=== PATIENT | female | born 1935 | race Caucasian/White ===

== ENCOUNTER 2016-06-08 12:32 | Emergency (ER) | payer MEDICARE, OTHER ==
[~2016-06-08 12:32] MED LIST: ACET65TA OR; ASPI81TA85 PO; ATIV0.5T OR; AVAP300T OR; BISO10TA2 OR; CALC0.5C OR; CALC1CAP31 PO; CALCTAB22 OR; CALCTAB93 PO; CETI1SYP16 PO; COLA100C2 OR; DRIS50002 PO; EFFE150C OR; FERR324T5 OR; FERR325T3 PO; FLON1SPR; GABA-279 PO; HYDR200T3 PO; IRBE150T12 PO; LASI20TA OR; NYSTATIN TOP; OMEP40CA2 PO; PERC5TAB8 OR; PRO; ULOR80TA PO; VICO5TAB OR; VITA100T OR; ZANT150T OR; fish oil OR; plaquenil OR; proair; uloric OR; vitaminD OR
[2016-06-08] MEDS ORDERED: NITROGLYCERIN 0.4 MG SUBL TABLET As Ordered ONE (13:00)
[2016-06-08] MEDS ORDERED: ASPIRIN 81 MG CHEW TABLET As Ordered ONE (13:00)
[2016-06-08 13:16] LABS: BASO % 0.3 % (0.0-1.0); EOS % 0.6 % (0.0-3.0); LARGE UNSTAINED CELL # 0.1 K/mm3 (0.0-0.4); LARGE UNSTAINED CELL % 1.4 % (0.0-4.0); LYMPH # 1.2 K/mm3 (1.5-4.5); LYMPH % 14.1 % (24.0-44.0); MEAN CORPUSCULAR HEMOGLOBIN 30.3 pg (27.0-33.0); MEAN CORPUSCULAR HGB CONC 32.8 g/dl (32.0-36.5); MEAN CORPUSCULAR VOLUME 92.3 fl (80.0-96.0); MONO # 0.4 K/mm3 (0.0-0.8); MONO % 4.9 % (0.0-5.0); NEUTROPHILS # 6.7 K/mm3 (1.8-7.7); NEUTROPHILS % 78.8 % (36.0-66.0); PLATELET COUNT, AUTOMATED 200 k/mm3 (150-450); RED CELL DISTRIBUTION WIDTH 12.2 % (11.5-14.5); WHITE BLOOD COUNT 8.5 K/mm3 (4.0-10.0)
[2016-06-08 13:35] LABS: ANION GAP 11 MEQ/L (8-16); BLOOD UREA NITROGEN 35 MG/DL (7-18); CALCIUM LEVEL 9.5 MG/DL (8.8-10.2); CARBON DIOXIDE LEVEL 26 MEQ/L (21-32); CHLORIDE LEVEL 101 MEQ/L (98-107); CREATININE FOR GFR 1.46 MG/DL (0.55-1.02); GLOMERULAR FILTRATION RATE 36.9 (>39); GLUCOSE, FASTING 224 MG/DL (83-110); POTASSIUM SERUM 3.8 MEQ/L (3.5-5.1); SODIUM LEVEL 138 MEQ/L (136-145)
--- NOTE | 2016-06-08 14:16 | REP ---
Clinical: Chest pain. Technique: PA and lateral. Comparison: 11/01/2015. Findings: Mediastinum and cardiac silhouette are stable. Moderate hiatal hernia is again identified. Lung cole demonstrate left basilar atelectasis. No effusion or pneumothorax. Skeletal structures stable. Impression: Left lower lobe atelectasis. Moderate hiatal hernia. Signed by Chintan Washburn MD 06/08/2016 02:08 P
[2016-06-08] MEDS ORDERED: FUROSEMIDE 40 MG/4 ML VIAL (J1940) As Ordered ONE (14:28)
[2016-06-08 14:39] LABS: INR 1.05
[2016-06-08] MEDS ORDERED: MOXIFLOXACIN 400 MG TAB As Ordered ONE (14:44)
[2016-06-08] MEDS ORDERED: ISOVUE-370 76% 100ML VIAL (Q9967) As Ordered ONE (14:55)
--- NOTE | 2016-06-08 15:24 | ECGEPIP ---
Stationary ECG Study [facility] - ED Test Date: 2016-06-08 Pat Name: QUINCY BARBOSA Department: Room: - Gender: F Private Chef: eris : 1935 Requested By: Luis E Antunez Order Number: [id number] Reading MD: Mary Murrell Measurements Intervals [place] Rate: 80 P: 264 OK: 110 QRS: -1 QRSD: 150 T: 10 QT: 401 QTc: 463 Interpretive Statements JUNCTIONAL RHYTHM RIGHT BUNDLE BRANCH BLOCK INCREASED RATE 11/01/15 Electronically Signed On 06-08-2016 15:23:32 EST by Mary Murrell
--- NOTE | 2016-06-08 15:33 | REP ---
Clinical: Acute chest pain. Technique: Axial contrast enhanced images from the thoracic inlet to the upper abdomen using 100 ml Isovue 370 intravenous contrast material with coronal and sagittal re-formations. Findings: Satisfactory enhancement of the pulmonary vasculature is achieved and no filling defects are identified to suggest pulmonary embolus. Mild basilar atelectasis noted (left greater than right). No pleural effusion/reaction or pneumothorax. Mediastinum demonstrates moderate hiatal hernia. Thoracic aorta demonstrates minimal atherosclerotic changes without aneurysm or dissection. Heart and pericardium are normal. Impression: No evidence for pulmonary embolus. Mild basilar atelectasis (left greater than right). Signed by Chintan Washburn MD 06/08/2016 03:24 P
--- NOTE | 2016-06-08 16:03 | EDDOCDS ---
Nurse's Notes [facility] Name: Yesenia Cheema Age: 80 yrs Sex: Female : 1935 Arrival Date: 06/08/2016 Time: 12:32 Bed TR7 Private MD: Issa Low M.D. Diagnosis: Pneumonia, unspecified organism Presentation: 06/08 12:42 Presenting complaint: Patient states: Chest pain ''on and off'' since last evening. dwg Pain radiates to left shoulder. Takes baby ASA daily. Adult Sepsis Screening: The patient does not have new or worsening altered mentation. Patient's respiratory rate is less than 22. Systolic blood pressure is greater than 100. Patient has a qSOFA score of 0- Negative Sepsis Screen. Suicide/Homicide risk assessment- the patient denies having any suicidal and/or homicidal ideations and does not present with any other emotional, behavioral or mental health complaints. 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 Transition of care: patient was not received from another setting of care. Red Flag criteria, patient assessed and taken directly to a bed. 12:42 Acuity: MARII Level 2 dwg 12:42 Method Of Arrival: Wheelchair dwg Triage Assessment: 12:47 General: Appears in no apparent distress, Behavior is cooperative. Pain: Pain currently dwg is 6 out of 10 on a pain scale. Historical: - Allergies: Allopurinol; Bactrim; PENICILLINS; - Home Meds: 1. aspirin 81 mg Oral chew 1 tab once daily 2. Ativan 0.5 mg Oral tab 1 tab 2 times per day as needed 3. calcitriol 0.25 mcg oral cap 1 cap Saturday thru Saturday 4. Drisdol 50,000 unit Oral cap 1 cap once wkly 5. Effexor XR 150 mg Oral cp24 1 cap once daily 6. ferrous sulfate 325 mg (65 mg iron) Oral TbEC 7. Fish Oil 1,000 mg Oral cap daily 8. gabapentin 100 mg oral cap 3 times per day 9. irbesartan 150 mg oral tab 1 tab once daily 10. Vitamin B-12 1,000 mcg Oral tab daily 11. Uloric 80 mg oral tab 1 tab once daily 12. Lasix 20 mg Oral tab 1 tab once daily 13. ProAir HFA 90 mcg/actuation inhalation HFAA 2 puffs every 4-6 hours as needed 14. hydroxychloroquine 200 mg oral tab 2 times per day - PMHx: Anxiety; CAD; COPD; Gout; Hypertension; PE; Chronic kidney disease; - PSHx: Hysterectomy; Bilateral rotator cuff repair; - Social history: Smoking status: Patient states was never smoker of tobacco. No barriers to communication noted, The patient speaks fluent Burmese. - Family history: Not pertinent. - : The pt / caregiver states he / she is not on anticoagulants. Home medication list is obtained from family members. - Exposure Risk Screening:: None identified. Screenin:16 Screening information is obtained from the patient. Fall risk: At risk due to prior ja5 history of falls. Assistance ADL's: Requires assistance with meal preparation, this assistance is provided by family members, housework, assistance is provided by family members, medication administration, assistance is provided by family members. Abuse/DV Screen: The patient / caregiver reports he/she is: not in a situation that causes fear, pain or injury. Nutritional screening: On no prescribed diet. Advance Directives: Currently, there is no health care proxy. There is no active DNR order. There is no living will. There is no Power of Scarf Gluer. home support is adequate. Assessment: 13:14 General: Appears in no apparent distress, Behavior is appropriate for age, cooperative. ja5 Pain: Location: chest. Neurological: Level of Consciousness is awake, alert, Oriented to person, place, time. Cardiovascular: Capillary refill < 3 seconds Heart tones S1 S2 present Rhythm is atrial fibrillation with no ectopy Chest pain quality is heaviness, radiates to left arm(s) Chest pain began last night at 11pm. Respiratory: Airway is patent Respiratory effort is even, unlabored, Respiratory pattern is regular, symmetrical, Breath sounds are clear in left posterior upper lobe and left posterior lower lobe Breath sounds with wheezes expiratory in right posterior upper lobe, right posterior middle lobe and right posterior lower lobe. GI: Bowel sounds present X 4 quads. Derm: Skin is pink, warm & dry. 14:21 General: Appears in no apparent distress, comfortable, Behavior is cooperative. Pain: bcj Location: right posterior lower lobe and right posterior middle lobe and right posterior upper lobe. Cardiovascular: Rhythm is atrial fibrillation. Derm: Skin is pink, warm & dry. 15:45 Derm: Skin is pink, warm & dry. ead 15:59 General: Appears in no apparent distress, comfortable, Behavior is appropriate for age, ead cooperative. Pain: Denies pain. Neurological: No deficits noted. Respiratory: Airway is patent Respiratory effort is even, unlabored. Vital Signs: 12:34 BP 146 / 76; Pulse 57; Resp 18; Temp 99.1(T); Pulse Ox 92% on R/A; Weight 87.09 kg; dem1 Height 4 ft. 11 in. (149.86 cm); Pain 7/10; 12:57 BP 142 / 63 (auto/); ead 12:57 Pulse 82 MON; Pulse Ox 93% ; ead 13:11 BP 126 / 51; Pain 5/10; ja5 13:12 BP 126 / 51 (auto/); ead 13:12 Pulse 96 MON; Pulse Ox 96% ; ead 13:18 BP 115 / 53 (auto/); ead 13:18 Pulse 98 MON; Pulse Ox 92% ; ead 13:19 BP 115 / 53; Pain 5/10; ja5 13:23 Pulse 108 MON; Pulse Ox 93% ; ead 13:24 BP 108 / 59 (auto/); ead 13:24 Pain 3/10; ja5 13:25 BP 108 / 59; Pain 3/10; ja5 13:27 BP 109 / 51 (auto/); ead 13:37 Pulse 104 MON; Pulse Ox 92% ; ead 15:45 BP 155 / 67; Pulse 83; Resp 20; Temp 99.4; Pulse Ox 96% on R/A; Pain 0/10; ead 12:34 Body Mass Index 38.78 (87.09 kg, 149.86 cm) dem1 Vitals: 12:34 Log In Time: June 08, 2016 at 12:32. RN notified that patient meets Red Flag [facility] criteria. 14:21 Refer to monitor trend for complete vital signs trends. [facility] ED Course: 12:33 Patient visited by Clair Decker. dem1 12:33 Patient moved to Waiting dem1 12:34 Issa Low is Private Physician. dem1 12:38 Evelyne Castro, RN is Primary Nurse. ml6 12:38 Shannan White,RN is Primary Nurse. ml6 12:38 Patient moved to 9 ml6 12:43 EKG done. (by ED staff). Reviewed by Luis E Diaz MD. jrd 12:44 Triage Initiated dwg 12:45 Patient visited by Andrea Reina PCA. jrd 12:45 Kit Hay FNP is [facility]. ke 12:46 Patient visited by Kit Hay FNP. ke 12:46 Patient visited by Kit Hay FNP. ke 13:01 Inserted saline lock: 20 gauge in left antecubital area. ja5 13:10 Patient visited by Kit Hay FNP. ke 13:23 Prothrombin Time Profile\E\INR Sent. ja5 13:23 D-DIMER QUANT Sent. ja5 13:26 [facility] Payment Agreement was scanned into [employer] and attached to record. lg 13:40 Patient visited by Kit Hay FNP. ke 14:04 Patient visited by Kit Hay FNP. ke 14:21 No apparent distress. Resting quietly. awaiting re-evaluation by ER physician. bcj 14:21 The patient / caregiver is instructed regarding the plan of care and ED course. Cardiac bcj monitor on. Pulse ox on. NIBP on. 14:21 IV is intact. bcj 14:26 Patient visited by Rigoberto Lozada RN. bcj 14:27 Chest, 2 View (pa\E\lat) Returned. EDMS 14:46 Patient visited by Floridalma Van,KOURTNEY. ead 15:14 Patient visited by Kit Hay FNP. ke 15:29 Issa Low is Referral Physician. ke 15:57 Patient moved to [facility] ead 15:59 Discontinued lock intact, bleeding controlled, pressure dressing applied, No ead redness/swelling at site. No procedures done that require assistance. Administered Medications: 13:05 Drug: Aspirin 324 mg [aspirin 81 mg chewable tablet (4 tabs)] Route: PO; ja5 13:05 Drug: Nitrostat 0.4 mg [Nitrostat 0.4 mg sublingual tablet (1 tabs)] Route: Sublingual; ja5 13:11 Follow up: BP 126 / 51; Pain 5/10 Adult ja5 13:13 Drug: Nitrostat 0.4 mg [Nitrostat 0.4 mg sublingual tablet (1 tabs)] Route: Sublingual; ja5 13:19 Follow up: BP 115 / 53; Pain 5/10 Adult [facility] 13:20 Drug: Nitrostat 0.4 mg [Nitrostat 0.4 mg sublingual tablet (1 tabs)] Route: Sublingual; ja5 13:24 Follow up: Pain 3/10 Adult 5 13:25 Follow up: BP 108 / 59; Pain 3/10 Adult 5 14:34 Drug: Furosemide 40 mg [furosemide 10 mg/mL injection solution (4 mL)] Route: IVP; ead Site: left antecubital; 14:48 Drug: Moxifloxacin 400 mg [moxifloxacin 400 mg tablet (1 tabs)] Route: PO; ead Order Results: Lab Order: B-Type Natiuretic Peptide; SPEC'M 06/08/16 12:52 Test: BRAIN NATRIURETIC PEPTIDE; Value: 214; Range: <100; Abnormal: Above high normal; Units: PG/ML; Status: F Lab Order: Basic Metabolic Profile; SPEC'M 06/08/16 12:52 Test: GLUCOSE, FASTING; Value: 224; Range: 83-110; Abnormal: Above high normal; Units: MG/DL; Status: F Test: BLOOD UREA NITROGEN; Value: 35; Range: 7-18; Abnormal: Above high normal; Units: MG/DL; Status: F Test: CREATININE FOR GFR; Value: 1.46; Range: 0.55-1.02; Abnormal: Above high normal; Units: MG/DL; Status: F Test: GLOMERULAR FILTRATION RATE; Value: 36.9; Range: >39; Abnormal: Below low normal; Status: F Test: SODIUM LEVEL; Value: 138; Range: 136-145; Units: MEQ/L; Status: F Test: POTASSIUM SERUM; Value: 3.8; Range: 3.5-5.1; Units: MEQ/L; Status: F Test: CHLORIDE LEVEL; Value: 101; Range: 98-107; Units: MEQ/L; Status: F Test: CARBON DIOXIDE LEVEL; Value: 26; Range: 21-32; Units: MEQ/L; Status: F Test: ANION GAP; Value: 11; Range: 8-16; Units: MEQ/L; Status: F Test: CALCIUM LEVEL; Value: 9.5; Range: 8.8-10.2; Units: MG/DL; Status: F Test Note: ; Units are mL/min/1.73 m2 Chronic Kidney Disease Staging per NKF: Stage I & II GFR >=60 Normal to Mildly Decreased Stage III GFR 30-59 Moderately Decreased Stage IV GFR 15-29 Severely Decreased Stage V GFR <15 Very Little GFR Left ESRD GFR <15 on SUPERVISOR QUALITY CONTROL Lab Order: CBC with Diff; SPEC'M 06/08/16 12:52 Test: WHITE BLOOD COUNT; Value: 8.5; Range: 4.0-10.0; Units: K/mm3; Status: F Test: RED BLOOD COUNT; Value: 4.12; Range: 4.00-5.40; Units: M/mm3; Status: F Test: HEMOGLOBIN; Value: 12.5; Range: 12.0-16.0; Units: g/dl; Status: F Test: HEMATOCRIT; Value: 38.0; Range: 36.0-47.0; Units: %; Status: F Test: MEAN CORPUSCULAR VOLUME; Value: 92.3; Range: 80.0-96.0; Units: fl; Status: F Test: MEAN CORPUSCULAR HEMOGLOBIN; Value: 30.3; Range: 27.0-33.0; Units: pg; Status: F Test: MEAN CORPUSCULAR HGB CONC; Value: 32.8; Range: 32.0-36.5; Units: g/dl; Status: F Test: RED CELL DISTRIBUTION WIDTH; Value: 12.2; Range: 11.5-14.5; Units: %; Status: F Test: PLATELET COUNT, AUTOMATED; Value: 200; Range: 150-450; Units: k/mm3; Status: F Test: NEUTROPHILS %; Value: 78.8; Range: 36.0-66.0; Abnormal: Above high normal; Units: %; Status: F Test: LYMPH %; Value: 14.1; Range: 24.0-44.0; Abnormal: Below low normal; Units: %; Status: F Test: MONO %; Value: 4.9; Range: 0.0-5.0; Units: %; Status: F Test: EOS %; Value: 0.6; Range: 0.0-3.0; Units: %; Status: F Test: BASO %; Value: 0.3; Range: 0.0-1.0; Units: %; Status: F Test: LARGE UNSTAINED CELL %; Value: 1.4; Range: 0.0-4.0; Units: %; Status: F Test: NEUTROPHILS #; Value: 6.7; Range: 1.8-7.7; Units: K/mm3; Status: F Test: LYMPH #; Value: 1.2; Range: 1.5-4.5; Abnormal: Below low normal; Units: K/mm3; Status: F Test: MONO #; Value: 0.4; Range: 0.0-0.8; Units: K/mm3; Status: F Test: EOS #; Value: 0.0; Range: 0.0-0.50; Units: K/mm3; Status: F Test: BASO #; Value: 0.0; Range: 0.0-0.2; Units: K/mm3; Status: F Test: LARGE UNSTAINED CELL #; Value: 0.1; Range: 0.0-0.4; Units: K/mm3; Status: F Lab Order: Cardiac Injury Profile; SPEC'M 06/08/16 12:52 Test: CPK CREATINE PHOSPHOKINASE; Value: 97; Range: 26-192; Units: U/L; Status: F Test: CK-MB VALUE MASS; Value: 2.5; Range: 0.0-3.6; Units: NG/ML; Status: F Test: MB/CK RELATIVE INDEX; Value: 2.57; Range: < OR =4; Status: F Test Note: ; DIAGNOSIS CRITERIA MMB ng/ml Relative Index (RI) NON-AMI < or = 5 N/A PACK ZONE > 5 < or = 4 AMI > 5 > 4 Lab Order: Prothrombin Time Profile\E\INR; SPEC'M 06/08/16 14:16 Test: PROTHROMBIN TIME; Value: 13.8; Range: 12.3-14.5; Units: SECONDS; Status: F Test: INR; Value: 1.05; Status: F Test Note: ; THERAPUTIC HUMAN INR VALUES INDICATIONS NORMAL RANGES PROPHYLAXIS/TREATMENT OF: VENOUS THROMBOSIS 2.0-3.0 PULMONARY EMBOLISM 2.0-3.0 PREVENTION OF SYSTEMIC EMBOLISM FROM: TISSUE HEART VALVES 2.0-3.0 ACUTE MYOCARDIAL INFARCTION 2.0-3.0 VALVULAR HEART DISEASE 2.0-3.0 ATRIAL FIBRILLATION 2.0-3.0 MECHANICAL VALVES(HIGH RISK) 2.5-3.5 RECURRENT MYOCARDIAL INFARCTION 2.5-3.5 Lab Order: Troponin; SPEC'M 06/08/16 12:52 Test: TROPONIN I; Value: < 0.02; Range: < 0.10; Units: NG/ML; Status: F Test Note: ; Troponin I Reference Interval for Siemens gantto LOCI: 99th Percentile= 0.00-0.045 ng/ml Risk Stratification: <= 0.10 ng/ml Decreased Risk for Adverse Clinical Events. 0.10-1.50 ng/ml Increased Risk for Adverse Clinical Events. Evaluation of additional criterion and/or repeat testing in 2-6 hours is suggested to rule out myocardial damage. >= 1.50 ng/ml Indicative of Myocardial Injury. Lab Order: D-DIMER QUANT; SPEC'M 06/08/16 14:16 Test: D-DIMER QUANT; Value: 1307.6; Range: <500; Abnormal: Above high normal; Units: ng/ml; Status: F Radiology Order: Chest, 2 View (pa\E\lat) Test: Chest, 2 View (pa\E\lat) REASON FOR EXAMINATION: Chest Pain; Clinical: Chest pain.; ; Technique: PA and lateral.; ; Comparison: 11/01/2015.; ; Findings:; Mediastinum and cardiac silhouette are stable. Moderate hiatal hernia is again; identified. Lung cole demonstrate left basilar atelectasis. No effusion or; pneumothorax. Skeletal structures stable.; ; Impression:; Left lower lobe atelectasis.; Moderate hiatal hernia.; ; ; Signed by; Chintan Washburn MD 06/08/2016 02:08 P; Outcome: 15:30 Discharge ordered by Provider. sara 15:45 Discharge Assessment: Patient awake and alert. obeys commands, patient administered ead narcotics - no. The following High Risk Discharge criteria are identified: None. Discharged to home via wheelchair, with family. Condition: improved. Discharge instructions given to patient, Instructed on discharge instructions, follow up and referral plans. Demonstrated understanding of instructions, medications, Pt was receptive of discharge instructions/ teaching. Prescriptions given X 2. Discharge instructions given to family. CT Study completed. Property sent home with patient. 16:01 Patient left the ED. ead Signatures: Dispatcher [employer] EDEligio Stafford, RN RN Rigoberto Pierce, RN RN Trish Bentley, Reg Reg lg Kit Hay, CREATIVE ASSISTANT CREATIVE ASSISTANT Alfonso Menon, RN RN ml6 Clair Decker dem1 Floridalma VanRN RN Andrea Schwartz PCA CONSULTING INTERN Shannan Henriquez,RN RN ja5 Corrections: (The following items were deleted from the chart) 12:35 12:34 BP 146 / 76; Pulse 90bpm; Resp 18bpm; Temp 99.1F Tympanic; 87.09 kg; Height 4 ft. dem1 11 in.; BMI: 38.7; Pain 7/10; dem1 MTDD
--- NOTE | 2016-06-08 16:03 | EDDOCDS ---
Physician Documentation [facility] Name: Yesenia Cheema Age: 80 yrs Sex: Female : 1935 Arrival Date: 06/08/2016 Time: 12:32 Bed TR7 Private MD: Issa Low M.D. Disposition: 06/08/16 15:30 Discharged to Home/Self Care. Impression: Pneumonia, unspecified organism. - Condition is Stable. - Discharge Instructions: Pneumonia, Adult. - Prescriptions for Moxifloxacin 400 mg Oral Tablet - take 1 tablet by ORAL route once daily; 10 tablet. Albuterol Sulfate 90 mcg/actuation Inhalation HFA Aerosol Inhaler - inhale 2 puff by INHALATION route every 4 hours As needed; 1 Inhaler. - Medication Reconciliation, Local Pharmacy Hours form. - Follow up: Issa Low; When: 4 - 5 days; Reason: Recheck today's complaints, Continuance of care. - Problem is an ongoing problem. - Symptoms are unchanged. Historical: - Allergies: Allopurinol; Bactrim; PENICILLINS; - Home Meds: 1. aspirin 81 mg Oral chew 1 tab once daily 2. Ativan 0.5 mg Oral tab 1 tab 2 times per day as needed 3. calcitriol 0.25 mcg oral cap 1 cap Saturday thru Saturday 4. Drisdol 50,000 unit Oral cap 1 cap once wkly 5. Effexor XR 150 mg Oral cp24 1 cap once daily 6. ferrous sulfate 325 mg (65 mg iron) Oral TbEC 7. Fish Oil 1,000 mg Oral cap daily 8. gabapentin 100 mg oral cap 3 times per day 9. irbesartan 150 mg oral tab 1 tab once daily 10. Vitamin B-12 1,000 mcg Oral tab daily 11. Uloric 80 mg oral tab 1 tab once daily 12. Lasix 20 mg Oral tab 1 tab once daily 13. ProAir HFA 90 mcg/actuation inhalation HFAA 2 puffs every 4-6 hours as needed 14. hydroxychloroquine 200 mg oral tab 2 times per day - PMHx: Anxiety; CAD; COPD; Gout; Hypertension; PE; Chronic kidney disease; - PSHx: Hysterectomy; Bilateral rotator cuff repair; - Social history: Smoking status: Patient states was never smoker of tobacco. No barriers to communication noted, The patient speaks fluent Pashto. - Family history: Not pertinent. - : The pt / caregiver states he / she is not on anticoagulants. Home medication list is obtained from family members. - Exposure Risk Screening:: None identified. Vital Signs: 06/08 12:34 BP 146 / 76; Pulse 57; Resp 18; Temp 99.1(T); Pulse Ox 92% on R/A; Weight 87.09 kg / dem1 192 lbs; Height 4 ft. 11 in. (149.86 cm); Pain 7/10; 12:57 BP 142 / 63 (auto/); ead 12:57 Pulse 82 MON; Pulse Ox 93% ; ead 13:11 BP 126 / 51; Pain 5/10; ja5 13:12 BP 126 / 51 (auto/); ead 13:12 Pulse 96 MON; Pulse Ox 96% ; ead 13:18 BP 115 / 53 (auto/); ead 13:18 Pulse 98 MON; Pulse Ox 92% ; ead 13:19 BP 115 / 53; Pain 5/10; ja5 13:23 Pulse 108 MON; Pulse Ox 93% ; ead 13:24 BP 108 / 59 (auto/); ead 13:24 Pain 3/10; ja5 13:25 BP 108 / 59; Pain 3/10; ja5 13:27 BP 109 / 51 (auto/); ead 13:37 Pulse 104 MON; Pulse Ox 92% ; ead 15:45 BP 155 / 67; Pulse 83; Resp 20; Temp 99.4; Pulse Ox 96% on R/A; Pain 0/10; ead 12:34 Body Mass Index 38.78 (87.09 kg, 149.86 cm) dem1 MDM: 12:37 ECG WITH READING ER PHYS+CARDIAG ordered. EDMS 12:49 Aspirin Chewable Tablet 324 mg PO once ordered. ke 12:49 Nitrostat 0.4 mg Sublingual every 5 minutes; hold if SBP<90mmHg.Document Pain Score ke Response to Each Dose x3 ordered. 12:49 Geospatial Developer/Pulse Ox/q 30 min VS ordered. ke 12:49 IV Saline Lock ordered. ke 12:49 Rhythm Strip to chart ordered. ke 12:49 Undress patient appropriately for examination ordered. ke 12:50 B-Type Natiuretic Peptide Ordered. EDMS 12:50 Basic Metabolic Profile Ordered. EDMS 12:50 CBC with Diff Ordered. EDMS 12:50 Cardiac Injury Profile Ordered. EDMS 12:50 Prothrombin Time Profile\E\INR Ordered. EDMS 12:50 Troponin Ordered. EDMS 12:51 Chest, 2 View (pa\E\lat) Ordered. EDMS 13:02 D-DIMER QUANT Ordered. EDMS 13:21 Financial registration complete. lg 13:26 [facility] [place] was scanned into [employer] and attached to record. lg 13:51 B-Type Natiuretic Peptide Reviewed. ke 13:51 Basic Metabolic Profile Reviewed. ke 13:51 CBC with Diff Reviewed. ke 13:51 Cardiac Injury Profile Reviewed. ke 13:51 Troponin Reviewed. ke 14:25 Furosemide 40 mg IVP once ordered. ke 14:38 Chest, 2 View (pa\E\lat) Reviewed. ke 14:38 Moxifloxacin 400 mg PO once ordered. ke 14:42 Prothrombin Time Profile\E\INR Reviewed. ke 14:42 D-DIMER QUANT Reviewed. ke 14:45 D-DIMER QUANT Reviewed. ke 14:45 Prothrombin Time Profile\E\INR Reviewed. ke 14:46 CT Chest Angio R/O PE Ordered. EDMS Administered Medications: 13:05 Drug: Aspirin 324 mg [aspirin 81 mg chewable tablet (4 tabs)] Route: PO; ja5 13:05 Drug: Nitrostat 0.4 mg [Nitrostat 0.4 mg sublingual tablet (1 tabs)] Route: Sublingual; ja5 13:11 Follow up: BP 126 / 51; Pain 5/10 Adult ja5 13:13 Drug: Nitrostat 0.4 mg [Nitrostat 0.4 mg sublingual tablet (1 tabs)] Route: Sublingual; ja5 13:19 Follow up: BP 115 / 53; Pain 5/10 Adult ja5 13:20 Drug: Nitrostat 0.4 mg [Nitrostat 0.4 mg sublingual tablet (1 tabs)] Route: Sublingual; ja5 13:24 Follow up: Pain 3/10 Adult ja5 13:25 Follow up: BP 108 / 59; Pain 3/10 Adult ja5 14:34 Drug: Furosemide 40 mg [furosemide 10 mg/mL injection solution (4 mL)] Route: IVP; ead Site: left antecubital; 14:48 Drug: Moxifloxacin 400 mg [moxifloxacin 400 mg tablet (1 tabs)] Route: PO; ead Signatures: Dispatcher [employer] EDEligio Stafford RN Rigoberto Choi RN RN Trish Bentley, Reg Reg lg Kit Hay, BATH ATTENDANT BATH ATTENDANT Floridalma GoldRN RN Shannan Reyes RN ja5 The chart was reviewed and I authenticate all verbal orders and agree with the evaluation and treatment provided.Corrections: (The following items were deleted from the chart) 13:02 12:56 D-DIMER QUANT+LAB ordered. EDMS EDMS Attachments: 13:26 [facility] [place] lg MTDD
--- NOTE | 2016-06-10 17:02 | EDDOCDS ---
Physician Documentation [facility] Name: Yesenia Cheema Age: 80 yrs Sex: Female : 1935 Arrival Date: 06/08/2016 Time: 12:32 Bed TR7 Private MD: Issa Low M.D. Disposition: 06/08/16 15:30 Discharged to Home/Self Care. Impression: Pneumonia, unspecified organism. - Condition is Stable. - Discharge Instructions: Pneumonia, Adult. - Prescriptions for Moxifloxacin 400 mg Oral Tablet - take 1 tablet by ORAL route once daily; 10 tablet. Albuterol Sulfate 90 mcg/actuation Inhalation HFA Aerosol Inhaler - inhale 2 puff by INHALATION route every 4 hours As needed; 1 Inhaler. - Medication Reconciliation, Local Pharmacy Hours form. - Follow up: Issa Low; When: 4 - 5 days; Reason: Recheck today's complaints, Continuance of care. - Problem is an ongoing problem. - Symptoms are unchanged. Historical: - Allergies: Allopurinol; Bactrim; PENICILLINS; - Home Meds: 1. aspirin 81 mg Oral chew 1 tab once daily 2. Ativan 0.5 mg Oral tab 1 tab 2 times per day as needed 3. calcitriol 0.25 mcg oral cap 1 cap Saturday thru Saturday 4. Drisdol 50,000 unit Oral cap 1 cap once wkly 5. Effexor XR 150 mg Oral cp24 1 cap once daily 6. ferrous sulfate 325 mg (65 mg iron) Oral TbEC 7. Fish Oil 1,000 mg Oral cap daily 8. gabapentin 100 mg oral cap 3 times per day 9. irbesartan 150 mg oral tab 1 tab once daily 10. Vitamin B-12 1,000 mcg Oral tab daily 11. Uloric 80 mg oral tab 1 tab once daily 12. Lasix 20 mg Oral tab 1 tab once daily 13. ProAir HFA 90 mcg/actuation inhalation HFAA 2 puffs every 4-6 hours as needed 14. hydroxychloroquine 200 mg oral tab 2 times per day - PMHx: Anxiety; CAD; COPD; Gout; Hypertension; PE; Chronic kidney disease; - PSHx: Hysterectomy; Bilateral rotator cuff repair; - Social history: Smoking status: Patient states was never smoker of tobacco. No barriers to communication noted, The patient speaks fluent Swedish. - Family history: Not pertinent. - : The pt / caregiver states he / she is not on anticoagulants. Home medication list is obtained from family members. - Exposure Risk Screening:: None identified. Vital Signs: 06/08 12:34 BP 146 / 76; Pulse 57; Resp 18; Temp 99.1(T); Pulse Ox 92% on R/A; Weight 87.09 kg / dem1 192 lbs; Height 4 ft. 11 in. (149.86 cm); Pain 7/10; 12:57 BP 142 / 63 (auto/); ead 12:57 Pulse 82 MON; Pulse Ox 93% ; ead 13:11 BP 126 / 51; Pain 5/10; ja5 13:12 BP 126 / 51 (auto/); ead 13:12 Pulse 96 MON; Pulse Ox 96% ; ead 13:18 BP 115 / 53 (auto/); ead 13:18 Pulse 98 MON; Pulse Ox 92% ; ead 13:19 BP 115 / 53; Pain 5/10; ja5 13:23 Pulse 108 MON; Pulse Ox 93% ; ead 13:24 BP 108 / 59 (auto/); ead 13:24 Pain 3/10; ja5 13:25 BP 108 / 59; Pain 3/10; ja5 13:27 BP 109 / 51 (auto/); ead 13:37 Pulse 104 MON; Pulse Ox 92% ; ead 15:45 BP 155 / 67; Pulse 83; Resp 20; Temp 99.4; Pulse Ox 96% on R/A; Pain 0/10; ead 12:34 Body Mass Index 38.78 (87.09 kg, 149.86 cm) dem1 MDM: 12:37 ECG WITH READING ER PHYS+CARDIAG ordered. EDMS 12:49 Aspirin Chewable Tablet 324 mg PO once ordered. ke 12:49 Nitrostat 0.4 mg Sublingual every 5 minutes; hold if SBP<90mmHg.Document Pain Score ke Response to Each Dose x3 ordered. 12:49 Drop Crew Laborer/Pulse Ox/q 30 min VS ordered. ke 12:49 IV Saline Lock ordered. ke 12:49 Rhythm Strip to chart ordered. ke 12:49 Undress patient appropriately for examination ordered. ke 12:50 B-Type Natiuretic Peptide Ordered. EDMS 12:50 Basic Metabolic Profile Ordered. EDMS 12:50 CBC with Diff Ordered. EDMS 12:50 Cardiac Injury Profile Ordered. EDMS 12:50 Prothrombin Time Profile\E\INR Ordered. EDMS 12:50 Troponin Ordered. EDMS 12:51 Chest, 2 View (pa\E\lat) Ordered. EDMS 13:02 D-DIMER QUANT Ordered. EDMS 13:21 Financial registration complete. lg 13:26 [facility] Payment Agreement was scanned into [employer] and attached to record. lg 13:51 B-Type Natiuretic Peptide Reviewed. ke 13:51 Basic Metabolic Profile Reviewed. ke 13:51 CBC with Diff Reviewed. ke 13:51 Cardiac Injury Profile Reviewed. ke 13:51 Troponin Reviewed. ke 14:25 Furosemide 40 mg IVP once ordered. ke 14:38 Chest, 2 View (pa\E\lat) Reviewed. ke 14:38 Moxifloxacin 400 mg PO once ordered. ke 14:42 Prothrombin Time Profile\E\INR Reviewed. ke 14:42 D-DIMER QUANT Reviewed. ke 14:45 D-DIMER QUANT Reviewed. ke 14:45 Prothrombin Time Profile\E\INR Reviewed. ke 14:46 CT Chest Angio R/O PE Ordered. EDMS 21:02 T-Sheet-- Draft Copy was scanned into [employer] and attached to record. klr Administered Medications: 13:05 Drug: Aspirin 324 mg [aspirin 81 mg chewable tablet (4 tabs)] Route: PO; ja5 13:05 Drug: Nitrostat 0.4 mg [Nitrostat 0.4 mg sublingual tablet (1 tabs)] Route: Sublingual; ja5 13:11 Follow up: BP 126 / 51; Pain 5/10 Adult ja5 13:13 Drug: Nitrostat 0.4 mg [Nitrostat 0.4 mg sublingual tablet (1 tabs)] Route: Sublingual; ja5 13:19 Follow up: BP 115 / 53; Pain 5/10 Adult ja5 13:20 Drug: Nitrostat 0.4 mg [Nitrostat 0.4 mg sublingual tablet (1 tabs)] Route: Sublingual; ja5 13:24 Follow up: Pain 3/10 Adult ja5 13:25 Follow up: BP 108 / 59; Pain 3/10 Adult ja5 14:34 Drug: Furosemide 40 mg [furosemide 10 mg/mL injection solution (4 mL)] Route: IVP; ead Site: left antecubital; 14:48 Drug: Moxifloxacin 400 mg [moxifloxacin 400 mg tablet (1 tabs)] Route: PO; ead Signatures: Dispatcher [employer] EDEligio Stafford RN RN dwg Johnson, Bruce RN RN Trish Bentley, Reg Reg lg Kit Hay, Floridalma Alonso RN RN ead Redder, Kathie klr Anderson, Jessica RN ja5 The chart was reviewed and I authenticate all verbal orders and agree with the evaluation and treatment provided.Corrections: (The following items were deleted from the chart) 13:02 12:56 D-DIMER QUANT+LAB ordered. EDMS EDMS Attachments: 13:26 [facility] Payment Agreement lg 21:02 T-Sheet-- Draft Copy klrafal Chart Complete MTDD
--- NOTE | 2016-06-10 17:02 | EDDOCDS ---
Physician Documentation [facility] Name: Yesenia Cheema Age: 80 yrs Sex: Female : 1935 Arrival Date: 06/08/2016 Time: 12:32 Bed TR7 Private MD: Issa Low M.D. Disposition: 06/08/16 15:30 Discharged to Home/Self Care. Impression: Pneumonia, unspecified organism. - Condition is Stable. - Discharge Instructions: Pneumonia, Adult. - Prescriptions for Moxifloxacin 400 mg Oral Tablet - take 1 tablet by ORAL route once daily; 10 tablet. Albuterol Sulfate 90 mcg/actuation Inhalation HFA Aerosol Inhaler - inhale 2 puff by INHALATION route every 4 hours As needed; 1 Inhaler. - Medication Reconciliation, Local Pharmacy Hours form. - Follow up: Issa Low; When: 4 - 5 days; Reason: Recheck today's complaints, Continuance of care. - Problem is an ongoing problem. - Symptoms are unchanged. Historical: - Allergies: Allopurinol; Bactrim; PENICILLINS; - Home Meds: 1. aspirin 81 mg Oral chew 1 tab once daily 2. Ativan 0.5 mg Oral tab 1 tab 2 times per day as needed 3. calcitriol 0.25 mcg oral cap 1 cap Saturday thru Saturday 4. Drisdol 50,000 unit Oral cap 1 cap once wkly 5. Effexor XR 150 mg Oral cp24 1 cap once daily 6. ferrous sulfate 325 mg (65 mg iron) Oral TbEC 7. Fish Oil 1,000 mg Oral cap daily 8. gabapentin 100 mg oral cap 3 times per day 9. irbesartan 150 mg oral tab 1 tab once daily 10. Vitamin B-12 1,000 mcg Oral tab daily 11. Uloric 80 mg oral tab 1 tab once daily 12. Lasix 20 mg Oral tab 1 tab once daily 13. ProAir HFA 90 mcg/actuation inhalation HFAA 2 puffs every 4-6 hours as needed 14. hydroxychloroquine 200 mg oral tab 2 times per day - PMHx: Anxiety; CAD; COPD; Gout; Hypertension; PE; Chronic kidney disease; - PSHx: Hysterectomy; Bilateral rotator cuff repair; - Social history: Smoking status: Patient states was never smoker of tobacco. No barriers to communication noted, The patient speaks fluent Armenian. - Family history: Not pertinent. - : The pt / caregiver states he / she is not on anticoagulants. Home medication list is obtained from family members. - Exposure Risk Screening:: None identified. Vital Signs: 06/08 12:34 BP 146 / 76; Pulse 57; Resp 18; Temp 99.1(T); Pulse Ox 92% on R/A; Weight 87.09 kg / dem1 192 lbs; Height 4 ft. 11 in. (149.86 cm); Pain 7/10; 12:57 BP 142 / 63 (auto/); ead 12:57 Pulse 82 MON; Pulse Ox 93% ; ead 13:11 BP 126 / 51; Pain 5/10; ja5 13:12 BP 126 / 51 (auto/); ead 13:12 Pulse 96 MON; Pulse Ox 96% ; ead 13:18 BP 115 / 53 (auto/); ead 13:18 Pulse 98 MON; Pulse Ox 92% ; ead 13:19 BP 115 / 53; Pain 5/10; ja5 13:23 Pulse 108 MON; Pulse Ox 93% ; ead 13:24 BP 108 / 59 (auto/); ead 13:24 Pain 3/10; ja5 13:25 BP 108 / 59; Pain 3/10; ja5 13:27 BP 109 / 51 (auto/); ead 13:37 Pulse 104 MON; Pulse Ox 92% ; ead 15:45 BP 155 / 67; Pulse 83; Resp 20; Temp 99.4; Pulse Ox 96% on R/A; Pain 0/10; ead 12:34 Body Mass Index 38.78 (87.09 kg, 149.86 cm) dem1 MDM: 12:37 ECG WITH READING ER PHYS+CARDIAG ordered. EDMS 12:49 Aspirin Chewable Tablet 324 mg PO once ordered. ke 12:49 Nitrostat 0.4 mg Sublingual every 5 minutes; hold if SBP<90mmHg.Document Pain Score ke Response to Each Dose x3 ordered. 12:49 Pharmacy Technician Infusion/Pulse Ox/q 30 min VS ordered. ke 12:49 IV Saline Lock ordered. ke 12:49 Rhythm Strip to chart ordered. ke 12:49 Undress patient appropriately for examination ordered. ke 12:50 B-Type Natiuretic Peptide Ordered. EDMS 12:50 Basic Metabolic Profile Ordered. EDMS 12:50 CBC with Diff Ordered. EDMS 12:50 Cardiac Injury Profile Ordered. EDMS 12:50 Prothrombin Time Profile\E\INR Ordered. EDMS 12:50 Troponin Ordered. EDMS 12:51 Chest, 2 View (pa\E\lat) Ordered. EDMS 13:02 D-DIMER QUANT Ordered. EDMS 13:21 Financial registration complete. lg 13:26 [facility] Payment Agreement was scanned into [employer] and attached to record. lg 13:51 B-Type Natiuretic Peptide Reviewed. ke 13:51 Basic Metabolic Profile Reviewed. ke 13:51 CBC with Diff Reviewed. ke 13:51 Cardiac Injury Profile Reviewed. ke 13:51 Troponin Reviewed. ke 14:25 Furosemide 40 mg IVP once ordered. ke 14:38 Chest, 2 View (pa\E\lat) Reviewed. ke 14:38 Moxifloxacin 400 mg PO once ordered. ke 14:42 Prothrombin Time Profile\E\INR Reviewed. ke 14:42 D-DIMER QUANT Reviewed. ke 14:45 D-DIMER QUANT Reviewed. ke 14:45 Prothrombin Time Profile\E\INR Reviewed. ke 14:46 CT Chest Angio R/O PE Ordered. EDMS 21:02 T-Sheet-- Draft Copy was scanned into [employer] and attached to record. klr Administered Medications: 13:05 Drug: Aspirin 324 mg [aspirin 81 mg chewable tablet (4 tabs)] Route: PO; ja5 13:05 Drug: Nitrostat 0.4 mg [Nitrostat 0.4 mg sublingual tablet (1 tabs)] Route: Sublingual; ja5 13:11 Follow up: BP 126 / 51; Pain 5/10 Adult ja5 13:13 Drug: Nitrostat 0.4 mg [Nitrostat 0.4 mg sublingual tablet (1 tabs)] Route: Sublingual; ja5 13:19 Follow up: BP 115 / 53; Pain 5/10 Adult ja5 13:20 Drug: Nitrostat 0.4 mg [Nitrostat 0.4 mg sublingual tablet (1 tabs)] Route: Sublingual; ja5 13:24 Follow up: Pain 3/10 Adult ja5 13:25 Follow up: BP 108 / 59; Pain 3/10 Adult ja5 14:34 Drug: Furosemide 40 mg [furosemide 10 mg/mL injection solution (4 mL)] Route: IVP; ead Site: left antecubital; 14:48 Drug: Moxifloxacin 400 mg [moxifloxacin 400 mg tablet (1 tabs)] Route: PO; ead Signatures: Dispatcher [employer] EDEligio Stafford RN RN dwg Johnson, Bruce RN RN Trish Bentley, Reg Reg lg Kit Hay, Floridalma Alonso RN RN ead Redder, Kathie klr Anderson, Jessica RN ja5 The chart was reviewed and I authenticate all verbal orders and agree with the evaluation and treatment provided.Corrections: (The following items were deleted from the chart) 13:02 12:56 D-DIMER QUANT+LAB ordered. EDMS EDMS Attachments: 13:26 [facility] Payment Agreement lg 21:02 T-Sheet-- Draft Copy klrafal Chart Complete MTDD
--- NOTE | 2016-06-10 17:03 | EDDOCDS ---
Nurse's Notes [facility] Name: Quincy Barbosa Age: 80 yrs Sex: Female : 1935 Arrival Date: 06/08/2016 Time: 12:32 Bed TR7 Private MD: Issa Low M.D. Diagnosis: Pneumonia, unspecified organism Presentation: 06/08 12:42 Presenting complaint: Patient states: Chest pain ''on and off'' since last evening. dwg Pain radiates to left shoulder. Takes baby ASA daily. Adult Sepsis Screening: The patient does not have new or worsening altered mentation. Patient's respiratory rate is less than 22. Systolic blood pressure is greater than 100. Patient has a qSOFA score of 0- Negative Sepsis Screen. Suicide/Homicide risk assessment- the patient denies having any suicidal and/or homicidal ideations and does not present with any other emotional, behavioral or mental health complaints. 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 Transition of care: patient was not received from another setting of care. Red Flag criteria, patient assessed and taken directly to a bed. 12:42 Acuity: MARII Level 2 dwg 12:42 Method Of Arrival: Wheelchair dwg Triage Assessment: 12:47 General: Appears in no apparent distress, Behavior is cooperative. Pain: Pain currently dwg is 6 out of 10 on a pain scale. Historical: - Allergies: Allopurinol; Bactrim; PENICILLINS; - Home Meds: 1. aspirin 81 mg Oral chew 1 tab once daily 2. Ativan 0.5 mg Oral tab 1 tab 2 times per day as needed 3. calcitriol 0.25 mcg oral cap 1 cap Saturday thru Saturday 4. Drisdol 50,000 unit Oral cap 1 cap once wkly 5. Effexor XR 150 mg Oral cp24 1 cap once daily 6. ferrous sulfate 325 mg (65 mg iron) Oral TbEC 7. Fish Oil 1,000 mg Oral cap daily 8. gabapentin 100 mg oral cap 3 times per day 9. irbesartan 150 mg oral tab 1 tab once daily 10. Vitamin B-12 1,000 mcg Oral tab daily 11. Uloric 80 mg oral tab 1 tab once daily 12. Lasix 20 mg Oral tab 1 tab once daily 13. ProAir HFA 90 mcg/actuation inhalation HFAA 2 puffs every 4-6 hours as needed 14. hydroxychloroquine 200 mg oral tab 2 times per day - PMHx: Anxiety; CAD; COPD; Gout; Hypertension; PE; Chronic kidney disease; - PSHx: Hysterectomy; Bilateral rotator cuff repair; - Social history: Smoking status: Patient states was never smoker of tobacco. No barriers to communication noted, The patient speaks fluent Swiss. - Family history: Not pertinent. - : The pt / caregiver states he / she is not on anticoagulants. Home medication list is obtained from family members. - Exposure Risk Screening:: None identified. Screenin:16 Screening information is obtained from the patient. Fall risk: At risk due to prior ja5 history of falls. Assistance ADL's: Requires assistance with meal preparation, this assistance is provided by family members, housework, assistance is provided by family members, medication administration, assistance is provided by family members. Abuse/DV Screen: The patient / caregiver reports he/she is: not in a situation that causes fear, pain or injury. Nutritional screening: On no prescribed diet. Advance Directives: Currently, there is no health care proxy. There is no active DNR order. There is no living will. There is no Power of Interactive Graphic Designer. home support is adequate. Assessment: 13:14 General: Appears in no apparent distress, Behavior is appropriate for age, cooperative. ja5 Pain: Location: chest. Neurological: Level of Consciousness is awake, alert, Oriented to person, place, time. Cardiovascular: Capillary refill < 3 seconds Heart tones S1 S2 present Rhythm is atrial fibrillation with no ectopy Chest pain quality is heaviness, radiates to left arm(s) Chest pain began last night at 11pm. Respiratory: Airway is patent Respiratory effort is even, unlabored, Respiratory pattern is regular, symmetrical, Breath sounds are clear in left posterior upper lobe and left posterior lower lobe Breath sounds with wheezes expiratory in right posterior upper lobe, right posterior middle lobe and right posterior lower lobe. GI: Bowel sounds present X 4 quads. Derm: Skin is pink, warm & dry. 14:21 General: Appears in no apparent distress, comfortable, Behavior is cooperative. Pain: bcj Location: right posterior lower lobe and right posterior middle lobe and right posterior upper lobe. Cardiovascular: Rhythm is atrial fibrillation. Derm: Skin is pink, warm & dry. 15:45 Derm: Skin is pink, warm & dry. ead 15:59 General: Appears in no apparent distress, comfortable, Behavior is appropriate for age, ead cooperative. Pain: Denies pain. Neurological: No deficits noted. Respiratory: Airway is patent Respiratory effort is even, unlabored. Vital Signs: 12:34 BP 146 / 76; Pulse 57; Resp 18; Temp 99.1(T); Pulse Ox 92% on R/A; Weight 87.09 kg; dem1 Height 4 ft. 11 in. (149.86 cm); Pain 7/10; 12:57 BP 142 / 63 (auto/); ead 12:57 Pulse 82 MON; Pulse Ox 93% ; ead 13:11 BP 126 / 51; Pain 5/10; ja5 13:12 BP 126 / 51 (auto/); ead 13:12 Pulse 96 MON; Pulse Ox 96% ; ead 13:18 BP 115 / 53 (auto/); ead 13:18 Pulse 98 MON; Pulse Ox 92% ; ead 13:19 BP 115 / 53; Pain 5/10; ja5 13:23 Pulse 108 MON; Pulse Ox 93% ; ead 13:24 BP 108 / 59 (auto/); ead 13:24 Pain 3/10; ja5 13:25 BP 108 / 59; Pain 3/10; ja5 13:27 BP 109 / 51 (auto/); ead 13:37 Pulse 104 MON; Pulse Ox 92% ; ead 15:45 BP 155 / 67; Pulse 83; Resp 20; Temp 99.4; Pulse Ox 96% on R/A; Pain 0/10; ead 12:34 Body Mass Index 38.78 (87.09 kg, 149.86 cm) dem1 Vitals: 12:34 Log In Time: June 08, 2016 at 12:32. RN notified that patient meets Red Flag [facility] criteria. 14:21 Refer to monitor trend for complete vital signs trends. [facility] ED Course: 12:33 Patient visited by Clair Decker. dem1 12:33 Patient moved to Waiting dem1 12:34 Issa Low is Private Physician. dem1 12:38 Evelyne Castro, RN is Primary Nurse. ml6 12:38 Shannan White,RN is Primary Nurse. ml6 12:38 Patient moved to 9 ml6 12:43 EKG done. (by ED staff). Reviewed by Luis E Diaz MD. jrd 12:44 Triage Initiated dwg 12:45 Patient visited by Andrea Reina PCA. jrd 12:45 Kit Hay FNP is [facility]. ke 12:46 Patient visited by Kit Hay FNP. ke 12:46 Patient visited by Kit Hay FNP. ke 13:01 Inserted saline lock: 20 gauge in left antecubital area. ja5 13:10 Patient visited by Kit Hay FNP. ke 13:23 Prothrombin Time Profile\E\INR Sent. ja5 13:23 D-DIMER QUANT Sent. ja5 13:26 [facility] Payment Agreement was scanned into [employer] and attached to record. lg 13:40 Patient visited by Kit Hay FNP. ke 14:04 Patient visited by Kit Hay FNP. ke 14:21 No apparent distress. Resting quietly. awaiting re-evaluation by ER physician. bcj 14:21 The patient / caregiver is instructed regarding the plan of care and ED course. Cardiac bcj monitor on. Pulse ox on. NIBP on. 14:21 IV is intact. bcj 14:26 Patient visited by Rigoberto Lozada RN. bcj 14:27 Chest, 2 View (pa\E\lat) Returned. EDMS 14:46 Patient visited by Floridalma Van,KOURTNEY. ead 15:14 Patient visited by Kit Hay FNP. ke 15:29 Issa Low is Referral Physician. ke 15:57 Patient moved to [facility] ead 15:59 Discontinued lock intact, bleeding controlled, pressure dressing applied, No ead redness/swelling at site. No procedures done that require assistance. 16:07 EKG-ADULT Returned. EDMS 16:12 CT Chest Angio R/O PE Returned. EDMS 21:02 T-Sheet-- Draft Copy was scanned into [employer] and attached to record. klr Administered Medications: 13:05 Drug: Aspirin 324 mg [aspirin 81 mg chewable tablet (4 tabs)] Route: PO; ja5 13:05 Drug: Nitrostat 0.4 mg [Nitrostat 0.4 mg sublingual tablet (1 tabs)] Route: Sublingual; ja5 13:11 Follow up: BP 126 / 51; Pain 5/10 Adult [facility] 13:13 Drug: Nitrostat 0.4 mg [Nitrostat 0.4 mg sublingual tablet (1 tabs)] Route: Sublingual; [facility] 13:19 Follow up: BP 115 / 53; Pain 5/10 Adult 5 13:20 Drug: Nitrostat 0.4 mg [Nitrostat 0.4 mg sublingual tablet (1 tabs)] Route: Sublingual; [facility] 13:24 Follow up: Pain 3/10 Adult [facility] 13:25 Follow up: BP 108 / 59; Pain 3/10 Adult 5 14:34 Drug: Furosemide 40 mg [furosemide 10 mg/mL injection solution (4 mL)] Route: IVP; ead Site: left antecubital; 14:48 Drug: Moxifloxacin 400 mg [moxifloxacin 400 mg tablet (1 tabs)] Route: PO; ead Order Results: Lab Order: B-Type Natiuretic Peptide; SPEC'M 06/08/16 12:52 Test: BRAIN NATRIURETIC PEPTIDE; Value: 214; Range: <100; Abnormal: Above high normal; Units: PG/ML; Status: F Lab Order: Basic Metabolic Profile; SPEC'M 06/08/16 12:52 Test: GLUCOSE, FASTING; Value: 224; Range: 83-110; Abnormal: Above high normal; Units: MG/DL; Status: F Test: BLOOD UREA NITROGEN; Value: 35; Range: 7-18; Abnormal: Above high normal; Units: MG/DL; Status: F Test: CREATININE FOR GFR; Value: 1.46; Range: 0.55-1.02; Abnormal: Above high normal; Units: MG/DL; Status: F Test: GLOMERULAR FILTRATION RATE; Value: 36.9; Range: >39; Abnormal: Below low normal; Status: F Test: SODIUM LEVEL; Value: 138; Range: 136-145; Units: MEQ/L; Status: F Test: POTASSIUM SERUM; Value: 3.8; Range: 3.5-5.1; Units: MEQ/L; Status: F Test: CHLORIDE LEVEL; Value: 101; Range: 98-107; Units: MEQ/L; Status: F Test: CARBON DIOXIDE LEVEL; Value: 26; Range: 21-32; Units: MEQ/L; Status: F Test: ANION GAP; Value: 11; Range: 8-16; Units: MEQ/L; Status: F Test: CALCIUM LEVEL; Value: 9.5; Range: 8.8-10.2; Units: MG/DL; Status: F Test Note: ; Units are mL/min/1.73 m2 Chronic Kidney Disease Staging per NKF: Stage I & II GFR >=60 Normal to Mildly Decreased Stage III GFR 30-59 Moderately Decreased Stage IV GFR 15-29 Severely Decreased Stage V GFR <15 Very Little GFR Left ESRD GFR <15 on ELECTRONICS MECHANIC APPRENTICE Lab Order: CBC with Diff; SPEC'M 06/08/16 12:52 Test: WHITE BLOOD COUNT; Value: 8.5; Range: 4.0-10.0; Units: K/mm3; Status: F Test: RED BLOOD COUNT; Value: 4.12; Range: 4.00-5.40; Units: M/mm3; Status: F Test: HEMOGLOBIN; Value: 12.5; Range: 12.0-16.0; Units: g/dl; Status: F Test: HEMATOCRIT; Value: 38.0; Range: 36.0-47.0; Units: %; Status: F Test: MEAN CORPUSCULAR VOLUME; Value: 92.3; Range: 80.0-96.0; Units: fl; Status: F Test: MEAN CORPUSCULAR HEMOGLOBIN; Value: 30.3; Range: 27.0-33.0; Units: pg; Status: F Test: MEAN CORPUSCULAR HGB CONC; Value: 32.8; Range: 32.0-36.5; Units: g/dl; Status: F Test: RED CELL DISTRIBUTION WIDTH; Value: 12.2; Range: 11.5-14.5; Units: %; Status: F Test: PLATELET COUNT, AUTOMATED; Value: 200; Range: 150-450; Units: k/mm3; Status: F Test: NEUTROPHILS %; Value: 78.8; Range: 36.0-66.0; Abnormal: Above high normal; Units: %; Status: F Test: LYMPH %; Value: 14.1; Range: 24.0-44.0; Abnormal: Below low normal; Units: %; Status: F Test: MONO %; Value: 4.9; Range: 0.0-5.0; Units: %; Status: F Test: EOS %; Value: 0.6; Range: 0.0-3.0; Units: %; Status: F Test: BASO %; Value: 0.3; Range: 0.0-1.0; Units: %; Status: F Test: LARGE UNSTAINED CELL %; Value: 1.4; Range: 0.0-4.0; Units: %; Status: F Test: NEUTROPHILS #; Value: 6.7; Range: 1.8-7.7; Units: K/mm3; Status: F Test: LYMPH #; Value: 1.2; Range: 1.5-4.5; Abnormal: Below low normal; Units: K/mm3; Status: F Test: MONO #; Value: 0.4; Range: 0.0-0.8; Units: K/mm3; Status: F Test: EOS #; Value: 0.0; Range: 0.0-0.50; Units: K/mm3; Status: F Test: BASO #; Value: 0.0; Range: 0.0-0.2; Units: K/mm3; Status: F Test: LARGE UNSTAINED CELL #; Value: 0.1; Range: 0.0-0.4; Units: K/mm3; Status: F Lab Order: Cardiac Injury Profile; SPEC' 06/08/16 12:52 Test: CPK CREATINE PHOSPHOKINASE; Value: 97; Range: 26-192; Units: U/L; Status: F Test: CK-MB VALUE MASS; Value: 2.5; Range: 0.0-3.6; Units: NG/ML; Status: F Test: MB/CK RELATIVE INDEX; Value: 2.57; Range: < OR =4; Status: F Test Note: ; DIAGNOSIS CRITERIA MMB ng/ml Relative Index (RI) NON-AMI < or = 5 N/A PACK ZONE > 5 < or = 4 AMI > 5 > 4 Lab Order: Prothrombin Time Profile\E\INR; SPEC'M 06/08/16 14:16 Test: PROTHROMBIN TIME; Value: 13.8; Range: 12.3-14.5; Units: SECONDS; Status: F Test: INR; Value: 1.05; Status: F Test Note: ; THERAPUTIC HUMAN INR VALUES INDICATIONS NORMAL RANGES PROPHYLAXIS/TREATMENT OF: VENOUS THROMBOSIS 2.0-3.0 PULMONARY EMBOLISM 2.0-3.0 PREVENTION OF SYSTEMIC EMBOLISM FROM: TISSUE HEART VALVES 2.0-3.0 ACUTE MYOCARDIAL INFARCTION 2.0-3.0 VALVULAR HEART DISEASE 2.0-3.0 ATRIAL FIBRILLATION 2.0-3.0 MECHANICAL VALVES(HIGH RISK) 2.5-3.5 RECURRENT MYOCARDIAL INFARCTION 2.5-3.5 Lab Order: Troponin; SPEC'M 06/08/16 12:52 Test: TROPONIN I; Value: < 0.02; Range: < 0.10; Units: NG/ML; Status: F Test Note: ; Troponin I Reference Interval for Siemens [place] LOCI: 99th Percentile= 0.00-0.045 ng/ml Risk Stratification: <= 0.10 ng/ml Decreased Risk for Adverse Clinical Events. 0.10-1.50 ng/ml Increased Risk for Adverse Clinical Events. Evaluation of additional criterion and/or repeat testing in 2-6 hours is suggested to rule out myocardial damage. >= 1.50 ng/ml Indicative of Myocardial Injury. 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; : 1935 Requested By: Luis E Antunez; Order Number: [id number] Reading MD: Mary Murrell; Measurements; Intervals [place]; Rate: 80 P: 264; NM: 110 QRS: -1; QRSD: 150 T: 10; QT: 401; QTc: 463; Interpretive Statements; JUNCTIONAL RHYTHM; RIGHT BUNDLE BRANCH BLOCK; INCREASED RATE 11/01/15; Electronically Signed On 06-08-2016 15:23:32 EST by Mary Murrell; Radiology Order: Chest, 2 View (pa\E\lat) Test: Chest, 2 View (pa\E\lat) REASON FOR EXAMINATION: Chest Pain; Clinical: Chest pain.; ; Technique: PA and lateral.; ; Comparison: 11/01/2015.; ; Findings:; Mediastinum and cardiac silhouette are stable. Moderate hiatal hernia is again; identified. Lung cole demonstrate left basilar atelectasis. No effusion or; pneumothorax. Skeletal structures stable.; ; Impression:; Left lower lobe atelectasis.; Moderate hiatal hernia.; ; ; Signed by; Chintan Washburn MD 06/08/2016 02:08 P; Radiology Order: CT Chest Angio R/O PE Test: CT Chest Angio R/O PE REASON FOR EXAMINATION: Shortness of Breath; Clinical: Acute chest pain.; ; Technique: Axial contrast enhanced images from the thoracic inlet to the upper; abdomen using 100 ml Isovue 370 intravenous contrast material with coronal and; sagittal re-formations.; ; Findings: Satisfactory enhancement of the pulmonary vasculature is achieved and; no filling defects are identified to suggest pulmonary embolus. Mild basilar; atelectasis noted (left greater than right). No pleural effusion/reaction or; pneumothorax. Mediastinum demonstrates moderate hiatal hernia. Thoracic aorta; demonstrates minimal atherosclerotic changes without aneurysm or dissection.; Heart and pericardium are normal.; ; Impression:; No evidence for pulmonary embolus.; Mild basilar atelectasis (left greater than right).; ; ; Signed by; Chintan Washburn MD 06/08/2016 03:24 P; Outcome: 15:30 Discharge ordered by Provider. 15:45 Discharge Assessment: Patient awake and alert. obeys commands, patient administered ead narcotics - no. The following High Risk Discharge criteria are identified: None. Discharged to home via wheelchair, with family. Condition: improved. Discharge instructions given to patient, Instructed on discharge instructions, follow up and referral plans. Demonstrated understanding of instructions, medications, Pt was receptive of discharge instructions/ teaching. Prescriptions given X 2. Discharge instructions given to family. CT Study completed. Property sent home with patient. 16:01 Patient left the ED. ead Signatures: Dispatcher [employer] EDEligio Stafford RN RN dwg Johnson, Bruce, RN RN Trish Bentley, Ganga Hay Kit, PHOTOFLASH POWDER MIXER PHOTOFLASH POWDER MIXER Alfonso Menon, RN RN ml6 Clair Decker dem1 Floridalma Van,RN RN Andrea Schwartz, KAREN SOLAR APPLICATIONS DEVELOPMENT ENGINEER Argentina Richards JessicaRN RN ja5 Corrections: (The following items were deleted from the chart) 12:35 12:34 BP 146 / 76; Pulse 90bpm; Resp 18bpm; Temp 99.1F Tympanic; 87.09 kg; Height 4 ft. dem1 11 in.; BMI: 38.7; Pain 7/10; dem1 Chart Complete MTDD
--- NOTE | 2016-06-10 22:10 | EDDOCDS ---
Nurse's Notes [facility] Name: Quincy Barbosa Age: 80 yrs Sex: Female : 1935 Arrival Date: 06/08/2016 Time: 12:32 Bed TR7 Private MD: Issa Low M.D. Diagnosis: Pneumonia, unspecified organism Presentation: 06/08 12:42 Presenting complaint: Patient states: Chest pain ''on and off'' since last evening. dwg Pain radiates to left shoulder. Takes baby ASA daily. Adult Sepsis Screening: The patient does not have new or worsening altered mentation. Patient's respiratory rate is less than 22. Systolic blood pressure is greater than 100. Patient has a qSOFA score of 0- Negative Sepsis Screen. Suicide/Homicide risk assessment- the patient denies having any suicidal and/or homicidal ideations and does not present with any other emotional, behavioral or mental health complaints. Status: Patient is not a custodial services manager or dependent. Transition of care: patient was not received from another setting of care. Red Flag criteria, patient assessed and taken directly to a bed. 12:42 Acuity: MARII Level 2 dwg 12:42 Method Of Arrival: Wheelchair dwg Triage Assessment: 12:47 General: Appears in no apparent distress, Behavior is cooperative. Pain: Pain currently dwg is 6 out of 10 on a pain scale. Historical: - Allergies: Allopurinol; Bactrim; PENICILLINS; - Home Meds: 1. aspirin 81 mg Oral chew 1 tab once daily 2. Ativan 0.5 mg Oral tab 1 tab 2 times per day as needed 3. calcitriol 0.25 mcg oral cap 1 cap Saturday thru Saturday 4. Drisdol 50,000 unit Oral cap 1 cap once wkly 5. Effexor XR 150 mg Oral cp24 1 cap once daily 6. ferrous sulfate 325 mg (65 mg iron) Oral TbEC 7. Fish Oil 1,000 mg Oral cap daily 8. gabapentin 100 mg oral cap 3 times per day 9. irbesartan 150 mg oral tab 1 tab once daily 10. Vitamin B-12 1,000 mcg Oral tab daily 11. Uloric 80 mg oral tab 1 tab once daily 12. Lasix 20 mg Oral tab 1 tab once daily 13. ProAir HFA 90 mcg/actuation inhalation HFAA 2 puffs every 4-6 hours as needed 14. hydroxychloroquine 200 mg oral tab 2 times per day - PMHx: Anxiety; CAD; COPD; Gout; Hypertension; PE; Chronic kidney disease; - PSHx: Hysterectomy; Bilateral rotator cuff repair; - Social history: Smoking status: Patient states was never smoker of tobacco. No barriers to communication noted, The patient speaks fluent Monegasque. - Family history: Not pertinent. - : The pt / caregiver states he / she is not on anticoagulants. Home medication list is obtained from family members. - Exposure Risk Screening:: None identified. Screenin:16 Screening information is obtained from the patient. Fall risk: At risk due to prior ja5 history of falls. Assistance ADL's: Requires assistance with meal preparation, this assistance is provided by family members, housework, assistance is provided by family members, medication administration, assistance is provided by family members. Abuse/DV Screen: The patient / caregiver reports he/she is: not in a situation that causes fear, pain or injury. Nutritional screening: On no prescribed diet. Advance Directives: Currently, there is no health care proxy. There is no active DNR order. There is no living will. There is no Power of Clinical Rn. home support is adequate. Assessment: 13:14 General: Appears in no apparent distress, Behavior is appropriate for age, cooperative. ja5 Pain: Location: chest. Neurological: Level of Consciousness is awake, alert, Oriented to person, place, time. Cardiovascular: Capillary refill < 3 seconds Heart tones S1 S2 present Rhythm is atrial fibrillation with no ectopy Chest pain quality is heaviness, radiates to left arm(s) Chest pain began last night at 11pm. Respiratory: Airway is patent Respiratory effort is even, unlabored, Respiratory pattern is regular, symmetrical, Breath sounds are clear in left posterior upper lobe and left posterior lower lobe Breath sounds with wheezes expiratory in right posterior upper lobe, right posterior middle lobe and right posterior lower lobe. GI: Bowel sounds present X 4 quads. Derm: Skin is pink, warm & dry. 14:21 General: Appears in no apparent distress, comfortable, Behavior is cooperative. Pain: bcj Location: right posterior lower lobe and right posterior middle lobe and right posterior upper lobe. Cardiovascular: Rhythm is atrial fibrillation. Derm: Skin is pink, warm & dry. 15:45 Derm: Skin is pink, warm & dry. ead 15:59 General: Appears in no apparent distress, comfortable, Behavior is appropriate for age, ead cooperative. Pain: Denies pain. Neurological: No deficits noted. Respiratory: Airway is patent Respiratory effort is even, unlabored. Vital Signs: 12:34 BP 146 / 76; Pulse 57; Resp 18; Temp 99.1(T); Pulse Ox 92% on R/A; Weight 87.09 kg; dem1 Height 4 ft. 11 in. (149.86 cm); Pain 7/10; 12:57 BP 142 / 63 (auto/); ead 12:57 Pulse 82 MON; Pulse Ox 93% ; ead 13:11 BP 126 / 51; Pain 5/10; ja5 13:12 BP 126 / 51 (auto/); ead 13:12 Pulse 96 MON; Pulse Ox 96% ; ead 13:18 BP 115 / 53 (auto/); ead 13:18 Pulse 98 MON; Pulse Ox 92% ; ead 13:19 BP 115 / 53; Pain 5/10; ja5 13:23 Pulse 108 MON; Pulse Ox 93% ; ead 13:24 BP 108 / 59 (auto/); ead 13:24 Pain 3/10; ja5 13:25 BP 108 / 59; Pain 3/10; ja5 13:27 BP 109 / 51 (auto/); ead 13:37 Pulse 104 MON; Pulse Ox 92% ; ead 15:45 BP 155 / 67; Pulse 83; Resp 20; Temp 99.4; Pulse Ox 96% on R/A; Pain 0/10; ead 12:34 Body Mass Index 38.78 (87.09 kg, 149.86 cm) dem1 Vitals: 12:34 Log In Time: June 08, 2016 at 12:32. RN notified that patient meets Red Flag [facility] criteria. 14:21 Refer to monitor trend for complete vital signs trends. [facility] ED Course: 12:33 Patient visited by Clair Decker. dem1 12:33 Patient moved to Waiting dem1 12:34 Issa Low is Private Physician. dem1 12:38 Evelyne Castro, RN is Primary Nurse. ml6 12:38 Shannan White,RN is Primary Nurse. ml6 12:38 Patient moved to 9 ml6 12:43 EKG done. (by ED staff). Reviewed by Luis E Diaz MD. jrd 12:44 Triage Initiated dwg 12:45 Patient visited by Andrea Reina PCA. jrd 12:45 Kit Hay FNP is [facility]. ke 12:46 Patient visited by Kit Hay FNP. ke 12:46 Patient visited by Kit Hay FNP. ke 13:01 Inserted saline lock: 20 gauge in left antecubital area. ja5 13:10 Patient visited by Kit Hay FNP. ke 13:23 Prothrombin Time Profile\E\INR Sent. ja5 13:23 D-DIMER QUANT Sent. ja5 13:26 [facility] Payment Agreement was scanned into [employer] and attached to record. lg 13:40 Patient visited by Kit Hay FNP. ke 14:04 Patient visited by Kit Hay FNP. ke 14:21 No apparent distress. Resting quietly. awaiting re-evaluation by ER physician. bcj 14:21 The patient / caregiver is instructed regarding the plan of care and ED course. Cardiac bcj monitor on. Pulse ox on. NIBP on. 14:21 IV is intact. bcj 14:26 Patient visited by Rigoberto Lozada RN. bcj 14:27 Chest, 2 View (pa\E\lat) Returned. EDMS 14:46 Patient visited by Floridalma Van,KOURTNEY. ead 15:14 Patient visited by Kit Hay FNP. ke 15:29 Issa Low is Referral Physician. ke 15:57 Patient moved to [facility] ead 15:59 Discontinued lock intact, bleeding controlled, pressure dressing applied, No ead redness/swelling at site. No procedures done that require assistance. 16:07 EKG-ADULT Returned. EDMS 16:12 CT Chest Angio R/O PE Returned. EDMS 21:02 T-Sheet-- Draft Copy was scanned into [employer] and attached to record. klr Administered Medications: 13:05 Drug: Aspirin 324 mg [aspirin 81 mg chewable tablet (4 tabs)] Route: PO; ja5 13:05 Drug: Nitrostat 0.4 mg [Nitrostat 0.4 mg sublingual tablet (1 tabs)] Route: Sublingual; ja5 13:11 Follow up: BP 126 / 51; Pain 5/10 Adult [facility] 13:13 Drug: Nitrostat 0.4 mg [Nitrostat 0.4 mg sublingual tablet (1 tabs)] Route: Sublingual; [facility] 13:19 Follow up: BP 115 / 53; Pain 5/10 Adult 5 13:20 Drug: Nitrostat 0.4 mg [Nitrostat 0.4 mg sublingual tablet (1 tabs)] Route: Sublingual; [facility] 13:24 Follow up: Pain 3/10 Adult [facility] 13:25 Follow up: BP 108 / 59; Pain 3/10 Adult 5 14:34 Drug: Furosemide 40 mg [furosemide 10 mg/mL injection solution (4 mL)] Route: IVP; ead Site: left antecubital; 14:48 Drug: Moxifloxacin 400 mg [moxifloxacin 400 mg tablet (1 tabs)] Route: PO; ead Order Results: Lab Order: B-Type Natiuretic Peptide; SPEC'M 06/08/16 12:52 Test: BRAIN NATRIURETIC PEPTIDE; Value: 214; Range: <100; Abnormal: Above high normal; Units: PG/ML; Status: F Lab Order: Basic Metabolic Profile; SPEC'M 06/08/16 12:52 Test: GLUCOSE, FASTING; Value: 224; Range: 83-110; Abnormal: Above high normal; Units: MG/DL; Status: F Test: BLOOD UREA NITROGEN; Value: 35; Range: 7-18; Abnormal: Above high normal; Units: MG/DL; Status: F Test: CREATININE FOR GFR; Value: 1.46; Range: 0.55-1.02; Abnormal: Above high normal; Units: MG/DL; Status: F Test: GLOMERULAR FILTRATION RATE; Value: 36.9; Range: >39; Abnormal: Below low normal; Status: F Test: SODIUM LEVEL; Value: 138; Range: 136-145; Units: MEQ/L; Status: F Test: POTASSIUM SERUM; Value: 3.8; Range: 3.5-5.1; Units: MEQ/L; Status: F Test: CHLORIDE LEVEL; Value: 101; Range: 98-107; Units: MEQ/L; Status: F Test: CARBON DIOXIDE LEVEL; Value: 26; Range: 21-32; Units: MEQ/L; Status: F Test: ANION GAP; Value: 11; Range: 8-16; Units: MEQ/L; Status: F Test: CALCIUM LEVEL; Value: 9.5; Range: 8.8-10.2; Units: MG/DL; Status: F Test Note: ; Units are mL/min/1.73 m2 Chronic Kidney Disease Staging per NKF: Stage I & II GFR >=60 Normal to Mildly Decreased Stage III GFR 30-59 Moderately Decreased Stage IV GFR 15-29 Severely Decreased Stage V GFR <15 Very Little GFR Left ESRD GFR <15 on SNAKER Lab Order: CBC with Diff; SPEC'M 06/08/16 12:52 Test: WHITE BLOOD COUNT; Value: 8.5; Range: 4.0-10.0; Units: K/mm3; Status: F Test: RED BLOOD COUNT; Value: 4.12; Range: 4.00-5.40; Units: M/mm3; Status: F Test: HEMOGLOBIN; Value: 12.5; Range: 12.0-16.0; Units: g/dl; Status: F Test: HEMATOCRIT; Value: 38.0; Range: 36.0-47.0; Units: %; Status: F Test: MEAN CORPUSCULAR VOLUME; Value: 92.3; Range: 80.0-96.0; Units: fl; Status: F Test: MEAN CORPUSCULAR HEMOGLOBIN; Value: 30.3; Range: 27.0-33.0; Units: pg; Status: F Test: MEAN CORPUSCULAR HGB CONC; Value: 32.8; Range: 32.0-36.5; Units: g/dl; Status: F Test: RED CELL DISTRIBUTION WIDTH; Value: 12.2; Range: 11.5-14.5; Units: %; Status: F Test: PLATELET COUNT, AUTOMATED; Value: 200; Range: 150-450; Units: k/mm3; Status: F Test: NEUTROPHILS %; Value: 78.8; Range: 36.0-66.0; Abnormal: Above high normal; Units: %; Status: F Test: LYMPH %; Value: 14.1; Range: 24.0-44.0; Abnormal: Below low normal; Units: %; Status: F Test: MONO %; Value: 4.9; Range: 0.0-5.0; Units: %; Status: F Test: EOS %; Value: 0.6; Range: 0.0-3.0; Units: %; Status: F Test: BASO %; Value: 0.3; Range: 0.0-1.0; Units: %; Status: F Test: LARGE UNSTAINED CELL %; Value: 1.4; Range: 0.0-4.0; Units: %; Status: F Test: NEUTROPHILS #; Value: 6.7; Range: 1.8-7.7; Units: K/mm3; Status: F Test: LYMPH #; Value: 1.2; Range: 1.5-4.5; Abnormal: Below low normal; Units: K/mm3; Status: F Test: MONO #; Value: 0.4; Range: 0.0-0.8; Units: K/mm3; Status: F Test: EOS #; Value: 0.0; Range: 0.0-0.50; Units: K/mm3; Status: F Test: BASO #; Value: 0.0; Range: 0.0-0.2; Units: K/mm3; Status: F Test: LARGE UNSTAINED CELL #; Value: 0.1; Range: 0.0-0.4; Units: K/mm3; Status: F Lab Order: Cardiac Injury Profile; SPEC' 06/08/16 12:52 Test: CPK CREATINE PHOSPHOKINASE; Value: 97; Range: 26-192; Units: U/L; Status: F Test: CK-MB VALUE MASS; Value: 2.5; Range: 0.0-3.6; Units: NG/ML; Status: F Test: MB/CK RELATIVE INDEX; Value: 2.57; Range: < OR =4; Status: F Test Note: ; DIAGNOSIS CRITERIA MMB ng/ml Relative Index (RI) NON-AMI < or = 5 N/A PACK ZONE > 5 < or = 4 AMI > 5 > 4 Lab Order: Prothrombin Time Profile\E\INR; SPEC'M 06/08/16 14:16 Test: PROTHROMBIN TIME; Value: 13.8; Range: 12.3-14.5; Units: SECONDS; Status: F Test: INR; Value: 1.05; Status: F Test Note: ; THERAPUTIC HUMAN INR VALUES INDICATIONS NORMAL RANGES PROPHYLAXIS/TREATMENT OF: VENOUS THROMBOSIS 2.0-3.0 PULMONARY EMBOLISM 2.0-3.0 PREVENTION OF SYSTEMIC EMBOLISM FROM: TISSUE HEART VALVES 2.0-3.0 ACUTE MYOCARDIAL INFARCTION 2.0-3.0 VALVULAR HEART DISEASE 2.0-3.0 ATRIAL FIBRILLATION 2.0-3.0 MECHANICAL VALVES(HIGH RISK) 2.5-3.5 RECURRENT MYOCARDIAL INFARCTION 2.5-3.5 Lab Order: Troponin; SPEC'M 06/08/16 12:52 Test: TROPONIN I; Value: < 0.02; Range: < 0.10; Units: NG/ML; Status: F Test Note: ; Troponin I Reference Interval for Siemens [place] LOCI: 99th Percentile= 0.00-0.045 ng/ml Risk Stratification: <= 0.10 ng/ml Decreased Risk for Adverse Clinical Events. 0.10-1.50 ng/ml Increased Risk for Adverse Clinical Events. Evaluation of additional criterion and/or repeat testing in 2-6 hours is suggested to rule out myocardial damage. >= 1.50 ng/ml Indicative of Myocardial Injury. 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; : 1935 Requested By: Luis E Antunez; Order Number: [id number] Reading MD: Mary Murrell; Measurements; Intervals [place]; Rate: 80 P: 264; NE: 110 QRS: -1; QRSD: 150 T: 10; QT: 401; QTc: 463; Interpretive Statements; JUNCTIONAL RHYTHM; RIGHT BUNDLE BRANCH BLOCK; INCREASED RATE 11/01/15; Electronically Signed On 06-08-2016 15:23:32 EST by Mary Murrell; Radiology Order: Chest, 2 View (pa\E\lat) Test: Chest, 2 View (pa\E\lat) REASON FOR EXAMINATION: Chest Pain; Clinical: Chest pain.; ; Technique: PA and lateral.; ; Comparison: 11/01/2015.; ; Findings:; Mediastinum and cardiac silhouette are stable. Moderate hiatal hernia is again; identified. Lung cole demonstrate left basilar atelectasis. No effusion or; pneumothorax. Skeletal structures stable.; ; Impression:; Left lower lobe atelectasis.; Moderate hiatal hernia.; ; ; Signed by; Chintan Washburn MD 06/08/2016 02:08 P; Radiology Order: CT Chest Angio R/O PE Test: CT Chest Angio R/O PE REASON FOR EXAMINATION: Shortness of Breath; Clinical: Acute chest pain.; ; Technique: Axial contrast enhanced images from the thoracic inlet to the upper; abdomen using 100 ml Isovue 370 intravenous contrast material with coronal and; sagittal re-formations.; ; Findings: Satisfactory enhancement of the pulmonary vasculature is achieved and; no filling defects are identified to suggest pulmonary embolus. Mild basilar; atelectasis noted (left greater than right). No pleural effusion/reaction or; pneumothorax. Mediastinum demonstrates moderate hiatal hernia. Thoracic aorta; demonstrates minimal atherosclerotic changes without aneurysm or dissection.; Heart and pericardium are normal.; ; Impression:; No evidence for pulmonary embolus.; Mild basilar atelectasis (left greater than right).; ; ; Signed by; Chintan Washburn MD 06/08/2016 03:24 P; Outcome: 15:30 Discharge ordered by Provider. 15:45 Discharge Assessment: Patient awake and alert. obeys commands, patient administered ead narcotics - no. The following High Risk Discharge criteria are identified: None. Discharged to home via wheelchair, with family. Condition: improved. Discharge instructions given to patient, Instructed on discharge instructions, follow up and referral plans. Demonstrated understanding of instructions, medications, Pt was receptive of discharge instructions/ teaching. Prescriptions given X 2. Discharge instructions given to family. CT Study completed. Property sent home with patient. 16:01 Patient left the ED. ead Signatures: Dispatcher [employer] EDEligio Stafford RN RN dwg Johnson, Bruce, RN RN Trish Bentley, Ganga Hay Kit, DEATH CLAIM CLERK DEATH CLAIM CLERK Alfonso Menon, RN RN ml6 Clair Decker dem1 Floridalma Van,RN RN Andrea Schwartz, KAREN PROCESS CHEESE COOKER Argentina Richards JessicaRN RN ja5 Corrections: (The following items were deleted from the chart) 12:35 12:34 BP 146 / 76; Pulse 90bpm; Resp 18bpm; Temp 99.1F Tympanic; 87.09 kg; Height 4 ft. dem1 11 in.; BMI: 38.7; Pain 7/10; dem1 Chart Complete MTDD
--- NOTE | 2016-06-10 22:10 | EDDOCDS ---
Physician Documentation [facility] Name: Yesenia Cheema Age: 80 yrs Sex: Female : 1935 Arrival Date: 06/08/2016 Time: 12:32 Bed TR7 Private MD: Issa Low M.D. Disposition: 06/08/16 15:30 Discharged to Home/Self Care. Impression: Pneumonia, unspecified organism. - Condition is Stable. - Discharge Instructions: Pneumonia, Adult. - Prescriptions for Moxifloxacin 400 mg Oral Tablet - take 1 tablet by ORAL route once daily; 10 tablet. Albuterol Sulfate 90 mcg/actuation Inhalation HFA Aerosol Inhaler - inhale 2 puff by INHALATION route every 4 hours As needed; 1 Inhaler. - Medication Reconciliation, Local Pharmacy Hours form. - Follow up: Issa Low; When: 4 - 5 days; Reason: Recheck today's complaints, Continuance of care. - Problem is an ongoing problem. - Symptoms are unchanged. Historical: - Allergies: Allopurinol; Bactrim; PENICILLINS; - Home Meds: 1. aspirin 81 mg Oral chew 1 tab once daily 2. Ativan 0.5 mg Oral tab 1 tab 2 times per day as needed 3. calcitriol 0.25 mcg oral cap 1 cap Saturday thru Saturday 4. Drisdol 50,000 unit Oral cap 1 cap once wkly 5. Effexor XR 150 mg Oral cp24 1 cap once daily 6. ferrous sulfate 325 mg (65 mg iron) Oral TbEC 7. Fish Oil 1,000 mg Oral cap daily 8. gabapentin 100 mg oral cap 3 times per day 9. irbesartan 150 mg oral tab 1 tab once daily 10. Vitamin B-12 1,000 mcg Oral tab daily 11. Uloric 80 mg oral tab 1 tab once daily 12. Lasix 20 mg Oral tab 1 tab once daily 13. ProAir HFA 90 mcg/actuation inhalation HFAA 2 puffs every 4-6 hours as needed 14. hydroxychloroquine 200 mg oral tab 2 times per day - PMHx: Anxiety; CAD; COPD; Gout; Hypertension; PE; Chronic kidney disease; - PSHx: Hysterectomy; Bilateral rotator cuff repair; - Social history: Smoking status: Patient states was never smoker of tobacco. No barriers to communication noted, The patient speaks fluent Turkish. - Family history: Not pertinent. - : The pt / caregiver states he / she is not on anticoagulants. Home medication list is obtained from family members. - Exposure Risk Screening:: None identified. Vital Signs: 06/08 12:34 BP 146 / 76; Pulse 57; Resp 18; Temp 99.1(T); Pulse Ox 92% on R/A; Weight 87.09 kg / dem1 192 lbs; Height 4 ft. 11 in. (149.86 cm); Pain 7/10; 12:57 BP 142 / 63 (auto/); ead 12:57 Pulse 82 MON; Pulse Ox 93% ; ead 13:11 BP 126 / 51; Pain 5/10; ja5 13:12 BP 126 / 51 (auto/); ead 13:12 Pulse 96 MON; Pulse Ox 96% ; ead 13:18 BP 115 / 53 (auto/); ead 13:18 Pulse 98 MON; Pulse Ox 92% ; ead 13:19 BP 115 / 53; Pain 5/10; ja5 13:23 Pulse 108 MON; Pulse Ox 93% ; ead 13:24 BP 108 / 59 (auto/); ead 13:24 Pain 3/10; ja5 13:25 BP 108 / 59; Pain 3/10; ja5 13:27 BP 109 / 51 (auto/); ead 13:37 Pulse 104 MON; Pulse Ox 92% ; ead 15:45 BP 155 / 67; Pulse 83; Resp 20; Temp 99.4; Pulse Ox 96% on R/A; Pain 0/10; ead 12:34 Body Mass Index 38.78 (87.09 kg, 149.86 cm) dem1 MDM: 12:37 ECG WITH READING ER PHYS+CARDIAG ordered. EDMS 12:49 Aspirin Chewable Tablet 324 mg PO once ordered. ke 12:49 Nitrostat 0.4 mg Sublingual every 5 minutes; hold if SBP<90mmHg.Document Pain Score ke Response to Each Dose x3 ordered. 12:49 Finance Teacher/Pulse Ox/q 30 min VS ordered. ke 12:49 IV Saline Lock ordered. ke 12:49 Rhythm Strip to chart ordered. ke 12:49 Undress patient appropriately for examination ordered. ke 12:50 B-Type Natiuretic Peptide Ordered. EDMS 12:50 Basic Metabolic Profile Ordered. EDMS 12:50 CBC with Diff Ordered. EDMS 12:50 Cardiac Injury Profile Ordered. EDMS 12:50 Prothrombin Time Profile\E\INR Ordered. EDMS 12:50 Troponin Ordered. EDMS 12:51 Chest, 2 View (pa\E\lat) Ordered. EDMS 13:02 D-DIMER QUANT Ordered. EDMS 13:21 Financial registration complete. lg 13:26 [facility] Payment Agreement was scanned into [employer] and attached to record. lg 13:51 B-Type Natiuretic Peptide Reviewed. ke 13:51 Basic Metabolic Profile Reviewed. ke 13:51 CBC with Diff Reviewed. ke 13:51 Cardiac Injury Profile Reviewed. ke 13:51 Troponin Reviewed. ke 14:25 Furosemide 40 mg IVP once ordered. ke 14:38 Chest, 2 View (pa\E\lat) Reviewed. ke 14:38 Moxifloxacin 400 mg PO once ordered. ke 14:42 Prothrombin Time Profile\E\INR Reviewed. ke 14:42 D-DIMER QUANT Reviewed. ke 14:45 D-DIMER QUANT Reviewed. ke 14:45 Prothrombin Time Profile\E\INR Reviewed. ke 14:46 CT Chest Angio R/O PE Ordered. EDMS 21:02 T-Sheet-- Draft Copy was scanned into [employer] and attached to record. klr Administered Medications: 13:05 Drug: Aspirin 324 mg [aspirin 81 mg chewable tablet (4 tabs)] Route: PO; ja5 13:05 Drug: Nitrostat 0.4 mg [Nitrostat 0.4 mg sublingual tablet (1 tabs)] Route: Sublingual; ja5 13:11 Follow up: BP 126 / 51; Pain 5/10 Adult ja5 13:13 Drug: Nitrostat 0.4 mg [Nitrostat 0.4 mg sublingual tablet (1 tabs)] Route: Sublingual; ja5 13:19 Follow up: BP 115 / 53; Pain 5/10 Adult ja5 13:20 Drug: Nitrostat 0.4 mg [Nitrostat 0.4 mg sublingual tablet (1 tabs)] Route: Sublingual; ja5 13:24 Follow up: Pain 3/10 Adult ja5 13:25 Follow up: BP 108 / 59; Pain 3/10 Adult ja5 14:34 Drug: Furosemide 40 mg [furosemide 10 mg/mL injection solution (4 mL)] Route: IVP; ead Site: left antecubital; 14:48 Drug: Moxifloxacin 400 mg [moxifloxacin 400 mg tablet (1 tabs)] Route: PO; ead Signatures: Dispatcher [employer] EDEligio Stafford RN RN dwg Johnson, Bruce RN RN Trish Bentley, Reg Reg lg Kit Hay, Floridalma Alonso RN RN ead Redder, Kathie klr Anderson, Jessica RN ja5 The chart was reviewed and I authenticate all verbal orders and agree with the evaluation and treatment provided.Corrections: (The following items were deleted from the chart) 13:02 12:56 D-DIMER QUANT+LAB ordered. EDMS EDMS Attachments: 13:26 [facility] Payment Agreement lg 21:02 T-Sheet-- Draft Copy [email or web address] Chart Complete MTDD
--- NOTE | 2016-06-10 22:10 | EDDOCDS ---
Physician Documentation [facility] Name: Yesenia Cheema Age: 80 yrs Sex: Female : 1935 Arrival Date: 06/08/2016 Time: 12:32 Bed TR7 Private MD: Issa Low M.D. Disposition: 06/08/16 15:30 Discharged to Home/Self Care. Impression: Pneumonia, unspecified organism. - Condition is Stable. - Discharge Instructions: Pneumonia, Adult. - Prescriptions for Moxifloxacin 400 mg Oral Tablet - take 1 tablet by ORAL route once daily; 10 tablet. Albuterol Sulfate 90 mcg/actuation Inhalation HFA Aerosol Inhaler - inhale 2 puff by INHALATION route every 4 hours As needed; 1 Inhaler. - Medication Reconciliation, Local Pharmacy Hours form. - Follow up: Issa Low; When: 4 - 5 days; Reason: Recheck today's complaints, Continuance of care. - Problem is an ongoing problem. - Symptoms are unchanged. Historical: - Allergies: Allopurinol; Bactrim; PENICILLINS; - Home Meds: 1. aspirin 81 mg Oral chew 1 tab once daily 2. Ativan 0.5 mg Oral tab 1 tab 2 times per day as needed 3. calcitriol 0.25 mcg oral cap 1 cap Saturday thru Saturday 4. Drisdol 50,000 unit Oral cap 1 cap once wkly 5. Effexor XR 150 mg Oral cp24 1 cap once daily 6. ferrous sulfate 325 mg (65 mg iron) Oral TbEC 7. Fish Oil 1,000 mg Oral cap daily 8. gabapentin 100 mg oral cap 3 times per day 9. irbesartan 150 mg oral tab 1 tab once daily 10. Vitamin B-12 1,000 mcg Oral tab daily 11. Uloric 80 mg oral tab 1 tab once daily 12. Lasix 20 mg Oral tab 1 tab once daily 13. ProAir HFA 90 mcg/actuation inhalation HFAA 2 puffs every 4-6 hours as needed 14. hydroxychloroquine 200 mg oral tab 2 times per day - PMHx: Anxiety; CAD; COPD; Gout; Hypertension; PE; Chronic kidney disease; - PSHx: Hysterectomy; Bilateral rotator cuff repair; - Social history: Smoking status: Patient states was never smoker of tobacco. No barriers to communication noted, The patient speaks fluent Kazakh. - Family history: Not pertinent. - : The pt / caregiver states he / she is not on anticoagulants. Home medication list is obtained from family members. - Exposure Risk Screening:: None identified. Vital Signs: 06/08 12:34 BP 146 / 76; Pulse 57; Resp 18; Temp 99.1(T); Pulse Ox 92% on R/A; Weight 87.09 kg / dem1 192 lbs; Height 4 ft. 11 in. (149.86 cm); Pain 7/10; 12:57 BP 142 / 63 (auto/); ead 12:57 Pulse 82 MON; Pulse Ox 93% ; ead 13:11 BP 126 / 51; Pain 5/10; ja5 13:12 BP 126 / 51 (auto/); ead 13:12 Pulse 96 MON; Pulse Ox 96% ; ead 13:18 BP 115 / 53 (auto/); ead 13:18 Pulse 98 MON; Pulse Ox 92% ; ead 13:19 BP 115 / 53; Pain 5/10; ja5 13:23 Pulse 108 MON; Pulse Ox 93% ; ead 13:24 BP 108 / 59 (auto/); ead 13:24 Pain 3/10; ja5 13:25 BP 108 / 59; Pain 3/10; ja5 13:27 BP 109 / 51 (auto/); ead 13:37 Pulse 104 MON; Pulse Ox 92% ; ead 15:45 BP 155 / 67; Pulse 83; Resp 20; Temp 99.4; Pulse Ox 96% on R/A; Pain 0/10; ead 12:34 Body Mass Index 38.78 (87.09 kg, 149.86 cm) dem1 MDM: 12:37 ECG WITH READING ER PHYS+CARDIAG ordered. EDMS 12:49 Aspirin Chewable Tablet 324 mg PO once ordered. ke 12:49 Nitrostat 0.4 mg Sublingual every 5 minutes; hold if SBP<90mmHg.Document Pain Score ke Response to Each Dose x3 ordered. 12:49 Venereal Disease Control Head/Pulse Ox/q 30 min VS ordered. ke 12:49 IV Saline Lock ordered. ke 12:49 Rhythm Strip to chart ordered. ke 12:49 Undress patient appropriately for examination ordered. ke 12:50 B-Type Natiuretic Peptide Ordered. EDMS 12:50 Basic Metabolic Profile Ordered. EDMS 12:50 CBC with Diff Ordered. EDMS 12:50 Cardiac Injury Profile Ordered. EDMS 12:50 Prothrombin Time Profile\E\INR Ordered. EDMS 12:50 Troponin Ordered. EDMS 12:51 Chest, 2 View (pa\E\lat) Ordered. EDMS 13:02 D-DIMER QUANT Ordered. EDMS 13:21 Financial registration complete. lg 13:26 [facility] Payment Agreement was scanned into [employer] and attached to record. lg 13:51 B-Type Natiuretic Peptide Reviewed. ke 13:51 Basic Metabolic Profile Reviewed. ke 13:51 CBC with Diff Reviewed. ke 13:51 Cardiac Injury Profile Reviewed. ke 13:51 Troponin Reviewed. ke 14:25 Furosemide 40 mg IVP once ordered. ke 14:38 Chest, 2 View (pa\E\lat) Reviewed. ke 14:38 Moxifloxacin 400 mg PO once ordered. ke 14:42 Prothrombin Time Profile\E\INR Reviewed. ke 14:42 D-DIMER QUANT Reviewed. ke 14:45 D-DIMER QUANT Reviewed. ke 14:45 Prothrombin Time Profile\E\INR Reviewed. ke 14:46 CT Chest Angio R/O PE Ordered. EDMS 21:02 T-Sheet-- Draft Copy was scanned into [employer] and attached to record. klr Administered Medications: 13:05 Drug: Aspirin 324 mg [aspirin 81 mg chewable tablet (4 tabs)] Route: PO; ja5 13:05 Drug: Nitrostat 0.4 mg [Nitrostat 0.4 mg sublingual tablet (1 tabs)] Route: Sublingual; ja5 13:11 Follow up: BP 126 / 51; Pain 5/10 Adult ja5 13:13 Drug: Nitrostat 0.4 mg [Nitrostat 0.4 mg sublingual tablet (1 tabs)] Route: Sublingual; ja5 13:19 Follow up: BP 115 / 53; Pain 5/10 Adult ja5 13:20 Drug: Nitrostat 0.4 mg [Nitrostat 0.4 mg sublingual tablet (1 tabs)] Route: Sublingual; ja5 13:24 Follow up: Pain 3/10 Adult ja5 13:25 Follow up: BP 108 / 59; Pain 3/10 Adult ja5 14:34 Drug: Furosemide 40 mg [furosemide 10 mg/mL injection solution (4 mL)] Route: IVP; ead Site: left antecubital; 14:48 Drug: Moxifloxacin 400 mg [moxifloxacin 400 mg tablet (1 tabs)] Route: PO; ead Signatures: Dispatcher [employer] EDEligio Stafford RN RN dwg Johnson, Bruce RN RN Trish Bentley, Reg Reg lg Kit Hay, Floridalma Alonso RN RN ead Redder, Kathie klr Anderson, Jessica RN ja5 The chart was reviewed and I authenticate all verbal orders and agree with the evaluation and treatment provided.Corrections: (The following items were deleted from the chart) 13:02 12:56 D-DIMER QUANT+LAB ordered. EDMS EDMS Attachments: 13:26 [facility] Payment Agreement lg 21:02 T-Sheet-- Draft Copy [email or web address] Chart Complete MTDD
== END 2016-06-08 16:01 | disposition home or self-care (01) ==
LOC: M ED 12:32
DX: J18.1 Lobar pneumonia, unspecified organism (principal); R06.02 Shortness of breath; I12.9 Hypertensive chronic kidney disease with stage 1 through stage 4 chronic kidney disease, or unspecified chronic kidney disease; J44.9 Chronic obstructive pulmonary disease, unspecified; N18.9 Chronic kidney disease, unspecified; F41.9 Anxiety disorder, unspecified; I25.10 Atherosclerotic heart disease of native coronary artery without angina pectoris; M10.9 Gout, unspecified; Z86.711 Personal history of pulmonary embolism; Z79.899 Other long term (current) drug therapy; Z79.82 Long term (current) use of aspirin; Z88.0 Allergy status to penicillin; Z88.1 Allergy status to other antibiotic agents; Z88.8 Allergy status to other drugs, medicaments and biological substances
CPT/HCPCS: 71020; 71275; 80048; 82550; 82553; 83880; 84484; 85025; 85379; 85610; 93005; 93041; 96374; 99285; J1940; Q9967

== ENCOUNTER 2017-08-04 10:21 | Emergency (ER) | payer MEDICARE, OTHER ==
[2017-08-04] MEDS: IPRATROPIUM 0.5MG/ALBUTEROL 2.5MG INH SOL UD 3ML (DUONEB)(J7620) NEB (11:22)
[2017-08-04] MEDS: methylPREDNISolone INJ 125 MG/2 ML VIAL (J2930) IM (11:24)
== END 2017-08-04 12:12 | disposition home or self-care (01) ==
LOC: M ED 10:21
DX: J06.9 Acute upper respiratory infection, unspecified (principal); I10 Essential (primary) hypertension; J45.909 Unspecified asthma, uncomplicated; F33.9 Major depressive disorder, recurrent, unspecified; F41.9 Anxiety disorder, unspecified; Z79.82 Long term (current) use of aspirin; Z79.899 Other long term (current) drug therapy; Z86.711 Personal history of pulmonary embolism; Z98.890 Other specified postprocedural states; Z88.8 Allergy status to other drugs, medicaments and biological substances; Z88.0 Allergy status to penicillin
CPT/HCPCS: J2930

== ENCOUNTER → 2017-08-28 | Outpatient (REF) | payer MEDICARE, OTHER ==
[2017-08-28 13:26] LABS: TOTAL PROTEIN,RANDOM URINE 157.5 MG/DL (0.0-12.0)
== END ==
LOC: M LAB REF 12:58
DX: N18.3 Chronic kidney disease, stage 3 (moderate) (principal)
CPT/HCPCS: 84156

== ENCOUNTER → 2017-09-05 | Outpatient (CLI) | payer MEDICARE, OTHER | LOC: M RAD 12:25 | DX: I70.203 Unspecified atherosclerosis of native arteries of extremities, bilateral legs (principal); M71.21 Synovial cyst of popliteal space [Baker], right knee; M71.22 Synovial cyst of popliteal space [Baker], left knee | CPT/HCPCS: 93925 ==

== ENCOUNTER → 2018-01-21 | Outpatient (REF) | payer MEDICARE, OTHER ==
[2018-01-21 15:16] LABS: TOTAL PROTEIN,RANDOM URINE 491.3 MG/DL (0.0-12.0)
== END ==
LOC: M LAB REF 13:15
DX: N18.3 Chronic kidney disease, stage 3 (moderate) (principal)
CPT/HCPCS: 84156

== ENCOUNTER → 2018-06-26 | Outpatient (REF) | payer MEDICARE, OTHER ==
[~2018-06-26] MED LIST changes: -DRIS50002 PO; +DRIS50003 PO; -EFFE150C OR; +EFFE150C PO; +GABA-1171 PO; -GABA-279 PO; +GUAI100S27 PO; -LASI20TA OR; +LASI20TA PO; +MAGN64TASA PO; -PERC5TAB8 OR; +PERC5TAB8 PO; +PRED20TA PO; +ZITHTAB PO
[2018-06-26 15:00] LABS: TOTAL PROTEIN 7.3 GM/DL (6.4-8.2)
[2018-06-26 15:29] LABS: TOTAL PROTEIN,RANDOM URINE 143.2 MG/DL (0.0-12.0); URINE TOTAL PROTEIN 143.2 MG/DL (0-12)
[2018-06-28 00:06] LABS: FREE KAPPA LIGHT CHAINS SERUM 66.1 mg/L (3.3-19.4); KAPPA/LAMBDA RATIO SERUM 0.84 (0.26-1.65)
[2018-07-01 15:23] LABS: ALBUMIN 3.54 GM/DL (3.29-5.55); ALBUMIN % 48.5 % (55.8-66.1); ALPHA-1-GLOBULIN % 4.5 % (2.9-4.9); ALPHA-1-GLOBULINS 0.33 GM/DL (0.17-0.41); ALPHA-2-GLOBULINS 0.86 GM/DL (0.42-0.99); ALPHA-2-GLOBULINS % 11.8 % (7.1-11.8); BETA-1-GLOBULINS 0.45 GM/DL (0.28-0.60); BETA-1-GLOBULINS % 6.1 % (4.7-7.2); BETA-2-GLOBULINS % 5.5 % (3.2-6.5); GAMMA GLOBULIN % 23.6 % (11.1-18.8); GAMMA GLOBULINS 1.72 GM/DL (0.65-1.58)
== END ==
LOC: M LAB REF 13:17
PROVIDERS: ATTEND Internal Medicine Nephrology
DX: R80.9 Proteinuria, unspecified (principal)

== ENCOUNTER 2018-07-29 09:44 | Emergency (ER) | payer MEDICARE, OTHER ==
[~2018-07-29] VITALS: Ht 149.9 cm; Wt 77.3 kg
[~2018-07-29 09:44] MED LIST changes: -CALC0.5C OR; +CALC0.5C14 OR; +GUAI100L6 PO; -GUAI100S27 PO
[2018-07-29] MEDS: IPRATROPIUM 0.5MG/ALBUTEROL 2.5MG INH SOL UD 3ML (DUONEB)(J7620) NEB PRN ×2 (10:43→10:56)
[2018-07-29] MEDS ORDERED: LEVA1TAB2 PO (10:54)
[2018-07-29] MEDS ORDERED: LevoFLOXacin 250 MG TABLET PO ONE (11:00)
--- NOTE | 2018-07-29 11:01 | REP ---
Right knee five views: Comparison is 08/16/2007. There is no fracture or dislocation. There is no effusion. There is advanced osteoarthritis of the medial compartment that has progressed. There is osteoarthritis of the patellofemoral articulation as an interval change. The lateral compartment demonstrates no joint space narrowing, however there are faintly visible calcifications within the lateral compartment. This is compatible with CPPD. Impression: No fracture or dislocation. No hemarthrosis or joint effusion. Advanced osteoarthritis of the medial compartment. Moderate osteoarthritis of the patellofemoral compartment. CPPD of the lateral compartment. Electronically Signed by Eligio Juarez MD 07/29/2018 10:52 A
--- NOTE | 2018-07-29 11:02 | REP ---
PA and lateral chest: Comparisons are 08/04/2017. And 06/08/2016. There are no acute infiltrates or pleural effusions. There is a focal density in the left lower lobe, seen to best advantage on the lateral view, unchanged from the comparison studies. This could be artifact from a tortuous thoracic descending aorta or hiatal hernia.. The lung cole otherwise clear and unchanged. Cardiac size is upper normal, unchanged. The mediastinum are unremarkable. There are bilateral shoulder arthroplasties, unchanged. Impression: There are chronic findings as described. No acute cardiopulmonary findings are identified. Electronically Signed by Eligio Juarez MD 07/29/2018 10:53 A
[2018-07-29 11:28] VITALS: BP 147/65
== END 2018-07-29 11:38 | disposition home or self-care (01) ==
LOC: M ED 09:44
DX: M17.11 Unilateral primary osteoarthritis, right knee (principal); R05 Cough; H66.93 Otitis media, unspecified, bilateral; Z91.81 History of falling; I10 Essential (primary) hypertension; J45.909 Unspecified asthma, uncomplicated; Z86.711 Personal history of pulmonary embolism; K21.9 Gastro-esophageal reflux disease without esophagitis; K57.92 Diverticulitis of intestine, part unspecified, without perforation or abscess without bleeding; M81.0 Age-related osteoporosis without current pathological fracture; D75.9 Disease of blood and blood-forming organs, unspecified; F32.9 Major depressive disorder, single episode, unspecified; F41.9 Anxiety disorder, unspecified; Z88.0 Allergy status to penicillin; Z88.8 Allergy status to other drugs, medicaments and biological substances; Z79.899 Other long term (current) drug therapy; Z79.2 Long term (current) use of antibiotics; Z79.52 Long term (current) use of systemic steroids; Z79.82 Long term (current) use of aspirin

== ENCOUNTER 2018-09-05 09:49 | Inpatient (IN) | payer MEDICARE, OTHER ==
[~2018-09-05] VITALS: Ht 149.9 cm; Wt 87.7 kg
[~2018-09-05 09:49] MED LIST changes: +LEVA1TAB2 PO
[2018-09-05] MEDS ORDERED: ASPIRIN 81 MG CHEW TABLET PO ONE (10:30)
[2018-09-05] MEDS: IPRATROPIUM 0.5MG/ALBUTEROL 2.5MG INH SOL UD 3ML (DUONEB)(J7620) NEB PRN ×2 (10:45→10:59)
[2018-09-05 11:12] LABS: BASO % 0.4 % (0.0-1.0); EOS # 0.2 10^3/uL (0.0-0.50); EOS % 1.6 % (0.0-3.0); HEMATOCRIT 34.2 % (36.0-47.0); HEMOGLOBIN 10.8 g/dl (12.0-15.5); LYMPH # 2.3 10^3/uL (1.5-4.5); LYMPH % 25.4 % (24.0-44.0); MEAN CORPUSCULAR HEMOGLOBIN 31.4 pg (27.0-33.0); MEAN CORPUSCULAR HGB CONC 31.6 g/dl (32.0-36.5); MEAN CORPUSCULAR VOLUME 99.4 fl (80.0-96.0); MONO # 1.1 10^3/uL (0.0-0.8); MONO % 12.3 % (0.0-5.0); NEUTROPHILS # 5.5 10^3/uL (1.8-7.7); NEUTROPHILS % 59.8 % (36.0-66.0); PLATELET COUNT, AUTOMATED 197 10^3/uL (150-450); RED BLOOD COUNT 3.44 10^6/uL (4.00-5.40); WHITE BLOOD COUNT 9.2 10^3/uL (4.0-10.0)
[2018-09-05] MEDS ORDERED: ISOVUE-370 76% 100ML VIAL (Q9967) As Ordered ONE (11:31)
[2018-09-05] MEDS ORDERED: NS 500 ML IV ONE (11:45)
[2018-09-05 11:52] LABS: ALBUMIN 2.9 GM/DL (3.2-5.2); BILIRUBIN,DIRECT 0.1 MG/DL (0.0-0.2); BILIRUBIN,TOTAL 0.4 MG/DL (0.2-1.0); MB/CK RELATIVE INDEX 2.7 (< OR =4); THYROID STIMULATING HORMONE 3.11 uIU/ML (0.358-3.740); TOTAL PROTEIN 8.1 GM/DL (6.4-8.2); TROPONIN I 0.03 NG/ML (< 0.10)
--- NOTE | 2018-09-05 12:41 | REP ---
Clinical: Generalized abdominal pain. Technique: Axial contrast enhanced images from the lung bases to the pubic symphysis with coronal and sagittal re-formations using 100 ml Isovue 370 intravenous contrast material. Findings: Left basilar atelectasis. Liver, spleen, pancreas, bilateral adrenal glands are essentially normal. Kidneys demonstrate chronic age-related cortical scarring and atrophic changes along with small cyst. No hydronephrosis or perinephric stranding. Evidence for prior cholecystectomy noted. The enteric system is without obstruction or acute inflammatory process. Colonic and sigmoid diverticulosis noted without acute diverticulitis. Pelvis demonstrates normal bladder and evidence for prior hysterectomy. Fat containing periumbilical hernia measures 5.1 cm maximal diameter and infraumbilical midline fat containing ventral hernia measures 8.0 cm maximal diameter. No ascites. No free air. No adenopathy. Abdominal aorta without aneurysm or dissection. Musculoskeletal structures demonstrate scoliosis and degenerative changes without focal osseous abnormality. Impression: 1. Left lower lobe atelectasis. 2. Sigmoid diverticulosis without acute diverticulitis. 3. Fat containing periumbilical and infraumbilical ventral hernias. 4. Chronic changes as described above. 5. No further acute abdominopelvic pathology appreciated. No ascites. No focal inflammatory stranding. No adenopathy. Electronically Signed by Chintan Washburn MD 09/05/2018 12:33 P
--- NOTE | 2018-09-05 12:45 | REP ---
Clinical: Chest pain. Rule out pulmonary embolus. Technique: Axial contrast enhanced images from the thoracic inlet to the upper abdomen with coronal and sagittal re-formations using 100 ml Isovue 370 intravenous contrast material. Images obtained using pulmonary embolus technique. Comparison: 06/08/2016. Findings: Satisfactory enhancement of the pulmonary vasculature is achieved and no filling defects are identified to suggest pulmonary embolus. Atherosclerotic changes to the thoracic aorta noted without aneurysm or dissection. Cardiomegaly is appreciated along with atherosclerotic changes to the coronary arteries. No pericardial effusion identified. Prominent bilateral axillary and prevascular mediastinal lymph nodes are nonspecific but appear increased from prior examination. Lung cole demonstrate scattered patchy bilateral infiltrates and left lower lobe/lingular atelectasis suggesting multifocal pneumonia. No effusion. No pneumothorax. Tracheobronchial tree is patent. Surrounding musculoskeletal structures demonstrate age-related osteopenia and degenerative change. Impression: 1. No pulmonary embolus. 2. Subtle scattered bilateral air space disease with left lower lobe and lingular atelectasis as well as mild adenopathy suggests acute multifocal pneumonia and correlation is recommended. Short-term follow-up to resolution recommended to exclude further pathology. 3. Atherosclerotic changes to the thoracic aorta and coronary arteries. Electronically Signed by Chintan Washburn MD 09/05/2018 12:37 P
--- NOTE | 2018-09-05 13:01 | REP ---
Clinical: Trauma. Fall. Technique: AP and lateral views of the right tibia / fibula. Findings: Age-related osteopenia and arthritic changes at the knee and ankle joint noted. No obvious acute fracture or dislocation. No subcutaneous emphysema or radiodense foreign body. Impression: No acute fracture or dislocation appreciated Electronically Signed by Chintan Washburn MD 09/05/2018 12:53 P
--- NOTE | 2018-09-05 13:03 | REP ---
Clinical: Chest pain. Technique: PA and lateral. Comparison: 07/29/2018. Findings: Cardiomegaly remains stable. Subtle left lower lobe at plexuses/infiltrate is suggested. No effusion. No pneumothorax. Skeletal structures intact. Bilateral shoulder replacement. Impression: Subtle retrocardiac/left lower lobe infiltrate and atelectasis suggested. Electronically Signed by Chintan Washburn MD 09/05/2018 12:54 P
--- NOTE | 2018-09-05 13:15 | REP ---
Right lower extremity Duplex Doppler venous ultrasound: Real time compression and duplex Doppler interrogation of the right lower extremity deep venous system is performed. The right common femoral, superficial femoral and popliteal veins are fully compressible with transducer pressure and demonstrate normal spontaneous and phasic flow, without evidence of deep venous thrombosis. Impression: No evidence of deep venous thrombosis of the right lower extremity femoral popliteal venous system. There is a popliteal cyst measuring 6.3 x 1.5 x 4.8 cm. Electronically Signed by Eligio Peña MD 09/05/2018 01:07 P
[2018-09-05] MEDS ORDERED: PROAAER10 INH (13:49)
[2018-09-05] MEDS ORDERED: OYST1TAB PO (13:49)
[2018-09-05] MEDS ORDERED: LORA0.5T11 PO (13:49)
[2018-09-05] MEDS ORDERED: VITA10002 PO (13:49)
[2018-09-05] MEDS ORDERED: VENL150C43 PO (13:49)
[2018-09-05] MEDS ORDERED: OXYC1TAB23 PO (13:49)
[2018-09-05] MEDS ORDERED: LASI20TA3 PO (13:49)
[2018-09-05] MEDS ORDERED: IPRA0.00 INH (13:50)
[2018-09-05] MEDS ORDERED: IRBE75TA5 PO (13:50)
[2018-09-05] MEDS ORDERED: MAALOX 30 ML SUSP *UDC PO PRN (14:15)
[2018-09-05] MEDS ORDERED: IPRATROPIUM 0.5MG/ALBUTEROL 2.5MG INH SOL UD 3ML (DUONEB)(J7620) NEB PRN (14:15)
[2018-09-05] MEDS ORDERED: MOM 30ML SUSPENSION UDC PO PRN (14:15)
[2018-09-05] MEDS ORDERED: PERCOCET 5MG/325MG TAB PO PRN (14:15)
--- NOTE | 2018-09-05 14:24 | HPEPDOC ---
General Date of Admission Date of Service: September 05, 2018 Attending Physician: DENILSON MADRIGAL MD Chief Complaint The patient is a 83-year-old female admitted with a reason for visit of Ear Pain. Source: Patient, Family Exam Limitations: Mild cognitive slowing Timing/Duration: Day(s) Severity: Severe Associated Symptoms: Shortness of breath Home Medications Scheduled Aspirin (Aspir 81) 81 Mg Tab, 81 MG PO QHS, (Reported) Calcitriol (Calcitriol) 0.25 Mcg Cap, 0.5 MCG PO Q2D, (Reported) Calcium Carbonate (Calcium) 500 Mg Tablet, 500 MG PO DAILY, (Reported) Cyanocobalamin (Vitamin B-12) (Vitamin B-12) 1,000 Mcg Tablet, 1,000 MCG PO QHS, (Reported) Ergocalciferol (Vitamin D2) (Drisdol) 50,000 Unit Cap, 50,000 UNIT PO QWEEK, (Reported) FRIDAYS Febuxostat (Uloric) 80 Mg Tab, 80 MG PO Q2D, (Reported) Furosemide (Lasix) 20 Mg Tablet, 20 MG PO DAILY, (Reported) Gabapentin (Gabapentin) 100 Mg Cap, 300 MG PO TID, (Reported) Hydroxychloroquine Sulfate (Hydroxychloroquine Sulfate) 200 Mg Tab, 200 MG PO BID, (Reported) Irbesartan (Irbesartan) 75 Mg Tablet, 75 MG PO DAILY, (Reported) Lorazepam (Lorazepam) 0.5 Mg Tablet, 0.5 MG PO BID, (Reported) Magnesium Chloride (Mag64) 64 Mg Tabcr, 64 MG PO 3XW, (Reported) SAT, SAT, SAT Omeprazole (Omeprazole) 40 Mg Cap, 40 MG PO BID, (Reported) Venlafaxine HCl (Venlafaxine HCl ER) 150 Mg Cap.er.24h, 150 MG PO DAILY, (Reported) Scheduled PRN Albuterol Sulfate (Proair Hfa) 8.5 Gm Hfa.aer.ad, 2 PUFF INH QID PRN for SHORTNESS OF BREATH, (Reported) Fluticasone Propionate (Flonase Allergy Relief) 50 Mcg/Act Spr, 50 MCG NA DAILY PRN for CONGESTION, (Reported) Ipratropium/Albuterol Sulfate (Iprat-Albut 0.5-3(2.5) mg/3 ml) 3 Ml Ampul.neb, 1 GEOVANY INH QID PRN for SHORTNESS OF BREATH, (Reported) Oxycodone HCl/Acetaminophen (Oxycodone-Acetaminophen 5-325) 1 Each Tablet, 1 TAB PO QID PRN for PAIN, (Reported) Allergies Coded Allergies: Penicillins (Verified Allergy, Severe, BODY SWELLING, 07/29/18) allopurinol (Verified Allergy, Intermediate, RASH, 07/29/18) rabeprazole (Verified Allergy, Intermediate, RASH, 07/29/18) risperidone (Verified Allergy, Unknown, 07/29/18) sulfamethoxazole (Verified Allergy, Unknown, SWELLING, 09/05/18) trimethoprim (Verified Allergy, Unknown, SWELLING, 09/05/18) Past Medical History Medical History History of COPD, hypertension, questionable asthma. Patient is a poor historian and daughter is also unable to provide me with good history Surgical History None Family History Significant Family History: No pertinent family hx Social History * Smoker: secondhand Alcohol: Denies Drugs: denies A-FIB/CHADSVASC A-FIB History Current/History of A-Fib/PAF?: No Review of Systems Constitutional: Denies: Chills, Fever, Malaise, Night Sweats, Weakness, Fatigue, Weight Loss, Lethargy, Other Eyes: Denies: Pain, Vision change, Conjunctivae inflammation, Eyelid inflam mation, Redness, Other ENT: Reports: Other Symptoms (earache bilaterally); Denies: Head Aches, Ear Pain, Dysphagia, Sinus Congestion, Post Nasal Drip, Sore Throat, Epistaxis Skin: Denies: Rash, Lesions, Jaundice, Bruising, Itching, Dry, Breakdown, Nail Changes, Other Pulmonary: Reports: Dyspnea Cardiovascular: Denies: Chest Pain, Palpitations, Orthopnea, Paroxysmal Noc. Dyspnea, Edema, Lt Headedness, Other Symptoms Gastrointestinal: Denies: Nausea, Vomiting, Abdominal Pain, Diarrhea, Constipation, Melena, Hematochezia, Other Symptoms Genitourinary: Denies: Dysuria, Frequency, Incontinence, Hematuria, Retention, Other Symptoms Hematologic: Denies: Bruising, Bleeding Excessively, Petecchia, Purpura, Enlarged Lymph Nodes, Other Hematologic Endocrine: Denies: Polydipsia, Polyphagia, Polyuria, Heat Intolerance, Cold Intolerance, Other Endocrine Sx Musculoskeletal: Denies: Neck Pain, Back Pain, Shoulder Pain, Arm Pain, Hand Pain, Leg Pain, Foot Pain, Joint Pain, Muscle Pain, Spasms, Other Symptoms Neurological: Denies: Weakness, Numbness, Incoordination, Change in speech, Confusion, Seizures, Other Symptoms Psych: Denies: Mood Normal, Anxiety, Depression, Memory Issues, Thoughts of Self Harm, Anger, Thoughts of Harming Other, Other Psych Physical Examination General Exam: Positive: Alert, Cooperative Eye Exam: Positive: PERRLA, Conjunctiva & lids normal ENT Exam: Positive: Atraumatic, Mucous membr. moist/pink Neck Exam: Positive: Supple Chest Exam: Positive: Rhonchi, Wheezing Heart Exam: Positive: Rate Normal, Normal S1, Normal S2 Abdomen Exam: Positive: Normal bowel sounds, Soft Extremity Exam: Positive: Normal pulses Skin Exam: Positive: Nl turgor and temperature Neuro Exam: Positive: Normal Gait, Normal Speech Psych Exam: Positive: Mental status NL, Mood NL Vital Signs Vital Signs Date Time Temp Pulse Resp B/P (MAP) Pulse Ox O2 Delivery O2 Flow Rate FiO2 09/05/18 11:16 98.3 66 24 188/99 (128) 93 Room Air Laboratory Data Labs 24H Laboratory Tests 2 09/05/18 10:27: Urine Color YELLOW, Urine Appearance HAZY, Urine pH 5.0, Urine Specific Ione 1.013, Urine Protein 3+H, Urine Glucose (UA) NEGATIVE, Urine Ketones NEGATIVE, Urine Blood NEGATIVE, Urine Nitrite NEGATIVE, Urine Bilirubin NEGATIVE, Urine Urobilinogen 0.2, Urine Leukocyte Esterase NEGATIVE, Urine WBC (Auto) 2, Urine RBC (Auto) 4H, Urine Hyaline Casts (Auto) 3, Urine Bacteria (Auto) 1+H, Urine Squamous Epithelial Cells 3, Urine Sperm (Auto) 09/05/18 10:54: Immature Granulocyte % (Auto) 0.5, White Blood Count 9.2, Red Blood Count 3.44L, Hemoglobin 10.8L, Hematocrit 34.2L, Mean Corpuscular Volume 99.4H, Mean Corpuscular Hemoglobin 31.4, Mean Corpuscular Hemoglobin Concent 31.6L, Red Cell Distribution Width 12.6, Platelet Count 197, Neutrophils (%) (Auto) 59.8, Lymphocytes (%) (Auto) 25.4, Monocytes (%) (Auto) 12.3H, Eosinophils (%) (Auto) 1.6, Basophils (%) (Auto) 0.4, Neutrophils # (Auto) 5.5, Lymphocytes # (Auto) 2.3, Monocytes # (Auto) 1.1H, Eosinophils # (Auto) 0.2, Basophils # (Auto) 0.0, Nucleated Red Blood Cells % (auto) 0.0, Aspartate Amino Transf (AST/SGOT) 25, Alanine Aminotransferase (ALT/SGPT) 20, Alkaline Phosphatase 92, Total Bilirubin 0.4, Direct Bilirubin 0.1, Total Creatine Kinase 122, Creatine Kinase MB 3.0, Creatine Kinase MB Relative Index 2.70, Troponin I 0.03, FU-Zhl-L-Type Natriuretic Peptide 8054H, Total Protein 8.1, Albumin 2.9L, Albumin/Globulin Ratio 0.56L, Lipase 78, Thyroid Stimulating Hormone (TSH) 3.110 09/05/18 11:01: POC Glucose (Misc Panel) 143H, POC Sodium (Misc Panel) 142, POC Potassium (Misc Panel) 4.2, POC Chloride (Misc Panel) 104, POC Total CO2 (Misc Panel) 27.0, POC Blood Urea Nitrogen (Misc Panel 30H, POC Ionized Calcium (Misc Panel) 5.0, POC Creatinine (Misc Panel) 1.3, POC Hematocrit (Misc Panel) 35.0L 09/05/18 11:02: POC Lactate (Misc Panel) 1.06 CBC/BMP Laboratory Tests 09/05/18 10:54 Red Blood Count 3.44 L, Mean Corpuscular Volume 99.4 H, Mean Corpuscular Hemoglobin 31.4, Mean Corpuscular Hemoglobin Concent 31.6 L, Red Cell Distribution Width 12.6, Neutrophils (%) (Auto) 59.8, Lymphocytes (%) (Auto) 25.4, Monocytes (%) (Auto) 12.3 H, Eosinophils (%) (Auto) 1.6, Basophils (%) (Auto) 0.4, Neutrophils # (Auto) 5.5, Lymphocytes # (Auto) 2.3, Monocytes # (Auto) 1.1 H, Eosinophils # (Auto) 0.2, Basophils # (Auto) 0.0 Problems (1) Community acquired pneumonia Status: Acute Response to Treatment: Stable Problem Text: 83 years old white female with past medical history of secondhand smoking, possible COPD, possible asthma, came in with chief complaints of increasing shortness of breath since last few days. On clinical exam. Patient is a bilateral wheezing with rhonchi in on chest x-ray to the left lower lobe infiltrate. Patient being admitted with community acquired pneumonia. Admit to medical floor IV fluids normal saline at 75 mL per hour Avelox 400 mg IV every 24 hours Has no sputum, so unable to obtain any sputum cultures at the present time Will follow patient clinically for any improvement and change meds accordingly DVT prophylaxis with heparin Continue home meds (2) COPD with exacerbation Status: Acute Problem Text: Solu-Medrol 60 mg IV every 8 hours DuoNeb every 6 hours and every 2 hours when necessary Oxygen support A.m. laboratory work (3) Acute otitis media, bilateral Status: Acute Problem Text: As above Plan / VTE VTE Prophylaxis Ordered?: Yes DENILSON MADRIGAL MD September 05, 2018 14:24
[2018-09-05 17:04] VITALS: BP 135/93
[2018-09-05] MEDS: GABAPENTIN 300 MG CAP PO SCH ×2 (17:24→20:43)
[2018-09-05] MEDS: methylPREDNISolone INJ 125 MG/2 ML VIAL (J2930) IV SCH ×2 (17:24→23:41)
[2018-09-05] MEDS: PERCOCET 5MG/325MG TAB PO PRN ×2 (17:25→23:43)
[2018-09-05] MEDS: OMEPRAZOLE 20 MG CAP PO SCH (20:43)
[2018-09-05] MEDS: HYDROXYCHLOROQUINE 200 MG TAB PO SCH (20:43)
[2018-09-05] MEDS: LORazepam 0.5 MG TAB PO SCH (20:43)
[2018-09-05] MEDS: DOCUSATE SODIUM 100 MG CAP PO SCH (20:43)
[2018-09-05] MEDS: HEPARIN SOD (PORCINE) 5000 UNITS/ML VIAL SC SCH (20:44)
--- NOTE | 2018-09-05 20:54 | ECGEPIP ---
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
[2018-09-05 22:00] VITALS: BP 142/89
[2018-09-05] MEDS: IPRATROPIUM 0.5MG/ALBUTEROL 2.5MG INH SOL UD 3ML (DUONEB)(J7620) NEB SCH ×2 (23:47→23:54)
[2018-09-06] MEDS: methylPREDNISolone INJ 125 MG/2 ML VIAL (J2930) IV SCH ×3 (05:44→22:33)
[2018-09-06 06:00] VITALS: BP 146/93
[2018-09-06 06:35] LABS: HEMATOCRIT 35.2 % (36.0-47.0); HEMOGLOBIN 10.7 g/dl (12.0-15.5); MEAN CORPUSCULAR HEMOGLOBIN 30.1 pg (27.0-33.0); MEAN CORPUSCULAR HGB CONC 30.4 g/dl (32.0-36.5); MEAN CORPUSCULAR VOLUME 99.2 fl (80.0-96.0); PLATELET COUNT, AUTOMATED 189 10^3/uL (150-450); RED BLOOD COUNT 3.55 10^6/uL (4.00-5.40); WHITE BLOOD COUNT 5.7 10^3/uL (4.0-10.0)
[2018-09-06 06:56] LABS: ALBUMIN 2.7 GM/DL (3.2-5.2); BILIRUBIN,TOTAL 0.2 MG/DL (0.2-1.0); CALCIUM LEVEL 9.6 MG/DL (8.8-10.2); CREATININE FOR GFR 1.62 MG/DL (0.55-1.30); GLOMERULAR FILTRATION RATE 32.5 (>32); MAGNESIUM LEVEL 1.9 MG/DL (1.8-2.4); POTASSIUM SERUM 4.8 MEQ/L (3.5-5.1); TOTAL PROTEIN 7.8 GM/DL (6.4-8.2)
[2018-09-06] MEDS: IPRATROPIUM 0.5MG/ALBUTEROL 2.5MG INH SOL UD 3ML (DUONEB)(J7620) NEB SCH ×3 (08:09→19:55)
--- NOTE | 2018-09-06 10:27 | IPNPDOC ---
Subjective Date Seen The patient was seen on 09/06/18. Subjective Chief Complaint/HPI Patient feels slightly better and had a good night's sleep last night General: Denies: ROS Unobtainable, Chills, Night Sweats, Fatigue, Malaise, Normal Appetite, Other Symptoms Constitutional: Denies: Chills, Fever, Malaise, Night Sweats, Weakness, Fatigue, Weight Loss, Lethargy, Other Eyes: Denies: Pain, Vision change, Conjunctivae inflammation, Eyelid inflammation, Redness, Other ENT: Denies: Head Aches, Ear Pain, Dysphagia, Sinus Congestion, Post Nasal Drip, Sore Throat, Epistaxis, Other Symptoms Skin: Denies: Rash, Lesions, Jaundice, Bruising, Itching, Dry, Breakdown, Nail Changes, Other Pulmonary: Reports: Dyspnea Cardiovascular: Denies: Chest Pain, Palpitations, Orthopnea, Paroxysmal Noc. Dyspnea, Edema, Lt Headedness, Other Symptoms Gastrointestinal: Denies: Nausea, Vomiting, Abdominal Pain, Diarrhea, Constipation, Melena, Hematochezia, Other Symptoms Genitourinary: Denies: Dysuria, Frequency, Incontinence, Hematuria, Retention, Other Symptoms Hematologic: Denies: Bruising, Bleeding Excessively, Petecchia, Purpura, Enlarged Lymph Nodes, Other Hematologic Endocrine: Denies: Polydipsia, Polyphagia, Polyuria, Heat Intolerance, Cold Intolerance, Other Endocrine Sx Musculoskeletal: Denies: Neck Pain, Back Pain, Shoulder Pain, Arm Pain, Hand Pain, Leg Pain, Foot Pain, Joint Pain, Muscle Pain, Spasms, Other Symptoms Neurological: Denies: Weakness, Numbness, Incoordination, Change in speech, Confusion, Seizures, Other Symptoms Psych: Denies: Mood Normal, Anxiety, Depression, Memory Issues, Thoughts of Self Harm, Anger, Thoughts of Harming Other, Other Psych Objective Physical Examination General Exam: Positive: Alert, Cooperative Eye Exam: Positive: PERRLA, Conjunctiva & lids normal ENT Exam: Positive: Atraumatic, Mucous membr. moist/pink Neck Exam: Positive: Supple Chest Exam: Positive: Rhonchi, Wheezing Heart Exam: Positive: Rate Normal, Normal S1, Normal S2 Abdomen Exam: Positive: Normal bowel sounds, Soft Extremity Exam: Positive: Normal pulses Skin Exam: Positive: Nl turgor and temperature Neuro Exam: Positive: Normal Gait, Normal Speech Psych Exam: Positive: Mental status NL, Mood NL Assessment /Plan Problems (1) Community acquired pneumonia Status: Acute Response to Treatment: Stable Problem Text: 83 years old white female with past medical history of secondhand smoking, possible COPD, possible asthma, came in with chief complaints of increasing shortness of breath since last few days. On clinical exam. Patient is a bilateral wheezing with rhonchi in on chest x-ray to the left lower lobe infiltrate. Patient being admitted with community acquired pneumonia. On physical examination wheezing has resolved significantly Will continue IV antibiotics, IV steroids and nebulizer treatment Repeat laboratory work in a.m. Possible DC on Saturday (2) COPD with exacerbation Status: Acute Problem Text: Solu-Medrol 60 mg IV every 8 hours DuoNeb every 6 hours and every 2 hours when necessary Oxygen support A.m. laboratory work (3) Acute otitis media, bilateral Status: Acute Problem Text: As above Plan/VTE VTE Prophylaxis Ordered?: Yes VS, I&O, 24H, Fishbone Vital Signs/I&O Vital Signs Date Time Temp Pulse Resp B/P (MAP) Pulse Ox O2 Delivery O2 Flow Rate FiO2 09/06/18 06:00 97.5 58 16 146/93 (110) 98 2.0 09/05/18 16:34 Room Air I&O- Last 24 Hours up to 6 AM 09/06/18 06:00 Intake Total 1580 ml Balance 1580 ml Laboratory Data 24H LABS Laboratory Tests 2 09/05/18 10:27: Urine Color YELLOW, Urine Appearance HAZY, Urine pH 5.0, Urine Specific [place] 1.013, Urine Protein 3+H, Urine Glucose (UA) NEGATIVE, Urine Ketones NEGATIVE, Urine Blood NEGATIVE, Urine Nitrite NEGATIVE, Urine Bilirubin NEGATIVE, Urine Urobilinogen 0.2, Urine Leukocyte Esterase NEGATIVE, Urine WBC (Auto) 2, Urine RBC (Auto) 4H, Urine Hyaline Casts (Auto) 3, Urine Bacteria (Auto) 1+H, Urine Squamous Epithelial Cells 3, Urine Sperm (Auto) 09/05/18 10:54: Immature Granulocyte % (Auto) 0.5, White Blood Count 9.2, Red Blood Count 3.44L, Hemoglobin 10.8L, Hematocrit 34.2L, Mean Corpuscular Volume 99.4H, Mean Corpuscular Hemoglobin 31.4, Mean Corpuscular Hemoglobin Concent 31.6L, Red Cell Distribution Width 12.6, Platelet Count 197, Neutrophils (%) (Auto) 59.8, Lymp hocytes (%) (Auto) 25.4, Monocytes (%) (Auto) 12.3H, Eosinophils (%) (Auto) 1.6, Basophils (%) (Auto) 0.4, Neutrophils # (Auto) 5.5, Lymphocytes # (Auto) 2.3, Monocytes # (Auto) 1.1H, Eosinophils # (Auto) 0.2, Basophils # (Auto) 0.0, Nucleated Red Blood Cells % (auto) 0.0, Aspartate Amino Transf (AST/SGOT) 25, Alanine Aminotransferase (ALT/SGPT) 20, Alkaline Phosphatase 92, Total Bilirubin 0.4, Direct Bilirubin 0.1, Total Creatine Kinase 122, Creatine Kinase MB 3.0, Creatine Kinase MB Relative Index 2.70, Troponin I 0.03, DH-Cbp-T-Type Natriuretic Peptide 8054H, Total Protein 8.1, Albumin 2.9L, Albumin/Globulin Ratio 0.56L, Lipase 78, Thyroid Stimulating Hormone (TSH) 3.110 09/05/18 11:01: POC Glucose (Misc Panel) 143H, POC Sodium (Misc Panel) 142, POC Potassium (Misc Panel) 4.2, POC Chloride (Misc Panel) 104, POC Total CO2 (Misc Panel) 27.0, POC Blood Urea Nitrogen (Misc Panel 30H, POC Ionized Calcium (Misc Panel) 5.0, POC Creatinine (Misc Panel) 1.3, POC Hematocrit (Misc Panel) 35.0L 09/05/18 11:02: POC Lactate (Misc Panel) 1.06 09/06/18 05:55: Nucleated Red Blood Cells % (auto) 0.0, Anion Gap 5L, Glomerular Filtration Rate 32.5, Blood Urea Nitrogen 36H, Creatinine 1.62H, Sodium Level 139, Potassium Level 4.8, Chloride Level 107, Carbon Dioxide Level 27, Calcium Level 9.6, Aspartate Amino Transf (AST/SGOT) 16, Alanine Aminotransferase (ALT/SGPT) 16, Alkaline Phosphatase 80, Total Bilirubin 0.2, Total Protein 7.8, Albumin 2.7L, Magnesium Level 1.9, Albumin/Globulin Ratio 0.53L CBC/BMP Laboratory Tests 09/05/18 10:54 Red Blood Count 3.44 L, Mean Corpuscular Volume 99.4 H, Mean Corpuscular Hemoglobin 31.4, Mean Corpuscular Hemoglobin Concent 31.6 L, Red Cell Distribution Width 12.6, Neutrophils (%) (Auto) 59.8, Lymphocytes (%) (Auto) 25.4, Monocytes (%) (Auto) 12.3 H, Eosinophils (%) (Auto) 1.6, Basophils (%) (Auto) 0.4, Neutrophils # (Auto) 5.5, Lymphocytes # (Auto) 2.3, Monocytes # (Auto) 1.1 H, Eosinophils # (Auto) 0.2, Basophils # (Auto) 0.0 09/06/18 05:55 Red Blood Count 3.55 L, Mean Corpuscular Volume 99.2 H, Mean Corpuscular Hemoglobin 30.1, Mean Corpuscular Hemoglobin Concent 30.4 L, Red Cell Distribution Width 12.4, Calcium Level 9.6, Aspartate Amino Transf (AST/SGOT) 16, Alanine Aminotransferase (ALT/SGPT) 16, Alkaline Phosphatase 80, Total Brian irubin 0.2, Total Protein 7.8, Albumin 2.7 L DENILSON MADRIGAL MD September 06, 2018 10:27
[2018-09-06] MEDS: DOCUSATE SODIUM 100 MG CAP PO SCH ×2 (10:32→21:26)
[2018-09-06] MEDS: GABAPENTIN 300 MG CAP PO SCH ×3 (10:32→21:27)
[2018-09-06] MEDS: HYDROXYCHLOROQUINE 200 MG TAB PO SCH ×2 (10:32→21:26)
[2018-09-06] MEDS: OMEPRAZOLE 20 MG CAP PO SCH ×2 (10:32→21:26)
[2018-09-06] MEDS: FUROSEMIDE 20 MG TAB PO SCH (10:32)
[2018-09-06] MEDS: VENLAFAXINE **XR** 75MG CAPSULE PO SCH (10:32)
[2018-09-06] MEDS: LORazepam 0.5 MG TAB PO SCH ×2 (10:32→21:26)
[2018-09-06] MEDS: HEPARIN SOD (PORCINE) 5000 UNITS/ML VIAL SC SCH ×2 (10:33→21:26)
[2018-09-06 14:00] VITALS: BP 173/71
[2018-09-06] MEDS: MOXIFLOXACIN HCL 400 MG in APPROPRIATE DILUENT 1 EA IV SCH (14:57)
[2018-09-06] MEDS: PERCOCET 5MG/325MG TAB PO PRN ×2 (14:57→21:40)
[2018-09-06] MEDS: ASPIRIN 81 MG ENTERIC TAB PO SCH (21:26)
[2018-09-06 21:50] VITALS: BP 166/75
[2018-09-07] MEDS: IPRATROPIUM 0.5MG/ALBUTEROL 2.5MG INH SOL UD 3ML (DUONEB)(J7620) NEB SCH ×4 (00:30→20:38)
[2018-09-07 06:00] VITALS: BP 167/80
[2018-09-07] MEDS: methylPREDNISolone INJ 125 MG/2 ML VIAL (J2930) IV SCH (06:00)
[2018-09-07 07:38] LABS: HEMATOCRIT 34.3 % (36.0-47.0); HEMOGLOBIN 10.6 g/dl (12.0-15.5); MEAN CORPUSCULAR HEMOGLOBIN 31.1 pg (27.0-33.0); MEAN CORPUSCULAR HGB CONC 30.9 g/dl (32.0-36.5); MEAN CORPUSCULAR VOLUME 100.6 fl (80.0-96.0); PLATELET COUNT, AUTOMATED 254 10^3/uL (150-450); RED BLOOD COUNT 3.41 10^6/uL (4.00-5.40)
[2018-09-07 08:00] LABS: BILIRUBIN,TOTAL 0.2 MG/DL (0.2-1.0); CALCIUM LEVEL 9.6 MG/DL (8.8-10.2); CREATININE FOR GFR 2.92 MG/DL (0.55-1.30); GLOMERULAR FILTRATION RATE 16.4 (>32); TOTAL PROTEIN 7.4 GM/DL (6.4-8.2)
[2018-09-07] MEDS: LORazepam 0.5 MG TAB PO SCH ×2 (08:16→20:29)
[2018-09-07] MEDS: FEBUXOSTAT 40 MG TABLET (ULORIC) PO SCH (08:16)
[2018-09-07] MEDS: OMEPRAZOLE 20 MG CAP PO SCH ×2 (08:16→20:29)
[2018-09-07] MEDS: VENLAFAXINE **XR** 75MG CAPSULE PO SCH (08:16)
[2018-09-07] MEDS: PERCOCET 5MG/325MG TAB PO PRN ×2 (08:17→14:06)
[2018-09-07] MEDS: GABAPENTIN 300 MG CAP PO SCH ×3 (08:18→20:29)
[2018-09-07] MEDS: HYDROXYCHLOROQUINE 200 MG TAB PO SCH ×2 (08:18→20:29)
[2018-09-07] MEDS: DOCUSATE SODIUM 100 MG CAP PO SCH ×2 (08:18→20:29)
[2018-09-07] MEDS: HEPARIN SOD (PORCINE) 5000 UNITS/ML VIAL SC SCH ×2 (08:18→20:30)
[2018-09-07] MEDS: FUROSEMIDE 20 MG TAB PO SCH (08:18)
--- NOTE | 2018-09-07 10:41 | IPNPDOC ---
Subjective Date Seen The patient was seen on 09/07/18. Subjective Chief Complaint/HPI Patient comfortable, much better since she came in, still has mild shortness of breath General: Denies: ROS Unobtainable, Chills, Night Sweats, Fatigue, Malaise, Normal Appetite, Other Symptoms Constitutional: Denies: Chills, Fever, Malaise, Night Sweats, Weakness, Fatigue, Weight Loss, Lethargy, Other Eyes: Denies: Pain, Vision change, Conjunctivae inflammation, Eyelid inflam mation, Redness, Other ENT: Denies: Head Aches, Ear Pain, Dysphagia, Sinus Congestion, Post Nasal Drip, Sore Throat, Epistaxis, Other Symptoms Skin: Denies: Rash, Lesions, Jaundice, Bruising, Itching, Dry, Breakdown, Nail Changes, Other Pulmonary: Reports: Dyspnea Cardiovascular: Denies: Chest Pain, Palpitations, Orthopnea, Paroxysmal Noc. Dyspnea, Edema, Lt Headedness, Other Symptoms Gastrointestinal: Denies: Nausea, Vomiting, Abdominal Pain, Diarrhea, Constipation, Melena, Hematochezia, Other Symptoms Genitourinary: Denies: Dysuria, Frequency, Incontinence, Hematuria, Retention, Other Symptoms Hematologic: Denies: Bruising, Bleeding Excessively, Petecchia, Purpura, Enlarged Lymph Nodes, Other Hematologic Endocrine: Denies: Polydipsia, Polyphagia, Polyuria, Heat Intolerance, Cold Intolerance, Other Endocrine Sx Musculoskeletal: Denies: Neck Pain, Back Pain, Shoulder Pain, Arm Pain, Hand P ain, Leg Pain, Foot Pain, Joint Pain, Muscle Pain, Spasms, Other Symptoms Neurological: Denies: Weakness, Numbness, Incoordination, Change in speech, Confusion, Seizures, Other Symptoms Psych: Denies: Mood Normal, Anxiety, Depression, Memory Issues, Thoughts of Self Harm, Anger, Thoughts of Harming Other, Other Psych Objective Physical Examination General Exam: Positive: Alert, Cooperative Eye Exam: Positive: PERRLA, Conjunctiva & lids normal ENT Exam: Positive: Atraumatic, Mucous membr. moist/pink Neck Exam: Positive: Supple Chest Exam: Positive: Wheezing (minimal wheezing) Heart Exam: Positive: Rate Normal, Normal S1, Normal S2 Abdomen Exam: Positive: Normal bowel sounds, Soft Extremity Exam: Positive: Normal pulses Skin Exam: Positive: Nl turgor and temperature Neuro Exam: Positive: Normal Gait, Normal Speech Psych Exam: Positive: Mental status NL, Mood NL Assessment /Plan Problems (1) Community acquired pneumonia Status: Acute Response to Treatment: Stable Problem Text: 83 years old white female with past medical history of secondhand smoking, possible COPD, possible asthma, came in with chief complaints of increasing shortness of breath since last few days. On clinical exam. Patient is a bilateral wheezing with rhonchi in on chest x-ray to the left lower lobe infiltrate. Patient being admitted with community acquired pneumonia. On physical examination wheezing has resolved significantly Continue IV antibiotics but change IV steroids to by mouth prednisone as W BC count is rising secondary to steroids Patient is afebrile improving very well with current regimen Discharge on Saturday (2) COPD with exacerbation Status: Acute Problem Text: Solu-Medrol 60 mg IV every 8 hours DuoNeb every 6 hours and every 2 hours when necessary Oxygen support A.m. laboratory work (3) Acute otitis media, bilateral Status: Acute Problem Text: As above Plan/VTE VTE Prophylaxis Ordered?: Yes VS, I&O, 24H, [facility] Vital Signs/I&O Vital Signs Date Time Temp Pulse Resp B/P (MAP) Pulse Ox O2 Delivery O2 Flow Rate FiO2 09/07/18 08:17 18 09/07/18 06:00 97.4 56 167/80 (109) 94 09/06/18 06:00 2.0 09/05/18 16:34 Room Air I&O- Last 24 Hours up to 6 AM 09/07/18 06:00 Intake Total 1020 ml Output Total 0 ml Balance 1020 ml Laboratory Data 24H LABS Laboratory Tests 2 09/07/18 07:21: Nucleated Red Blood Cells % (auto) 0.0, Anion Gap 9, Glomerular Filtration Rate 16.4L, Blood Urea Nitrogen 55#H, Creatinine 2.92#H, Sodium Level 135L, Potassium Level 5.0, Chloride Level 103, Carbon Dioxide Level 23, Calcium Level 9.6, Aspartate Amino Transf (AST/SGOT) 17, Alanine Aminotransferase (ALT/SGPT) 15, Alkaline Phosphatase 85, Total Bilirubin 0.2, Total Protein 7.4, Albumin 3.0L, Albumin/Globulin Ratio 0.68L CBC/BMP Laboratory Tests 09/07/18 07:21 Red Blood Count 3.41 L, Mean Corpuscular Volume 100.6 H, Mean Corpuscular Hemoglobin 31.1, Mean Corpuscular Hemoglobin Concent 30.9 L, Red Cell Distribution Width 12.7, Calcium Level 9.6, Aspartate Amino Transf (AST/SGOT) 17, Alanine Aminotransferase (ALT/SGPT) 15, Alkaline Phosphatase 85, Total Bilirubin 0.2, Total Protein 7.4, Albumin 3.0 L DENILSON MADRIGAL MD September 07, 2018 10:41
[2018-09-07 14:00] VITALS: BP 170/78
[2018-09-07] MEDS: MOXIFLOXACIN HCL 400 MG in APPROPRIATE DILUENT 1 EA IV SCH (16:00)
[2018-09-07] MEDS: ASPIRIN 81 MG ENTERIC TAB PO SCH (20:29)
[2018-09-07 22:00] VITALS: BP 145/72
[2018-09-08] MEDS: IPRATROPIUM 0.5MG/ALBUTEROL 2.5MG INH SOL UD 3ML (DUONEB)(J7620) NEB SCH ×4 (00:26→19:49)
[2018-09-08] MEDS: PERCOCET 5MG/325MG TAB PO PRN ×4 (00:43→22:22)
[2018-09-08 06:00] VITALS: BP 136/73
[2018-09-08 07:29] LABS: HEMATOCRIT 31.2 % (36.0-47.0); HEMOGLOBIN 9.5 g/dl (12.0-15.5); MEAN CORPUSCULAR HGB CONC 30.4 g/dl (32.0-36.5); MEAN CORPUSCULAR VOLUME 98.4 fl (80.0-96.0); PLATELET COUNT, AUTOMATED 238 10^3/uL (150-450); RED BLOOD COUNT 3.17 10^6/uL (4.00-5.40); WHITE BLOOD COUNT 12.2 10^3/uL (4.0-10.0)
[2018-09-08 07:57] LABS: ALBUMIN 2.7 GM/DL (3.2-5.2); BILIRUBIN,TOTAL 0.2 MG/DL (0.2-1.0); CALCIUM LEVEL 8.8 MG/DL (8.8-10.2); CREATININE FOR GFR 3.68 MG/DL (0.55-1.30); GLOMERULAR FILTRATION RATE 12.6 (>32); POTASSIUM SERUM 4.9 MEQ/L (3.5-5.1); TOTAL PROTEIN 6.7 GM/DL (6.4-8.2)
--- NOTE | 2018-09-08 09:53 | IPNPDOC ---
Subjective Date Seen The patient was seen on 09/08/18. Subjective Chief Complaint/HPI Complaining of constipation. Respiration is much better General: Denies: ROS Unobtainable, Chills, Night Sweats, Fatigue, Malaise, Normal Appetite, Other Symptoms Constitutional: Denies: Chills, Fever, Malaise, Night Sweats, Weakness, Fatigue, Weight Loss, Lethargy, Other Eyes: Denies: Pain, Vision change, Conjunctivae inflammation, Eyelid inflammation, Redness, Other ENT: Denies: Head Aches, Ear Pain, Dysphagia, Sinus Congestion, Post Nasal Drip, Sore Throat, Epistaxis, Other Symptoms Skin: Denies: Rash, Lesions, Jaundice, Bruising, Itching, Dry, Breakdown, Nail Changes, Other Pulmonary: Denies: Dyspnea, Cough, Pleuritic Chest Pain, Other Symptoms Cardiovascular: Denies: Chest Pain, Palpitations, Orthopnea, Paroxysmal Noc. Dyspnea, Edema, Lt Headedness, Other Symptoms Gastrointestinal: Reports: Constipation Genitourinary: Denies: Dysuria, Frequency, Incontinence, Hematuria, Retention, Other Symptoms Hematologic: Denies: Bruising, Bleeding Excessively, Petecchia, Purpura, Enlarged Lymph Nodes, Other Hematologic Endocrine: Denies: Polydipsia, Polyphagia, Polyuria, Heat Intolerance, Cold Intolerance, Other Endocrine Sx Musculoskeletal: Denies: Neck Pain, Back Pain, Shoulder Pain, Arm Pain, Hand Pain, Leg Pain, Foot Pain, Joint Pain, Muscle Pain, Spasms, Other Symptoms Neurological: Denies: Weakness, Numbness, Incoordination, Change in speech, Confusion, Seizures, Other Symptoms Psych: Denies: Mood Normal, Anxiety, Depression, Memory Issues, Thoughts of Self Harm, Anger, Thoughts of Harming Other, Other Psych Objective Physical Examination General Exam: Positive: Alert, Cooperative Eye Exam: Positive: PERRLA, Conjunctiva & lids normal ENT Exam: Positive: Atraumatic, Mucous membr. moist/pink Neck Exam: Positive: Supple Chest Exam: Positive: Wheezing (minimal wheezing) Heart Exam: Positive: Rate Normal, Normal S1, Normal S2 Abdomen Exam: Positive: Normal bowel sounds, Soft Extremity Exam: Positive: Normal pulses Skin Exam: Positive: Nl turgor and temperature Neuro Exam: Positive: Normal Gait, Normal Speech Psych Exam: Positive: Mental status NL, Mood NL Assessment /Plan Problems (1) Community acquired pneumonia Status: Acute Response to Treatment: Stable Problem Text: 83 years old white female with past medical history of secondhand smoking, possible COPD, possible asthma, came in with chief complaints of increasing shortness of breath since last few days. On clinical exam. Patient is a bilateral wheezing with rhonchi in on chest x-ray to the left lower lobe infiltrate. Patient being admitted with community acquired pneumonia. On physical examination wheezing has resolved significantly Continue IV antibiotics but change IV steroids to by mouth prednisone as W BC count is rising secondary to steroids Patient is afebrile improving very well with current regimen Patient will be discharged home tomorrow , Lactulose 15 g by mouth 1. Constipation (2) COPD with exacerbation Status: Acute Problem Text: By mouth prednisone DuoNeb every 6 hours and every 2 hours when necessary Oxygen support Repeat level work is within normal limits (3) Acute otitis media, bilateral Status: Acute Problem Text: As above Plan/VTE VTE Prophylaxis Ordered?: Yes VS, I&O, 24H, Fishbone Vital Signs/I&O Vital Signs Date Time Temp Pulse Resp B/P (MAP) Pulse Ox O2 Delivery O2 Flow Rate FiO2 09/08/18 06:00 95.6 67 20 136/73 (94) 92 2.0 09/05/18 16:34 Room Air I&O- Last 24 Hours up to 6 AM 09/08/18 06:00 Intake Total 1930 ml Output Total 0 ml Balance 1930 ml Laboratory Data 24H LABS Laboratory Tests 2 09/08/18 07:09: Nucleated Red Blood Cells % (auto) 0.0, Anion Gap 9, Glomerular Filtration Rate 12.6L, Blood Urea Nitrogen 73H, Creatinine 3.68H, Sodium Level 134L, Potassium Level 4.9, Chloride Level 102, Carbon Dioxide Level 23, Calcium Level 8.8, Aspartate Amino Transf (AST/SGOT) 20, Alanine Aminotransferase (ALT/SGPT) 16, Alkaline Phosphatase 66, Total Bilirubin 0.2, Total Protein 6.7, Albumin 2.7L, Albumin/Globulin Ratio 0.68L CBC/BMP Laboratory Tests 09/08/18 07:09 Red Blood Count 3.17 L, Mean Corpuscular Volume 98.4 H, Mean Corpuscular Hemoglobin 30.0, Mean Corpuscular Hemoglobin Concent 30.4 L, Red Cell Distribution Width 12.6, Calcium Level 8.8, Aspartate Amino Transf (AST/SGOT) 20, Alanine Aminotransferase (ALT/SGPT) 16, Alkaline Phosphatase 66, Total Bilirubin 0.2, Total Protein 6.7, Albumin 2.7 L DENILSON MADRIGAL MD September 08, 2018 09:53
[2018-09-08] MEDS: LORazepam 0.5 MG TAB PO SCH ×2 (10:16→20:32)
[2018-09-08] MEDS: GABAPENTIN 300 MG CAP PO SCH ×3 (10:16→20:33)
[2018-09-08] MEDS: predniSONE 10 MG TAB PO SCH (10:16)
[2018-09-08] MEDS: VENLAFAXINE **XR** 75MG CAPSULE PO SCH (10:16)
[2018-09-08] MEDS: HYDROXYCHLOROQUINE 200 MG TAB PO SCH ×2 (10:16→20:33)
[2018-09-08] MEDS: DOCUSATE SODIUM 100 MG CAP PO SCH ×2 (10:16→20:32)
[2018-09-08] MEDS: OMEPRAZOLE 20 MG CAP PO SCH ×2 (10:17→20:32)
[2018-09-08] MEDS: FUROSEMIDE 20 MG TAB PO SCH (10:17)
[2018-09-08] MEDS: HEPARIN SOD (PORCINE) 5000 UNITS/ML VIAL SC SCH ×2 (10:18→20:33)
[2018-09-08] MEDS ORDERED: LACTULOSE 20 GM/30 ML SYRUP UD PO ONE (11:00)
[2018-09-08] MEDS: ACETAMINOPHEN TAB 650MG DOSE (2X325MG) PO PRN (12:26)
[2018-09-08] MEDS: MOXIFLOXACIN HCL 400 MG in APPROPRIATE DILUENT 1 EA IV SCH (16:03)
[2018-09-08] MEDS: ASPIRIN 81 MG ENTERIC TAB PO SCH (20:33)
[2018-09-08 22:00] VITALS: BP 125/87
[2018-09-09] MEDS: IPRATROPIUM 0.5MG/ALBUTEROL 2.5MG INH SOL UD 3ML (DUONEB)(J7620) NEB SCH ×4 (02:11→20:42)
[2018-09-09 06:00] VITALS: BP 147/85
[2018-09-09] MEDS: FEBUXOSTAT 40 MG TABLET (ULORIC) PO SCH (09:01)
[2018-09-09] MEDS: VENLAFAXINE **XR** 75MG CAPSULE PO SCH (09:01)
[2018-09-09] MEDS: predniSONE 10 MG TAB PO SCH (09:01)
[2018-09-09] MEDS: LORazepam 0.5 MG TAB PO SCH ×2 (09:01→20:56)
[2018-09-09] MEDS: HYDROXYCHLOROQUINE 200 MG TAB PO SCH ×2 (09:02→20:57)
[2018-09-09] MEDS: HEPARIN SOD (PORCINE) 5000 UNITS/ML VIAL SC SCH ×2 (09:02→20:56)
[2018-09-09] MEDS: OMEPRAZOLE 20 MG CAP PO SCH ×2 (09:02→20:57)
[2018-09-09] MEDS: FUROSEMIDE 20 MG TAB PO SCH (09:02)
[2018-09-09] MEDS: DOCUSATE SODIUM 100 MG CAP PO SCH ×2 (09:02→20:57)
[2018-09-09] MEDS: GABAPENTIN 300 MG CAP PO SCH ×3 (09:03→20:57)
--- NOTE | 2018-09-09 10:38 | IPNPDOC ---
Subjective Date Seen The patient was seen on 09/09/18. Subjective Chief Complaint/HPI Patient feeling much better but feels shaky and and has a hard time ambulation because of unsteadiness General: Denies: ROS Unobtainable, Chills, Night Sweats, Fatigue, Malaise, Normal Appetite, Other Symptoms Constitutional: Denies: Chills, Fever, Malaise, Night Sweats, Weakness, Fatigue, Weight Loss, Lethargy, Other Eyes: Denies: Pain, Vision change, Conjunctivae inflammation, Eyelid inflammation, Redness, Other ENT: Denies: Head Aches, Ear Pain, Dysphagia, Sinus Congestion, Post Nasal Drip, Sore Throat, Epistaxis, Other Symptoms Skin: Denies: Rash, Lesions, Jaundice, Bruising, Itching, Dry, Breakdown, Nail Changes, Other Pulmonary: Denies: Dyspnea, Cough, Pleuritic Chest Pain, Other Symptoms Cardiovascular: Denies: Chest Pain, Palpitations, Orthopnea, Paroxysmal Noc. Dyspnea, Edema, Lt Headedness, Other Symptoms Gastrointestinal: Denies: Nausea, Vomiting, Abdominal Pain, Diarrhea, Constipation, Melena, Hematochezia, Other Symptoms Genitourinary: Denies: Dysuria, Frequency, Incontinence, Hematuria, Retention, Other Symptoms Hematologic: Denies: Bruising, Bleeding Excessively, Petecchia, Purpura, Enlarged Lymph Nodes, Other Hematologic Endocrine: Denies: Polydipsia, Polyphagia, Polyuria, Heat Intolerance, Cold Intolerance, Other Endocrine Sx Musculoskeletal: Denies: Neck Pain, Back Pain, Shoulder Pain, Arm Pain, Hand Pain, Leg Pain, Foot Pain, Joint Pain, Muscle Pain, Spasms, Other Symptoms Neurological: Denies: Weakness, Numbness, Incoordination, Change in speech, Confusion, Seizures, Other Symptoms Psych: Denies: Mood Normal, Anxiety, Depression, Memory Issues, Thoughts of Self Harm, Anger, Thoughts of Harming Other, Other Psych Objective Physical Examination General Exam: Positive: Alert, Cooperative Eye Exam: Positive: PERRLA, Conjunctiva & lids normal ENT Exam: Positive: Atraumatic, Mucous membr. moist/pink Neck Exam: Positive: Supple Chest Exam: Positive: Wheezing (minimal wheezing) Heart Exam: Positive: Rate Normal, Normal S1, Normal S2 Abdomen Exam: Positive: Normal bowel sounds, Soft Extremity Exam: Positive: Normal pulses Skin Exam: Positive: Nl turgor and temperature Neuro Exam: Positive: Normal Gait, Normal Speech Psych Exam: Positive: Mental status NL, Mood NL Assessment /Plan Problems (1) Community acquired pneumonia Status: Acute Response to Treatment: Stable Problem Text: 83 years old white female with past medical history of secondhand smoking, possible COPD, possible asthma, came in with chief complaints of increasing shortness of breath since last few days. On clinical exam. Patient is a bilateral wheezing with rhonchi in on chest x-ray to the left lower lobe infiltrate. Patient being admitted with community acquired pneumonia. On physical examination wheezing has resolved significantly Moxifloxacin 400 mg by mouth daily Prednisone 20 mg by mouth daily ARU evaluation for possible transfer to rehabilitation Physical therapy and progress (2) COPD with exacerbation Status: Acute Problem Text: By mouth prednisone DuoNeb every 6 hours and every 2 hours when necessary Oxygen support Repeat level work is within normal limits (3) Acute otitis media, bilateral Status: Acute Problem Text: As above Plan/VTE VTE Prophylaxis Ordered?: Yes VS, I&O, 24H, Fishbone Vital Signs/I&O Vital Signs Date Time Temp Pulse Resp B/P (MAP) Pulse Ox O2 Delivery O2 Flow Rate FiO2 09/09/18 08:19 53 09/09/18 06:00 96.4 20 147/85 (105) 96 2.0 09/05/18 16:34 Room Air I&O- Last 24 Hours up to 6 AM 09/09/18 06:00 Intake Total 730 ml Output Total 0 ml Balance 730 ml Laboratory Data 24H LABS Laboratory Tests 2 09/08/18 11:48: Bedside Glucose (Misc Panel) 116H 09/08/18 16:40: Bedside Glucose (Misc Panel) 281H DENILSON MADRIGAL MD September 09, 2018 10:37
[2018-09-09] MEDS: PERCOCET 5MG/325MG TAB PO PRN ×2 (11:11→21:01)
[2018-09-09] MEDS: MOXIFLOXACIN 400 MG TAB PO SCH (11:11)
[2018-09-09 14:00] VITALS: BP_SYST 150; BP_SYST 175; BP_DIAS 72
[2018-09-09] MEDS: ASPIRIN 81 MG ENTERIC TAB PO SCH (20:57)
[2018-09-09 22:00] VITALS: BP 129/69
[2018-09-10] MEDS: IPRATROPIUM 0.5MG/ALBUTEROL 2.5MG INH SOL UD 3ML (DUONEB)(J7620) NEB SCH ×4 (02:00→17:52)
[2018-09-10 06:00] VITALS: BP 136/70
[2018-09-10] MEDS: MOXIFLOXACIN 400 MG TAB PO SCH (06:34)
[2018-09-10] MEDS: HYDROXYCHLOROQUINE 200 MG TAB PO SCH ×2 (09:36→21:03)
[2018-09-10] MEDS: FUROSEMIDE 20 MG TAB PO SCH (09:36)
[2018-09-10] MEDS: LORazepam 0.5 MG TAB PO SCH ×2 (09:36→21:04)
[2018-09-10] MEDS: OMEPRAZOLE 20 MG CAP PO SCH ×2 (09:37→21:04)
[2018-09-10] MEDS: DOCUSATE SODIUM 100 MG CAP PO SCH ×2 (09:37→21:04)
[2018-09-10] MEDS: GABAPENTIN 300 MG CAP PO SCH ×3 (09:37→21:04)
[2018-09-10] MEDS: VENLAFAXINE **XR** 75MG CAPSULE PO SCH (09:37)
[2018-09-10] MEDS: HEPARIN SOD (PORCINE) 5000 UNITS/ML VIAL SC SCH ×2 (09:37→21:03)
[2018-09-10] MEDS: predniSONE 20 MG TAB PO SCH (09:37)
[2018-09-10] MEDS: PERCOCET 5MG/325MG TAB PO PRN ×2 (09:41→22:27)
--- NOTE | 2018-09-10 11:27 | IPNPDOC ---
Subjective Date Seen The patient was seen on 09/10/18. Subjective Chief Complaint/HPI Patient offers no new complaints. Physical therapy and progress General: Denies: ROS Unobtainable, Chills, Night Sweats, Fatigue, Malaise, Normal Appetite, Other Symptoms Constitutional: Denies: Chills, Fever, Malaise, Night Sweats, Weakness, Fatigue, Weight Loss, Lethargy, Other Eyes: Denies: Pain, Vision change, Conjunctivae inflammation, Eyelid inflammation, Redness, Other ENT: Denies: Head Aches, Ear Pain, Dysphagia, Sinus Congestion, Post Nasal Drip, Sore Throat, Epistaxis, Other Symptoms Skin: Denies: Rash, Lesions, Jaundice, Bruising, Itching, Dry, Breakdown, Nail Changes, Other Pulmonary: Denies: Dyspnea, Cough, Pleuritic Chest Pain, Other Symptoms Cardiovascular: Denies: Chest Pain, Palpitations, Orthopnea, Paroxysmal Noc. Dyspnea, Edema, Lt Headedness, Other Symptoms Gastrointestinal: Denies: Nausea, Vomiting, Abdominal Pain, Diarrhea, Constipation, Melena, Hematochezia, Other Symptoms Genitourinary: Denies: Dysuria, Frequency, Incontinence, Hematuria, Retention, Other Symptoms Hematologic: Denies: Bruising, Bleeding Excessively, Petecchia, Purpura, Enlarged Lymph Nodes, Other Hematologic Endocrine: Denies: Polydipsia, Polyphagia, Polyuria, Heat Intolerance, Cold Intolerance, Other Endocrine Sx Musculoskeletal: Denies: Neck Pain, Back Pain, Shoulder Pain, Arm Pain, Hand Pain, Leg Pain, Foot Pain, Joint Pain, Muscle Pain, Spasms, Other Symptoms Neurological: Denies: Weakness, Numbness, Incoordination, Change in speech, Confusion, Seizures, Other Symptoms Psych: Denies: Mood Normal, Anxiety, Depression, Memory Issues, Thoughts of Self Harm, Anger, Thoughts of Harming Other, Other Psych Objective Physical Examination General Exam: Positive: Alert, Cooperative Eye Exam: Positive: PERRLA, Conjunctiva & lids normal ENT Exam: Positive: Atraumatic, Mucous membr. moist/pink Neck Exam: Positive: Supple Chest Exam: Positive: Clear to auscultation, Normal air movement Heart Exam: Positive: Rate Normal, Normal S1, Normal S2 Abdomen Exam: Positive: Normal bowel sounds, Soft Extremity Exam: Positive: Normal pulses Skin Exam: Positive: Nl turgor and temperature Neuro Exam: Positive: Normal Gait, Normal Speech Psych Exam: Positive: Mental status NL, Mood NL Assessment /Plan Problems (1) Community acquired pneumonia Status: Acute Response to Treatment: Stable Problem Text: 83 years old white female with past medical history of secondhand smoking, possible COPD, possible asthma, came in with chief complaints of increasing shortness of breath since last few days. On clinical exam. Patient is a bilateral wheezing with rhonchi in on chest x-ray to the left lower lobe infiltrate. Patient being admitted with community acquired pneumonia. . No more wheezing on physical examination Moxifloxacin 400 mg by mouth daily Prednisone 20 mg by mouth daily ARU evaluation for possible transfer to rehabilitation Physical therapy and progress (2) COPD with exacerbation Status: Acute Problem Text: By mouth prednisone DuoNeb every 6 hours and every 2 hours when necessary Oxygen support Repeat level work is within normal limits (3) Acute otitis media, bilateral Status: Acute Problem Text: As above Plan/VTE VTE Prophylaxis Ordered?: Yes VS, I&O, 24H, Fishbone Vital Signs/I&O Vital Signs Date Time Temp Pulse Resp B/P (MAP) Pulse Ox O2 Delivery O2 Flow Rate FiO2 09/10/18 10:11 20 09/10/18 09:44 1.5 09/10/18 06:00 97.5 55 136/70 (92) 92 09/05/18 16:34 Room Air I&O- Last 24 Hours up to 6 AM 09/10/18 06:00 Intake Total 1080 ml Output Total 1225 ml Balance -145 ml DENILSON MADRIGAL MD September 10, 2018 11:27
[2018-09-10 14:00] VITALS: BP 133/68
[2018-09-10] MEDS: ASPIRIN 81 MG ENTERIC TAB PO SCH (21:04)
[2018-09-10 22:00] VITALS: BP 147/67
[2018-09-11] MEDS: IPRATROPIUM 0.5MG/ALBUTEROL 2.5MG INH SOL UD 3ML (DUONEB)(J7620) NEB SCH ×4 (02:06→19:57)
[2018-09-11] MEDS: MOXIFLOXACIN 400 MG TAB PO SCH (05:42)
[2018-09-11 06:00] VITALS: BP 143/76
[2018-09-11 06:05] LABS: HEMATOCRIT 29.5 % (36.0-47.0); HEMOGLOBIN 9.2 g/dl (12.0-15.5); MEAN CORPUSCULAR HEMOGLOBIN 30.7 pg (27.0-33.0); MEAN CORPUSCULAR HGB CONC 31.2 g/dl (32.0-36.5); MEAN CORPUSCULAR VOLUME 98.3 fl (80.0-96.0); PLATELET COUNT, AUTOMATED 200 10^3/uL (150-450); WHITE BLOOD COUNT 9.3 10^3/uL (4.0-10.0)
[2018-09-11] MEDS: ACETAMINOPHEN TAB 650MG DOSE (2X325MG) PO PRN (08:50)
[2018-09-11] MEDS: GABAPENTIN 300 MG CAP PO SCH ×3 (08:51→20:52)
[2018-09-11] MEDS: DOCUSATE SODIUM 100 MG CAP PO SCH ×2 (08:51→20:51)
[2018-09-11] MEDS: OMEPRAZOLE 20 MG CAP PO SCH ×2 (08:51→20:52)
[2018-09-11] MEDS: VENLAFAXINE **XR** 75MG CAPSULE PO SCH (08:51)
[2018-09-11] MEDS: HYDROXYCHLOROQUINE 200 MG TAB PO SCH ×2 (08:51→20:51)
[2018-09-11] MEDS: FEBUXOSTAT 40 MG TABLET (ULORIC) PO SCH (08:51)
[2018-09-11] MEDS: LORazepam 0.5 MG TAB PO SCH ×2 (08:51→20:52)
[2018-09-11] MEDS: HEPARIN SOD (PORCINE) 5000 UNITS/ML VIAL SC SCH ×2 (08:52→20:52)
[2018-09-11] MEDS: FUROSEMIDE 20 MG TAB PO SCH (08:52)
[2018-09-11] MEDS: predniSONE 20 MG TAB PO SCH (08:52)
--- NOTE | 2018-09-11 11:31 | IPNPDOC ---
Subjective Date Seen The patient was seen on 09/11/18. Subjective Chief Complaint/HPI Patient comfortable and offers no new complaints, awaiting placement in snf facility General: Denies: ROS Unobtainable, Chills, Night Sweats, Fatigue, Malaise, Normal Appetite, Other Symptoms Constitutional: Denies: Chills, Fever, Malaise, Night Sweats, Weakness, Fatigue, Weight Loss, Lethargy, Other Eyes: Denies: Pain, Vision change, Conjunctivae inflammation, Eyelid inflammation, Redness, Other ENT: Denies: Head Aches, Ear Pain, Dysphagia, Sinus Congestion, Post Nasal Drip, Sore Throat, Epistaxis, Other Symptoms Skin: Denies: Rash, Lesions, Jaundice, Bruising, Itching, Dry, Breakdown, Nail Changes, Other Pulmonary: Denies: Dyspnea, Cough, Pleuritic Chest Pain, Other Symptoms Cardiovascular: Denies: Chest Pain, Palpitations, Orthopnea, Paroxysmal Noc. Dyspnea, Edema, Lt Headedness, Other Symptoms Gastrointestinal: Denies: Nausea, Vomiting, Abdominal Pain, Diarrhea, Constipation, Melena, Hematochezia, Other Symptoms Genitourinary: Denies: Dysuria, Frequency, Incontinence, Hematuria, Retention, Other Symptoms Hematologic: Denies: Bruising, Bleeding Excessively, Petecchia, Purpura, Enlarged Lymph Nodes, Other Hematologic Endocrine: Denies: Polydipsia, Polyphagia, Polyuria, Heat Intolerance, Cold Intolerance, Other Endocrine Sx Musculoskeletal: Denies: Neck Pain, Back Pain, Shoulder Pain, Arm Pain, Hand Pain, Leg Pain, Foot Pain, Joint Pain, Muscle Pain, Spasms, Other Symptoms Neurological: Denies: Weakness, Numbness, Incoordination, Change in speech, Confusion, Seizures, Other Symptoms Psych: Denies: Mood Normal, Anxiety, Depression, Memory Issues, Thoughts of Self Harm, Anger, Thoughts of Harming Other, Other Psych Objective Physical Examination General Exam: Positive: Alert, Cooperative Eye Exam: Positive: PERRLA, Conjunctiva & lids normal ENT Exam: Positive: Atraumatic, Mucous membr. moist/pink Neck Exam: Positive: Supple Chest Exam: Positive: Clear to auscultation, Normal air movement Heart Exam: Positive: Rate Normal, Normal S1, Normal S2 Abdomen Exam: Positive: Normal bowel sounds, Soft Extremity Exam: Positive: Normal pulses Skin Exam: Positive: Nl turgor and temperature Neuro Exam: Positive: Normal Gait, Normal Speech Psych Exam: Positive: Mental status NL, Mood NL Assessment /Plan Problems (1) Community acquired pneumonia Status: Acute Response to Treatment: Stable Problem Text: 83 years old white female with past medical history of secondhand smoking, possible COPD, possible asthma, came in with chief complaints of increasing shortness of breath since last few days. On clinical exam. Patient is a bilateral wheezing with rhonchi in on chest x-ray to the left lower lobe infiltrate. Patient being admitted with community acquired pneumonia. . No more wheezing on physical examination Moxifloxacin 400 mg by mouth daily Prednisone 20 mg by mouth daily Awaiting placement in subacute rehabilitation facility (2) COPD with exacerbation Status: Acute Problem Text: By mouth prednisone DuoNeb every 6 hours and every 2 hours when necessary Oxygen support Repeat level work is within normal limits (3) Acute otitis media, bilateral Status: Acute Problem Text: As above Plan/VTE VTE Prophylaxis Ordered?: Yes VS, I&O, 24H, Fishbone Vital Signs/I&O Vital Signs Date Time Temp Pulse Resp B/P (MAP) Pulse Ox O2 Delivery O2 Flow Rate FiO2 09/11/18 08:53 92 09/11/18 08:28 60 09/11/18 06:00 98.0 19 143/76 (98) 1.0 09/05/18 16:34 Room Air I&O- Last 24 Hours up to 6 AM 09/11/18 06:00 Intake Total 1270 ml Output Total 1750 ml Balance -480 ml Laboratory Data 24H LABS Laboratory Tests 2 09/11/18 05:44: Nucleated Red Blood Cells % (auto) 0.0 CBC/BMP Laboratory Tests 09/11/18 05:44 Red Blood Count 3.00 L, Mean Corpuscular Volume 98.3 H, Mean Corpuscular Hemoglobin 30.7, Mean Corpuscular Hemoglobin Concent 31.2 L, Red Cell Distribution Width 12.8 DENILSON MADRGIAL MD September 11, 2018 11:31
[2018-09-11 14:00] VITALS: BP 160/67
[2018-09-11] MEDS: PERCOCET 5MG/325MG TAB PO PRN ×2 (14:08→20:53)
[2018-09-11] MEDS: ASPIRIN 81 MG ENTERIC TAB PO SCH (20:51)
[2018-09-11 22:00] VITALS: BP 134/68
[2018-09-12] MEDS: IPRATROPIUM 0.5MG/ALBUTEROL 2.5MG INH SOL UD 3ML (DUONEB)(J7620) NEB SCH ×5 (00:34→23:51)
[2018-09-12] MEDS: MOXIFLOXACIN 400 MG TAB PO SCH (05:44)
[2018-09-12 06:00] VITALS: BP 139/66
[2018-09-12 07:35] LABS: ALBUMIN 2.8 GM/DL (3.2-5.2); BILIRUBIN,TOTAL 0.2 MG/DL (0.2-1.0); CALCIUM LEVEL 9.3 MG/DL (8.8-10.2); CREATININE FOR GFR 1.9 MG/DL (0.55-1.30); POTASSIUM SERUM 5.9 MEQ/L (3.5-5.1); TOTAL PROTEIN 7.4 GM/DL (6.4-8.2)
[2018-09-12] MEDS: LORazepam 0.5 MG TAB PO SCH ×2 (10:15→20:40)
[2018-09-12] MEDS: VENLAFAXINE **XR** 75MG CAPSULE PO SCH (10:15)
[2018-09-12] MEDS: OMEPRAZOLE 20 MG CAP PO SCH ×2 (10:16→20:40)
[2018-09-12] MEDS: GABAPENTIN 300 MG CAP PO SCH ×3 (10:16→20:40)
[2018-09-12] MEDS: FUROSEMIDE 20 MG TAB PO SCH ×2 (10:16→17:06)
[2018-09-12] MEDS: predniSONE 20 MG TAB PO SCH (10:16)
[2018-09-12] MEDS: DOCUSATE SODIUM 100 MG CAP PO SCH ×2 (10:16→20:40)
[2018-09-12] MEDS: HYDROXYCHLOROQUINE 200 MG TAB PO SCH ×2 (10:16→20:40)
[2018-09-12] MEDS: HEPARIN SOD (PORCINE) 5000 UNITS/ML VIAL SC SCH ×2 (10:17→20:39)
--- NOTE | 2018-09-12 11:50 | IPNPDOC ---
Subjective Date Seen The patient was seen on 09/12/18. Subjective Chief Complaint/HPI And offered no new complaints General: Denies: ROS Unobtainable, Chills, Night Sweats, Fatigue, Malaise, Normal Appetite, Other Symptoms Constitutional: Denies: Chills, Fever, Malaise, Night Sweats, Weakness, Fatigue, Weight Loss, Lethargy, Other Eyes: Denies: Pain, Vision change, Conjunctivae inflammation, Eyelid inflammation, Redness, Other ENT: Denies: Head Aches, Ear Pain, Dysphagia, Sinus Congestion, Post Nasal Drip, Sore Throat, Epistaxis, Other Symptoms Skin: Denies: Rash, Lesions, Jaundice, Bruising, Itching, Dry, Breakdown, Nail Changes, Other Pulmonary: Denies: Dyspnea, Cough, Pleuritic Chest Pain, Other Symptoms Cardiovascular: Denies: Chest Pain, Palpitations, Orthopnea, Paroxysmal Noc. Dyspnea, Edema, Lt Headedness, Other Symptoms Gastrointestinal: Denies: Nausea, Vomiting, Abdominal Pain, Diarrhea, Constipation, Melena, Hematochezia, Other Symptoms Genitourinary: Denies: Dysuria, Frequency, Incontinence, Hematuria, Retention, Other Symptoms Hematologic: Denies: Bruising, Bleeding Excessively, Petecchia, Purpura, Enlarged Lymph Nodes, Other Hematologic Endocrine: Denies: Polydipsia, Polyphagia, Polyuria, Heat Intolerance, Cold Intolerance, Other Endocrine Sx Musculoskeletal: Denies: Neck Pain, Back Pain, Shoulder Pain, Arm Pain, Hand Pain, Leg Pain, Foot Pain, Joint Pain, Muscle Pain, Spasms, Other Symptoms Neurological: Denies: Weakness, Numbness, Incoordination, Change in speech, Confusion, Seizures, Other Symptoms Psych: Denies: Mood Normal, Anxiety, Depression, Memory Issues, Thoughts of Self Harm, Anger, Thoughts of Harming Other, Other Psych Objective Physical Examination General Exam: Positive: Alert, Cooperative Eye Exam: Positive: PERRLA, Conjunctiva & lids normal ENT Exam: Positive: Atraumatic, Mucous membr. moist/pink Neck Exam: Positive: Supple Chest Exam: Positive: Clear to auscultation, Normal air movement Heart Exam: Positive: Rate Normal, Normal S1, Normal S2 Abdomen Exam: Positive: Normal bowel sounds, Soft Extremity Exam: Positive: Normal pulses Skin Exam: Positive: Nl turgor and temperature Neuro Exam: Positive: Normal Gait, Normal Speech Psych Exam: Positive: Mental status NL, Mood NL Assessment /Plan Problems (1) Community acquired pneumonia Status: Acute Response to Treatment: Stable Problem Text: 83 years old white female with past medical history of secondhand smoking, possible COPD, possible asthma, came in with chief complaints of increasing shortness of breath since last few days. On clinical exam. Patient is a bilateral wheezing with rhonchi in on chest x-ray to the left lower lobe infiltrate. Patient being admitted with community acquired pneumonia. . No more wheezing on physical examination Moxifloxacin 400 mg by mouth daily Prednisone 20 mg by mouth daily Case management is working to find a place for patient Informed patient to call me when the daughter is in the house so I can speak to her personally (2) COPD with exacerbation Status: Acute Problem Text: By mouth prednisone DuoNeb every 6 hours and every 2 hours when necessary Oxygen support Repeat level work is within normal limits (3) Acute otitis media, bilateral Status: Acute Problem Text: As above Plan/VTE VTE Prophylaxis Ordered?: Yes VS, I&O, 24H, Fishbone Vital Signs/I&O Vital Signs Date Time Temp Pulse Resp B/P (MAP) Pulse Ox O2 Delivery O2 Flow Rate FiO2 09/12/18 06:00 97.2 58 19 139/66 (90) 97 1.0 I&O- Last 24 Hours up to 6 AM 09/12/18 06:00 Intake Total 960 ml Output Total 1850 ml Balance -890 ml Laboratory Data 24H LABS Laboratory Tests 2 09/12/18 06:24: Anion Gap 5L, Glomerular Filtration Rate 27.0L, Blood Urea Nitrogen 83H, Creatinine 1.90H, Sodium Level 139, Potassium Level 5.9H, Chloride Level 109H, Carbon Dioxide Level 25, Calcium Level 9.3, Aspartate Amino Transf (AST/SGOT) 9, Alanine Aminotransferase (ALT/SGPT) 23, Alkaline Phosphatase 87, Total Bilirubin 0.2, Total Protein 7.4, Albumin 2.8L, Albumin/Globulin Ratio 0.61L CBC/BMP Laboratory Tests 09/12/18 06:24 Calcium Level 9.3, Aspartate Amino Transf (AST/SGOT) 9, Alanine Aminotransferase (ALT/SGPT) 23, Alkaline Phosphatase 87, Total Bilirubin 0.2, Total Protein 7.4, Albumin 2.8 L DENILSON MADRIGAL MD September 12, 2018 11:50
[2018-09-12] MEDS ORDERED: PRED20TA PO (13:32)
[2018-09-12] MEDS ORDERED: MOXI400T11 PO (13:32)
--- NOTE | 2018-09-12 13:38 | DS.PDOC ---
Discharge Summary General Date of Admission September 05, 2018 at 14:05 Date of Discharge 09/12/2018 Attending Physician: DENILSON MADRIGAL MD Discharge Summary PROCEDURES PERFORMED DURING STAY: None. ADMITTING DIAGNOSES: 1. Community acquired pneumonia, exacerbation of COPD. DISCHARGE DIAGNOSES: 1. Clear-cut pneumonia exacerbation of COPD. COMPLICATIONS/CHIEF COMPLAINT: Pneumonia. HISTORY OF PRESENT ILLNESS: 83 years old white female with past medical history of COPD, was admitted with chief complaints of community acquired pneumonia and exacerbation of COPD. Patient was admitted to medical floor on the moxifloxacin IV steroids and nebulizer treatment.. HOSPITAL COURSE: (1) Community acquired pneumonia-resolved 83 years old white female with past medical history of secondhand smoking, possible COPD, possible asthma, came in with chief complaints of increasing shortness of breath since last few days. On clinical exam. Patient is a bilateral wheezing with rhonchi in on chest x-ray to the left lower lobe infiltrate. Patient being admitted with community acquired pneumonia. No more wheezing on physical examination Moxifloxacin 400 mg by mouth daily for 3 more days Prednisone 20 mg by mouth daily for 3 more Transfer to subacute rehabilitation facility for physical deconditioning (2) COPD with exacerbation- resolved By mouth prednisone DuoNeb every 6 hours and every 2 hours when necessary Oxygen support Repeat level work is within normal limits (3) Acute otitis media, bilateral- resolved DISCHARGE MEDICATIONS: Please see below. ALLERGIES: Please see below. PHYSICAL EXAMINATION ON DISCHARGE: VITAL SIGNS: Please see below. GENERAL: Normal. HEENT: PERRLA NECK: Supple CARDIOVASCULAR EXAMINATION: S1, S2, regular RESPIRATORY EXAMINATION: Clear to A&P ABDOMINAL EXAMINATION: Benign EXTREMITIES: Negative clubbing, cyanosis, edema SKIN: Normal NEUROLOGICAL EXAMINATION: . No focal motor sensory deficit PSYCHIATRIC EXAMINATION: Normal LABORATORY DATA: Please see below. IMAGING: As per EMR PROGNOSIS: ACTIVITY: As tolerated. DIET: As tolerated DISCHARGE PLAN: Discharge to subacute rehabilitation facility DISPOSITION: . [facility] [place] DISCHARGE INSTRUCTIONS: 1. As above. ITEMS TO FOLLOWUP ON ON OUTPATIENT: 1. As above. DISCHARGE CONDITION: Stable. TIME SPENT ON DISCHARGE: 42 minutes. Vital Signs/I&Os Vital Signs Date Time Temp Pulse Resp B/P (MAP) Pulse Ox O2 Delivery O2 Flow Rate FiO2 09/12/18 06:00 97.2 58 19 139/66 (90) 97 1.0 I&O- Last 24 Hours up to 6 AM 09/12/18 06:00 Intake Total 960 ml Output Total 1850 ml Balance -890 ml Laboratory Data Labs 24H Laboratory Tests 2 09/12/18 06:24: Anion Gap 5L, Glomerular Filtration Rate 27.0L, Blood Urea Nitrogen 83H, Creatinine 1.90H, Sodium Level 139, Potassium Level 5.9H, Chloride Level 109H, Carbon Dioxide Level 25, Calcium Level 9.3, Aspartate Amino Transf (AST/SGOT) 9, Alanine Aminotransferase (ALT/SGPT) 23, Alkaline Phosphatase 87, Total Bilirubin 0.2, Total Protein 7.4, Albumin 2.8L, Albumin/Globulin Ratio 0.61L CBC/BMP Laboratory Tests 09/12/18 06:24 Calcium Level 9.3, Aspartate Amino Transf (AST/SGOT) 9, Alanine Aminotransferase (ALT/SGPT) 23, Alkaline Phosphatase 87, Total Bilirubin 0.2, Total Protein 7.4, Albumin 2.8 L Discharge Medications Scheduled Aspirin (Aspir 81) 81 Mg Tab, 81 MG PO QHS, (Reported) Febuxostat (Uloric) 80 Mg Tab, 80 MG PO Q2D, (Reported) Furosemide (Lasix) 20 Mg Tablet, 20 MG PO DAILY, (Reported) Gabapentin (Gabapentin) 100 Mg Cap, 300 MG PO TID, (Reported) Hydroxychloroquine Sulfate (Hydroxychloroquine Sulfate) 200 Mg Tab, 200 MG PO BID, (Reported) Irbesartan (Irbesartan) 75 Mg Tablet, 75 MG PO DAILY, (Reported) Lorazepam (Lorazepam) 0.5 Mg Tablet, 0.5 MG PO BID, (Reported) Moxifloxacin HCl (Moxifloxacin HCl) 400 Mg Tablet, 400 MG PO DAILY@06 Omeprazole (Omeprazole) 40 Mg Cap, 40 MG PO BID, (Reported) Prednisone (Prednisone) 20 Mg Tablet, 20 MG PO DAILY Venlafaxine HCl (Venlafaxine HCl ER) 150 Mg Cap.er.24h, 150 MG PO DAILY, (Reported) Scheduled PRN Albuterol Sulfate (Proair Hfa) 8.5 Gm Hfa.aer.ad, 2 PUFF INH QID PRN for SHORTNESS OF BREATH, (Reported) Fluticasone Propionate (Flonase Allergy Relief) 50 Mcg/Act Spr, 50 MCG NA DAILY PRN for CONGESTION, (Reported) Ipratropium/Albuterol Sulfate (Iprat-Albut 0.5-3(2.5) mg/3 ml) 3 Ml Ampul.neb, 1 GEOVANY INH QID PRN for SHORTNESS OF BREATH, (Reported) Oxycodone HCl/Acetaminophen (Oxycodone-Acetaminophen 5-325) 1 Each Tablet, 1 TAB PO QID PRN for PAIN, (Reported) Allergies Coded Allergies: Penicillins (Verified Allergy, Severe, BODY SWELLING, 07/29/18) allopurinol (Verified Allergy, Intermediate, RASH, 07/29/18) rabeprazole (Verified Allergy, Intermediate, RASH, 07/29/18) risperidone (Verified Allergy, Unknown, 07/29/18) sulfamethoxazole (Verified Allergy, Unknown, SWELLING, 09/05/18) trimethoprim (Verified Allergy, Unknown, SWELLING, 09/05/18) DENILSON MADRIGAL MD September 12, 2018 13:38
[2018-09-12 14:00] VITALS: BP 124/63
[2018-09-12] MEDS: PERCOCET 5MG/325MG TAB PO PRN (15:21)
[2018-09-12 19:46] VITALS: O2SAT 97
[2018-09-12] MEDS: ASPIRIN 81 MG ENTERIC TAB PO SCH (20:40)
[2018-09-12 22:00] VITALS: BP 134/71
[2018-09-12 23:51] VITALS: O2SAT 95
[2018-09-13] MEDS: PERCOCET 5MG/325MG TAB PO PRN ×2 (00:26→20:48)
[2018-09-13] MEDS: MOXIFLOXACIN 400 MG TAB PO SCH (05:46)
[2018-09-13 06:00] VITALS: BP 139/96
[2018-09-13 06:41] LABS: BASO # 0.1 10^3/uL (0.0-0.2); BASO % 0.6 % (0.0-1.0); EOS # 0.3 10^3/uL (0.0-0.50); EOS % 2.5 % (0.0-3.0); HEMOGLOBIN 9.6 g/dl (12.0-15.5); LYMPH # 3.8 10^3/uL (1.5-4.5); LYMPH % 36.7 % (24.0-44.0); MEAN CORPUSCULAR HEMOGLOBIN 30.8 pg (27.0-33.0); MEAN CORPUSCULAR VOLUME 99.4 fl (80.0-96.0); MONO # 0.9 10^3/uL (0.0-0.8); MONO % 8.6 % (0.0-5.0); NEUTROPHILS # 5.1 10^3/uL (1.8-7.7); NEUTROPHILS % 48.5 % (36.0-66.0); PLATELET COUNT, AUTOMATED 245 10^3/uL (150-450); RED BLOOD COUNT 3.12 10^6/uL (4.00-5.40); WHITE BLOOD COUNT 10.4 10^3/uL (4.0-10.0)
[2018-09-13 07:00] LABS: CALCIUM LEVEL 9.4 MG/DL (8.8-10.2); CREATININE FOR GFR 1.63 MG/DL (0.55-1.30); GLOMERULAR FILTRATION RATE 32.2 (>32); POTASSIUM SERUM 5.5 MEQ/L (3.5-5.1)
[2018-09-13] MEDS: IPRATROPIUM 0.5MG/ALBUTEROL 2.5MG INH SOL UD 3ML (DUONEB)(J7620) NEB SCH ×3 (07:23→20:08)
--- NOTE | 2018-09-13 09:32 | IPNPDOC ---
Subjective Date Seen The patient was seen on 09/13/18. Subjective Chief Complaint/HPI Patient is eating breakfast. Offers no complaints very comfortable General: Denies: ROS Unobtainable, Chills, Night Sweats, Fatigue, Malaise, Normal Appetite, Other Symptoms Constitutional: Denies: Chills, Fever, Malaise, Night Sweats, Weakness, Fatigue, Weight Loss, Lethargy, Other Eyes: Denies: Pain, Vision change, Conjunctivae inflammation, Eyelid inflammation, Redness, Other ENT: Denies: Head Aches, Ear Pain, Dysphagia, Sinus Congestion, Post Nasal D rip, Sore Throat, Epistaxis, Other Symptoms Skin: Denies: Rash, Lesions, Jaundice, Bruising, Itching, Dry, Breakdown, Nail Changes, Other Pulmonary: Denies: Dyspnea, Cough, Pleuritic Chest Pain, Other Symptoms Cardiovascular: Denies: Chest Pain, Palpitations, Orthopnea, Paroxysmal Noc. Dyspnea, Edema, Lt Headedness, Other Symptoms Gastrointestinal: Denies: Nausea, Vomiting, Abdominal Pain, Diarrhea, Constipat ion, Melena, Hematochezia, Other Symptoms Genitourinary: Denies: Dysuria, Frequency, Incontinence, Hematuria, Retention, Other Symptoms Hematologic: Denies: Bruising, Bleeding Excessively, Petecchia, Purpura, Enlarged Lymph Nodes, Other Hematologic Endocrine: Denies: Polydipsia, Polyphagia, Polyuria, Heat Intolerance, Cold Intolerance, Other Endocrine Sx Musculoskeletal: Denies: Neck Pain, Back Pain, Shoulder Pain, Arm Pain, Hand Pain, Leg Pain, Foot Pain, Joint Pain, Muscle Pain, Spasms, Other Symptoms Neurological: Denies: Weakness, Numbness, Incoordination, Change in speech, Confusion, Seizures, Other Symptoms Psych: Denies: Mood Normal, Anxiety, Depression, Memory Issues, Thoughts of Self Harm, Anger, Thoughts of Harming Other, Other Psych Objective Physical Examination General Exam: Positive: Alert, Cooperative Eye Exam: Positive: PERRLA, Conjunctiva & lids normal ENT Exam: Positive: Atraumatic, Mucous membr. moist/pink Neck Exam: Positive: Supple Chest Exam: Positive: Clear to auscultation, Normal air movement Heart Exam: Positive: Rate Normal, Normal S1, Normal S2 Abdomen Exam: Positive: Normal bowel sounds, Soft Extremity Exam: Positive: Normal pulses Skin Exam: Positive: Nl turgor and temperature Neuro Exam: Positive: Normal Gait, Normal Speech Psych Exam: Positive: Mental status NL, Mood NL Assessment /Plan Problems (1) Community acquired pneumonia Status: Acute Response to Treatment: Stable Problem Text: 83 years old white female with past medical history of secondhand smoking, possible COPD, possible asthma, came in with chief complaints of increasing shortness of breath since last few days. On clinical exam. Patient is a bilateral wheezing with rhonchi in on chest x-ray to the left lower lobe infiltrate. Patient being admitted with community acq uired pneumonia. No more wheezing on physical examination Moxifloxacin 400 mg by mouth daily. DC after tomorrow's dose Decrease prednisone to 10 mg by mouth daily for 3 days Case management is working to find a placement for patient (2) COPD with exacerbation Status: Acute Problem Text: By mouth prednisone for 3 more days ,DuoNeb every 6 hours and every 2 hours when necessary Oxygen support Repeat level work is within normal limits (3) Acute otitis media, bilateral Status: Acute Problem Text: As above Plan/VTE VTE Prophylaxis Ordered?: Yes VS, [facility]O Vital Signs Date Time Temp Pulse Resp B/P (MAP) Pulse Ox O2 Delivery O2 Flow Rate FiO2 09/13/18 06:00 97.9 57 14 139/96 (110) 99 1.0 09/12/18 23:51 Nasal Cannula I&O- Last 24 Hours up to 6 AM 09/13/18 06:00 Intake Total 1210 ml Output Total 2100 ml Balance -890 ml Laboratory Data 24H LABS Laboratory Tests 2 09/13/18 06:00: Immature Granulocyte % (Auto) 3.1H, White Blood Count 10.4H, Red Blood Count 3.12L, Hemoglobin 9.6L, Hematocrit 31.0L, Mean Corpuscular Volume 99.4H, Mean Corpuscular Hemoglobin 30.8, Mean Corpuscular Hemoglobin Concent 31.0L, Red Cell Distribution Width 13.0, Platelet Count 245, Neutrophils (%) (Auto) 48.5, Lymphocytes (%) (Auto) 36.7, Monocytes (%) (Auto) 8.6H, Eosinophils (%) (Auto) 2.5, Basophils (%) (Auto) 0.6, Neutrophils # (Auto) 5.1, Lymphocytes # (Auto) 3.8, Monocytes # (Auto) 0.9H, Eosinophils # (Auto) 0.3, Basophils # (Auto) 0.1, Nucleated Red Blood Cells % (auto) 0.0, Anion Gap 7L, Glomerular Filtration Rate 32.2, Blood Urea Nitrogen 72H, Creatinine 1.63H, Sodium Level 141, Potassium Level 5.5H, Chloride Level 108H, Carbon Dioxide Level 26, Calcium Level 9.4 CBC/BMP Laboratory Tests 09/13/18 06:00 Red Blood Count 3.12 L, Mean Corpuscular Volume 99.4 H, Mean Corpuscular Hemoglobin 30.8, Mean Corpuscular Hemoglobin Concent 31.0 L, Red Cell Distribution Width 13.0, Neutrophils (%) (Auto) 48.5, Lymphocytes (%) (Auto) 36.7, Monocytes (%) (Auto) 8.6 H, Eosinophils (%) (Auto) 2.5, Basophils (%) (A uto) 0.6, Neutrophils # (Auto) 5.1, Lymphocytes # (Auto) 3.8, Monocytes # (Auto) 0.9 H, Eosinophils # (Auto) 0.3, Basophils # (Auto) 0.1, Calcium Level 9.4 DENILSON MADRIGAL MD Sep 13, 2018 09:32
[2018-09-13] MEDS: FUROSEMIDE 20 MG TAB PO SCH ×2 (10:01→17:27)
[2018-09-13] MEDS: GABAPENTIN 300 MG CAP PO SCH ×3 (10:01→20:45)
[2018-09-13] MEDS: LORazepam 0.5 MG TAB PO SCH ×2 (10:01→20:44)
[2018-09-13] MEDS: OMEPRAZOLE 20 MG CAP PO SCH ×2 (10:01→20:44)
[2018-09-13] MEDS: DOCUSATE SODIUM 100 MG CAP PO SCH ×2 (10:01→20:44)
[2018-09-13] MEDS: VENLAFAXINE **XR** 75MG CAPSULE PO SCH (10:01)
[2018-09-13] MEDS: guaiFENesin ER 600 MG TAB PO SCH ×2 (10:01→20:44)
[2018-09-13] MEDS: predniSONE 10 MG TAB PO SCH (10:01)
[2018-09-13] MEDS: FEBUXOSTAT 40 MG TABLET (ULORIC) PO SCH (10:01)
[2018-09-13] MEDS: HYDROXYCHLOROQUINE 200 MG TAB PO SCH ×2 (10:02→20:45)
[2018-09-13] MEDS: HEPARIN SOD (PORCINE) 5000 UNITS/ML VIAL SC SCH ×2 (10:02→20:44)
[2018-09-13 20:08] VITALS: O2SAT 99
[2018-09-13] MEDS: ASPIRIN 81 MG ENTERIC TAB PO SCH (20:44)
[2018-09-13 22:00] VITALS: BP 144/82
[2018-09-14] MEDS: IPRATROPIUM 0.5MG/ALBUTEROL 2.5MG INH SOL UD 3ML (DUONEB)(J7620) NEB SCH ×4 (01:52→20:08)
[2018-09-14 06:00] VITALS: BP 156/81
[2018-09-14] MEDS: MOXIFLOXACIN 400 MG TAB PO SCH (06:03)
[2018-09-14 06:35] LABS: HEMATOCRIT 33.4 % (36.0-47.0); HEMOGLOBIN 10.5 g/dl (12.0-15.5); MEAN CORPUSCULAR HEMOGLOBIN 31.3 pg (27.0-33.0); MEAN CORPUSCULAR HGB CONC 31.4 g/dl (32.0-36.5); MEAN CORPUSCULAR VOLUME 99.4 fl (80.0-96.0); PLATELET COUNT, AUTOMATED 273 10^3/uL (150-450); RED BLOOD COUNT 3.36 10^6/uL (4.00-5.40); WHITE BLOOD COUNT 11.6 10^3/uL (4.0-10.0)
[2018-09-14 07:04] LABS: CALCIUM LEVEL 9.6 MG/DL (8.8-10.2); CREATININE FOR GFR 1.53 MG/DL (0.55-1.30); GLOMERULAR FILTRATION RATE 34.7 (>32); POTASSIUM SERUM 4.9 MEQ/L (3.5-5.1)
--- NOTE | 2018-09-14 08:49 | IPNPDOC ---
Subjective Date Seen The patient was seen on 09/14/18. Subjective Chief Complaint/HPI Patient is comfortable sitting in chair eating her breakfast. Offers no new complaints at present time General: Denies: ROS Unobtainable, Chills, Night Sweats, Fatigue, Malaise, Normal Appetite, Other Symptoms Constitutional: Denies: Chills, Fever, Malaise, Night Sweats, Weakness, Fatigue, Weight Loss, Lethargy, Other Eyes: Denies: Pain, Vision change, Conjunctivae inflammation, Eyelid inflammation, Redness, Other ENT: Denies: Head Aches, Ear Pain, Dysphagia, Sinus Congestion, Post Nasal Drip, Sore Throat, Epistaxis, Other Symptoms Skin: Denies: Rash, Lesions, Jaundice, Bruising, Itching, Dry, Breakdown, Nail Changes, Other Pulmonary: Denies: Dyspnea, Cough, Pleuritic Chest Pain, Other Symptoms Cardiovascular: Denies: Chest Pain, Palpitations, Orthopnea, Paroxysmal Noc. Dyspnea, Edema, Lt Headedness, Other Symptoms Gastrointestinal: Denies: Nausea, Vomiting, Abdominal Pain, Diarrhea, Constipation, Melena, Hematochezia, Other Symptoms Genitourinary: Denies: Dysuria, Frequency, Incontinence, Hematuria, Retention, Other Symptoms Hematologic: Denies: Bruising, Bleeding Excessively, Petecchia, Purpura, Enlarged Lymph Nodes, Other Hematologic Musculoskeletal: Denies: Neck Pain, Back Pain, Shoulder Pain, Arm Pain, Hand Pain, Leg Pain, Foot Pain, Joint Pain, Muscle Pain, Spasms, Other Symptoms Psych: Denies: Mood Normal, Anxiety, Depression, Memory Issues, Thoughts of Self Harm, Anger, Thoughts of Harming Other, Other Psych Objective Physical Examination General Exam: Positive: Alert, Cooperative Neck Exam: Positive: Supple Chest Exam: Positive: Clear to auscultation, Normal air movement Heart Exam: Positive: Rate Normal, Normal S1, Normal S2 Abdomen Exam: Positive: Normal bowel sounds, Soft Extremity Exam: Positive: Normal pulses Skin Exam: Positive: Nl turgor and temperature Psych Exam: Positive: Mental status NL, Mood NL, Oriented x 3 Assessment /Plan Problems (1) Community acquired pneumonia Status: Resolved Response to Treatment: Stable Problem Text: 83 years old white female with past medical history of secondhand smoking, possible COPD, possible asthma, came in with chief complaints of increasing shortness of breath since last few days. On clinical exam. Patient is a bilateral wheezing with rhonchi in on chest x-ray to the left lower lobe infiltrate. Patient being admitted with community acquired pneumonia. No more wheezing on physical examination Moxifloxacin 400 mg by mouth daily. DC after tomorrow's dose Decrease prednisone to 10 mg by mouth daily for 3 days Will probably discontinue moxifloxacin and prednisone tomorrow morning Discharge to subacute rehabilitation facility in a.m. (2) COPD with exacerbation Status: Resolved Problem Text: By mouth prednisone for 3 more days ,DuoNeb every 6 hours and every 2 hours when necessary Oxygen support Repeat level work is within normal limits (3) Acute otitis media, bilateral Status: Acute Problem Text: As above Plan/VTE VTE Prophylaxis Ordered?: Yes VS, I&O, 24H, Fishbone Vital Signs/I&O Vital Signs Date Time Temp Pulse Resp B/P (MAP) Pulse Ox O2 Delivery O2 Flow Rate FiO2 09/14/18 06:00 97.7 59 16 156/81 (106) 90 09/13/18 20:08 Nasal Cannula 1.0 I&O- Last 24 Hours up to 6 AM 09/14/18 06:00 Intake Total 1170 ml Output Total 950 ml Balance 220 ml Laboratory Data 24H LABS Laboratory Tests 2 09/14/18 06:21: Nucleated Red Blood Cells % (auto) 0.0, Anion Gap 7L, Glomerular Filtration Rate 34.7, Blood Urea Nitrogen 65H, Creatinine 1.53H, Sodium Level 141, Potassium Level 4.9, Chloride Level 108H, Carbon Dioxide Level 26, Calcium Level 9.6 CBC/BMP Laboratory Tests 09/14/18 06:21 Red Blood Count 3.36 L, Mean Corpuscular Volume 99.4 H, Mean Corpuscular Hemoglobin 31.3, Mean Corpuscular Hemoglobin Concent 31.4 L, Red Cell Distribution Width 13.0, Calcium Level 9.6 DENILSON MADRIGAL MD Sep 14, 2018 08:49
[2018-09-14] MEDS: GABAPENTIN 300 MG CAP PO SCH ×3 (09:22→20:33)
[2018-09-14] MEDS: LORazepam 0.5 MG TAB PO SCH ×2 (09:22→20:34)
[2018-09-14] MEDS: HEPARIN SOD (PORCINE) 5000 UNITS/ML VIAL SC SCH ×2 (09:22→20:33)
[2018-09-14] MEDS: OMEPRAZOLE 20 MG CAP PO SCH ×2 (09:23→20:33)
[2018-09-14] MEDS: VENLAFAXINE **XR** 75MG CAPSULE PO SCH (09:23)
[2018-09-14] MEDS: predniSONE 10 MG TAB PO SCH (09:24)
[2018-09-14] MEDS: guaiFENesin ER 600 MG TAB PO SCH ×2 (09:24→20:34)
[2018-09-14] MEDS: FUROSEMIDE 20 MG TAB PO SCH ×2 (09:24→16:17)
[2018-09-14] MEDS: DOCUSATE SODIUM 100 MG CAP PO SCH ×2 (09:24→20:33)
[2018-09-14] MEDS: PERCOCET 5MG/325MG TAB PO PRN ×3 (09:24→22:32)
[2018-09-14] MEDS: HYDROXYCHLOROQUINE 200 MG TAB PO SCH ×2 (09:24→20:34)
[2018-09-14 14:00] VITALS: BP 130/66
[2018-09-14] MEDS: ASPIRIN 81 MG ENTERIC TAB PO SCH (20:34)
[2018-09-14 22:00] VITALS: BP 160/63
[2018-09-15] MEDS: IPRATROPIUM 0.5MG/ALBUTEROL 2.5MG INH SOL UD 3ML (DUONEB)(J7620) NEB SCH ×2 (01:49→07:56)
[2018-09-15] MEDS: MOXIFLOXACIN 400 MG TAB PO SCH (05:36)
[2018-09-15 06:00] VITALS: BP 148/86
[2018-09-15 06:23] LABS: BASO % 0.3 % (0.0-1.0); EOS # 0.2 10^3/uL (0.0-0.50); EOS % 1.9 % (0.0-3.0); HEMOGLOBIN 9.3 g/dl (12.0-15.5); LYMPH # 3.8 10^3/uL (1.5-4.5); LYMPH % 39.3 % (24.0-44.0); MEAN CORPUSCULAR VOLUME 96.8 fl (80.0-96.0); MONO # 0.9 10^3/uL (0.0-0.8); MONO % 9.6 % (0.0-5.0); NEUTROPHILS # 4.3 10^3/uL (1.8-7.7); NEUTROPHILS % 44.8 % (36.0-66.0); PLATELET COUNT, AUTOMATED 251 10^3/uL (150-450); WHITE BLOOD COUNT 9.6 10^3/uL (4.0-10.0)
[2018-09-15 06:48] LABS: CREATININE FOR GFR 1.46 MG/DL (0.55-1.30); GLOMERULAR FILTRATION RATE 36.6 (>32); POTASSIUM SERUM 4.6 MEQ/L (3.5-5.1)
[2018-09-15] MEDS: PERCOCET 5MG/325MG TAB PO PRN (06:53)
[2018-09-15] MEDS: FEBUXOSTAT 40 MG TABLET (ULORIC) PO SCH (08:59)
[2018-09-15] MEDS: VENLAFAXINE **XR** 75MG CAPSULE PO SCH (08:59)
[2018-09-15] MEDS: LORazepam 0.5 MG TAB PO SCH (08:59)
[2018-09-15] MEDS: OMEPRAZOLE 20 MG CAP PO SCH (08:59)
[2018-09-15] MEDS: FUROSEMIDE 20 MG TAB PO SCH (09:00)
[2018-09-15] MEDS: guaiFENesin ER 600 MG TAB PO SCH (09:00)
[2018-09-15] MEDS: predniSONE 10 MG TAB PO SCH (09:00)
[2018-09-15] MEDS: HYDROXYCHLOROQUINE 200 MG TAB PO SCH (09:00)
[2018-09-15] MEDS: DOCUSATE SODIUM 100 MG CAP PO SCH (09:00)
[2018-09-15] MEDS: GABAPENTIN 300 MG CAP PO SCH (09:00)
[2018-09-15] MEDS: HEPARIN SOD (PORCINE) 5000 UNITS/ML VIAL SC SCH (09:01)
--- NOTE | 2018-09-15 12:12 | DS.PDOC ---
Discharge Summary General Date of Admission September 05, 2018 at 14:05 Date of Discharge 09/15/2018 Attending Physician: DENILSON MADRIGAL MD Discharge Summary PROCEDURES PERFORMED DURING STAY: None. ADMITTING DIAGNOSES: 1. Exacerbation of COPD, pneumonia. DISCHARGE DIAGNOSES: 1. Exacerbation of COPD, pneumonia. COMPLICATIONS/CHIEF COMPLAINT: Pneumonia. HISTORY OF PRESENT ILLNESS: 83 years old white female with past medical history of COPD, was admitted with chief complaints of community acquired pneumonia and exacerbation of COPD. Patient was admitted to medical floor on the moxifloxacin IV steroids and nebulizer treatment... HOSPITAL COURSE: (1) Community acquired pneumonia 83 years old white female with past medical history of secondhand smoking, possible COPD, possible asthma, came in with chief complaints of increasing shortness of breath since last few days. On clinical exam. Patient is a bilateral wheezing with rhonchi in on chest x-ray to the left lower lobe infiltrate. Patient being admitted with community acquired pneumonia. No more wheezing on physical examination Moxifloxacin 400 mg by mouth daily. DC after tomorrow's dose Decreased prednisone to 10 mg by mouth daily for 3 days Will discontinue moxifloxacin and prednisone today Discharge to [facility] today (2) COPD with exacerbation By mouth prednisone for 3 more days ,DuoNeb every 6 hours and every 2 hours when necessary Oxygen support Repeat level work is within normal limits (3) Acute otitis media, bilateral As above. DISCHARGE MEDICATIONS: Please see below. ALLERGIES: Please see below. PHYSICAL EXAMINATION ON DISCHARGE: VITAL SIGNS: Please see below. GENERAL: Within normal limits HEENT: [PERRLA NECK: Supple CARDIOVASCULAR EXAMINATION: S1, S2, regular RESPIRATORY EXAMINATION: [Clear to A&P ABDOMINAL EXAMINATION: Benign EXTREMITIES: No clubbing, cyanosis, edema SKIN: Normal NEUROLOGICAL EXAMINATION: focal motor sensory deficit PSYCHIATRIC EXAMINATION: Within normal limits LABORATORY DATA: Please see below. IMAGING: Within normal limits PROGNOSIS: Good ACTIVITY: As tolerated. DIET: As tolerated DISCHARGE PLAN: Back to [facility] DISPOSITION: [facility]. DISCHARGE INSTRUCTIONS: 1. As above. ITEMS TO FOLLOWUP ON ON OUTPATIENT: 1. As above. DISCHARGE CONDITION: Stable. TIME SPENT ON DISCHARGE: 40 minutes. Vital Signs/I&Os Vital Signs Date Time Temp Pulse Resp B/P (MAP) Pulse Ox O2 Delivery O2 Flow Rate FiO2 09/15/18 07:23 18 09/15/18 06:00 98.0 61 148/86 (106) 95 09/14/18 14:00 2.0 09/13/18 20:08 Nasal Cannula I&O- Last 24 Hours up to 6 AM 09/15/18 06:00 Intake Total 1620 ml Output Total 0 ml Balance 1620 ml Laboratory Data Labs 24H Laboratory Tests 2 09/15/18 05:54: Immature Granulocyte % (Auto) 4.1H, White Blood Count 9.6, Red Blood Count 3.10L, Hemoglobin 9.3L, Hematocrit 30.0L, Mean Corpuscular Volume 96.8H, Mean Corpuscular Hemoglobin 30.0, Mean Corpuscular Hemoglobin Concent 31.0L, Red Cell Distribution Width 13.1, Platelet Count 251, Neutrophils (%) (Auto) 44.8, Lymphocytes (%) (Auto) 39.3, Monocytes (%) (Auto) 9.6H, Eosinophils (%) (Auto) 1.9, Basophils (%) (Auto) 0.3, Neutrophils # (Auto) 4.3, Lymphocytes # (Auto) 3.8, Monocytes # (Auto) 0.9H, Eosinophils # (Auto) 0.2, Basophils # (Auto) 0.0, Nucleated Red Blood Cells % (auto) 0.0, Anion Gap 6L, Glomerular Filtration Rate 36.6, Blood Urea Nitrogen 63H, Creatinine 1.46H, Sodium Level 140, Potassium Level 4.6, Chloride Level 107, Carbon Dioxide Level 27, Calcium Level 9.0 CBC/BMP Laboratory Tests 09/15/18 05:54 Red Blood Count 3.10 L, Mean Corpuscular Volume 96.8 H, Mean Corpuscular Hemoglobin 30.0, Mean Corpuscular Hemoglobin Concent 31.0 L, Red Cell Distribution Width 13.1, Neutrophils (%) (Auto) 44.8, Lymphocytes (%) (Auto) 39.3, Monocytes (%) (Auto) 9.6 H, Eosinophils (%) (Auto) 1.9, Basophils (%) (Auto) 0.3, Neutrophils # (Auto) 4.3, Lymphocytes # (Auto) 3.8, Monocytes # (Auto) 0.9 H, Eosinophils # (Auto) 0.2, Basophils # (Auto) 0.0, Calcium Level 9.0 Discharge Medications Scheduled Aspirin (Aspir 81) 81 Mg Tab, 81 MG PO QHS, (Reported) Febuxostat (Uloric) 80 Mg Tab, 80 MG PO Q2D, (Reported) Furosemide (Lasix) 20 Mg Tablet, 20 MG PO DAILY, (Reported) Gabapentin (Gabapentin) 100 Mg Cap, 300 MG PO TID, (Reported) Hydroxychloroquine Sulfate (Hydroxychloroquine Sulfate) 200 Mg Tab, 200 MG PO BID, (Reported) Irbesartan (Irbesartan) 75 Mg Tablet, 75 MG PO DAILY, (Reported) Lorazepam (Lorazepam) 0.5 Mg Tablet, 0.5 MG PO BID, (Reported) Omeprazole (Omeprazole) 40 Mg Cap, 40 MG PO BID, (Reported) Venlafaxine HCl (Venlafaxine HCl ER) 150 Mg Cap.er.24h, 150 MG PO DAILY, (Reported) Scheduled PRN Albuterol Sulfate (Proair Hfa) 8.5 Gm Hfa.aer.ad, 2 PUFF INH QID PRN for BALTAZAR RTNESS OF BREATH, (Reported) Fluticasone Propionate (Flonase Allergy Relief) 50 Mcg/Act Spr, 50 MCG NA DAILY PRN for CONGESTION, (Reported) Ipratropium/Albuterol Sulfate (Iprat-Albut 0.5-3(2.5) mg/3 ml) 3 Ml Ampul.neb, 1 GEOVANY INH QID PRN for SHORTNESS OF BREATH, (Reported) Oxycodone HCl/Acetaminophen (Oxycodone-Acetaminophen 5-325) 1 Each Tablet, 1 TAB PO QID PRN for PAIN, (Reported) Allergies Coded Allergies: Penicillins (Verified Allergy, Severe, BODY SWELLING, 07/29/18) allopurinol (Verified Allergy, Intermediate, RASH, 07/29/18) rabeprazole (Verified Allergy, Intermediate, RASH, 07/29/18) risperidone (Verified Allergy, Unknown, 07/29/18) sulfamethoxazole (Verified Allergy, Unknown, SWELLING, 09/05/18) trimethoprim (Verified Allergy, Unknown, SWELLING, 09/05/18) DENILSON MADRIGAL MD Sep 15, 2018 12:12
== END 2018-09-15 11:05 | DRG 190 ==
LOC: M ED 09:49 → M ED INP 14:05 → M MS5PR 17:00
PROVIDERS: ADMIT Internal Medicine; ATTEND Internal Medicine
DX: J44.1 Chronic obstructive pulmonary disease with (acute) exacerbation (principal); J18.9 Pneumonia, unspecified organism; H66.93 Otitis media, unspecified, bilateral; Z79.899 Other long term (current) drug therapy; Z79.82 Long term (current) use of aspirin; Z88.0 Allergy status to penicillin; Z88.2 Allergy status to sulfonamides; Z88.8 Allergy status to other drugs, medicaments and biological substances

== ENCOUNTER → 2018-09-22 | Outpatient (REF) ==
[~2018-09-22] MED LIST changes: +IPRA0.00 INH; +IRBE75TA5 PO; +LASI20TA3 PO; +LORA0.5T11 PO; +MOXI400T11 PO; +OXYC1TAB23 PO; +OYST1TAB PO; +PROAAER10 INH; +VENL150C43 PO; +VITA10002 PO
[2018-09-22 07:51] LABS: CALCIUM LEVEL 8.7 MG/DL (8.8-10.2); CREATININE FOR GFR 1.42 MG/DL (0.55-1.30); GLOMERULAR FILTRATION RATE 37.8 (>32); POTASSIUM SERUM 4.8 MEQ/L (3.5-5.1)
== END ==
LOC: SKLAB3 08:58
DX: E87.5 Hyperkalemia (principal)

== ENCOUNTER 2018-11-24 20:35 | Emergency (ER) | payer MEDICARE, OTHER ==
[~2018-11-24] VITALS: Ht 149.9 cm; Wt 80.9 kg
[~2018-11-24 20:35] MED LIST changes: +CYAN100049 PO; -VITA10002 PO
[2018-11-24 20:36] VITALS: BP 190/92
--- NOTE | 2018-11-24 21:02 | ECGEPIP ---
[facility] - ED Test Date: 2018-11-24 Pat Name: QUINCY BARBOSA Department: Room: - Gender: Female [employer]: elizabeth : 1935 Requested By: BERTHA MAHARAJ Order Number: [id number] Reading MD: Luis E Diaz Measurements Intervals Newton Rate: 65 P: 260 OK: 111 QRS: -33 QRSD: 137 T: 30 QT: 406 QTc: 423 Interpretive Statements JUNCTIONAL RHYTHM MARKED LEFT AXIS DEVIATION RIGHT BUNDLE BRANCH BLOCK Electronically Signed on 11-24-2018 21:02:36 EDT by Luis E Diaz
[2018-11-24] MEDS ORDERED: ONDANSETRON 4 MG ORAL DISINTEGRATING TAB (Q0162 PER 1MG) PO ONE (21:30)
== END 2018-11-24 22:35 | disposition home or self-care (01) ==
LOC: M ED 20:35
DX: K42.0 Umbilical hernia with obstruction, without gangrene (principal); K21.9 Gastro-esophageal reflux disease without esophagitis; I12.9 Hypertensive chronic kidney disease with stage 1 through stage 4 chronic kidney disease, or unspecified chronic kidney disease; I45.10 Unspecified right bundle-branch block; I49.9 Cardiac arrhythmia, unspecified; J45.909 Unspecified asthma, uncomplicated; M06.9 Rheumatoid arthritis, unspecified; R94.31 Abnormal electrocardiogram [ECG] [EKG]; Z79.51 Long term (current) use of inhaled steroids; Z79.82 Long term (current) use of aspirin; Z79.891 Long term (current) use of opiate analgesic; Z79.899 Other long term (current) drug therapy; Z88.0 Allergy status to penicillin; Z88.8 Allergy status to other drugs, medicaments and biological substances
CPT/HCPCS: 93005; 99284; Q0162

== ENCOUNTER 2018-11-26 21:00 | Emergency (ER) | payer MEDICARE, OTHER ==
[~2018-11-26] VITALS: Ht 149.9 cm; Wt 80.9 kg
[2018-11-27 00:19] LABS: BASO % 0.5 % (0.0-1.0); EOS # 0.2 10^3/uL (0.0-0.50); EOS % 2.4 % (0.0-3.0); HEMATOCRIT 34.6 % (36.0-47.0); HEMOGLOBIN 10.9 g/dl (12.0-15.5); LYMPH # 3.2 10^3/uL (1.5-4.5); LYMPH % 37.9 % (24.0-44.0); MEAN CORPUSCULAR HEMOGLOBIN 29.9 pg (27.0-33.0); MEAN CORPUSCULAR HGB CONC 31.5 g/dl (32.0-36.5); MEAN CORPUSCULAR VOLUME 95.1 fl (80.0-96.0); MONO # 0.8 10^3/uL (0.0-0.8); NEUTROPHILS # 4.2 10^3/uL (1.8-7.7); NEUTROPHILS % 49.4 % (36.0-66.0); PLATELET COUNT, AUTOMATED 215 10^3/uL (150-450); RED BLOOD COUNT 3.64 10^6/uL (4.00-5.40); WHITE BLOOD COUNT 8.4 10^3/uL (4.0-10.0)
[2018-11-27 00:22] LABS: ALT/SGPT 22 U/L (12-78); BILIRUBIN,DIRECT < 0.1 MG/DL (0.0-0.2); BILIRUBIN,TOTAL 0.2 MG/DL (0.2-1.0); BLOOD UREA NITROGEN 49 MG/DL (7-18); CALCIUM LEVEL 9.3 MG/DL (8.8-10.2); CARBON DIOXIDE LEVEL 27 MEQ/L (21-32); CHLORIDE LEVEL 107 MEQ/L (98-107); CREATININE FOR GFR 1.52 MG/DL (0.55-1.30); GLOMERULAR FILTRATION RATE 34.9 (>32); GLUCOSE, FASTING 135 MG/DL (70-100); SODIUM LEVEL 140 MEQ/L (136-145); TOTAL PROTEIN 7.3 GM/DL (6.4-8.2)
--- NOTE | 2018-11-27 00:37 | REPVR ---
EXAM: CT Abdomen and Pelvis Without Contrast EXAM DATE/TIME: 11/26/2018 11:47 PM CLINICAL HISTORY: 83 years old, female; Condition or Disease; Hernia; Complications not specified; Additional Info: umbil; ical hernia R/O strangulation TECHNIQUE: Imaging protocol: Axial computed tomography images of the abdomen and pelvis without contrast. Coronal and sagittal reformatted images were created and reviewed. Radiation optimization: All CT scans at this facility use at least one of these dose optimization techniques: automated exposure control; mA and/or kV adjustment per patient size (includes targeted exams where dose is matched to clinical indication); or iterative reconstruction. COMPARISON: CT ABD/PEL W/IV CONTRAST ONLY 09/05/2018 12:04 PM FINDINGS: Limitations: Examination is limited by motion artifact. Lungs: Linear atelectasis in the left lower lobe. Liver: Normal. No mass. Gallbladder and bile ducts: Status post cholecystectomy. No biliary ductal dilatation. Pancreas: Normal. No ductal dilation. Spleen: Normal. No splenomegaly. Adrenals: Right internal gland is unremarkable. Diffuse thickening of the left adrenal gland. Kidneys and ureters: Exophytic circumscribed hypodense lesion in the upper pole of the right kidney measuring 10 mm. no hydronephrosis bilaterally. Stomach and bowel: Moderate sliding type gastric hiatal hernia. Copious stool throughout the colon. Sigmoid diverticulosis without diverticulitis. No evidence of bowel obstruction. No abnormal bowel dilatation. No abnormal bowel wall thickening. Appendix: Appendix is normal. Intraperitoneal space: Normal. No free air. No significant fluid collection. Vasculature: Severe calcified atherosclerotic disease. No aortic aneurysm. Lymph nodes: Normal. No enlarged lymph nodes. Bladder: Unremarkable as visualized. Reproductive: Status post hysterectomy. Bones/joints: Severe degenerative spine. Moderate levoscoliosis of the lumbar spine. Moderate degenerative changes of the hips. Soft tissues: Moderate umbilical hernia containing fat. Large lower midline ventral abdominal hernia containing loops of small bowel. There is no evidence of strangulation. IMPRESSION: 1. Limited evaluation. 2. Moderate sliding type gastric hiatal hernia. Unchanged from prior. 3. Moderate umbilical hernia containing fat. Unchanged from prior. 4. Large lower midline ventral abdominal hernia containing loops of small bowel. Hernia sac size is unchanged. There are increased length of bowel loops in the hernia. No evidence of bowel obstruction or strangulation. 5. Exophytic circumscribed hypodense lesion in the upper pole of the right kidney. Consistent with cyst. No followup is necessary. 6. Hypertrophy of the left adrenal gland. No change from prior. 7. Additional findings as described. COMMENT: Consistent with the [employer]'s Incidental Findings Committee Report (J Am Nadia Radiol 2010): Unless the patient's specific circumstances suggest otherwise, any liver lesion 0.5 cm or less, any cystic kidney lesion less than 1.0 cm, and/or any adrenal lesion 1.0 cm or less not otherwise characterized in this report as possessing suspicious or indeterminate imaging features is/are highly likely to be benign and do not require follow-up imaging or biopsy. Electronically signed by: Shahab Levin On 11/27/2018 00:37:35 AM
[2018-11-27 01:13] VITALS: BP 190/90
== END 2018-11-27 01:47 | disposition home or self-care (01) ==
LOC: M ED 21:00
DX: K42.9 Umbilical hernia without obstruction or gangrene (principal); K43.6 Other and unspecified ventral hernia with obstruction, without gangrene; I12.9 Hypertensive chronic kidney disease with stage 1 through stage 4 chronic kidney disease, or unspecified chronic kidney disease; E78.5 Hyperlipidemia, unspecified; J44.9 Chronic obstructive pulmonary disease, unspecified; N18.3 Chronic kidney disease, stage 3 (moderate); F41.9 Anxiety disorder, unspecified; F32.9 Major depressive disorder, single episode, unspecified; Z88.0 Allergy status to penicillin; Z88.8 Allergy status to other drugs, medicaments and biological substances; Z88.2 Allergy status to sulfonamides; Z79.899 Other long term (current) drug therapy; Z79.82 Long term (current) use of aspirin

== ENCOUNTER 2019-01-17 12:43 | Emergency (ER) | payer MEDICARE, OTHER ==
[~2019-01-17] VITALS: Ht 147.3 cm; Wt 80.0 kg
--- NOTE | 2019-01-17 13:46 | REP ---
AP pelvis: No pelvic fracture is identified. There is advanced degenerative disc disease in the inferior lumbar spine. There is advanced bilateral hip osteoarthritis. No hip fracture is identified. There are pelvic calcifications, likely phleboliths. Impression: No pelvic fracture. Bilateral advanced hip osteoarthritis. Left hip two views: There is no fracture or dislocation. There is advanced osteoarthritis. Electronically Signed by Eligio Juarez MD 01/17/2019 01:37 P
[2019-01-17 14:23] VITALS: BP 131/63
== END 2019-01-17 14:24 | disposition home or self-care (01) ==
LOC: M ED 12:43
DX: S70.02XA Contusion of left hip, initial encounter (principal); W18.11XA Fall from or off toilet without subsequent striking against object, initial encounter; Y92.009 Unspecified place in unspecified non-institutional (private) residence as the place of occurrence of the external cause; M16.0 Bilateral primary osteoarthritis of hip; Z88.0 Allergy status to penicillin; Z88.2 Allergy status to sulfonamides; Z88.8 Allergy status to other drugs, medicaments and biological substances; Z79.899 Other long term (current) drug therapy

== ENCOUNTER → 2019-02-21 | Outpatient (CLI) | payer MEDICARE, OTHER ==
[~2019-02-21] MED LIST changes: -OMEP40CA2 PO; +OMEP40CA97 PO
--- NOTE | 2019-02-21 13:47 | REP ---
PA and lateral chest: Comparison is 09/05/2018. There is a large hiatal hernia containing an air-fluid level. There is atelectasis inferiorly in the left lung. Lung cole otherwise clear. Cardiac size is enlarged. There is thoracic scoliosis convex right at the thoracolumbar junction. The laz and mediastinum are unremarkable. There are bilateral shoulder arthroplasties. Impression: Atelectasis inferiorly in the left lung. Large hiatal hernia with air-fluid level. Surgical clips are incidentally identified in the abdominal right upper quadrant. Electronically Signed by Eligio Juarez MD 02/21/2019 01:39 P
== END ==
LOC: M RAD 13:02
PROVIDERS: ATTEND Family Medicine
DX: J98.11 Atelectasis (principal); I51.7 Cardiomegaly; K44.9 Diaphragmatic hernia without obstruction or gangrene; R06.02 Shortness of breath

== ENCOUNTER → 2019-02-23 | Outpatient (REF) | payer MEDICARE, OTHER ==
[2019-02-23 14:30] LABS: PERCENT SATURATION 16.7 % (13.2-45.0)
== END ==
LOC: M LAB REF 13:41
PROVIDERS: ATTEND Internal Medicine Nephrology
DX: D64.9 Anemia, unspecified (principal)

== ENCOUNTER 2019-03-10 09:47 | Inpatient (IN) | payer MEDICARE, OTHER ==
[~2019-03-10] VITALS: Ht 149.9 cm; Wt 83.8 kg
[~2019-03-10 09:47] MED LIST changes: +ALL10TAB29 PO; +CYAN100050 PO; +FISH1000 PO; +ICAPTAB7 PO; +LR 1,000 ML IV ONE; +MULTCAP PO; +QC A650T3 PO
[2019-03-10] MEDS ORDERED: LIDOCAINE 2% INJ 100 MG/5 ML SDV (FOR ANES.) As Ordered ONE (10:55)
[2019-03-10] MEDS ORDERED: ROCURONIUM BROMIDE 50 MG/5 ML VIAL As Ordered ONE ×2 (10:55→15:14)
[2019-03-10] MEDS ORDERED: PROPOFOL 200 MG/20 ML VIAL As Ordered ONE (10:55)
[2019-03-10] MEDS ORDERED: fentaNYL 100 MCG/2 ML INJECTION (J3010) As Ordered ONE ×3 (10:55→18:12)
[2019-03-10] MEDS ORDERED: ALBUTEROL SULFATE 2.5 MG/0.5 ML INH NEB SOLN As Ordered ONE (13:32)
[2019-03-10] MEDS ORDERED: ALBUTEROL SULFATE 2.5 MG/0.5 ML INH NEB SOLN INH ONE (13:45)
[2019-03-10] MEDS ORDERED: BUPIVACAINE HCL 0.25% 30 ML VIAL As Ordered ONE (13:58)
[2019-03-10] MEDS ORDERED: BUPIVACAINE LIPOSOME/PF 1.3% 20ML VIAL (13.3MG/ML)(EXPAREL)(C9290 PER1MG) As Ordered ONE (14:26)
[2019-03-10] MEDS ORDERED: ePHEDrine SULFATE 25 MG/5 ML(5MG/ML) SYRINGE As Ordered ONE (14:34)
[2019-03-10] MEDS ORDERED: METOCLOPRAMIDE INJ 10MG/2ML VIAL (J2765) As Ordered ONE (14:45)
[2019-03-10] MEDS ORDERED: PHENYLephrine HCL 500 MCG/5 ML (100MCG/ML) SYRINGE (J2370) As Ordered ONE (14:47)
[2019-03-10] MEDS ORDERED: GLYCOPYRROLATE INJ 0.2 MG/ML 2 ML VIAL As Ordered ONE (14:48)
[2019-03-10] MEDS ORDERED: ONDANSETRON 4MG/2ML VIAL (J2405) As Ordered ONE (15:07)
[2019-03-10] MEDS ORDERED: ACETAMINOPHEN 1000MG 100ML IV BTL (OFIRMEV) (J0131 PER 10MG) As Ordered ONE (15:16)
[2019-03-10] MEDS ORDERED: SUGAMMADEX SODIUM 500 MG/5 ML VIAL (BRIDION) As Ordered ONE (15:19)
[2019-03-10] MEDS: fentaNYL 100 MCG/2 ML INJECTION (J3010) IV PRN ×2 (16:13→16:20)
[2019-03-10] MEDS ORDERED: MORPHINE 2 MG/ML 1ML VIAL (J2270) IV PRN (18:00)
[2019-03-10] MEDS ORDERED: ALBUTEROL 90 MCG/ACT 8GM HFA INHALER INH PRN (18:00)
[2019-03-10] MEDS ORDERED: KETOROLAC 30 MG/ML VIAL (J1885) IV PRN (18:00)
[2019-03-10] MEDS ORDERED: ONDANSETRON 4MG/2ML VIAL (J2405) IV PRN ×2 (18:00→19:00)
[2019-03-10] MEDS ORDERED: IPRATROPIUM 0.5MG/ALBUTEROL 2.5MG INH SOL UD 3ML (DUONEB)(J7620) NEB PRN (18:30)
[2019-03-10] MEDS ORDERED: LR 1,000 ML IV SCH (19:00)
[2019-03-10] MEDS ORDERED: oxyCODONE 5MG TAB PO PRN (19:00)
[2019-03-10] MEDS ORDERED: HYDROMORPHONE HCL 0.5 MG/ 0.5 ML SYRINGE (J1170 PER 1) IV PRN (19:00)
[2019-03-10 19:05] VITALS: BP 112/66
[2019-03-10 19:38] VITALS: BP 128/59
[2019-03-10 20:30] VITALS: BP 129/54
[2019-03-10] MEDS: NYSTATIN 100,000 UNITS/GM TOPICAL PWD 15 GM TOP SCH (21:00)
[2019-03-10] MEDS: HYDROXYCHLOROQUINE 200 MG TAB PO SCH (21:25)
[2019-03-10] MEDS: GABAPENTIN 300 MG CAP PO SCH (21:25)
[2019-03-10] MEDS: LORazepam 0.5 MG TAB PO SCH (21:25)
[2019-03-10] MEDS: OMEPRAZOLE 20 MG CAP PO SCH (21:25)
[2019-03-10] MEDS: LR 1,000 ML IV SCH (21:26)
[2019-03-10 21:30] VITALS: BP 138/54
[2019-03-10] MEDS: NORCO, ANEXSIA 5/325MG TABLET (HYDROcodone/ACETAMINOPHEN) PO PRN (23:08)
[2019-03-11 01:30] VITALS: BP 121/57
[2019-03-11] MEDS: NORCO, ANEXSIA 5/325MG TABLET (HYDROcodone/ACETAMINOPHEN) PO PRN ×2 (05:29→20:29)
[2019-03-11] MEDS: LR 1,000 ML IV SCH (05:29)
[2019-03-11 05:30] VITALS: BP 146/89
[2019-03-11] MEDS: GABAPENTIN 300 MG CAP PO SCH ×3 (09:06→20:25)
[2019-03-11] MEDS: OMEPRAZOLE 20 MG CAP PO SCH ×2 (09:06→20:25)
[2019-03-11] MEDS: VENLAFAXINE **XR** 75MG CAPSULE PO SCH (09:06)
[2019-03-11] MEDS: HYDROXYCHLOROQUINE 200 MG TAB PO SCH ×2 (09:07→20:25)
[2019-03-11] MEDS: LORazepam 0.5 MG TAB PO SCH ×2 (09:07→20:25)
[2019-03-11] MEDS: NYSTATIN 100,000 UNITS/GM TOPICAL PWD 15 GM TOP SCH ×2 (09:08→20:30)
[2019-03-11 09:51] LABS: BASO % 0.5 % (0.0-1.0); EOS # 0.1 10^3/uL (0.0-0.5); EOS % 2.1 % (0.0-3.0); HEMATOCRIT 32.9 % (36.0-47.0); HEMOGLOBIN 9.8 g/dl (12.0-15.5); LYMPH # 2.6 10^3/uL (1.5-5.0); MEAN CORPUSCULAR HEMOGLOBIN 30.6 pg (27.0-33.0); MEAN CORPUSCULAR HGB CONC 29.8 g/dl (32.0-36.5); MEAN CORPUSCULAR VOLUME 102.8 fl (80.0-96.0); MONO # 0.7 10^3/uL (0.0-0.8); MONO % 10.2 % (0.0-5.0); NEUTROPHILS # 3.2 10^3/uL (1.5-8.5); NEUTROPHILS % 47.9 % (36.0-66.0); PLATELET COUNT, AUTOMATED 153 10^3/uL (150-450); WHITE BLOOD COUNT 6.6 10^3/uL (4.0-10.0)
[2019-03-11 10:20] LABS: ALBUMIN 2.7 GM/DL (3.2-5.2); BILIRUBIN,TOTAL 0.4 MG/DL (0.2-1.0); CALCIUM LEVEL 8.7 MG/DL (8.8-10.2); CREATININE FOR GFR 2.14 MG/DL (0.55-1.30); GLOMERULAR FILTRATION RATE 23.5 (>32); POTASSIUM SERUM 5.8 MEQ/L (3.5-5.1)
[2019-03-11] MEDS ORDERED: CALCIUM GLUCONATE 1,000 MG in D5W MINI-BAG PLUS 100 ML IV ONE (14:15)
[2019-03-11] MEDS ORDERED: SODIUM BICARBONATE 75 MEQ in NS 0.45% 1,000 ML IV SCH (16:00)
--- NOTE | 2019-03-11 16:06 | REP ---
Clinical: Acute renal failure. Technique: Real time hwang scale and color evaluation using curved array transducer. Findings: Kidneys are normal in reniform shape and echogenicity with increased central sinus fat suggesting chronic medical renal disease. No hydronephrosis, nephrolithiasis, cystic or renal mass lesion. Right kidney measures 9.4 x 4.6 x 4.3 cm. Left kidney measures 9.6 x 4.1 x 3.8 cm. Impression: Chronic age-related medical renal disease suggested. No hydronephrosis. Electronically Signed by Chintan Washburn MD 03/11/2019 03:58 P
[2019-03-11] MEDS ORDERED: IPRATROPIUM 0.5MG/ALBUTEROL 2.5MG INH SOL UD 3ML (DUONEB)(J7620) INH PRN (17:15)
[2019-03-11] MEDS ORDERED: FLUTICASONE PROP 0.05% NASAL SPRAY 16 GM (FLONASE) PRN (17:15)
[2019-03-11] MEDS ORDERED: IPRATROPIUM 0.5MG/ALBUTEROL 2.5MG INH SOL UD 3ML (DUONEB)(J7620) NEB ONE (17:30)
--- NOTE | 2019-03-11 18:00 | REP ---
Clinical: Shortness of breath. Comparison: 02/21/2019. Findings: Mediastinum and cardiac silhouette are stable. Hiatal hernia again identified along with chronic-appearing changes at the bilateral bases (left greater than right). Subtle superimposed atelectasis cannot be excluded. No obvious effusion. No pneumothorax. Skeletal structures stable. Impression: Chronic stable changes. Cannot exclude subtle basilar atelectasis. Electronically Signed by Chintan Washburn MD 03/11/2019 05:51 P
[2019-03-11] MEDS: CETIRIZINE (ZyrTEC) 10 MG TAB PO SCH (18:01)
[2019-03-11] MEDS: CALCITRIOL 0.25 MCG CAP (S0169) PO SCH (18:01)
[2019-03-11 20:00] VITALS: BP 156/62
[2019-03-11 20:27] VITALS: BP 149/56
[2019-03-11] MEDS: amLODIPine 5 MG TAB PO SCH (20:28)
[2019-03-11] MEDS: IPRATROPIUM 0.5MG/ALBUTEROL 2.5MG INH SOL UD 3ML (DUONEB)(J7620) NEB SCH ×2 (20:39→23:59)
[2019-03-11 21:13] LABS: IONIZED CALCIUM 4.6 MG/DL (4.5-5.3)
[2019-03-11 21:38] LABS: CALCIUM LEVEL 8.3 MG/DL (8.8-10.2); CREATININE FOR GFR 2.32 MG/DL (0.55-1.30); GLOMERULAR FILTRATION RATE 21.4 (>32); POTASSIUM SERUM 5.6 MEQ/L (3.5-5.1)
[2019-03-12] MEDS: ACETAMINOPHEN TAB 650MG DOSE (2X325MG) PO PRN ×2 (00:08→08:40)
[2019-03-12] MEDS: IPRATROPIUM 0.5MG/ALBUTEROL 2.5MG INH SOL UD 3ML (DUONEB)(J7620) NEB SCH ×6 (04:00→23:47)
[2019-03-12 05:56] LABS: HEMATOCRIT 28.8 % (36.0-47.0); HEMOGLOBIN 8.8 g/dl (12.0-15.5); MEAN CORPUSCULAR HEMOGLOBIN 30.9 pg (27.0-33.0); MEAN CORPUSCULAR HGB CONC 30.6 g/dl (32.0-36.5); MEAN CORPUSCULAR VOLUME 101.1 fl (80.0-96.0); PLATELET COUNT, AUTOMATED 125 10^3/uL (150-450); RED BLOOD COUNT 2.85 10^6/uL (4.00-5.40); WHITE BLOOD COUNT 7.9 10^3/uL (4.0-10.0)
[2019-03-12 06:00] VITALS: BP 152/52
[2019-03-12 06:22] LABS: ALBUMIN 2.5 GM/DL (3.2-5.2); BILIRUBIN,DIRECT 0.2 MG/DL (0.0-0.2); BILIRUBIN,TOTAL 0.3 MG/DL (0.2-1.0); CALCIUM LEVEL 8.2 MG/DL (8.8-10.2); CREATININE FOR GFR 2.27 MG/DL (0.55-1.30); POTASSIUM SERUM 4.9 MEQ/L (3.5-5.1); TOTAL PROTEIN 6.7 GM/DL (6.4-8.2)
[2019-03-12] MEDS: CALCITRIOL 0.25 MCG CAP (S0169) PO SCH (08:41)
[2019-03-12] MEDS: HYDROXYCHLOROQUINE 200 MG TAB PO SCH ×2 (08:41→20:18)
[2019-03-12] MEDS: CETIRIZINE (ZyrTEC) 10 MG TAB PO SCH (08:41)
[2019-03-12] MEDS: GABAPENTIN 300 MG CAP PO SCH ×3 (08:41→20:18)
[2019-03-12] MEDS: VENLAFAXINE **XR** 75MG CAPSULE PO SCH (08:41)
[2019-03-12] MEDS: OMEPRAZOLE 20 MG CAP PO SCH ×2 (08:41→20:18)
[2019-03-12] MEDS: LORazepam 0.5 MG TAB PO SCH ×2 (08:41→20:18)
[2019-03-12] MEDS: FEBUXOSTAT 40 MG TABLET (ULORIC) PO SCH (08:42)
[2019-03-12] MEDS: NYSTATIN 100,000 UNITS/GM TOPICAL PWD 15 GM TOP SCH ×2 (08:42→20:42)
[2019-03-12] MEDS: amLODIPine 5 MG TAB PO SCH ×2 (08:42→20:42)
[2019-03-12] MEDS ORDERED: ANEXSIA, NORCO 7.5MG/325MG TABLET(HYDROCODONE/APAP) PO ONE (09:00)
--- NOTE | 2019-03-12 09:15 | CR ---
DATE OF CONSULTATION: 03/11/2019 REASON FOR CONSULTATION: Hyperkalemia, anemia, and acute on chronic renal failure. REFERRING PHYSICIAN: Dr. Henry Block PRIMARY CARE PHYSICIAN: Dr. Issa Low HISTORY OF PRESENTING ILLNESS: This is an 83-year-old female admitted to surgical services due to incarcerated umbilical and ventral hernia on 03/10/2019, status post robotic-assisted laparoscopic umbilical hernia repair with mesh, was noted to have worsening creatinine this morning of 2.14 with hyperkalemia of 5.8 from previous baseline creatinine of 1.4 to 1.5. Patient is known to nephrology services and had been seen by Dr. Paulson in the past. Hospitalist was called to further evaluate and manage. Patient has a known history of chronic kidney disease stage III, rheumatoid arthritis, hypertension, chronic obstructive pulmonary disease (COPD), reflux disease, vitamin B and D deficiencies, abnormal EKG with chronic right bundle branch block and left axis deviation, diverticulosis, obstructive sleep apnea, questionable history of pulmonary embolism, questionable history of Sjogren's, chronic venous insufficiency, essential tremors, prediabetic, obesity. ALLERGIES: PENICILLIN, ALLOPURINOL, RISPERIDONE, SULFAMETHOXAZOLE, TRIMETHOPRIM, RABEPRAZOLE. PAST SURGICAL HISTORY: Cataract surgery. Shoulder surgery by Dr. Burch. Cholecystectomy. Hysterectomy. Bladder suspension. HOME MEDICATIONS: - acetaminophen 650 every 4 as needed for pain - aspirin 81 mg nightly - calcitriol two tabs by mouth Saturday to Saturday - cetirizine 10 mg daily - vitamin D2 50,000 units weekly - ferrous sulfate 325 daily - Flonase 50 mcg - ipratropium/albuterol inhaled four times a day as needed for shortness of breath - magnesium chloride 64 mg three times weekly - Lasix 20 mg daily - vitamin B12 1000 mcg daily - irbesartan 75 mg daily - Multivitamin one tablet daily - omega-3 fish oil 1000 mg daily - gabapentin 300 mg three times a day - Uloric 80 mg every second day - hydroxychloroquine 200 mg twice a day - lorazepam 0.5 twice a day - Prilosec 40 mg twice a day - venlafaxine 150 mg daily SOCIAL HISTORY: Lives her daughter. Has a 2-bedroom home, but lives mostly on the first floor. She does have some steps into the home, about 3-4. Uses a cane on the right hand. She does have the bedroom and the shower all on the first floor. FAMILY HISTORY: Mother in her 60s with heart disease. Father age 67, morbidly obese, coronary artery disease (CAD), myocardial infarction (MA). One brother had a heart murmur and heart trouble. Another brother with CAD, MA. Patient's healthcare proxy is Liss Bonilla, her daughter. She is a DO NOT RESUSCITATE, DO NOT INTUBATE. Medical Orders for Life-Sustaining Treatment (MOLST) form has been signed. REVIEW OF SYSTEMS: Currently complains of achy pain in the abdomen, described as sore, aches, 4/10 in the stomach post umbilical and ventral hernia repair. No fever, chills. No weight gain, weight loss. No dysphagia. No odynophagia. No bright red blood per rectum, melena, black, tarry stools. Denies any sore throat, ear pain, chest pain, pressure, tightness, lightheadedness, shortness of breath, dizziness, or near syncope. Denies any nausea, vomiting, diarrhea, or constipation. Denies any dysuria, urgency, frequency, fever, chills, or flank pain. She has chronic knee pain, for which she is seeking referral for injection. All other systems otherwise negative. PHYSICAL EXAMINATION: Temperature 98, pulse 49, respiration 18, blood pressure 146/89, 98% on 2 liters nasal cannula. Generally: Patient is awake, alert, oriented to herself, place. Able to answer questions. Slightly difficulty to understand as she is edentulous, but no slurring of her speech. Her speech is fluent. Face is symmetric. Tongue is midline. No jugular venous distention (JVD) or thyromegaly. Her lungs are diminished, prolonged expiration with some expiatory wheezing bilaterally. Heart: S1, S2. Sinus bradycardia. Abdomen is obese, soft, slightly tender, has postoperative surgical scar from recent robotic-assisted laparoscopic surgery. Nonerythematous. No purulent drainage. No erythema. Extremities: Bilateral lower extremity edema and chronic venous changes. LAB DATA: White count 6.4, hemoglobin 8.8, hematocrit 32, platelet count of 153. Sodium 137, potassium 5.8, chloride 110, bicarbonate 25, BUN 53, creatinine 2.14, glucose of 130, AST 711, ALT 691, alkaline phosphatase 220. Renal ultrasound, 03/11/2019, shows chronic age-related medical renal disease. No hydronephrosis seen. ASSESSMENT AND PLAN: This is an 83-year-old female with history of chronic kidney disease stage III, recent pneumonia, questionable Sjogren's, rheumatoid arthritis, on chronic hydroxychloroquine, prediabetic, diverticulosis, bladder suspension, chronic venous insufficiency, probable obstructive sleep apnea (ANI), presents to emergency room with an incarcerated umbilical and inguinal hernias, status post laparoscopic robotic-assisted umbilical hernia repair with mesh with postoperative acute on chronic renal failure, current a stage IV. ACUTE ISSUES: 1. Acute on chronic renal failure. Baseline creatinine is 1.4 to 1.5, currently stage IV, previously stage III, now with hyperkalemia, potassium of 5.8 postoperatively. For now, strict intake and output (I's and O's). Postvoid residual to be checked with bladder scans every 4 hourly. Renal ultrasound shows no hydronephrosis. Avoid nephrotoxins. Trial of bicarbonate drip times 1 liter and recheck electrolytes. Withholding patient's angiotensin-converting enzyme (NICOLASA) inhibitor for now. If no significant improvement, will consult nephrology, Dr. Klein. 2. Incarcerated umbilical and ventral hernias. Postoperative management per general surgery. 3. Hypertension. Pain management and Norvasc with holding parameters for systolic pressure less than 130. 4. History of rheumatoid arthritis. Continue on Plaquenil to be renally dosed. 5. History of chronic obstructive pulmonary disease (COPD). Continue with nebulizer treatment every 4 hourly. 6. Hyperkalemia. Calcium gluconate intravenously and sodium bicarbonate. Will check metabolic panel. Most likely secondary to acute on chronic renal failure. 7. Prediabetic. Check A1c in the morning. MTDD
[2019-03-12] MEDS ORDERED: NS 0.45% 1,000 ML IV SCH (10:30)
--- NOTE | 2019-03-12 12:01 | CR ---
DATE OF CONSULTATION: 03/12/2019 REQUESTING PHYSICIAN: Dr. Alanis Espitia CONSULTING PHYSICIAN: Dr. Klein REASON FOR CONSULTATION: Management of acute kidney injury superimposed on chronic kidney disease. CHIEF COMPLAINT: The patient was admitted after umbilical hernia surgery because of worsening renal failure. HISTORY OF PRESENT ILLNESS: Yesenia Cheema is an 83-year-old female with past medical history of chronic kidney disease stage III with the best baseline creatinine of around 1.5 as outpatient, history of morbid obesity, hypertension, chronic diastolic congestive heart failure, gout, multiple other comorbidities as mentioned below. She had a large umbilical hernia, and on 03/10/2019, she had the robotic-assisted laparoscopic umbilical hernia repair with mesh, and after the surgery she was found to have a worsening renal function with a creatinine of 2.1 and hyperkalemia with a potassium of 5.8. The patient was admitted to the hospital. Initially, medical service was called on board for help in the management of acute kidney injury superimposed on chronic kidney disease. The patient was started on intravenous (IV) bicarb fluid hydration. However, her creatinine is still fluctuating between 2.2 to 2.3. Nephrology service was called for further help in the management of this patient. I saw and evaluated the patient today morning in the bedside. She is awake and alert. She was able to provide me with history. She reports that she is feeling very thirsty and has a dry tongue, and she is trying to drink more liquids. She denies any dysuria. She denies any nausea, vomiting. PAST MEDICAL HISTORY: Past medical history of chronic kidney disease stage III, baseline creatinine of 1.5, morbid obesity, chronic diastolic congestive heart failure, a history of COPD, rheumatoid arthritis, diverticulosis, obstructive sleep apnea, history of Sjogren syndrome, chronic venous insufficiency. PAST SURGICAL HISTORY: Status post cataract surgeries in the past, history of shoulder surgery, status post cholecystectomy, status post hysterectomy, history of bladder suspension in the past. ALLERGIES: The patient is allergic to ALLOPURINOL, PENICILLINS, RABEPRAZOLE, RISPERIDONE and BACTRIM. FAMILY HISTORY: No significant family history of end-stage renal disease requiring hemodialysis. SOCIAL HISTORY: She denies any smoking, illicit drug abuse, or alcohol abuse. REVIEW OF SYSTEMS: Constitutional: She denies any fevers or chills. Eyes: She denies any blurry vision, double vision. Ears, nose, and throat (ENT): She denies any dysphagia or odynophagia. She does report a dry tongue. Cardiovascular: She denies any chest pain or palpitation. Respiratory: She denies any shortness of breath at this time. Gastrointestinal (GI): She denies any nausea, vomiting, or constipation. Genitourinary: She denies any dysuria or hematuria. Musculoskeletal: She denies any muscle aches and pains. Skin: She denies any rashes or ulcers. Psychological: She denies any depression or anxiety. Hematological/oncological: She denies any easy bleeding or bruising. PORCELAIN ENAMEL LABORER: She denies any strokes or seizures or weakness. All other review of systems is negative. PHYSICAL EXAM: General: The patient is awake, alert, oriented times three, morbidly obese, laying in bed. No apparent distress. Vital signs: Temperature is 98.6 degrees Fahrenheit, blood pressure 148/62, pulse is 68, respiratory rate of 70, saturating 94% on room air. Intake and output: Urine output recorded as 725 yesterday, 375 mL so far today. Weight in the bed scale is not available today. Head and neck exam: Extraocular muscles intact. Pupils equally round and reactive to light. Mucous membranes are dry. Neck is supple. I could not appreciate any jugular venous distention (JVD) because of the body habitus. Cardiovascular: S1, S2. Regular rate. No edema of the bilateral lower extremities. Respiratory: Mildly decreased breath sounds at the bases, otherwise, no active rales or rhonchi. Abdomen: Soft, obese, positive bowel sounds. Laparoscopic surgical sites in the abdomen were noted, appropriately tender at the surgical site. Genitourinary: Bladder is not palpable. Musculoskeletal: No clubbing or cyanosis. Pulses are 2+. PORCELAIN ENAMEL LABORER: No focal deficit. Power is 5/5 in all extremities. Skin: No rashes or ulcers. LAB REVIEW: CBC showed WBC 7.9, hemoglobin 8.8, platelets of 125. BMP done yesterday showed a sodium 137, potassium of 5.8, chloride 110, bicarbonate 25, BUN 53, creatinine was 2.1. CMP done today morning showed sodium 137, potassium 4.9, chloride 108, bicarb 24, BUN 56, creatinine is 2.2, AST 247, ALT 398 alkaline phosphatase is 193. BNP is 3644. Albumin is 2.5. IMAGING STUDIES: A chest x-ray was done yesterday which showed chronic stable changes, cannot exclude bibasilar atelectasis. Her renal ultrasound was done yesterday which showed chronic age-related medical renal disease. No hydronephrosis was noted. CURRENT INPATIENT MEDICATIONS: The patient was given sodium bicarbonate drip yesterday. I am starting the patient on half normal saline at 100 mL an hour for total of 1 liter. She is on hydrocodone one tablet by mouth in the morning. She is getting DuoNebs every 4hourly, Norvasc 5 mg by mouth twice a day, calcitriol 0.5 mg by mouth Saturday, Saturday, Saturday, , Saturday, Zyrtec 10 mg daily, Uloric 80 mg every other day, fluticasone as needed for congestion, gabapentin 300 mg by mouth three times a day, Plaquenil 200 mg by mouth twice a day, Ativan 0.5 mg by mouth twice a day, nystatin powder, omeprazole 40 mg by mouth twice a day, Zofran as needed, and Effexor 150 mg by mouth daily. ASSESSMENT: 83-year-old female with past medical history of morbid obesity, chronic diastolic congestive heart failure, hypertension, secondary hyperparathyroidism, chronic gout, admitted this time status post laparoscopic robotic-assisted umbilical hernia repair with acute kidney injury superimposed on chronic kidney disease stage III. PLAN: 1. Acute kidney injury superimposed on chronic kidney disease stage III. Patient's baseline creatinine is around 1.5. Her creatinine at this time is fluctuating at around 2.2. She was given intravenous (IV) bicarbonate fluids yesterday. No significant improvement in the renal function; however, hyperkalemia is better. The patient clinically still looks slightly dry. She was also taking Lasix and irbesartan at home. I am going to give her more IV fluid half-normal saline at 100 mL an hour for a total of 1 liter. I am also getting the Haro catheter placed since after the surgery sometimes patients can go into urinary retention. I would keep the Haro for 48 hours. Continue to monitor for improvement of the renal function. 2. Hypertension. Blood pressure is controlled with amlodipine. Continue to hold irbesartan at this time. 3. History of rheumatoid arthritis. Continue the Plaquenil. 4. Hyperkalemia. Potassium level has already improved with bicarbonate containing fluids. 5. Secondary hyperparathyroidism. Continue current dose of calcitriol 0.5 mcg by mouth daily. 6. Chronic gout, secondary to chronic kidney disease. Continue current dose of Uloric 80 mg every other day. 7. Incarcerated umbilical and ventral hernia. Status post laparoscopic robotic-assisted repair on 03/10/2019. The patient was started on regular diet yesterday. Encourage more oral hydration. Rest of the management is as per surgical team. 8. Anemia secondary to chronic kidney disease and recent surgery. There is slight drop in hemoglobin. If hemoglobin drops to below 8, she can be given packed red blood cell (PRBC) transfusion. I am going to check the iron levels from today's labs as well. Thank you for involving me in the care of this patient. I shall be happy to follow the patient along with you tomorrow morning.
--- NOTE | 2019-03-12 13:49 | IPN ---
DATE: 03/11/2019 HISTORY: The patient is now postop day #1 from robotically assisted laparoscopic repair of umbilical and lower midline incisional hernias. She apparently reports that she had not voided overnight. She otherwise denies any significant pain other than some soreness. She has been taking small amounts of clear liquids. The nurse reports that she requires two people for maximum support when trying to get her out of bed. Vital signs show that she has been afebrile since surgery. Her pulse is in the 50s and 60s. Blood pressure is excellent. Intake and output shows that she had 1650 recorded in and only her estimated blood loss of 20 mL recorded out. PHYSICAL EXAM: The patient is lying quietly in the bed. She does arouse readily to voice. She is responsive and seemed oriented grossly. She is not complaining of any significant pain. Heart exam shows a regular rhythm. The lungs sound generally clear, perhaps with some faint expiratory wheezes. The abdomen is obese. Her dressings are dry, and she does have some bowel sounds present. A bladder scan was done, which showed a large volume and she was straight catheterized for 725 mL. Baseline laboratory studies were obtained, which showed a white count of 7, hemoglobin 10, hematocrit 33, and a platelet count of 153. Her differential count showed 48% neutrophils, 39% lymphocytes and 10% monocytes. Chemistry profile was also obtained, which showed a sodium of 137, potassium 5.8, chloride 110, CO2 of 25, BUN of 53, creatinine 2.1, and a glucose of 130. The total bilirubin was normal but her AST was 711, ALT 691 and her alkaline phosphatase 220 with a total protein of 7.0 and albumin of 2.7. IMPRESSION: The patient is clearly not ready for discharge today given her inability to ambulate independently and her lab changes. Her potassium is high. Her renal function may be a little bit above baseline and her liver function tests (LFTs) apparently had not been noted to be elevated like this before. PLAN: I will put in a request for a physical therapy evaluation. I am going to ask the hospitalist to see her and evaluate her multiple medical issues and offer their recommendations and treatment. She can advance her diet as tolerated. We will continue to monitor her intake and output closely. ROSE
[2019-03-12 14:30] VITALS: BP 156/77
[2019-03-12 20:00] VITALS: BP 161/65
[2019-03-12] MEDS: NORCO, ANEXSIA 5/325MG TABLET (HYDROcodone/ACETAMINOPHEN) PO PRN (20:26)
[2019-03-13] MEDS: ACETAMINOPHEN TAB 650MG DOSE (2X325MG) PO PRN (00:29)
[2019-03-13] MEDS: IPRATROPIUM 0.5MG/ALBUTEROL 2.5MG INH SOL UD 3ML (DUONEB)(J7620) NEB SCH ×5 (04:00→20:00)
[2019-03-13 06:00] VITALS: BP 105/66
[2019-03-13 06:00] LABS: HEMATOCRIT 29.3 % (36.0-47.0); HEMOGLOBIN 8.8 g/dl (12.0-15.5); MEAN CORPUSCULAR HEMOGLOBIN 30.3 pg (27.0-33.0); PLATELET COUNT, AUTOMATED 141 10^3/uL (150-450); WHITE BLOOD COUNT 9.3 10^3/uL (4.0-10.0)
[2019-03-13 06:21] LABS: ALBUMIN 2.3 GM/DL (3.2-5.2); BILIRUBIN,DIRECT 0.1 MG/DL (0.0-0.2); BILIRUBIN,TOTAL 0.3 MG/DL (0.2-1.0); CALCIUM LEVEL 8.6 MG/DL (8.8-10.2); CREATININE FOR GFR 1.74 MG/DL (0.55-1.30); GLOMERULAR FILTRATION RATE 29.9 (>32); POTASSIUM SERUM 5.2 MEQ/L (3.5-5.1); TOTAL PROTEIN 6.6 GM/DL (6.4-8.2)
[2019-03-13 06:29] LABS: ANISOCYTOSIS 1+; ATYPICAL LYMPH 4 % (0-5); EOSINOPHILS 2 % (0-3); HYPOCHROMASIA 2+; LYMPHOCYTES 35 % (16-44); MONOCYTES 3 % (0-5); NEUTROPHILS 56 % (28-66); PLATELET ESTIMATE DECREASED (NORMAL); POIKILOCYTOSIS 1+
[2019-03-13] MEDS ORDERED: CALCIUM GLUCONATE 1,000 MG in D5W MINI-BAG PLUS 100 ML IV ONE (08:00)
--- NOTE | 2019-03-13 08:06 | IPN ---
DATE: 03/12/2019 HISTORY: The patient is now postop day #2 from robotic-assisted laparoscopic repair of an incarcerated umbilical hernia and a lower midline incisional hernia. Her surgery went very well. Yesterday it was readily apparent that the patient was not strong enough for discharge home. Physical therapy and occupational therapy were consulted. She also was noted to have elevations of her liver function tests, and her renal function tests were a little worse than usual. I consulted the hospitalist, and they have seen her and made some medication changes and recommendations. Vital signs today show that she remains afebrile. Her pulse is in the 60s. Blood pressure is good. Intake and output show that yesterday she had 1775 total in with 725 recorded out plus and incontinent void. PHYSICAL EXAMINATION: The patient is quietly taking her nebulizer treatment when I came in this morning. She responds appropriately to voice and is very pleasant. Heart exam shows a regular rhythm. She has a few faint extra respiratory sounds, which I think probably represent some transmitted sounds from her abdomen where it sounds as if she had some air remaining in the upper abdomen. She does have some bowel sounds present but again she has a loud sound in her left upper quadrant in particular that may be some gas in the abdomen. The abdomen is obese but soft and without significant tenderness. Laboratory studies today show a CBC with a white count of 8, hemoglobin 9, hematocrit 29, and a platelet count of 125,000. Her chemistry profile shows a sodium of 137, potassium 4.9, chloride 108, CO2 of 24, BUN of 56, creatinine 2.27 and a glucose of 143. Her AST, ALT and alkaline phosphatase are all significantly reduced from yesterday. Her BNP is 3644. IMPRESSION: The patient seems about the same physically today. She is fairly comfortable but certainly not lively. Her laboratory studies are either stable or improved. The liver functions are better and her renal function is stable. I am going to ask the nurses to start weighing her daily. I think monitoring her urine output will be difficult to impossible. She remains off her irbesartan and Lasix, and I have deferred the decision on these medications to the hospitalist. We will continue to monitor her intake and pursue physical therapy. [facility]
[2019-03-13] MEDS: VENLAFAXINE **XR** 75MG CAPSULE PO SCH (08:17)
[2019-03-13] MEDS: HYDROXYCHLOROQUINE 200 MG TAB PO SCH ×2 (08:17→20:26)
[2019-03-13] MEDS: OMEPRAZOLE 20 MG CAP PO SCH ×2 (08:17→20:26)
[2019-03-13] MEDS: CALCITRIOL 0.25 MCG CAP (S0169) PO SCH (08:18)
[2019-03-13] MEDS: GABAPENTIN 300 MG CAP PO SCH ×3 (08:19→20:26)
[2019-03-13] MEDS: CETIRIZINE (ZyrTEC) 10 MG TAB PO SCH (08:19)
[2019-03-13] MEDS: LORazepam 0.5 MG TAB PO SCH ×2 (08:19→20:26)
[2019-03-13] MEDS: NYSTATIN 100,000 UNITS/GM TOPICAL PWD 15 GM TOP SCH ×2 (08:20→20:27)
[2019-03-13] MEDS: amLODIPine 5 MG TAB PO SCH ×2 (08:20→20:29)
--- NOTE | 2019-03-13 08:20 | IPN ---
DATE OF SERVICE: 03/12/2019 Overnight, patient completed 1 liter of bicarbonate drip. Urine output was still positive balance with current weight of 80.74 kg. No complaints of shortness of breath, chest pain, pressure, tightness. Potassium improved to 4.9 from previous 5.8. Creatinine is 2.27, improved from 2.32, but far from baseline. Patient was found to have cyanotic toes and feet yesterday, and compression stockings were discontinued. This morning, lower extremities, feet are erythematous, warm to touch, and flushed with dorsalis pedis, posterior tibialis pulses noted at the bedside. This morning, complains of achiness in the postsurgical area, rated at 3 to 4 out of 10 on a pain scale with request for pain medication. Patient has had her breakfast. She, otherwise, denies any shortness of breath. PHYSICAL EXAMINATION: Temperature 98.6, pulse 63, respiration 17, blood pressure 152/52, 94% on 2 liters nasal cannula. Generally, patient is edentulous. Awake, alert, oriented to person, place. Somewhat difficult to understand, but face is symmetric. Tongue is midline. Uvula is midline. No jugular venous distention (JVD), thyromegaly. Lungs: Diminished, but clear. Heart: S1, S2, sinus rhythm. Abdomen: Obese, soft, nontender. Slightly tender at the surgical site. Currently, with laparoscopy incisions on the right upper, right lower quadrants, left upper quadrant. No rebound, guarding. No hepatosplenomegaly. Extremities appear flushed. Bilateral feet, dorsalis pedis, posterior tibialis are both noted. Chronic venous insufficiency changes. LABORATORY DATA: White count 7.9, hemoglobin 8.8, hematocrit 28, platelet count 125, previous platelet count 153. Sodium 137, potassium 4.9, chloride 108, bicarbonate 24, BUN 56, creatinine 2.27, glucose of 145. T-bilirubin 0.3, direct bilirubin 0.2, AST 247, ALT 398, alkaline phosphatase 193, BNP of 3644. Chest x-ray 03/11/2019: Chronic stable changes. Cannot exclude basilar atelectasis. Renal ultrasound: No hydronephrosis. Chronic medical renal disease. 83-year-old female, DO NOT RESUSCITATE, DO NOT INTUBATE with past medical history significant for chronic kidney disease, chronic obstructive pulmonary disease (COPD), rheumatoid arthritis, follows with Dr. Paulson in the office for renal disease, diverticulosis, admitted for emergent repair of umbilical/ventral hernia, developed postoperative acute on chronic renal failure. CURRENT ISSUES: 1. Acute on chronic renal failure with hyperkalemia. Despite 1 liter sodium bicarbonate and improvement in potassium, patient remains far from her baseline creatinine. She has slightly elevated BNP level. Chest x-ray, however, does not show pulmonary vascular congestion nor does she complain of any shortness of breath this morning. She has lost intravenous access overnight and has been encouraged to permit us to try another peripheral line with intensive care unit (ICU) nursing help. Dr. Klein, dope pourer, has been consulted for help in management in getting her back to her baseline creatinine, avoiding nephrotoxins. She did receive Toradol after surgery. All other medications are to be renally dosed. 2. Rheumatoid arthritis. On chronic Plaquenil. 3. Postoperative day 3, status post incision hernia and ventral hernia repair. Managed by surgical services. 4. Anemia. Most likely dilutional and due to chronic disease and renal failure. No acute indication for red blood cell (RBC) transfusion. 5. Hyperkalemia. Resolved with bicarbonate drip. Monitor patient's calcium, which was 4.6 6. Chronic obstructive pulmonary disease (COPD). On nebulizer treatments every 4 hourly. MTDD
[2019-03-13 09:53] LABS: HEPATITIS A ANTIBODY IGM NEGATIVE (NEGATIVE); HEPATITIS B CORE ANTIBODY IGM NEGATIVE (NEGATIVE); HEPATITIS B SURFACE ANTIGEN NEGATIVE (NEGATIVE); HEPATITIS C VIRUS ABY INDEX 0.1 INDEX (<0.8)
[2019-03-13] MEDS ORDERED: PATIROMER SORBITEX CALCIUM 8.4 GM POWDER PACKET (VELTASSA) PO ONE (11:00)
[2019-03-13] MEDS: IRON SUCROSE 300 MG in NS 250 ML IV SCH (11:21)
[2019-03-13] MEDS: NORCO, ANEXSIA 5/325MG TABLET (HYDROcodone/ACETAMINOPHEN) PO PRN ×2 (11:22→20:28)
--- NOTE | 2019-03-13 11:47 | IPNPDOC ---
Text Note Date of Service The patient was seen on 03/13/19. NOTE No acute events overnight. She has no complaints. She is tolerating diet. Denies abd pains, nausea emesis, or fevers. She is passing flatus and had a couple BMs this am. She claims that she is working with PT, but has not walked with her walked yet. VSSAF NAD abd - soft, nt, nt, incisions c/d/i labs - below A) 83y/o female s/p RA VHR hyperkalemia acute on chronic RF P) reg diet ambulate PT nephrology consult pending stable from surgical standpoint for dc once her medical issues are resolved and she passes PT Kevin Moser DO VS,Doron, I+O VS, Marceloe, I+O Laboratory Tests 03/13/19 05:31 Vital Signs Date Time Temp Pulse Resp B/P (MAP) Pulse Ox O2 Delivery O2 Flow Rate FiO2 03/13/19 11:22 18 03/13/19 08:20 130/67 03/13/19 06:00 97.3 72 96 Nasal Cannula 2.0 I&O- Last 24 Hours up to 6 AM 03/13/19 06:00 Intake Total 2380 ml Output Total 1600 ml Balance 780 ml GURDEEP MOSER DO Mar 13, 2019 11:47
--- NOTE | 2019-03-13 12:50 | IPN ---
DATE OF SERVICE: 03/13/2019 Patient states that she had a large bowel movement yesterday and another one after midnight. Patient has had 1 liter out of urine yesterday and 950 overnight. She denies any shortness of breath, chest pain, pressure, tightness, or lightheadedness. Still complains of achiness around the stomach where she had her laparoscopic surgery. Rates the pain as 2-3 out of 10 when she is not moving. Temperature 97.3, pulse 72, respiratory rate 18, blood pressure 130/67, 96% 2 liters nasal cannula. Input yesterday of 3.15 liters, output 1.025 liters, positive 2.125. Current weight is 87.7 kg. From midnight, input 450, output if 950, negative 500. Generally, she is awake, alert, oriented to person, place. Able to provide a history. She is edentulous with moist mucous membranes. No jugular venous distention (JVD). No thyromegaly. No cervical adenopathy. Lungs are clear to auscultation. No wheezing or rales. Heart: S1, S2, sinus. Abdomen: Is obese, soft, nontender. Patient does have laparoscopic scars on the right upper and lower quadrant, left lower quadrant. No purulent drainage, erythema, or significant tenderness. No costovertebral angle (CVA) tenderness. Extremities: Erythematous feet, pink color. At this time, patient has dorsalis pedis, posterior tibialis, but chronic venous changes are noted. White count 9.3, hemoglobin 8.8, hematocrit 29, platelet count 141, admission platelet count of 153. Sodium 137, potassium 5.2, chloride 109, bicarbonate 24, BUN 54, creatinine 1.74, glucose of 144. ASSESSMENT AND PLAN: This is an 83-year-old female, with history of chronic kidney disease stage III, baseline creatinine 1.7, rheumatoid arthritis, chronic obstructive pulmonary disease (COPD), admitted for emergent repair of umbilical/ventral hernia, developed postoperative acute on chronic renal failure. CURRENT ISSUES: 1. Acute on chronic renal failure with hyperkalemia. Status post sodium bicarbonate times 1 liter with some improvement. She is still requiring Venofer for iron deficiency as well as Velphoro for hyperkalemia. Given Kayexalate times one. Nephrology has been consulted and currently managing her acute on chronic renal failure. Avoid nephrotoxins. She did receive Toradol after surgery. All other medications are being renally dosed. 2. Rheumatoid arthritis. On chronic Plaquenil. 3. Postoperative day #4, status post incision hernia and ventral hernia repair. Managed by general surgery. 4. Anemia, due to chronic disease and renal failure. Currently with Venofer. 5. Hyperkalemia. On Velphoro. 6. Chronic obstructive pulmonary disease (COPD). On nebulizer treatments. MTDD
--- NOTE | 2019-03-13 13:06 | IPN ---
DATE OF SERVICE: 03/13/2019 SUBJECTIVE: The patient was seen and examined the bedside today morning. She is afebrile, hemodynamically stable. She got the Haro catheter placed yesterday. Urine output is better. Renal function continues to improve. Creatinine is down to 1.7 from 2.2 yesterday. Hemoglobin is persistently low at 8.8. She was found to have iron-deficiency anemia. She denies any active complaints at this time. OBJECTIVE: Vital signs: Temperature is 97.3 degrees Fahrenheit, blood pressure 130/67, pulse is 72, respiratory of 18, saturating 96% on nasal cannula at 2 liters. Intake and output: Urine output recorded as 1 liter yesterday, 958 mL so far today since overnight. Weight in the bed scale is 87.7 kg, which is not very reliable because there is 7 kg difference from admission weight. PHYSICAL EXAM: General: The patient is sleepy, laying in bed, otherwise, wakes up and follows commands, morbidly obese. Head and neck exam: Extraocular muscles intact. Pupils equally round and reactive to light. Mucous membranes are moist. Neck is supple. There is no jugular venous distention (JVD). Cardiovascular: S1, S2, regular rate. No edema of the bilateral lower extremities. Respiratory: Chest is clear to auscultation bilaterally. Bilateral equal air entry. No rales or rhonchi. Abdomen: Soft, obese, positive bowel sounds. Laparoscopic surgical incision sites are visible. Genitourinary: She has an indwelling Haro catheter. Musculoskeletal: No clubbing or cyanosis. Pulses are 2+. HANDLE SEWER: No focal deficit. Power is 5/5 in all extremities. LAB REVIEW: CBC showed WBC of 9.3, hemoglobin 8.8, platelets of 141. BMP showed sodium 137, potassium 5.2, chloride 109, bicarbonate 24, BUN 54, creatinine is 1.7, calcium is 8.6, iron level is 25, TIBC is 249, transferrin saturation is 10%, ferritin is 67. CURRENT INPATIENT MEDICATIONS: The patient's medications were all reviewed by me. The patient was given 1 liter of intravenous (IV) fluid. She is going to get calcium gluconate 1 gram IV today morning. I have started the patient on Venofer 300 mg IV daily. No other change in the medications today as compared with yesterday. She is also going to get dose of Veltassa 16.8 grams by mouth times one dose. ASSESSMENT AND PLAN: 1. Acute kidney injury superimposed on chronic kidney disease. Patient's renal function is improving. Baseline creatinine is 1.5. Creatinine has improved to 1.7 today. Continue the Haro catheter for next 24 hours. Continue to encourage oral hydration. No further need of IV fluids at this time. 2. History of hypertension. Continue current dose of amlodipine. Avoid use of angiotensin receptor blockers or angiotensin-converting enzyme (NICOLASA) inhibitors at this time since she is recovering from renal failure. 3. Iron-Deficiency anemia. The patient is going to get 300 mg of IV Venofer daily as long as she is here for a maximum of three doses. 4. Hyperkalemia. I have ordered dose of Veltassa 16.8 grams by mouth times one dose.
[2019-03-13 14:00] VITALS: BP 143/65
[2019-03-13 20:30] VITALS: BP 138/78
[2019-03-13 22:00] VITALS: BP 138/78
[2019-03-14 02:00] VITALS: BP 144/72
[2019-03-14 05:15] LABS: HEMATOCRIT 28.6 % (36.0-47.0); HEMOGLOBIN 8.7 g/dl (12.0-15.5); MEAN CORPUSCULAR HEMOGLOBIN 30.5 pg (27.0-33.0); MEAN CORPUSCULAR HGB CONC 30.4 g/dl (32.0-36.5); MEAN CORPUSCULAR VOLUME 100.4 fl (80.0-96.0); PLATELET COUNT, AUTOMATED 156 10^3/uL (150-450); RED BLOOD COUNT 2.85 10^6/uL (4.00-5.40)
[2019-03-14 05:31] LABS: ALBUMIN 2.4 GM/DL (3.2-5.2); BILIRUBIN,DIRECT 0.1 MG/DL (0.0-0.2); BILIRUBIN,TOTAL 0.3 MG/DL (0.2-1.0); CALCIUM LEVEL 9.2 MG/DL (8.8-10.2); CREATININE FOR GFR 1.72 MG/DL (0.55-1.30); GLOMERULAR FILTRATION RATE 30.3 (>32); TOTAL PROTEIN 7.1 GM/DL (6.4-8.2)
[2019-03-14 06:00] VITALS: BP 154/86
[2019-03-14] MEDS: IPRATROPIUM 0.5MG/ALBUTEROL 2.5MG INH SOL UD 3ML (DUONEB)(J7620) NEB SCH ×8 (07:00→23:39)
--- NOTE | 2019-03-14 09:18 | IPN ---
DATE OF SERVICE: 03/14/2019 The patient received Velphoro and currently on intravenous iron per nephrology. Potassium is back to baseline. The patient has not had a bowel movement yet today. The patient says that everything is fine with her. She continues to have essential tremors with the head tremors at the bedside while eating her pancakes at a 45-degree angle in bed with an aide helping cut her pancakes. She has improved pain at the surgical site from previous laparoscopic ventral and incisional hernia repair. No fever or chills overnight. The patient says that her lower extremities are back to baseline. Usually very red. Otherwise, no other issues. PHYSICAL EXAMINATION: Temperature 98.8, 100.3 maximum temperature (Tmax) yesterday at 2100, pulse 79, sinus, respiratory rate 20, blood pressure 154/86, 93% on 2 liters nasal cannula. Generally, awake, alert, oriented times three. Edentulous with head tremors. No jugular venous distention (JVD) or thyromegaly. Lungs are clear to auscultation. No wheezing. No rales. Heart: S1, S2, sinus. Abdomen: Is obese, soft. Surgical scars. No erythema, significant tenderness, or purulence. Extremities: Erythematous extremities with trace edema, bilateral chronic venous changes. Pulses are 2+ LABORATORY DATA: White count 9, hemoglobin 8.7, hematocrit 28, platelet count 156, creatinine 1.7 which is back to baseline, potassium of 5. Chest x-ray 03/11/2019 cannot exclude subtle basilar atelectasis. ASSESSMENT AND PLAN: This is an 83-year-old female with chronic kidney disease, baseline creatinine of 1.7, chronic kidney disease (CKD) III, rheumatoid arthritis, chronic obstructive pulmonary disease (COPD), admitted for emergent repair of umbilical ventral incisional hernia, developed postoperative acute on chronic renal failure. IMPRESSION: 1. Acute on chronic renal failure stage III with hyperkalemia, resolved, currently, baseline creatinine of 1.7. Status post intravenous (IV) fluid and nephrology consultation for management. The patient received Velphoro, sodium bicarbonate drip. Avoid nephrotoxins. Renally dose all other medications. 2. Low-grade fever. Rule out urinary tract infection (UTI) and incentive spirometry for possible atelectasis. Recheck the chest x-ray. 3. Rheumatoid arthritis. On chronic Plaquenil. 4. Incisional hernia and ventral hernia repairs. Postoperative day #5. Currently managed by general surgery. 5. Anemia due to chronic disease and renal failure. On Venofer. No acute gastrointestinal (GI) bleed. 6. Hyperkalemia, resolved, status post Velphoro. 7. Chronic obstructive pulmonary disease (COPD). On nebulizers. 8. Obesity. Body mass index (BMI) of 39.3, complicating care. 9. Abnormal electrocardiogram (EKG) with chronic right bundle branch block and left axis deviation, stable. 10. Obstructive sleep apnea, on oxygen nightly. 11. Diverticulosis. No acute issues. 12. History of pulmonary embolism (PE). On no anticoagulation. 13. Chronic neuropathy. On Neurontin 300 three times a day. 14. Allergic rhinitis. On chronic Zyrtec. 15. Fungal candidiasis. On nystatin to abdominal folds and groin. 16. Reflux. On Prilosec. MTDD
[2019-03-14] MEDS: FEBUXOSTAT 40 MG TABLET (ULORIC) PO SCH (09:37)
[2019-03-14] MEDS: GABAPENTIN 300 MG CAP PO SCH ×3 (09:37→20:33)
[2019-03-14] MEDS: HYDROXYCHLOROQUINE 200 MG TAB PO SCH ×2 (09:37→20:32)
[2019-03-14] MEDS: OMEPRAZOLE 20 MG CAP PO SCH ×2 (09:37→20:32)
[2019-03-14] MEDS: CETIRIZINE (ZyrTEC) 10 MG TAB PO SCH (09:37)
[2019-03-14] MEDS: LORazepam 0.5 MG TAB PO SCH ×2 (09:37→20:31)
[2019-03-14] MEDS: VENLAFAXINE **XR** 75MG CAPSULE PO SCH (09:38)
[2019-03-14] MEDS: NYSTATIN 100,000 UNITS/GM TOPICAL PWD 15 GM TOP SCH ×2 (09:39→20:34)
[2019-03-14] MEDS: NORCO, ANEXSIA 5/325MG TABLET (HYDROcodone/ACETAMINOPHEN) PO PRN ×2 (09:39→20:32)
[2019-03-14] MEDS: IRON SUCROSE 300 MG in NS 250 ML IV SCH (09:39)
[2019-03-14] MEDS: amLODIPine 5 MG TAB PO SCH ×2 (09:40→20:33)
[2019-03-14 10:00] VITALS: BP 157/69
--- NOTE | 2019-03-14 12:22 | IPNPDOC ---
Text Note Date of Service The patient was seen on 03/14/19. NOTE No acute events overnight. She has no complaints. She is tolerating diet. Denies abd pains, nausea emesis, or fevers. She is passing flatus and had a couple BMs this am. She is anxious to go home, but is still not walking. VSSAF NAD abd - soft, nt, nD, incisions c/d/i labs - below A) 83y/o female s/p RA VHR hyperkalemia resolved acute on chronic RF resolving P) reg diet ambulate PT stable from surgical standpoint for dc once her medical issues are resolved and she passes PT Kevin Moser DO VS,Fishbone, I+O VS, Fishbone, I+O Laboratory Tests 03/14/19 04:55 Vital Signs Date Time Temp Pulse Resp B/P (MAP) Pulse Ox O2 Delivery O2 Flow Rate FiO2 03/14/19 10:09 18 03/14/19 10:00 97.5 74 157/69 (98) 100 Nasal Cannula 2.0 I&O- Last 24 Hours up to 6 AM 03/14/19 06:00 Intake Total 740 ml Output Total 1125 ml Balance -385 ml GURDEEP MOSER DO Mar 14, 2019 12:22
[2019-03-14] MEDS ORDERED: FUROSEMIDE 40 MG/4 ML VIAL (J1940) IV ONE (12:30)
--- NOTE | 2019-03-14 13:55 | IPN ---
DATE OF SERVICE: 03/14/2019 SUBJECTIVE: The patient was seen and examined at the bedside today morning. She is afebrile, hemodynamically stable. Renal function is stable with the creatinine fluctuating at 1.7. She still has the indwelling Haro catheter. The patient reports feeling thirsty. Otherwise, she denies any active complaints. OBJECTIVE: Vital signs: Temperature is 97.5 degrees Fahrenheit, blood pressure 157/69, pulse is 74, respiratory rate of 18, saturating 100% on nasal cannula at 2 liters. Intake and output: Urine output recorded is 1.6 liters yesterday, 458 mL so far today since overnight. She had two bowel movements since overnight. Weight in the bed scale is 88.3 kg. PHYSICAL EXAMINATION: General: The patient is awake, alert, oriented times three, morbidly obese, laying in the bed. Head and neck examination: Extraocular muscles intact. Pupils equally round and reactive to light. Mucous membranes are moist. Neck is supple. There is mildly elevated jugular venous distention (JVD). Cardiovascular: S1, S2, regular rate. 1+ edema of the bilateral lower extremities. Respiratory: Mild expiratory rhonchi bilaterally at the bases. Otherwise, bilateral equal air entry. Abdomen: Soft, positive bowel sounds, and obese. Healing laparoscopic surgical sites. Genitourinary: She has an indwelling Haro catheter. Musculoskeletal: No clubbing or cyanosis. Pulses are 2+. Central nervous system (RESERVATION SALES AGENT): No focal deficit. Power is 5/5 in all extremities. LABORATORY REVIEW: Complete blood count (CBC) showed a WBC of 9, hemoglobin 8.7, platelets are 156. Basic metabolic profile (BMP) showed sodium 138, potassium 5, chloride 110, bicarbonate 26, BUN 55, creatinine is 1.72, calcium is 9.2, AST 46, ALT is 169, alkaline phosphatase is 148, albumin is 2.4. CURRENT INPATIENT MEDICATIONS: The patient's medications were all reviewed by me. I have ordered one dose of Lasix 40 mg intravenous (IV) to be given today. She continues to be on Venofer 300 mg IV daily. Two bags have been given so far, and I have started the patient on torsemide 20 mg by mouth daily starting tomorrow. ASSESSMENT AND PLAN: 1. Acute kidney injury superimposed on chronic kidney disease. It was secondary to dehydration following surgery, use of Toradol pain medications, use of angiotensin-converting enzyme (NICOLASA) inhibitor at home before surgical procedure. Renal function has improved back to baseline. Creatinine has been fluctuating around 1.7. The patient has developed lower extremity edema. I am going to restart low dose of the diuretics. 2. History of hypertension. Angiotensin receptor blockers are on hold. Continue current dose of amlodipine. Diuretics have been restarted. 3. Lower extremity edema. The patient has history of diastolic congestive heart failure. No recent echocardiogram is available. Last echocardiogram was done 15 years ago. I have ordered a repeat echocardiogram, and I am giving Lasix 40 mg IV dose today and starting the patient on torsemide 20 mg by mouth daily starting tomorrow. 4. Iron-deficiency anemia. Continue IV Venofer. She will get a total of three dosages. 5. Hyperkalemia. The patient was given a dose of Veltassa. Potassium level is stable at 5. Further improvement in the potassium level with the loop diuretics is expected.
[2019-03-14 14:00] VITALS: BP 140/108
[2019-03-14 15:33] LABS: ANTI DOUBLE STRAND-DNA AB 40 IU/mL (0-9); ANTINUCLEAR ANTIBODIES DIRECT Positive (Negative); RNP ANTIBODIES <0.2 AI (0.0-0.9); SJOGREN'S ANTI SS-A >8.0 AI (0.0-0.9); SJOGREN'S ANTI SS-B >8.0 AI (0.0-0.9); SMITH ANTIBODIES 0.2 AI (0.0-0.9)
[2019-03-14 18:00] VITALS: BP 109/77
[2019-03-14 22:00] VITALS: BP 137/78
[2019-03-15] VITALS (7 sets, daily range): BP systolic 120–157; BP diastolic 62–125
[2019-03-15] MEDS: IPRATROPIUM 0.5MG/ALBUTEROL 2.5MG INH SOL UD 3ML (DUONEB)(J7620) NEB SCH ×6 (03:45→23:29)
[2019-03-15 06:16] LABS: HEMOGLOBIN 8.8 g/dl (12.0-15.5); MEAN CORPUSCULAR HGB CONC 29.3 g/dl (32.0-36.5); MEAN CORPUSCULAR VOLUME 102.4 fl (80.0-96.0); PLATELET COUNT, AUTOMATED 173 10^3/uL (150-450); RED BLOOD COUNT 2.93 10^6/uL (4.00-5.40); WHITE BLOOD COUNT 8.6 10^3/uL (4.0-10.0)
[2019-03-15 06:44] LABS: ALBUMIN 2.2 GM/DL (3.2-5.2); ALT/SGPT 120 U/L (12-78); BILIRUBIN,DIRECT < 0.1 MG/DL (0.0-0.2); BILIRUBIN,TOTAL 0.5 MG/DL (0.2-1.0); BLOOD UREA NITROGEN 54 MG/DL (7-18); CALCIUM LEVEL 9.6 MG/DL (8.8-10.2); CARBON DIOXIDE LEVEL 26 MEQ/L (21-32); CHLORIDE LEVEL 108 MEQ/L (98-107); CREATININE FOR GFR 1.82 MG/DL (0.55-1.30); GLOMERULAR FILTRATION RATE 28.4 (>32); GLUCOSE, FASTING 136 MG/DL (70-100); POTASSIUM SERUM 4.9 MEQ/L (3.5-5.1); SODIUM LEVEL 139 MEQ/L (136-145)
[2019-03-15] MEDS: VENLAFAXINE **XR** 75MG CAPSULE PO SCH (09:02)
[2019-03-15] MEDS: TORSEMIDE 20 MG TAB PO SCH (09:02)
[2019-03-15] MEDS: OMEPRAZOLE 20 MG CAP PO SCH ×2 (09:02→20:06)
[2019-03-15] MEDS: GABAPENTIN 300 MG CAP PO SCH ×3 (09:02→20:06)
[2019-03-15] MEDS: LORazepam 0.5 MG TAB PO SCH ×2 (09:02→20:06)
[2019-03-15] MEDS: NORCO, ANEXSIA 5/325MG TABLET (HYDROcodone/ACETAMINOPHEN) PO PRN ×2 (09:03→16:11)
[2019-03-15] MEDS: HYDROXYCHLOROQUINE 200 MG TAB PO SCH ×2 (09:03→20:06)
[2019-03-15] MEDS: amLODIPine 5 MG TAB PO SCH ×2 (09:04→20:07)
[2019-03-15] MEDS: NYSTATIN 100,000 UNITS/GM TOPICAL PWD 15 GM TOP SCH ×2 (09:04→20:07)
[2019-03-15] MEDS: CETIRIZINE (ZyrTEC) 10 MG TAB PO SCH (09:04)
[2019-03-15] MEDS: IRON SUCROSE 300 MG in NS 250 ML IV SCH (09:04)
--- NOTE | 2019-03-15 09:19 | RO ---
DATE OF PROCEDURE: 03/10/2019 PREOPERATIVE DIAGNOSES: Incarcerated umbilical and incisional hernia. POSTOPERATIVE DIAGNOSES: 1. Incarcerated umbilical hernia. 2. Low midline ventral incisional hernia. PROCEDURES PERFORMED: 1. Robotic-assisted laparoscopic repair of incarcerated umbilical hernia with mesh. The mesh utilized for the umbilical hernia was a 6-cm round patch of Parietex which was fashioned from a 9-cm round patch. This was reference code [id number] lot number [id number]. 2. Robotic-assisted laparoscopic repair of ventral incisional hernia with mesh. The mesh utilized was a 6 x 10 rectangular Parietex mesh which had been fashioned from a 10 x 15 cm mesh which was product code [id number] lot number [id number]. SURGEON: Dr. Block ANESTHESIA: General. INDICATIONS FOR THE PROCEDURE: The patient is an 83-year-old woman who has noticed a bulge at the umbilicus in particular, but there is a second bulge along the low midline. She has had some discomfort associated with these and is now for robotic-assisted laparoscopic repair of her hernias. OPERATIVE PROCEDURE: The patient was brought to the operating room and placed on the table in a supine position. She was placed under general endotracheal anesthesia. The patient's abdomen was prepped and draped in a sterile fashion. 0.25% Marcaine was infiltrated in the trocar sites. A short transverse incision was made in the lateral right abdomen. A Veress needle was inserted and after positive hanging drop test the abdomen was insufflated with carbon dioxide gas. An 8 mm robotic port was placed over a 5 mm scope and this was advanced through the abdominal wall without difficulty. Initial examination showed that there was omentum adherent up into her umbilical hernia. There was a hernia low along the midline that also contained some omentum protruding into it. The liver appeared somewhat dark in coloration but not nodular in any way. Other visualized structures appeared normal. A second 8 mm port was placed higher in the right upper quadrant and a third was placed low in the right lower quadrant. The patient cart was brought into position. Prior to docking the robot the patient was tilted slightly into a Trendelenburg position. The camera port was then docked and the camera inserted. Targeting took place and the additional arms were then docked as well. Using a Force Bipolar grasper and cauterizing scissors I addressed the umbilical hernia first. The omentum was freed where there were adhesions formed circumferentially at the fascial opening. This was reduced into the abdomen without significant difficulty. The defect was approximately 2-3 cm and roughly round. A peritoneal flap was then developed beginning several centimeters to the right of the fascial defect. The peritoneum was opened and the peritoneum and a thin layer of preperitoneal fat were peeled away from the fascia. At the level of the fascial defect, the hernia sac was inverted into the abdomen and became a portion of the peritoneal flap. The dissection was carried several centimeters to the left of the fascial defect. The fascial defect was then closed transversely with a running suture of #1 Stratafix. A 9 cm Parietex patch was trimmed down to a 6 cm round patch and this was inserted and placed over the sutured closure of the fascia. This was sutured circumferentially with a running suture of 2-0 V-Loc. This appeared to give a nice application of the mesh to the abdominal wall. The peritoneal flap was then closed with a running V-Loc suture. Attention was then turned to the low midline incisional hernia. This was approximately 4 cm to 4.5 cm in length by approximately 2 cm wide. With gentle traction the omentum protruding into the defect had been withdrawn and there were no adhesions of significance. Again a peritoneal flap was developed beginning on the right and moving across to the left side of the defect inverting the hernia sac. A portion of the hernia sac was opened in the course of dissection. The midline fascial defect was then closed with a longitudinal running suture of #1 Stratafix. I would note that the abdominal pressure had been reduced to 8 mmHg while the hernias were being repaired. Once the fascia was closed the 6 x 10 cm rectangular Parietex mesh was inserted. This was then sutured circumferentially over the closed fascial defect. This gave excellent coverage. The peritoneal flap was then closed with a running suture of 2-0 V-Loc. The defect in the center of the flap from the hernia sac was closed with additional sutures so that the mesh was completely peritonealized. The robotic instruments were removed and the robot was undocked. The abdomen was deflated and the trocars were removed. The skin incisions were all closed with buried 4-0 Vicryl and Steri-Strips. I would note that the highest right upper quadrant trocar had been changed to a 12 mm port to allow passage of the larger needles of the #1 Stratafix. Because of this larger opening the skin incision was inspected and the fascia was identified and closed with a 0 Vicryl suture prior to closing the skin incision. Steri-Strips were applied. Light dressings were applied. The patient was awakened in the operating room, extubated and moved to the recovery room in stable condition. ROSE
--- NOTE | 2019-03-15 10:50 | IPNPDOC ---
Text Note Date of Service The patient was seen on 03/15/19. NOTE No acute events overnight. She has no complaints. She is tolerating diet. Denies abd pains, nausea emesis, or fevers. She is passing flatus and had a couple BMs this am. VSSAF NAD abd - soft, nt, nD, incisions c/d/i labs - below A) 83y/o female s/p RA VHR hyperkalemia resolved acute on chronic RF resolved P) reg diet ambulate PT stable from surgical standpoint for dc once her medical issues are resolved and she passes PT will likely need placement early in the week Kevin Moser DO VS,Fishbone, I+O VS, Fishbone, I+O Laboratory Tests 03/15/19 05:49 Vital Signs Date Time Temp Pulse Resp B/P (MAP) Pulse Ox O2 Delivery O2 Flow Rate FiO2 03/15/19 09:33 18 Nasal Cannula 03/15/19 09:04 63 140/79 03/15/19 06:00 98.5 96 2.0 I&O- Last 24 Hours up to 6 AM 03/15/19 06:00 Intake Total 1080 ml Output Total 1400 ml Balance -320 ml GURDEEP MOSER DO Mar 15, 2019 10:50
--- NOTE | 2019-03-15 12:24 | ECHO ---
DATE OF SERVICE: 03/14/2019 AGE: 83. REFERRING PROVIDER: Henry Block MD PATIENT LOCATION: Room 5136. REASON FOR THE STUDY: Edema. 2D MEASUREMENTS: IVS: 1.3 cm LV: 4.3 cm LVPW: 1.2 cm LA: 3.6 cm Aorta: 3.1 cm IVC: 1.9 cm DOPPLER MEASUREMENTS: Peak velocity across the aortic valve: 2.1 m/s Peak velocity across the LVOT: 0.92 m/s Peak gradient across the aortic valve: 17 mmHg Mean gradient across the aortic valve: 10 mmHg Mitral E: 0.9 Mitral A: 1.2 with a ratio of 0.8 Maximum tricuspid valve velocity: 3.1 m/s 2D COMMENTS: 1. Normal left ventricular size with mildly increased left ventricular wall thickness. Left ventricular systolic function is normal, estimated at 55% to 60%. 2. Subjectively, the left atrium seems to be mildly enlarged. Mildly enlarged right atrium. The right ventricle also appeared to be mildly enlarged but right ventricular free wall seems to be lazaro. 3. The atrial septum appeared to be normal without evidence of defect or shunt. 4. Normal aortic root. 5. No pericardial effusion seen. 6. Mildly calcified aortic valve with minimally restricted leaflet motion. Mildly calcified mitral annulus with normal anterior mitral valve leaflet motion. Normal tricuspid valve and pulmonic valve. The proximal pulmonary artery branches were not well visualized. 7. The inferior vena cava was normal in size, central venous pressure may be normal. DOPPLER: It detects trace mitral regurgitation and moderate tricuspid regurgitation. The calculated pulmonary artery systolic pressure varies between 40-50 mmHg. Abnormal relaxation pattern was noted across the mitral valve leaflets, as well as the mitral valve annulus, consistent with features of grade 1 left ventricular diastolic dysfunction. IMPRESSION: 1. Normal global left ventricular systolic function with mild concentric left ventricular hypertrophy. There are some features of grade 1 left ventricular diastolic dysfunction manifested by abnormal relaxation. 2. Aortic valve sclerosis with mild aortic stenosis but no aortic regurgitation. 3. Mitral annulus calcification with trace mitral regurgitation. The left atrium subjectively seemed to be mildly enlarged. 4. Moderate tricuspid regurgitation with moderate pulmonary hypertension and dilated right atrium.
--- NOTE | 2019-03-15 12:30 | REP ---
Clinical: Cough. Comparison: 03/11/2019. Findings: Chronic changes are appreciated. Stable hiatal hernia noted. Superimposed left lower lobe atelectasis cannot be excluded. No pneumothorax. Impression: Chronic stable changes. Superimposed left lower lobe atelectasis cannot be excluded. Electronically Signed by Chintan Washburn MD 03/15/2019 12:22 P
--- NOTE | 2019-03-15 14:21 | IPN ---
DATE OF SERVICE: 03/15/2019 The patient is eating her pancakes at the bedside. Still complains of 3 out of 10 pain at the surgical site. Has ambulated from bed to the bathroom, but not outside. Per the patient she does not walk that much at home. Afebrile overnight. No chills. She did have urine retention requiring straight catheterization. Urine was cloudy, but his urinalysis (UA) was unremarkable. Vitals: Temperature 98.5, pulse 63, respiratory 20, blood pressure 140/79, 96% on 2 liters nasal cannula. Generally, awake, alert, oriented to person, place, and time, answers questions appropriately. Edentulous with essential head tremors. No jugular venous distention (JVD) or thyromegaly. Lungs diminished, but clear. No wheezing. No rales. Heart: S1, S2, sinus. Abdomen: Obese, soft. Visual scars without erythema. No tenderness or purulence. Extremities: Trace edema bilateral chronic venous changes. Erythematous feet. [place] pedis and posterior tibialis pulses noted. LABORATORY DATA: White count 8.6, hemoglobin 8.8, hematocrit 30, platelet count 173, sodium 139, potassium 4.9, chloride 108, bicarbonate 26, BUN 54, creatinine 1.82, glucose of 136. T bilirubin 0.5, direct bilirubin less than 0.1. AST 30, ALT 120. Alkaline phosphatase 127. ASSESSMENT AND PLAN: 83-year-old female with history of chronic kidney disease, stage 3, baseline creatinine of 1.7, chronic kidney disease (CKD) 3, rheumatoid arthritis (RA), chronic obstructive pulmonary disease (COPD), admitted for umbilical ventral incisional hernia repair, postoperative acute on chronic renal failure. IMPRESSION: 1. Acute kidney injury and chronic renal failure stage 3 with hyperkalemia, resolved, currently back to baseline creatinine. Status post intravenous (IV) fluids and nephrology consultation. The patient received Velphoro, sodium bicarbonate drip for hyperkalemia. Avoid nephrotoxins. Renally dose all medications. 2. Low-grade fever. Urinalysis (UA) is unremarkable. No recurrent fevers. No empiric antibiotics. 3. Rheumatoid arthritis (RA). On chronic Plaquenil. 4. Incisional hernia and ventral hernia repairs. Postoperative day #6. Managed by general surgery. Tolerating her diet well. 5. Anemia due to chronic disease and renal failure. On Venofer per nephrology. No acute gastrointestinal (GI) bleed. 6. Hyperkalemia, resolved with Velphoro and bicarbonate drip. 7. Chronic obstructive pulmonary disease (COPD). On nebulizers. 8. Obesity. Body mass index (BMI) of 39, complicating her care. 9. Abnormal electrocardiogram (EKG) with chronic right bundle and left axis, stable. 10. Obstructive sleep apnea (ANI), on oxygen nightly. 11. Diverticulosis. No acute issues. 12. History of pulmonary embolism (PE) in the past. On no anticoagulation. 13. Chronic neuropathy. On Neurontin 300 three times a day. 14. Allergic rhinitis. On chronic Zyrtec. 15. Fungal candidiasis. On nystatin to abdominal folds and groin. 16. Reflux. On Prilosec. DISPOSITION: Medically stable for hospital discharge. . MTDD
--- NOTE | 2019-03-15 18:49 | IPN ---
DATE: 03/15/2019 SUBJECTIVE: Yesenia is seen and examined this morning at the bedside. She is requiring a Lizbet Steady to help her get to the toilet and is significantly debilitated. She complains of cough and reports improvement in her leg edema. Temperature 98.5, pulse 63, respiratory rate 20, blood pressure 140/79, saturating 96% on 2 liters nasal cannula. Intake yesterday was 1 liter, urine output yesterday was not fully recorded because of incontinent voids, urine output today already is 1200, weight is down and today's daily weight is 86.8 kg. General: The patient is seen in the Lizbet Steady and then later sitting out of bed to the chair. Elderly female, awake, alert, oriented to person, place, situation, no acute distress. Extraocular muscles are intact. Tongue is moist. Neck is supple. Jugular veins are not elevated. She is edentulous. Cardiac: S1, S1, regular rate. No edema in the bilateral lower extremities. Respiratory: Shows persistent cough. She has trouble taking a deep inspiration. There is scattered rhonchus. She is seen on nasal cannula. Abdomen is soft. There are bowel sounds. There is no tenderness. Genitourinary: Her Haro catheter is no longer present. Musculoskeletal: No clubbing or cyanosis. No leg swelling. She is generalized weak. Neurologic: She is oriented to person, place, situation and conversational. LABORATORY DATA: Hemoglobin 8.8, platelet 173, sodium 139, potassium 4.9, BUN 54, creatinine 1.8. INPATIENT MEDICATIONS: She is now on torsemide 20 mg by mouth daily. She has received three doses of Venofer. Remainder of medications are unchanged from prior. PROBLEMS: 1. LINDSEY on CKD stage III. Patient's baseline creatinine is around 1.6. Her acute kidney injury was related to NSAIDs / NICOLASA inhibitor / perioperative period. Her renal function has improved back towards baseline and I am continuing her on the current dose of diuretic. Continue to monitor daily weights and urine output. 2. Hypertension. Not suitable for NICOLASA inhibitor or ARB. Continue amlodipine and torsemide. Blood pressures are acceptable. 3. Diastolic congestive heart failure. Her volume status has improved. She received IV Lasix yesterday and she is now on torsemide 20 mg by mouth daily. Echocardiogram is pending. BNP was around 3500 a couple days ago. 4. Iron deficiency anemia with transferrin saturation of 10%. She has received Venofer and I will plan to start her on erythropoietin agent later this week. 5. Hyperkalemia. It was mild, it has resolved. Renal function has improved but I am putting her on a 2 grams potassium diet. 6. Cough. The patient is still requiring supplemental oxygen. She complains of a nagging persistent cough. I am getting a chest x-ray. Continue current diuretic. 7. Urinary retention in the postoperative period. Nursing staff tells me that she continues on bladder scans and is requiring straight catheterizations daily.
[2019-03-16] MEDS: ACETAMINOPHEN TAB 650MG DOSE (2X325MG) PO PRN ×2 (03:30→18:29)
[2019-03-16] MEDS: IPRATROPIUM 0.5MG/ALBUTEROL 2.5MG INH SOL UD 3ML (DUONEB)(J7620) NEB SCH ×6 (03:49→23:19)
[2019-03-16 06:00] VITALS: BP 121/79
[2019-03-16 06:02] LABS: HEMATOCRIT 27.7 % (36.0-47.0); HEMOGLOBIN 8.3 g/dl (12.0-15.5); MEAN CORPUSCULAR HEMOGLOBIN 30.6 pg (27.0-33.0); MEAN CORPUSCULAR VOLUME 102.2 fl (80.0-96.0); PLATELET COUNT, AUTOMATED 170 10^3/uL (150-450); RED BLOOD COUNT 2.71 10^6/uL (4.00-5.40); WHITE BLOOD COUNT 10.1 10^3/uL (4.0-10.0)
[2019-03-16 06:21] LABS: ALBUMIN 2.1 GM/DL (3.2-5.2); BILIRUBIN,DIRECT 0.1 MG/DL (0.0-0.2); BILIRUBIN,TOTAL 0.3 MG/DL (0.2-1.0); CALCIUM LEVEL 8.9 MG/DL (8.8-10.2); CREATININE FOR GFR 2.02 MG/DL (0.55-1.30); GLOMERULAR FILTRATION RATE 25.2 (>32); POTASSIUM SERUM 4.6 MEQ/L (3.5-5.1); TOTAL PROTEIN 6.6 GM/DL (6.4-8.2)
[2019-03-16] MEDS: FEBUXOSTAT 40 MG TABLET (ULORIC) PO SCH (07:59)
[2019-03-16] MEDS: VENLAFAXINE **XR** 75MG CAPSULE PO SCH (08:00)
[2019-03-16] MEDS: TORSEMIDE 20 MG TAB PO SCH (08:00)
[2019-03-16] MEDS: CALCITRIOL 0.25 MCG CAP (S0169) PO SCH (08:01)
[2019-03-16] MEDS: NORCO, ANEXSIA 5/325MG TABLET (HYDROcodone/ACETAMINOPHEN) PO PRN ×2 (08:01→16:08)
[2019-03-16] MEDS: CETIRIZINE (ZyrTEC) 10 MG TAB PO SCH (08:01)
[2019-03-16] MEDS: OMEPRAZOLE 20 MG CAP PO SCH ×2 (08:01→20:35)
[2019-03-16] MEDS: LORazepam 0.5 MG TAB PO SCH ×2 (08:01→20:35)
[2019-03-16] MEDS: HYDROXYCHLOROQUINE 200 MG TAB PO SCH ×2 (08:02→20:34)
[2019-03-16] MEDS: GABAPENTIN 300 MG CAP PO SCH ×3 (08:02→20:34)
[2019-03-16] MEDS: NYSTATIN 100,000 UNITS/GM TOPICAL PWD 15 GM TOP SCH ×2 (08:02→20:36)
[2019-03-16] MEDS: amLODIPine 5 MG TAB PO SCH ×2 (08:02→20:36)
[2019-03-16] MEDS ORDERED: MIRALAX *UNIT DOSE* 17GM PACKET PO PRN (08:15)
[2019-03-16] MEDS ORDERED: BISACODYL 5 MG TAB PO PRN (08:15)
[2019-03-16] MEDS ORDERED: FLEET ENEMA PR PRN (08:15)
[2019-03-16 10:00] VITALS: BP 125/79
[2019-03-16] MEDS: POLYVINYL ALCOHOL OPHTH SOLN 15 ML(LIQUITEARS) OU SCH ×4 (11:26→20:35)
[2019-03-16] MEDS: OFLOXACIN 0.3 % (OCUFLOX) OPTH SOL 5ML OU SCH ×4 (11:26→20:36)
[2019-03-16] MEDS: OLOPATADINE 0.1% OPHTH SOL 5ML(PATANOL) OU SCH ×2 (11:27→16:09)
--- NOTE | 2019-03-16 11:29 | IPN ---
DATE: 03/16/2019 Complains of right eye yellow discharge and itchiness. No pain. No fever. No blurred vision. No diplopia. The patient also complains of constipation, has not had a bowel movement for at least two to three days. She has been resumed on her home dose of torsemide with slight increase in creatinine at 2.08, baseline of 1.6 to 1.7. No urinary retention per nursing. Temperature 98.7, pulse 86, respiratory rate 17, blood pressure 121/79 and 94% on room air. Input 1250, output 1850, negative 600. Generally, the patient has essential tremors. She had tremors while eating her breakfast. Supplemental oxygen. She has yellowish thick mucoid discharge out of the right eye. No injection. Lungs are diminished. Air entry is equal. Heart: S1 and S2. Sinus rhythm. Abdomen: Soft. Nontender. Nondistended. Positive bowel sounds. Surgical scar without any drainage. Extremities: The patient has trace edema. Chronic venous stasis changes. White count 10, hemoglobin 8.3, hematocrit 27, platelet count 170. Sodium 140, potassium 4.6, chloride 111, bicarbonate 25, BUN 57, creatinine 2.02, glucose 138. Chest x-ray on 03/15/2019: Left lower lobe atelectasis could not be excluded. ASSESSMENT AND PLAN: This is an 83-year-old female with chronic kidney disease with baseline creatinine 1.6 to 1.7, rheumatoid arthritis (RA), and chronic obstructive pulmonary disease (COPD admitted for umbilical hernia and incisional hernia repair who developed postoperative acute on chronic renal failure. 1. Acute kidney injury superimposed on chronic kidney disease stage 3, improved. Currently back on her torsemide. Nephrology following. 2. Low-grade fever, most likely atelectasis. Chest x-ray is negative for acute infiltrate. No empiric antibiotics. Incentive spirometry. 3. Right eye conjunctivitis. Ofloxacin and Refresh Eye Drops. Patient complains of slight itchiness. Will try Patanol as well. 4. Rheumatoid arthritis (RA). On chronic Plaquenil. 5. Incisional hernia and ventral hernia repair, postoperative day #7. Managed by general surgery. Tolerating her diet. 6. Constipation. Bowel regimen has been provided. 7. Hyperkalemia. Resolved. 8. COPD. On medications. 9. Obesity complicating her care. 10. Obstructive sleep apnea (ANI). On oxygen nightly. 11. Diverticulosis. No acute issues. 12. History of pulmonary embolus (PE), no anticoagulation. 13. Chronic neuropathy, on Neurontin. 14. Reflux, on Prilosec. DISPOSITION: May discharge to rehabilitation once accepted if nephrology clears the patient. ROSE
[2019-03-16] MEDS: SENOKOT S TAB PO SCH ×2 (11:32→20:35)
--- NOTE | 2019-03-16 12:16 | IPN ---
DATE: 03/16/2019 SUBJECTIVE: Yesenia seen and examined this morning at the bedside. She reports her cough is better than yesterday. Continues to require intermittent straight catheterization. Chest x-ray showed possible left lower lobe atelectasis. Temperature 98.2, pulse 68, respiratory rate 17, blood pressure 125/79, saturating 95% on 2 liters nasal cannula. Intake yesterday was 1250. Urine output yesterday was 1850, net negative 600. Weight in the bed scale today was improperly recorded. General: The patient is seen lying in bed. Elderly female, head of the bed elevated awake, alert, oriented to person and place. Extraocular muscles intact. Discharge from the right eye. The tongue is dry. She is edentulous. Neck is supple. Jugular veins are not elevated. Cardiac: S1, S2 regular rate and rhythm. 1+ edema in lower extremities. Respiratory: Breath sounds are distant but there is no crackle or rales. Abdomen is soft and nontender. There are some small laparoscopic incisions. Extremities show trace to 1+ edema bilaterally that is up to the mid flores. Neurologic: She is cooperative with physical exam, answers simple questions appropriately and is oriented to person, place, situation. LABS: White count 10.1, hemoglobin 8.3, platelet 170. Sodium 140, potassium 4.6, bicarbonate 25, BUN 57, creatinine 2.0. Chest x-ray March 15: possible left lower lobe atelectasis. INPATIENT MEDICATIONS: The patient received three doses of Venofer. Primary team started her on some eye drops and a bowel regimen. Remainder of medications are unchanged from prior. PROBLEMS: 1. Acute kidney injury (LINDSEY) on chronic kidney disease (CKD) stage III: The patient's baseline creatinine is around 1.7. Her acute kidney injury is related to the use of nonsteroidal anti-inflammatory drugs (NSAIDs) and angiotensin converting enzyme inhibitors (NICOLASA) inhibitor in the perioperative. She has developed mild hypervolemia on this admission and her diuretic dose was increased. At home she takes Lasix 20 mg daily and presently she is receiving torsemide 20 mg daily. She is also intermittently requiring straight catheterization for urinary retention and nursing staff is continuing with post void residual bladder scans 2. Diastolic congestive heart failure: Echocardiogram on this admission is noted. At the time of the echocardiogram the inferior vena cava (IVC) was normal in size suggesting normal central venous pressure. Given her slight bump up in serum creatinine from 1.8 to 2.0, I am going to hold torsemide for the next day. 3. Hypertension: Blood pressures are acceptable systolic is in the 120s and she continues on amlodipine. She is not suitable for NICOLASA or angiotensin receptor gunnar (ARB). 4. Anemia: Multifactorial and related to chronic kidney disease, iron deficiency and surgery. Hemoglobin of 8.3 today status post three doses of Venofer. I will give her a dose of Aranesp. 5. Hyperkalemia: It was mild. It has resolved. Continue potassium restriction in the diet.
[2019-03-16 14:00] VITALS: BP 123/78
[2019-03-16 18:00] VITALS: BP_SYST 123; BP_SYST 140; BP_DIAS 112; BP_DIAS 77
[2019-03-16 20:27] VITALS: BP 124/56
[2019-03-17] VITALS (8 sets, daily range): BP systolic 101–143; BP diastolic 56–79
[2019-03-17] MEDS: IPRATROPIUM 0.5MG/ALBUTEROL 2.5MG INH SOL UD 3ML (DUONEB)(J7620) NEB SCH ×6 (03:09→23:22)
[2019-03-17 06:27] LABS: HEMATOCRIT 28.1 % (36.0-47.0); HEMOGLOBIN 8.6 g/dl (12.0-15.5); MEAN CORPUSCULAR HEMOGLOBIN 30.8 pg (27.0-33.0); MEAN CORPUSCULAR HGB CONC 30.6 g/dl (32.0-36.5); MEAN CORPUSCULAR VOLUME 100.7 fl (80.0-96.0); PLATELET COUNT, AUTOMATED 209 10^3/uL (150-450); RED BLOOD COUNT 2.79 10^6/uL (4.00-5.40); WHITE BLOOD COUNT 10.3 10^3/uL (4.0-10.0)
[2019-03-17 07:00] LABS: CALCIUM LEVEL 9.1 MG/DL (8.8-10.2); CREATININE FOR GFR 1.95 MG/DL (0.55-1.30); GLOMERULAR FILTRATION RATE 26.2 (>32)
[2019-03-17] MEDS: NYSTATIN 100,000 UNITS/GM TOPICAL PWD 15 GM TOP SCH ×2 (09:00→20:45)
[2019-03-17] MEDS: OLOPATADINE 0.1% OPHTH SOL 5ML(PATANOL) OU SCH ×2 (09:00→17:19)
[2019-03-17] MEDS: LORazepam 0.5 MG TAB PO SCH ×2 (10:29→20:44)
[2019-03-17] MEDS: VENLAFAXINE **XR** 75MG CAPSULE PO SCH (10:31)
[2019-03-17] MEDS: OMEPRAZOLE 20 MG CAP PO SCH ×2 (10:32→20:44)
[2019-03-17] MEDS: HYDROXYCHLOROQUINE 200 MG TAB PO SCH ×2 (10:32→20:44)
[2019-03-17] MEDS: CETIRIZINE (ZyrTEC) 10 MG TAB PO SCH (10:32)
[2019-03-17] MEDS: GABAPENTIN 300 MG CAP PO SCH (10:32)
[2019-03-17] MEDS: CALCITRIOL 0.25 MCG CAP (S0169) PO SCH (10:32)
[2019-03-17] MEDS: POLYVINYL ALCOHOL OPHTH SOLN 15 ML(LIQUITEARS) OU SCH ×4 (10:33→20:45)
[2019-03-17] MEDS: OFLOXACIN 0.3 % (OCUFLOX) OPTH SOL 5ML OU SCH ×4 (10:33→20:45)
[2019-03-17] MEDS: amLODIPine 5 MG TAB PO SCH ×2 (10:33→20:44)
[2019-03-17] MEDS ORDERED: PATIROMER SORBITEX CALCIUM 8.4 GM POWDER PACKET (VELTASSA) PO SCH (12:00)
--- NOTE | 2019-03-17 12:28 | IPN ---
DATE OF SERVICE: 03/17/2019 SUBJECTIVE: The patient is an 83-year-old female who was examined this morning at bedside. When I saw the patient earlier in the morning, the patient was able to answer questions and said she was feeling better than she was yesterday. She did not complain of any shortness of breath and said that she was eating and drinking without difficulty. When I came back with Dr. Paulson later on in the morning, the patient was a little bit more lethargic and was having trouble staying awake throughout the interview, but was able to be aroused and was able to lucidly answer questions. PHYSICAL EXAMINATION: Vitals: Temperature 97.7, pulse 66, respiratory rate 22, blood pressure 140/56, pulse oximetry 97% on 3.5 liters via nasal cannula. General: The patient was alert and oriented earlier on in the morning and was able to carry on a conversation. Later on in the morning, the patient was alert and it took some loud talking in order to fully arouse her, but when she was aroused the patient was able to answer questions appropriately. The patient did not appear to be in any acute distress. HEENT: Normocephalic, atraumatic, with anicteric sclerae and moist mucous membranes. Neck: Supple. No jugular venous distention appreciated. Cardiac: Normal S1 and normal S2 with a regular rate and rhythm. Respiratory: Clear to auscultation bilaterally. Abdomen: Soft. Nontender. There were small laparoscopic incisions that were healing appropriately and did not show any evidence of erythema or infection surrounding them. The Steri-Strips were dry and clean. Extremities: Showed trace to 1+ edema bilaterally up to the level of the mid flores. LABORATORIES: White blood cell 10.3, hemoglobin 8.6, hematocrit 21.8, platelet count 209. Sodium 141, potassium 5.0, chloride 110, carbon dioxide 26, BUN 62, creatinine 1.95, glucose 118, calcium 9.1. INPATIENT MEDICATIONS: The patient did receive a dose of VELTASSA today and the patient's torsemide has been held. All other medications remain unchanged. ASSESSMENT/PLAN: 1. Acute kidney injury on chronic kidney disease stage 3. The patient's baseline creatinine is around 1.7. The patient's creatinine this morning was 1.95. The patient's acute kidney injury is related to NSAID and NICOLASA inhibitor use in the perioperative period. The patient has developed hypervolemia during this admission, but appears to be better compensated today. She has not needed any intermittent straight catheterization today according to nursing staff. The patient's kidney function does continue to improve and we will continue to monitor. 2. Diastolic congestive heart failure. The patient's echocardiogram from this admission does note some grade I diastolic dysfunction with impaired relaxation and we will continue to monitor. The patient's torsemide was held today and will be restarted tomorrow. 3. Hypertension. Blood pressures have been in the acceptable range. The patient will continue on amlodipine and she is not suitable for NICOLASA or ARB therapy. 4. Anemia. This is most likely multifactorial and related to chronic kidney disease, iron deficiency and her surgery. The patient's hemoglobin is 8.6 today. She did receive three doses of Venofer and a dose of Aranesp yesterday. 5. Hyperkalemia. The patient's potassium today was 5.0. The patient was given VELTASSA today and we will continue to monitor.
[2019-03-17] MEDS: SENOKOT S TAB PO SCH ×2 (12:57→20:44)
--- NOTE | 2019-03-17 18:14 | IPN ---
DATE: 03/17/2019 HISTORY: The patient is now is now 1 week postoperative from her robotic-assisted laparoscopic hernia repairs. She had some mild acute renal insufficiency as well as elevations of her liver function tests immediately postoperatively, and the cause for the liver function test (LFT) abnormalities is not entirely clear. She has been seen by the hospitalist for assistance in management as well as nephrology. Today, the patient seems to be feeling pretty good. She has been eating a little better and is more alert, I think, today. Vital signs show that she has been afebrile over the past 24 hours. Her pulse is in the low 60s regularly. Blood pressure is good and her oxygen saturations are also excellent. Intake and output shows that yesterday she had 1100 mL of oral intake with 1200 mL of urine output. PHYSICAL EXAMINATION: The patient is alert. I do not believe she is entirely oriented, but she does seem to have a good understanding for what is going on. She does interact appropriately. She denies any pain. Heart exam shows a regular rhythm, and the lungs are clear. The abdomen is obese but soft, and her incisions are clean and dry. LABORATORY STUDIES: Today show white count of 10, hemoglobin of 9, hematocrit of 28, and a platelet count of 209,000. Chemistry profile shows sodium of 141, potassium 5.0, chloride 110, CO2 of 26, BUN of 62, creatinine 1.95, and a glucose of 118. IMPRESSION: The patient I am thinking is pretty close to her baseline. Her baseline creatinine had been in the 1.7 vicinity and is seeming to settle down toward that. Her vital signs are good, and I think she seems more alert and interactive today than she has. Her LFT elevations had resolved. PLAN: The patient can be discharged to whatever appropriate facility is available when the medical providers are all in agreement. comsec manager on the floor suggested the plan was for subacute rehabilitation with a [facility] placement. ROSE
[2019-03-17] MEDS: ACETAMINOPHEN TAB 650MG DOSE (2X325MG) PO PRN (20:44)
[2019-03-18] VITALS (7 sets, daily range): BP systolic 138–168; BP diastolic 60–82
[2019-03-18] MEDS: IPRATROPIUM 0.5MG/ALBUTEROL 2.5MG INH SOL UD 3ML (DUONEB)(J7620) NEB SCH ×6 (03:14→23:39)
[2019-03-18 07:50] LABS: HEMATOCRIT 29.3 % (36.0-47.0); HEMOGLOBIN 8.6 g/dl (12.0-15.5); MEAN CORPUSCULAR HEMOGLOBIN 30.1 pg (27.0-33.0); MEAN CORPUSCULAR HGB CONC 29.4 g/dl (32.0-36.5); MEAN CORPUSCULAR VOLUME 102.4 fl (80.0-96.0); PLATELET COUNT, AUTOMATED 210 10^3/uL (150-450); RED BLOOD COUNT 2.86 10^6/uL (4.00-5.40); WHITE BLOOD COUNT 9.8 10^3/uL (4.0-10.0)
[2019-03-18 08:17] LABS: CALCIUM LEVEL 9.7 MG/DL (8.8-10.2); CREATININE FOR GFR 1.85 MG/DL (0.55-1.30); GLOMERULAR FILTRATION RATE 27.9 (>32); POTASSIUM SERUM 4.1 MEQ/L (3.5-5.1)
--- NOTE | 2019-03-18 08:50 | IPN ---
DATE OF SERVICE: 03/18/2019 HISTORY: The patient is now 8 days postoperative from her laparoscopic repair of her ventral incisional hernias. Her elevated liver function tests have returned toward normal. Her renal function is probably about at baseline. I went to see her this morning and she was as alert and perky as I have seen her during her whole hospital stay. She is looking forward to getting out of the hospital. Vital signs show that she has been afebrile. Her pulse is in the 70s. Blood pressure is good. Her pulse oximetry is normal. Intake and output shows that yesterday she had 1940 recorded in with several voids and incontinent voids and bowel movements noted but not measured. PHYSICAL EXAMINATION: The patient is alert and somewhat oriented. She does interact appropriately and is very pleasant. Heart exam shows a regular rhythm. The abdomen is obese but soft. The abdomen is without any significant tenderness. LABORATORY STUDIES: Today, show white count of 10, hemoglobin 9, hematocrit 29 and a platelet count of 210,000. Chemistry profile shows a sodium of 139, potassium 4.1, chloride 109, CO2 of 25, BUN of 60 and a creatinine of 1.85. Her glucose is 110. IMPRESSION: The patient appears to be doing quite well this morning. Her creatinine has dropped again a little bit toward her normal baseline. She is quite perky and alert. PLAN: The patient can be discharged either to subacute rehab or home if appropriate whenever the medical physicians feel that she is ready to go. ROSE
[2019-03-18] MEDS ORDERED: DARBEPOETIN 100 MCG/0.5 ML *NON-DIALYSIS* SYRINGE (J0881) SC SCH (09:00)
[2019-03-18] MEDS: LORazepam 0.5 MG TAB PO SCH ×2 (09:00→20:55)
[2019-03-18] MEDS: SENOKOT S TAB PO SCH ×2 (09:00→20:56)
[2019-03-18] MEDS: FEBUXOSTAT 40 MG TABLET (ULORIC) PO SCH (09:28)
[2019-03-18] MEDS: CETIRIZINE (ZyrTEC) 10 MG TAB PO SCH (09:28)
[2019-03-18] MEDS: CALCITRIOL 0.25 MCG CAP (S0169) PO SCH (09:28)
[2019-03-18] MEDS: VENLAFAXINE **XR** 75MG CAPSULE PO SCH (09:28)
[2019-03-18] MEDS: OMEPRAZOLE 20 MG CAP PO SCH ×2 (09:28→20:56)
[2019-03-18] MEDS: HYDROXYCHLOROQUINE 200 MG TAB PO SCH ×2 (09:28→20:57)
[2019-03-18] MEDS: GABAPENTIN 300 MG CAP PO SCH (09:28)
[2019-03-18] MEDS: POLYVINYL ALCOHOL OPHTH SOLN 15 ML(LIQUITEARS) OU SCH ×4 (09:29→20:57)
[2019-03-18] MEDS: amLODIPine 5 MG TAB PO SCH ×2 (09:29→20:57)
[2019-03-18] MEDS: NYSTATIN 100,000 UNITS/GM TOPICAL PWD 15 GM TOP SCH ×2 (09:30→20:57)
[2019-03-18] MEDS: OFLOXACIN 0.3 % (OCUFLOX) OPTH SOL 5ML OU SCH ×4 (09:30→20:57)
[2019-03-18] MEDS: OLOPATADINE 0.1% OPHTH SOL 5ML(PATANOL) OU SCH ×2 (09:30→17:40)
--- NOTE | 2019-03-18 15:29 | IPNPDOC ---
Subjective Date Seen The patient was seen on 03/18/19. Subjective Chief Complaint/HPI pateint getting more awake and interactive since yesterday and working more with PT. Has cough with a little phlegm production. Still has some sob but says not too bad. No chest pain. denies any abdominal pain nausea or vomiting. Having daily bowel movements. Objective Physical Examination General Exam: Positive: Alert, Cooperative, No Acute Distress Eye Exam: Positive: PERRLA, Conjunctiva & lids normal, EOMI; Negative: Sclera icteric ENT Exam: Positive: Atraumatic, Mucous membr. moist/pink, Pharynx Normal Neck Exam: Positive: Supple; Negative: JVD, thyromegaly Chest Exam: Positive: Rales (at both the bases. left > right), Wheezing, Other (coarse breath sounds.) Heart Exam: Positive: Rate Normal, Regular Rhythm, Normal S1, Normal S2; Negative: Murmurs, Rubs Abdomen Exam: Positive: Normal bowel sounds, Soft, Other (intertriginous candidiasis. ); Negative: Tenderness, Hepatospenomegaly Extremity Exam: Positive: Edema (trace); Negative: Clubbing, Cyanosis Skin Exam: Positive: Nl turgor and temperature; Negative: Rash, Breakdown Assessment /Plan Assessment This is an 83-year-old female with obesity, ANI untreated, chronic kidney disease with baseline creatinine 1.6 to 1.7, rheumatoid arthritis (RA), and chronic obstructive pulmonary disease (COPD) not on home oxygen admitted for umbilical hernia and incisional hernia repair who developed postoperative acute on chronic renal failure. COPD still with coarse respiratory sounds and mild SOB continue duonebs, will start on symbicort. try to wean oxygen as tolerated incentive spirometry. Acute kidney injury superimposed on chronic kidney disease stage 3, improved. renal function back to baseline. Currently back on her torsemide. Nephrology following. Low-grade fever, most likely atelectasis. Chest x-ray is negative for acute infiltrate. No empiric antibiotics. Incentive spirometry. Right eye conjunctivitis. Ofloxacin and Refresh Eye Drops. Patient complains of slight itchiness. Will try Patanol as well. Rheumatoid arthritis (RA). On chronic Plaquenil. Incisional hernia and ventral hernia repair, Managed by general surgery. Tolerating her diet. Constipation. Bowel regimen has been provided. Obesity with Obstructive sleep apnea (ANI). On oxygen nightly in hospital . No oxygen at home Diverticulosis. No acute issues. History of pulmonary embolus (PE), no anticoagulation. Chronic neuropathy, on Neurontin. Reflux, on Prilosec. Depression on venlafaxine Hyperuricemia on uloric. Plan/VTE VTE Prophylaxis Ordered?: Yes VS, I&O, 24H, Fishbone Vital Signs/I&O Vital Signs Date Time Temp Pulse Resp B/P (MAP) Pulse Ox O2 Delivery O2 Flow Rate FiO2 03/18/19 13:19 98.7 64 18 166/82 (110) 97 Nasal Cannula 1.0 I&O- Last 24 Hours up to 6 AM 03/18/19 06:00 Intake Total 1590 ml Output Total 1000 ml Balance 590 ml Laboratory Data 24H LABS Laboratory Tests 2 03/18/19 06:50: Nucleated Red Blood Cells % (auto) 0.0, Anion Gap 5L, Glomerular Filtration Rate 27.9L, Calcium Level 9.7 CBC/BMP Laboratory Tests 03/18/19 06:50 KMAI CODY MD Mar 18, 2019 15:29
[2019-03-18] MEDS: SYMBICORT 80/4.5MCG INHALER 6GM INH SCH (20:01)
[2019-03-18] MEDS: ACETAMINOPHEN TAB 650MG DOSE (2X325MG) PO PRN (20:55)
--- NOTE | 2019-03-18 21:36 | IPN ---
DATE: 03/18/2019 SUBJECTIVE: Yesenia is seen and examined this morning at the bedside. She complains of ongoing cough but thinks it is getting better from prior. Nursing staff does not report any further retention requiring straight catheterization. She is slowly working with physical therapy. Her diuretics have been on hold for the past couple of days. VITAL SIGNS: Temperature 98.7, pulse 64, respiratory rate 18, blood pressure 166/82, saturating 97% on one liter nasal cannula. Intake yesterday was 1940, urine output yesterday was just recorded as six incontinent voids. Weight in the bed scale today is 86.5 which is the same as it was on previous days. GENERAL: The patient is seen lying in bed, elderly female, awake, alert and oriented to person and place, in no apparent distress. Extraocular muscles are intact. The tongue is dry. The neck is supple. Jugular veins are not elevated. CARDIAC: S1, S2, regular rate and rhythm. There is trace edema in the lower extremities. LUNGS: Show scattered wheeze and prolonged expiration and there is some crackle at the base. The abdomen is soft and nontender. There are bowel sounds. There are small healed laparoscopic incisions. The extremities are negative for clubbing and cyanosis and show trace edema. She is not wearing compression stockings. SKIN: Normal turgor and temperature. LABORATORY DATA: White count 9.8, hemoglobin 8.6, platelet 210. Sodium 139, potassium 4.1, BUN 60, creatinine 1.86. INPATIENT MEDICATIONS: Reviewed by myself. The patient was started on Symbicort two puffs inhaled twice a day. She received a dose of Aranesp today. Her Ativan dose was decreased by the primary team. Veltassa was discontinued. Remainder of medications are unchanged from prior. PROBLEMS: 1. Acute kidney injury (LINDSEY) superimposed on chronic kidney disease (CKD), stage III. The patient's renal function has recovered back to fairly close to baseline. Creatinine today is 1.8. Electrolytes are acceptable. Her torsemide was on hold the past couple days but will be resumed tomorrow. 2. Diastolic congestive heart failure. Volume status is fairly compensated. At home, she only takes Lasix 20 mg by mouth daily. In the hospital for the past couple days, her torsemide was held and it will be resumed tomorrow and we will readjust her diuretics as needed. Echocardiogram on this admission showed normal diameter of the inferior vena cava (IVC). 3. Anemia, multilevel factorial and related to chronic kidney disease, iron deficiency and surgery. She is status post three doses of Venofer. She received a dose of Aranesp today. Her hemoglobin is suboptimal but stable in the 8s. 4. Hyperkalemia. It was mild and related to acute kidney injury. Her potassium has normalized. There is no concurrent acidosis and her Veltassa has been discontinued. 5. Hypertension. Blood pressures are a little bit elevated today, systolic 140s to 160. She is not suitable for angiotensin-converting enzyme (NICOLASA) or angiotensin-receptor gunnar (ARB). She continues on amlodipine and tomorrow she will be resumed back on torsemide which will help with the blood pressure as well.
[2019-03-19 02:00] VITALS: BP 151/69
[2019-03-19] MEDS: IPRATROPIUM 0.5MG/ALBUTEROL 2.5MG INH SOL UD 3ML (DUONEB)(J7620) NEB SCH ×5 (03:31→19:45)
[2019-03-19 06:00] VITALS: BP 162/82
[2019-03-19] MEDS: SYMBICORT 80/4.5MCG INHALER 6GM INH SCH ×2 (07:13→19:46)
[2019-03-19 09:50] VITALS: BP 165/75
[2019-03-19] MEDS: SENOKOT S TAB PO SCH ×2 (10:14→21:10)
[2019-03-19] MEDS: OMEPRAZOLE 20 MG CAP PO SCH ×2 (10:15→21:08)
[2019-03-19] MEDS: amLODIPine 5 MG TAB PO SCH ×2 (10:15→21:10)
[2019-03-19] MEDS: VENLAFAXINE **XR** 75MG CAPSULE PO SCH (10:15)
[2019-03-19] MEDS: HYDROXYCHLOROQUINE 200 MG TAB PO SCH ×2 (10:16→21:07)
[2019-03-19] MEDS: GABAPENTIN 300 MG CAP PO SCH (10:16)
[2019-03-19] MEDS: CETIRIZINE (ZyrTEC) 10 MG TAB PO SCH (10:16)
[2019-03-19] MEDS: CALCITRIOL 0.25 MCG CAP (S0169) PO SCH (10:16)
[2019-03-19] MEDS: OLOPATADINE 0.1% OPHTH SOL 5ML(PATANOL) OU SCH ×2 (10:17→17:16)
[2019-03-19] MEDS: OFLOXACIN 0.3 % (OCUFLOX) OPTH SOL 5ML OU SCH ×4 (10:17→21:13)
[2019-03-19] MEDS: POLYVINYL ALCOHOL OPHTH SOLN 15 ML(LIQUITEARS) OU SCH ×4 (10:17→21:12)
[2019-03-19] MEDS: NYSTATIN 100,000 UNITS/GM TOPICAL PWD 15 GM TOP SCH ×2 (10:18→21:11)
[2019-03-19] MEDS: TORSEMIDE 20 MG TAB PO SCH (10:36)
[2019-03-19] MEDS: LORazepam 0.5 MG TAB PO SCH ×2 (10:36→21:07)
[2019-03-19 14:00] VITALS: BP 132/61
[2019-03-19] MEDS: ACETAMINOPHEN TAB 650MG DOSE (2X325MG) PO PRN (21:10)
--- NOTE | 2019-03-19 21:24 | IPN ---
DATE: 03/19/2019 SUBJECTIVE: Yesenia seen and examined this morning at the bedside. She continues to work with physical therapy. She reports that her cough is better. She was resumed on diuretics today. She had a postvoid residual of approximately 300 mL today. She denies any new complaints. Vital signs: Temperature 98.5, pulse 74, respiratory rate 20, blood pressure 165/75, saturating 95% on 1/2 liter nasal cannula. Intake yesterday was 1610, urine output yesterday was 1200, weight in the bed scale today is 84 kg which is decreased from prior. General: The patient is seen lying flat in bed, elderly female, awake, alert, oriented x3, in no apparent distress. Extraocular muscles are intact. Tongue and oral mucosa is dry. She is edentulous. Neck is supple. Jugular veins are not elevated. Cardiac: S1, S2 regular rate and rhythm. There is trace edema in the lower extremities. Lungs show scattered expiratory wheeze and diminished breath sounds at the base, no rales. Abdomen is soft and nontender. There are bowel sounds. There are small healed laparoscopic incisions. Extremities are negative for clubbing, cyanosis and show trace edema. Skin: Normal turgor and temperature. Neurologic: Oriented x3 at baseline mentation. LABORATORY: White count 9.8, hemoglobin 8.6, sodium 139, potassium 4.1, creatinine 1.8. INPATIENT MEDICATIONS: She was resumed on torsemide diuretic today. She received a dose of Aranesp yesterday. Remainder of medications are unchanged from prior. PROBLEMS: 1. Chronic kidney disease (CKD) stage III with mild superimposed acute kidney injury, baseline creatinine is around 1.5 to 1.7. The patient had an acute kidney injury on this admission that was related to NSAIDs/NICOLASA inhibitor/perioperative/urinary retention. Her renal function is recovering back towards baseline. Her electrolytes and volume status are acceptable and her diuretic was slightly increased on this admission to torsemide 20 mg daily. 2. Hypertension. She is not suitable for NICOLASA inhibitor or angiotensin receptive gunnar due to recent acute kidney injury. Continue amlodipine. Her blood pressures have been running high, but she was resumed on torsemide today. 3. Anemia related to iron deficiency and chronic kidney disease. She received three doses of Venofer and she also received a dose of Aranesp on this admission 4. Diastolic congestive heart failure volume status is acceptable. At home she only takes Lasix 20 mg by mouth daily. At present, in the hospital, she is receiving torsemide 20 mg by mouth daily and I would continue the same. 5. Urinary retention. The patient has been having some urinary retention in the postoperative period. She continues with postvoid residual bladder scan. She had about just under 300 mL on her postvoid residual bladder scan this morning. Nursing staff is straight catheterizing her as needed.
[2019-03-19 22:00] VITALS: BP 129/62
[2019-03-20] MEDS: IPRATROPIUM 0.5MG/ALBUTEROL 2.5MG INH SOL UD 3ML (DUONEB)(J7620) NEB SCH ×4 (03:42→11:16)
[2019-03-20 06:00] VITALS: BP 172/70
[2019-03-20 07:08] LABS: CALCIUM LEVEL 10.1 MG/DL (8.8-10.2); CREATININE FOR GFR 1.45 MG/DL (0.55-1.30); GLOMERULAR FILTRATION RATE 36.9 (>32); POTASSIUM SERUM 3.8 MEQ/L (3.5-5.1)
[2019-03-20] MEDS: SYMBICORT 80/4.5MCG INHALER 6GM INH SCH (08:01)
[2019-03-20] MEDS: FEBUXOSTAT 40 MG TABLET (ULORIC) PO SCH (08:55)
[2019-03-20] MEDS: LORazepam 0.5 MG TAB PO SCH (08:55)
[2019-03-20] MEDS: OMEPRAZOLE 20 MG CAP PO SCH (08:55)
[2019-03-20 08:56] VITALS: BP 172/70
[2019-03-20] MEDS: HYDROXYCHLOROQUINE 200 MG TAB PO SCH (08:56)
[2019-03-20] MEDS: GABAPENTIN 300 MG CAP PO SCH (08:56)
[2019-03-20] MEDS: SENOKOT S TAB PO SCH (08:56)
[2019-03-20] MEDS: CETIRIZINE (ZyrTEC) 10 MG TAB PO SCH (08:56)
[2019-03-20] MEDS: TORSEMIDE 20 MG TAB PO SCH (08:56)
[2019-03-20] MEDS: amLODIPine 5 MG TAB PO SCH (08:56)
[2019-03-20] MEDS: CALCITRIOL 0.25 MCG CAP (S0169) PO SCH (08:56)
[2019-03-20] MEDS: VENLAFAXINE **XR** 75MG CAPSULE PO SCH (08:56)
[2019-03-20] MEDS: ACETAMINOPHEN TAB 650MG DOSE (2X325MG) PO PRN (08:57)
[2019-03-20] MEDS: OLOPATADINE 0.1% OPHTH SOL 5ML(PATANOL) OU SCH (08:57)
[2019-03-20] MEDS: OFLOXACIN 0.3 % (OCUFLOX) OPTH SOL 5ML OU SCH ×2 (08:57→12:52)
[2019-03-20] MEDS: POLYVINYL ALCOHOL OPHTH SOLN 15 ML(LIQUITEARS) OU SCH ×2 (08:57→12:52)
[2019-03-20] MEDS: NYSTATIN 100,000 UNITS/GM TOPICAL PWD 15 GM TOP SCH (08:57)
--- NOTE | 2019-03-20 08:57 | IPN ---
DATE: 03/19/2019 HISTORY: The patient is now 9 days postop from her robotic-assisted laparoscopic repair of her ventral incisional hernias. She has been undergoing physical therapy and apparently as of today. The physical therapy providers believe that she has reached a point for possible safe discharge home. Vital signs: Show that she has been afebrile. Her pulse is in the 60s and 70s and her blood pressure is good. Intake and output shows that she had 2 liters in yesterday with 550 mL of measured urine output and a number of additional voids noted. PHYSICAL EXAMINATION: The patient is lying quietly in the bed. She is alert and even perky today. She is very pleasant and eager for discharge. Physical exam shows a regular cardiac rhythm and her lungs are generally clear. The abdomen is soft and nontender with well healed trocar sites. IMPRESSION: Patient is now doing well 9 days postop from her surgery following a period of rehabilitation. PLAN: The plan currently is for the patient to be discharged home tomorrow with her daughter. She will have arrangements for [facility] to assist in her care at home. ROSE
[2019-03-20] MEDS ORDERED: TORS20TA2 PO (13:07)
[2019-03-20] MEDS ORDERED: ATIV1TAB10 PO (13:07)
[2019-03-20] MEDS ORDERED: AMLO5TAB6 PO (13:07)
[2019-03-20] MEDS ORDERED: GABA-843 PO (13:07)
--- NOTE | 2019-03-20 20:00 | IPN ---
DATE: 03/20/2019 SUBJECTIVE: Yesenia is seen and examined this morning at the bedside. She is discharge pending. She denies any overnight events or complaints and is saturating well on room air. She was resumed on diuretic therapy yesterday. I discussed with her daughter that she should stay off of irbesartan at home. Temperature 98.3, pulse 65, respiratory rate 18, blood pressure 172/70, saturating 92% on room air. Intake yesterday was two liters, urine output was recorded as seven voids plus 550 mL. Weight in the bed scale today is 82.8 kg which is decreased from prior. GENERAL: The patient is seen sitting out of bed to the chair, elderly female, awake, alert, oriented times three, comfortable, in no apparent distress. Extraocular muscles are intact. The mucous membranes are dry. She is edentulous. Neck is supple. Jugular veins are not elevated. CARDIAC: S1, S2, regular rate and rhythm. There is trace edema in the legs. There is prolonged expiration. There are no crackle or rales. There is no tachypnea or accessory muscle use. She is seen on room air. Abdomen is soft and nontender. There are bowel sounds. There are small, healed laparoscopic incisions. Extremities are negative for clubbing, cyanosis and show only trace edema. SKIN: Normal turgor and temperature. NEUROLOGIC: Oriented times three, at baseline mentation. LABORATORY DATA: White count 9.8, sodium 141, potassium 3.8, bicarbonate 26, BUN 55, creatinine 1.4. INPATIENT MEDICATIONS: Reviewed by myself and no change from prior. PROBLEMS: 1. Chronic kidney disease (CKD), stage III. The patient has a baseline creatinine of about 1.5 to 1.7. Her renal function has recovered to baseline today. She had an acute kidney injury on this admission related to nonsteroidal antiinflammatory drugs (NSAIDs)/angiotensin-receptive gunnar/perioperative period/urinary retention. Renal function is back to baseline. I advised her to stay off of irbesartan at home. Her electrolytes and volume status are acceptable. Continue current diuretic regimen. 2. Hypertension. Blood pressures are slightly uncontrolled but do appear somewhat labile, systolic ranging from 120-170. Continue amlodipine. Continue torsemide. She is discontinued off irbesartan due to recent acute kidney injury and hyperkalemia. 3. Anemia related to iron deficiency and chronic kidney disease. She received Venofer times three doses on this admission and also received Aranesp recently. Hemoglobin is suboptimal but stable at 8.6. 4. Diastolic congestive heart failure. Continue current diuretic regimen. Continue moderate fluid restriction. DISPOSITION: The patient is acceptable for discharge today from a nephrology point of view. Family understands she needs to followup in the office within 1-2 weeks. She has been discontinued off of irbesartan and they are aware of the same.
--- NOTE | 2019-03-21 07:11 | IPN ---
DATE: 03/20/2019 HISTORY: Patient is scheduled for discharge today. She will be returning home with her mother. [facility] has been arranged to also come and provide in-home services. The patient is now 10 days postop from her laparoscopic robotic-assisted repair of her ventral hernias. VITAL SIGNS: The patient has been afebrile over the past 24 hours with a pulse in the 60s and good blood pressure. INTAKE AND OUTPUT: Her intake was excellent yesterday and she has multiple voids and several bowel movements recorded. PHYSICAL EXAMINATION: The patient is sitting up in a chair looking quite comfortable and alert. She has been eating lunch. She denies any pain. She is breathing easily. The abdomen is soft and nontender. LABORATORY FINDINGS: The patient had a medical profile today that showed normal sodium and potassium with a chloride at 109, CO2 of 26, BUN of 55 and creatinine of 1.45. Glucose is 133. IMPRESSION: The patient is doing well and appears ready to go home. She is quite comfortable with no significant discomfort. She is back on her diuretic although she has been changed from Lasix to Demadex and her renal function is about at baseline. Her elevated liver function tests have resolved. She appears to be eating and drinking well. PLAN: The patient will be discharged home. Several of her medications have changed or been discontinued. She will be provided new prescriptions as necessary. I will plan on her following up with me in a couple weeks in the office and have recommended that she follow up with Dr. Low in his office within the next week or two to be updated on her medication changes and current situation. ROSE
== END 2019-03-20 14:00 | disposition home health service (06) | DRG 354 ==
LOC: M SDC 09:47 → M MS5PR 18:50 → M SDC 03-11 14:06 → M MS5PR 03-11 14:07
PROVIDERS: ADMIT Surgery; ATTEND Surgery
PROC: 0WUF4JZ Supplement Abdominal Wall with Synthetic Substitute, Percutaneous Endoscopic Approach (ICD-10-PCS; principal; 2019-03-10 12:20)
PROC: 8E0W4CZ Robotic Assisted Procedure of Trunk Region, Percutaneous Endoscopic Approach (ICD-10-PCS; 2019-03-10 12:20)
DX: K42.0 Umbilical hernia with obstruction, without gangrene (principal); N17.9 Acute kidney failure, unspecified; I50.32 Chronic diastolic (congestive) heart failure; I13.0 Hypertensive heart and chronic kidney disease with heart failure and stage 1 through stage 4 chronic kidney disease, or unspecified chronic kidney disease; N25.81 Secondary hyperparathyroidism of renal origin; K43.0 Incisional hernia with obstruction, without gangrene; E87.5 Hyperkalemia; N18.3 Chronic kidney disease, stage 3 (moderate); J44.9 Chronic obstructive pulmonary disease, unspecified; E66.9 Obesity, unspecified; E55.9 Vitamin D deficiency, unspecified; M06.9 Rheumatoid arthritis, unspecified; E53.9 Vitamin B deficiency, unspecified; K21.9 Gastro-esophageal reflux disease without esophagitis; K57.30 Diverticulosis of large intestine without perforation or abscess without bleeding; G47.33 Obstructive sleep apnea (adult) (pediatric); I45.10 Unspecified right bundle-branch block; Z86.711 Personal history of pulmonary embolism; Z88.0 Allergy status to penicillin; Z88.8 Allergy status to other drugs, medicaments and biological substances; Z88.2 Allergy status to sulfonamides; Z79.82 Long term (current) use of aspirin; Z79.899 Other long term (current) drug therapy; M10.30 Gout due to renal impairment, unspecified site; D63.1 Anemia in chronic kidney disease; G25.0 Essential tremor; B37.2 Candidiasis of skin and nail; G62.9 Polyneuropathy, unspecified; Z68.39 Body mass index [BMI] 39.0-39.9, adult; R33.9 Retention of urine, unspecified; K59.00 Constipation, unspecified; H10.31 Unspecified acute conjunctivitis, right eye

== ENCOUNTER → 2019-06-18 | Outpatient (REF) | payer MEDICARE, OTHER ==
[~2019-06-18] MED LIST changes: +AMLO5TAB6 PO; +ATIV1TAB10 PO; +GABA-843 PO; -IRBE150T12 PO; +IRBE150T7 PO; +IRBE75TA4 PO; -IRBE75TA5 PO; -LORA0.5T11 PO; +LORA0.5T5 PO; -LR 1,000 ML IV ONE; +TORS20TA2 PO
== END ==
LOC: M LAB REF 13:14
PROVIDERS: ATTEND Nurse Practitioner Family
DX: N39.0 Urinary tract infection, site not specified (principal)

== ENCOUNTER → 2019-09-11 | Outpatient (REF) | payer MEDICARE, OTHER | LOC: M LAB REF 16:03 | PROVIDERS: ATTEND Family Medicine | DX: M10.9 Gout, unspecified (principal) ==

== ENCOUNTER 2019-10-07 16:57 | Inpatient (IN) | payer MEDICARE, OTHER ==
[~2019-10-07] VITALS: Ht 149.9 cm; Wt 78.3 kg
[2019-10-07] MEDS ORDERED: TRAZ-252 PO ×2 (17:28→22:02)
--- NOTE | 2019-10-07 18:23 | REPVR ---
PROCEDURE INFORMATION: Exam: CT Head Without Contrast Exam date and time: 10/07/2019 5:48 PM Age: 84 years old Clinical indication: Pain; Headache; Prior surgery; Additional info: Fall, 3 nights ago, periorbital bruising TECHNIQUE: Imaging protocol: Computed tomography of the head without contrast. Radiation optimization: All CT scans at this facility use at least one of these dose optimization techniques: automated exposure control; mA and/or kV adjustment per patient size (includes targeted exams where dose is matched to clinical indication); or iterative reconstruction. COMPARISON: No relevant prior studies available. FINDINGS: Brain: No intracranial mass, focal mass effect or midline shift. No acute intracranial hemorrhage. Moderate decreased attenuation in periventricular/centrum semiovale white matter. No focal effacement of cortical sulci to indicate acute cortical infarct. Ventricles: Prominent ventricles and CSF spaces suggest parenchymal volume loss. Bones/joints: No calvarial fracture or destructive process. Sinuses: Visualized paranasal sinuses are unremarkable. Mastoid air cells: Mastoid air cells are normally aerated. Orbits: Visualized globes and orbits are unremarkable. Soft tissues: No focal extracranial soft tissue swelling. IMPRESSION: 1. No acute intracranial abnormality. 2. Atrophy and chronic microangiopathic change in supratentorial white matter. Electronically signed by: Janak Huntley On 10/07/2019 18:22:41 PM
--- NOTE | 2019-10-07 18:24 | REPVR ---
PROCEDURE INFORMATION: Exam: CT Cervical Spine Without Contrast Exam date and time: 10/07/2019 5:48 PM Age: 84 years old Clinical indication: Injury or trauma; Fall; Work related; Initial encounter; Blunt trauma; Additional info: Fall, 3 nights ago, periorbital bruising TECHNIQUE: Imaging protocol: Computed tomography images of the cervical spine without contrast. Radiation optimization: All CT scans at this facility use at least one of these dose optimization techniques: automated exposure control; mA and/or kV adjustment per patient size (includes targeted exams where dose is matched to clinical indication); or iterative reconstruction. COMPARISON: No relevant prior studies available. FINDINGS: Vertebrae: No traumatic segmental malalignment of cervical spine or craniocervical junction. Vertebral body height is maintained at all levels. No acute fracture. No destructive or blastic cervical spine osseous lesion. Intervertebral disc height is decreased at multiple levels, with typical degenerative pattern and associated endplate, articular pillar and uncovertebral spurs. Advanced C1-C2 arthropathy asymmetrically worse to the left of midline. Mild spinal canal stenosis C3-C4 and moderate C4-C5 and C5-C6. Osseous neural foraminal stenoses are present from C3-C4 through C5-C6, mild to moderate Soft tissues: Prevertebral soft tissues demonstrate no asymmetry. Lungs: No concerning abnormality of the imaged lung apices. IMPRESSION: 1. No acute fracture or traumatic subluxation of the cervical spine. 2. Multilevel degenerative disc and articular pillar arthropathy. Electronically signed by: Janak Huntley On 10/07/2019 18:24:19 PM
--- NOTE | 2019-10-07 18:26 | REPVR ---
PROCEDURE INFORMATION: Exam: CT Maxillofacial Without Contrast Exam date and time: 10/07/2019 5:48 PM Age: 84 years old Clinical indication: Injury or trauma; Fall; Initial encounter; Blunt trauma (contusions or hematomas); Forehead; Additional info: Fall, 3 nights ago, periorbital bruising TECHNIQUE: Imaging protocol: Computed tomography images of the face without contrast. Radiation optimization: All CT scans at this facility use at least one of these dose optimization techniques: automated exposure control; mA and/or kV adjustment per patient size (includes targeted exams where dose is matched to clinical indication); or iterative reconstruction. COMPARISON: No relevant prior studies available. FINDINGS: No focal soft tissue edema. Mandible is intact and the TMJ's align normally. Maxilla, hard palate and pterygoid plates are intact. Zygomaticomaxillary complexes and zygomatic arches appear normal. Paranasal sinuses show no acute fracture. Paranasal sinuses show no abnormal opacification. Ostiomeatal complexes are normally aerated. Mastoid air cells are normally aerated. No acute orbital fracture. Orbital soft tissues are unremarkable. No acute nasal bone or nasal septal fracture. Visualized skull base structures are unremarkable. Posterior nasopharynx soft tissues are symmetric. IMPRESSION: No acute facial fracture or asymmetric soft tissue injury. Electronically signed by: Janak Huntley On 10/07/2019 18:25:45 PM
--- NOTE | 2019-10-07 18:30 | REPVR ---
PROCEDURE INFORMATION: Exam: CT Lumbar Spine Without Contrast Exam date and time: 10/07/2019 5:48 PM Age: 84 years old Clinical indication: Injury or trauma; Fall; Initial encounter; Blunt trauma (contusions or hematomas); Additional info: Fall, 3 nights ago, periorbital bruising TECHNIQUE: Imaging protocol: Computed tomography images of the lumbar spine without contrast. Radiation optimization: All CT scans at this facility use at least one of these dose optimization techniques: automated exposure control; mA and/or kV adjustment per patient size (includes targeted exams where dose is matched to clinical indication); or iterative reconstruction. COMPARISON: No relevant prior studies available. FINDINGS: No segmental lumbar vertebral malalignment. Levoconvex scoliosis. Vertebral body height and morphology is overall maintained. No acute fracture or destructive process. Degenerative disc height loss is present at all levels, sparing L5-S1, and severe, with vacuum phenomenon at multiple levels and vertebral body osteophytes. L4-L5 demonstrates moderately severe spinal canal stenosis and milder changes are seen at L3-L4 and L2-L3. Multilevel osseous neural foraminal stenoses are present, particularly to the right of midline at L2-L3 and L3-L4 secondary to the concavity of the scoliosis. No dilatation of the imaged distal abdominal aorta. No significant abnormality of the imaged retroperitoneum. IMPRESSION: No fracture or other acute abnormality involving the lumbar spine. Advanced multilevel degenerative disc and facet arthropathy with scoliosis Electronically signed by: Janak Huntley On 10/07/2019 18:30:01 PM
--- NOTE | 2019-10-07 19:59 | REPVR ---
PROCEDURE INFORMATION: Exam: CT Chest Without Contrast Exam date and time: 10/07/2019 7:38 PM Age: 84 years old Clinical indication: Injury or trauma; Fall; Initial encounter; Blunt trauma (contusions or hematomas); Additional info: Fall 3 nights ago, low o2 sat TECHNIQUE: Imaging protocol: Computed tomography of the chest without contrast. 3D rendering: MIP and/or 3D reconstructed images were created by the technologist. Radiation optimization: All CT scans at this facility use at least one of these dose optimization techniques: automated exposure control; mA and/or kV adjustment per patient size (includes targeted exams where dose is matched to clinical indication); or iterative reconstruction. COMPARISON: CT ANGIO CHEST 09/05/2018 12:04 PM FINDINGS: Lungs: No evidence of lung contusion, aspiration or concerning lung mass. No central endobronchial lesion. Atelectasis is present at the lung bases. Pleural space: No hemothorax or pneumothorax. Heart: Multi-chamber cardiac dilatation is noted. No evidence of acute pulmonary edema. Mediastinal space: No mediastinal hematoma. Large hiatal hernia, unchanged Aorta: Atherosclerotic change in the aorta. No focal dilatation. Lymph nodes: Prominent mediastinal lymph nodes in the prevascular space. Bones/joints: Exam is limited without IV contrast and also limited by motion and bilateral shoulder arthroplasty streak artifact. No acute displaced fractures involving ribs, thoracic spine or shoulder girdle. Multi-level, age-related thoracic degenerative disc disease is present. Bilateral shoulder arthroplasty hardware is present Soft tissues: Unremarkable. IMPRESSION: 1. No CT evidence of acute thoracic trauma and no evidence of pulmonary edema or aspiration pneumonia. No explanation for acute clinical symptoms 2. Mildly prominent prevascular mediastinal lymph nodes, unchanged since August 2018. 3. Large hiatal hernia. No change since the prior CT Electronically signed by: Janak Huntley On 10/07/2019 19:59:43 PM
[2019-10-07] MEDS ORDERED: ACETAMINOPHEN 325 MG TAB PO ONE (20:00)
[2019-10-07] MEDS ORDERED: MOM 30ML SUSPENSION UDC PO PRN (21:15)
[2019-10-07] MEDS ORDERED: MAALOX 30 ML SUSP *UDC PO PRN (21:15)
[2019-10-07] MEDS ORDERED: TORS20TA2 PO (22:02)
[2019-10-07] MEDS ORDERED: VITA50005 PO (22:02)
[2019-10-07] MEDS ORDERED: ATIV1TAB10 PO (22:02)
[2019-10-07] MEDS ORDERED: GABA-843 PO (22:02)
--- NOTE | 2019-10-07 22:20 | HPEPDOC ---
[facility] Medical History & Physical Date of Admission Oct 07, 2019 Date of Service: Oct 07, 2019 Primary Care Physician: BIRDIE DONALDSON M.D. Attending Physician: GURDEEP MORAN DO History and Physical CHIEF COMPLAINT: Fall/generalized weakness HISTORY OF PRESENT ILLNESS: And patient is an 84-year-old female who was brought to emergency room by her family. Apparently about 3 days ago she was walking in the home, she tripped, fell, and hit her face on the television. She does have large bruising under the bilateral eyes. She was not brought in for evaluation at that time, but nevertheless she has remained quite weak over the past few days. Her convalescence was interrupted when her daughter, who is her primary caregiver, was discovered to have a brain aneurysm today, and is now scheduled to go in for neurosurgical evaluation at another hospital. Therefore, she and the remaining family felt great uncertainty as to whether they would be able to to care for their mother in her current condition with everything else that is now going on in their family. CODE STATUS: DNR/DNI, and a copy of her MOLST form is available in [employer]. The patient does give me verbal confirmation of these are still her wishes. PAST MEDICAL HISTORY: Chronic kidney disease stage III with a baseline creatinine of approximately 1.5 Morbid obesity Chronic diastolic congestive heart failure COPD Gout Rheumatoid arthritis Diverticulosis Obstructive sleep apnea Sjogren's syndrome Chronic venous insufficiency Essential tremor Anxiety Hypertension PAST SURGICAL HISTORY: Cataract surgeries Shoulder surgery Cholecystectomy Hysterectomy Bladder suspension Umbilical hernia repair SOCIAL HISTORY: Her primary caregiver is her daughter, who is now going in for evaluation of newly discovered brain aneurysm at a different hospital. Typically the patient is able to ambulate with a walker, she also does have a cane, but preferentially uses a walker. She also does have a wheelchair at home which the family may use on occasion as well. She is a never smoker, never used alcohol, denies illicit drug use. FAMILY HISTORY: Essentially noncontributory due to the patient's advanced age. She reports that her brother had "heart troubles". REVIEW OF SYSTEMS: Constitutional: Patient denies fevers, chills, night sweats, recent weight gain/loss. HEENT: Patient denies blurred or double vision, transient visual disturbances, postnasal drip, epistaxis, sore throat, difficulty chewing or swallowing food. Cardiovascular: Patient denies chest discomfort/pain, palpitations, exertional dyspnea, orthopnea, edema of the extremities, claudication. Respiratory: Patient typically is short of breath at baseline due to COPD, however she denies any acute dyspnea, wheezing, cough, hemoptysis, sputum production. Gastrointestinal: Patient denies nausea, vomiting, diarrhea, constipation, abdominal pain, melena, hematochezia, hematemesis, jaundice. Her only dietary restriction is that she should be on a low-sodium diet. PHYSICAL EXAMINATION: General: Awake, alert, oriented 3. She is in no acute distress at this time. She is quite pleasant. HEENT: Head normocephalic atraumatic, pupils equally reactive to light and accommodation, conjunctiva are pink, sclera are nonicteric, buccal mucosa is pink and moist with no lesions in the oropharynx. She has no teeth. Hearing is grossly intact to conversation. Respiratory: Clear to auscultation bilaterally with no wheezes, rales, or rhonchi. Cardiovascular: Distant heart sounds, although it appears that she has an irregularly irregular rhythm and pulse, per medical records she apparently only has had a right bundle branch block with junctional rhythm, I cannot find any documentation of atrial fibrillation, therefore EKG will be ordered. Abdomen: Soft, nontender, nondistended, no hepatosplenomegaly appreciated. Bowel sounds present. Extremities: 2+ pulses in the radial and dorsalis pedis bilaterally. No evidence of clubbing or cyanosis. ELECTROCARDIOGRAM: Pending at the time of this dictation IMAGING: Head CT, maxillofacial CT, cervical spine CT, chest CT, lumbar spine CT, and hip x-ray were all ordered in the emergency department and due to her history of fall with striking her head, significant bruising on her face, and complains of neck pain, back pain, hip pain. All of the above only showed chronic changes, no acute trauma identified, please see individual reports for full details. ASSESSMENT: Generalized weakness with mechanical fall. She does have many significant comorbidities: Chronic kidney disease stage III with a baseline creatinine of approximately 1.5 Morbid obesity Chronic diastolic congestive heart failure COPD Gout Rheumatoid arthritis Diverticulosis Obstructive sleep apnea Sjogren's syndrome Chronic venous insufficiency Essential tremor Anxiety Hypertension A deterioration of any of these could contribute to and/or predispose her to falling. DVT prophylaxis with renally dosed Lovenox PLAN: CMP, CBC, EKG, all of the imaging listed above has already been performed. For now we will continue her home medications at the current dose, with the exception of changing her benzodiazepine from twice a day scheduled and to twice a day PRN, as this is on the [place]ers list, and could certainly contribute significantly to altered mental status and falls in the elderly. Will admit to MedSurg. Vital signs standard of care. 2 g sodium diet. PT consult requested. PFS in consult also requested, since her disposition at discharge may be significantly affected by the outcome of her daughter's current plight. Vital Signs Vital Signs Date Time Temp Pulse Resp B/P (MAP) Pulse Ox O2 Delivery O2 Flow Rate FiO2 10/07/19 20:23 18 10/07/19 20:01 155/86 (109) 10/07/19 19:57 90 92 10/07/19 17:27 98.0 Room Air Home Medications Scheduled Acetaminophen (Acetaminophen 8 Hour) 650 Mg Tablet.er, 650 MG PO TID 080, 1200, 1700 Aspirin (Aspir 81) 81 Mg Tab, 81 MG PO QHS Calcitriol (Calcitriol) 0.25 Mcg Capsule, 0.25 MCG PO Q2D Cyanocobalamin (Vitamin B-12) (Vitamin B-12) 1,000 Mcg Tablet, 1,000 MCG PO DAILY Ergocalciferol (Vitamin D2) (Vitamin D2) 50,000 Units Cap, 50,000 UNITS PO QWEEK FRIDAYS Febuxostat (Uloric) 80 Mg Tab, 80 MG PO DAILY Gabapentin (Gabapentin) 300 Mg Capsule, 300 MG PO BID 0800, 1700 Hydroxychloroquine Sulfate (Hydroxychloroquine Sulfate) 200 Mg Tab, 200 MG PO BID 0800, 1700 Lorazepam (Ativan) 0.5 Mg Tablet, 0.5 MG PO BID Magnesium Chloride (Mag64) 64 Mg Tablet.dr, 64 MG PO BID 0800, 1700 [place]-3 Fatty Acids/Fish Oil (Fish Oil 1,000 mg Capsule) 1 Each Capsule, 1,000 MG PO DAILY Omeprazole (Omeprazole) 40 Mg Cap, 40 MG PO BID 0800, 1700 Torsemide (Torsemide) 20 Mg Tablet, 20 MG PO DAILY Trazodone HCl (Trazodone HCl) 50 Mg Tablet, 25 MG PO QHS Venlafaxine HCl (Venlafaxine HCl ER) 150 Mg Cap.er.24h, 150 MG PO DAILY Scheduled PRN Albuterol Sulfate (Proair Hfa) 8.5 Gm Hfa.aer.ad, 2 PUFF INH QID PRN for SHORTNESS OF BREATH Fluticasone Propionate (Flonase Allergy Relief) 50 Mcg/Act Spr, 50 MCG NA DAILY PRN for CONGESTION Ipratropium/Albuterol Sulfate (Iprat-Albut 0.5-3(2.5) mg/3 ml) 3 Ml Ampul.neb, 1 GEOVANY INH QID PRN for SHORTNESS OF BREATH Allergies Coded Allergies: Penicillins (Verified Allergy, Intermediate, BODY SWELLING, 10/07/19) sulfamethoxazole (Verified Allergy, Intermediate, SWELLING, 10/07/19) trimethoprim (Verified Allergy, Intermediate, SWELLING, 10/07/19) allopurinol (Verified Allergy, Mild, RASH, 10/07/19) rabeprazole (Verified Allergy, Mild, RASH, 10/07/19) risperidone (Verified Allergy, Unknown, 10/07/19) A-FIB/CHADSVASC A-FIB History Current/History of A-Fib/PAF?: No Current PO Anticoag Therapy: No GURDEEP MORAN DO Oct 07, 2019 22:16
[2019-10-07] MEDS ORDERED: FLUTICASONE PROP 0.05% NASAL SPRAY 16 GM (FLONASE) PRN (22:30)
[2019-10-07] MEDS ORDERED: ALBUTEROL 90 MCG/ACT 8GM HFA INHALER INH PRN (22:30)
[2019-10-07 22:59] LABS: HEMATOCRIT 35.3 % (36.0-47.0); HEMOGLOBIN 10.5 g/dl (12.0-15.5); MEAN CORPUSCULAR HEMOGLOBIN 29.9 pg (27.0-33.0); MEAN CORPUSCULAR HGB CONC 29.7 g/dl (32.0-36.5); MEAN CORPUSCULAR VOLUME 100.6 fl (80.0-96.0); PLATELET COUNT, AUTOMATED 254 10^3/uL (150-450); RED BLOOD COUNT 3.51 10^6/uL (4.00-5.40); WHITE BLOOD COUNT 8.4 10^3/uL (4.0-10.0)
[2019-10-07 23:27] LABS: ALBUMIN 2.6 GM/DL (3.2-5.2); BILIRUBIN,TOTAL 0.3 MG/DL (0.2-1.0); CALCIUM LEVEL 9.3 MG/DL (8.8-10.2); CREATININE FOR GFR 1.8 MG/DL (0.55-1.30); GLOMERULAR FILTRATION RATE 28.7 (>32); POTASSIUM SERUM 4.4 MEQ/L (3.5-5.1); TOTAL PROTEIN 7.3 GM/DL (6.4-8.2)
[2019-10-08] MEDS: ASPIRIN 81 MG ENTERIC TAB PO SCH ×2 (00:38→21:30)
[2019-10-08] MEDS: traZODone 25MG PER 1/2 TABLET PO SCH ×3 (00:39→21:30)
[2019-10-08] MEDS: LORazepam 0.5 MG TAB PO PRN (01:11)
[2019-10-08 01:30] VITALS: BP 136/82
--- NOTE | 2019-10-08 01:33 | REP ---
PELVIS AND BILATERAL HIPS: AP view of the pelvis and AP and frogleg views of bilateral hips performed. No acute fracture or dislocation is seen. There is moderate joint space narrowing of both hips with spurring and subchondral sclerosis. Phleboliths are seen in the pelvis. There are vascular calcifications also seen in the pelvis. IMPRESSION: Moderate degenerative changes of the hips with no evidence of acute fracture or dislocation. Electronically Signed by Eligio Peña MD 10/08/2019 09:52 A
[2019-10-08 06:00] VITALS: BP_SYST 129; BP_SYST 151; BP_DIAS 62; BP_DIAS 91
[2019-10-08 06:07] LABS: HEMATOCRIT 33.5 % (36.0-47.0); HEMOGLOBIN 10.2 g/dl (12.0-15.5); MEAN CORPUSCULAR HEMOGLOBIN 30.2 pg (27.0-33.0); MEAN CORPUSCULAR HGB CONC 30.4 g/dl (32.0-36.5); MEAN CORPUSCULAR VOLUME 99.1 fl (80.0-96.0); PLATELET COUNT, AUTOMATED 225 10^3/uL (150-450); RED BLOOD COUNT 3.38 10^6/uL (4.00-5.40); WHITE BLOOD COUNT 6.3 10^3/uL (4.0-10.0)
[2019-10-08 06:31] LABS: CALCIUM LEVEL 9.3 MG/DL (8.8-10.2); CREATININE FOR GFR 1.79 MG/DL (0.55-1.30); GLOMERULAR FILTRATION RATE 28.9 (>32)
[2019-10-08] MEDS: CALCITRIOL 0.25 MCG CAP (S0169) PO SCH (08:59)
[2019-10-08] MEDS: TORSEMIDE 20 MG TAB PO SCH (08:59)
[2019-10-08] MEDS: VENLAFAXINE **XR** 75MG CAPSULE PO SCH (09:00)
[2019-10-08] MEDS: FEBUXOSTAT 40 MG TABLET (ULORIC) PO SCH (09:00)
[2019-10-08] MEDS ORDERED: ENOXAPARIN 30MG/0.3ML SYRINGE (J1650 PER 10MG) SC SCH (09:00)
[2019-10-08] MEDS: GABAPENTIN 300 MG CAP PO SCH ×2 (09:00→17:46)
[2019-10-08] MEDS: OMEPRAZOLE 20 MG CAP PO SCH ×2 (09:00→17:46)
[2019-10-08] MEDS ORDERED: PREVNAR 13 VACCINE SYRINGE (CPT CODE:90670) IM ONE (09:00)
[2019-10-08] MEDS: ACETAMINOPHEN TAB 650MG DOSE (2X325MG) PO PRN (09:00)
[2019-10-08] MEDS: HYDROXYCHLOROQUINE 200 MG TAB PO SCH ×2 (09:00→17:46)
[2019-10-08] MEDS: NYSTATIN 100,000 UNITS/GM TOPICAL PWD 15 GM TOP SCH ×2 (09:01→21:30)
[2019-10-08] MEDS: MAGNESIUM CHLORIDE 64 MG TABCR (SLO MAG) PO SCH ×2 (09:01→17:46)
[2019-10-08 14:00] VITALS: BP 132/64
--- NOTE | 2019-10-08 14:09 | IPNPDOC ---
Date Seen The patient was seen on 10/08/19. Progress Note SUBJECTIVE: 84-year-old female with multiple medical comorbidities is admitted after a fall. Extensive imaging in the emergency department negative for any acute fractures. Patient's daughter who is the primary paraffin plant operator for the patient is currently admitted to the hospital with a brain aneurysm and there is no unable to care for the patient at home. Placement is currently being arranged for the patient. She is comfortable without any complaints, denies chest pain, nausea, vomiting, diarrhea or constipation. 10 point review of system is negative except for above PHYSICAL EXAMINATION: VITAL SIGNS: Please see below. GENERAL: No distress HEENT: Normocephalic, atraumatic, moist mucous membranes NECK: Supple CARDIOVASCULAR EXAMINATION: S1, S2, no murmurs RESPIRATORY EXAMINATION: Diminished, scattered rhonchi, poor air movement, no wheezing ABDOMINAL EXAMINATION: Soft, nontender, nondistended, positive bowel sounds EXTREMITIES: Lower extremity edema SKIN: Multiple bruises noted NEUROLOGICAL EXAMINATION: no focal deficits PSYCHIATRIC EXAMINATION: Calm and cooperative LABORATORY DATA, IMAGING STUDIES, MICROBIOLOGY: Please see below. ASSESSMENT AND PLAN: 84-year-old female with multiple medical comorbidities is admitted to the hospital for physical deconditioning requiring placement as her primary paraffin plant operator is in the hospital. PROBLEMS: 1. Physical deconditioning/recurrent falls: Patient's primary paraffin plant operator is currently in the hospital, social services counselor arranging placement, PT/OT. 2. Rheumatoid arthritis: Continue plaque . 3. Congestive heart failure: Continued torsemide. DVT prophylaxis: Lovenox VS, I&O, 24H, Fishbone Vital Signs/I&O Vital Signs Date Time Temp Pulse Resp B/P (MAP) Pulse Ox O2 Delivery O2 Flow Rate FiO2 10/08/19 06:00 98.1 82 14 151/91 (111) 90 Room Air I&O- Last 24 Hours up to 6 AM 10/08/19 06:00 Intake Total 0 ml Output Total 300 ml Balance -300 ml Laboratory Data 24H LABS Laboratory Tests 2 10/07/19 22:00: Nucleated Red Blood Cells % (auto) 0.0, Anion Gap 4L, Glomerular Filtration Rate 28.7L, Calcium Level 9.3, Total Bilirubin 0.3, Aspartate Amino Transf (AST/SGOT) 19, Alanine Aminotransferase (ALT/SGPT) 20, Alkaline Phosphatase 118H, Total Protein 7.3, Albumin 2.6L, Albumin/Globulin Ratio 0.6L 10/08/19 05:45: Nucleated Red Blood Cells % (auto) 0.0, Anion Gap 3L, Glomerular Filtration Rate 28.9L, Calcium Level 9.3 CBC/BMP Laboratory Tests 10/07/19 22:00 10/08/19 05:45 Microbiology Microbiology 10/08/19 Eye/Ear/Nose/Throat Culture, Received Pending HERI WAKEFIELD MD Oct 08, 2019 14:09
[2019-10-08] MEDS ORDERED: HEPARIN SOD (PORCINE) 5000UNITS/ML VIAL (J1644 PER 1000UNITS) IV PRN (14:30)
[2019-10-08] MEDS: METOPROLOL TART 25 MG TABLET PO SCH ×2 (15:47→21:26)
[2019-10-08] MEDS: HEPARIN DRIP 25,000 UNITS in IV 1 EA IV SCH ×2 (15:49→23:11)
--- NOTE | 2019-10-08 21:18 | CR ---
DATE OF CONSULTATION: 10/08/2019 REQUESTING PHYSICIAN: Dr. Eligio Dexter CONSULTING PHYSICIAN: Dr. Kingston Klein REASON FOR CONSULTATION: Management of chronic kidney disease, stage IV. CHIEF COMPLAINT: The patient was brought to the emergency room because of generalized weakness and fall at home. 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 Multiple other comorbidities including morbid obesity, chronic diastolic congestive heart failure, gout, Sjogren's syndrome. She was feeling weak at home, she fell about 3 days ago and hit her face and got large bruising by both eyes, and the daughter who takes care of her is herself sick and going to have a brain procedure, so patient was finally brought to the emergency room for further evaluation. She was admitted on the hospitalist service last night. Nephrology service was called for further help in the management of this patient. I saw and evaluated the patient today morning at the bedside. She was sitting up in the recliner and getting ready to eat. PAST MEDICAL HISTORY: Past medical history of chronic kidney disease, stage IV. Previous labs showed a baseline creatinine of around 1.7. Morbid obesity, chronic obstructive pulmonary disease (COPD), chronic diastolic congestive heart failure, chronic gout secondary to chronic kidney disease, rheumatoid arthritis, history of diverticulosis, obstructive sleep apnea, Sjogren's syndrome, chronic venous insufficiency anxiety, hypertension with hypertensive heart disease and essential tremor. PAST SURGICAL HISTORY: Status post cataract surgery, shoulder surgery, status post cholecystectomy, hysterectomy, bladder suspension surgery and umbilical hernia repair. ALLERGIES: Patient is allergic to ALLOPURINOL, PENICILLIN, RABEPRAZOLE, RISPERIDONE, SULFAMETHOXAZOLE and TRIMETHOPRIM. SOCIAL HISTORY: The patient denies any smoking, illicit drug abuse or alcohol abuse. Daughter is her primary childcare worker but at this time, daughter is going to have her own evaluation for brain aneurysm. REVIEW OF SYSTEMS: Constitutional: The patient reports feeling weak and tired and fatigued. Eyes: She denies any blurry vision, double vision. Ears, Nose, Throat (ENT): She denies any dysphagia, odynophagia. Cardiovascular: She denies any chest pain or palpitations. Respiratory: She denies any shortness of breath or cough. Gastrointestinal (GI); She denies any nausea or vomiting. Genitourinary She denies any dysuria or hematuria. Musculoskeletal: She reports muscle weakness. Skin: She denies any rashes or ulcers. Psych: She denies any depression/anxiety. Central nervous system (DIAMOND DRILLER): She denies any strokes or seizures Hematology/Oncology: She denies any easy bleeding or bruising. All other review of systems is negative. PHYSICAL EXAMINATION: General: The patient is awake, alert, oriented times three, sitting up in the sofa. Vital signs: Temperature is 97.9 degrees Fahrenheit, blood pressure 132/64, pulse is 82, respiratory rate of 18, saturating 92% on room air. Head and neck exam: Patient has ecchymosis and bruising below both eyes. Extraocular muscles intact. Pupils equally round and reactive to light. Mucous membranes are moist. Neck is supple. There is no jugular venous distention (JVD). Cardiovascular: S1, S2, regular rate. Trace edema of the bilateral lower extremities. Respiratory: Chest is clear to auscultation bilaterally. Bilateral equal air entry. No rales or rhonchi. Abdomen: Soft, obese, positive bowel sounds. Nontender. No organomegaly. Musculoskeletal: No clubbing or cyanosis. Pulses are 2+. DIAMOND DRILLER: No focal deficit. Power is 5/5 in bilateral upper extremities. LAB REVIEW: CBC showed a WBC of 6.3, hemoglobin 10.2, platelets are 225. PTT was 25.9. BMP showed sodium 142, potassium 4, chloride 107, bicarb 32, BUN 49, creatinine is 1.79, calcium is 9.3. IMAGING STUDIES: The patient got CT chest, CT cervical spine, CT of the head and hip x-ray, along with maxillofacial CT, and no acute fractures were seen. CURRENT INPATIENT MEDICATIONS: The patient's medications were all seen by myself. She is currently on Tylenol as needed, albuterol inhaler, Mylanta as needed, aspirin 81 mg by mouth daily, calcitriol 0.25 mcg by mouth every other day, Uloric 80 mg by mouth daily, gabapentin 300 mg by mouth twice a day, Plaquenil 200 mg by mouth twice a day, Ativan as needed, Slow-Mag 64 mg by mouth twice a day, Lopressor 25 mg by mouth twice a day, torsemide 20 mg by mouth daily, trazodone 25 mg nightly, Effexor XR 150 mg by mouth daily. ASSESSMENT: 84-year-old female with past medical history of chronic kidney disease, stage IV, chronic diastolic congestive heart failure, chronic gout, and rheumatoid arthritis, admitted at this time with physical deconditioning, recurrent falls and facial trauma. PLAN: 1. Chronic kidney disease, stage IV. Patient's renal function is stable and at baseline. Her creatinine on admission was 1.8; it is 1.79 today which is at baseline. Okay to continue current dose of diuretics at this time. 2. Chronic diastolic congestive heart failure. Volume status is optimal. Continue current dose of torsemide 20 mg by mouth daily. 3. Secondary hyperparathyroidism. Continue current dose of calcitriol 0.25 mcg by mouth every other day. 4. Chronic gout secondary to chronic kidney disease. Continue current dose of Uloric 80 mg by mouth daily. 5. Rheumatoid arthritis. Continue current dose of Plaquenil. Pain is optimized. 6. Physical deconditioning and recurrent falls. The patient got imaging done which ruled out any acute fractures. She is going to need the physical therapy (PT) and occupational therapy (OT), and she will probably need to be placed in rehab in a longterm. Thank you for involving me in the care of this patient. I shall be happy to follow the patient along with you tomorrow morning.
[2019-10-08 22:00] VITALS: BP 141/76
[2019-10-09] MEDS: ACETAMINOPHEN TAB 650MG DOSE (2X325MG) PO PRN (01:52)
[2019-10-09] MEDS: IPRATROPIUM 0.5MG/ALBUTEROL 2.5MG INH SOL UD 3ML (DUONEB) INH PRN (05:20)
[2019-10-09 05:43] LABS: HEMATOCRIT 35.4 % (36.0-47.0); HEMOGLOBIN 10.6 g/dl (12.0-15.5); MEAN CORPUSCULAR HGB CONC 29.9 g/dl (32.0-36.5); MEAN CORPUSCULAR VOLUME 100.3 fl (80.0-96.0); PLATELET COUNT, AUTOMATED 228 10^3/uL (150-450); RED BLOOD COUNT 3.53 10^6/uL (4.00-5.40); WHITE BLOOD COUNT 7.5 10^3/uL (4.0-10.0)
[2019-10-09 06:08] LABS: CALCIUM LEVEL 9.3 MG/DL (8.8-10.2); CREATININE FOR GFR 2.3 MG/DL (0.55-1.30); GLOMERULAR FILTRATION RATE 21.6 (>32); POTASSIUM SERUM 4.8 MEQ/L (3.5-5.1)
[2019-10-09] MEDS: HEPARIN DRIP 25,000 UNITS in IV 1 EA IV SCH (07:56)
[2019-10-09] MEDS ORDERED: VITAMIN D 50,000 UNITS CAPSULE (ERGOCALCIFEROL 1.25MG) PO SCH (09:00)
[2019-10-09] MEDS: VENLAFAXINE **XR** 75MG CAPSULE PO SCH (09:20)
[2019-10-09] MEDS: OMEPRAZOLE 20 MG CAP PO SCH ×2 (09:20→18:20)
[2019-10-09] MEDS: FEBUXOSTAT 40 MG TABLET (ULORIC) PO SCH (09:20)
[2019-10-09] MEDS: MAGNESIUM CHLORIDE 64 MG TABCR (SLO MAG) PO SCH ×2 (09:21→18:19)
[2019-10-09] MEDS: HYDROXYCHLOROQUINE 200 MG TAB PO SCH ×2 (09:21→18:22)
[2019-10-09] MEDS: APIXABAN 2.5 MG TAB (ELIQUIS) PO SCH ×2 (09:21→20:02)
[2019-10-09] MEDS: METOPROLOL TART 25 MG TABLET PO SCH ×2 (09:21→20:05)
[2019-10-09] MEDS: GABAPENTIN 300 MG CAP PO SCH ×2 (09:21→18:19)
[2019-10-09] MEDS: NYSTATIN 100,000 UNITS/GM TOPICAL PWD 15 GM TOP SCH ×2 (09:22→20:03)
[2019-10-09 14:00] VITALS: BP 151/94
--- NOTE | 2019-10-09 17:16 | ECGEPIP ---
[facility] Test Date: 2019-10-08 Pat Name: QUINCY BARBOSA Department: Room: [place] [address] Gender: Female Vascular Technologist: MARGOT : 1935 Requested By: HERI Jones Order Number: [id number] Reading MD: Rishabh Herrera Measurements Intervals [place] Rate: 94 P: [place]: 0 QRS: -40 QRSD: 160 T: -24 QT: 414 QTc: 518 Interpretive Statements ATRIAL FIBRILLATION RIGHT BUNDLE BRANCH BLOCK POSSIBLE INFERIOR MYOCARDIAL INFARCTION, OF INDETERMINATE AGE Compared to prior tracings in the system, Atrial Fib is NEW Electronically Signed on 10-09-2019 17:16:46 EDT by Rishabh Herrera
--- NOTE | 2019-10-09 17:26 | ECGEPIP ---
[facility] Test Date: 2019-10-09 Pat Name: QUINCY BARBOSA Department: Room: [place] [address] Gender: Female Screening Technician: KEKE : 1935 Requested By: BRIGETTE Gallegos Order Number: [id number] Reading MD: Rishabh Herrera Measurements Intervals [place] Rate: 56 P: [place]: 0 QRS: -32 QRSD: 145 T: -32 QT: 433 QTc: 420 Interpretive Statements ATRIAL FIBRILLATION WITH SLOW VENTRICULAR RESPONSE WITH ABERRANT CONDUCTION OR VENTRICULAR PREMATURE COMPLEXES RIGHT BUNDLE BRANCH BLOCK POSSIBLE ANTERIOR MYOCARDIAL INFARCTION, OF INDETERMINATE AGE VS LEAD MISPLACEMENT INFERIOR MYOCARDIAL INFARCTION, OF INDETERMINATE AGE Last tracing on 10/08/19, 13:56. HEART RATE IS NOW SLOWER Electronically Signed on 10-09-2019 17:26:09 EDT by Rihsabh Herrera
[2019-10-09] MEDS: traZODone 25MG PER 1/2 TABLET PO SCH (20:02)
[2019-10-09] MEDS: ASPIRIN 81 MG ENTERIC TAB PO SCH (20:02)
[2019-10-09 22:00] VITALS: BP 147/91
[2019-10-10] MEDS: LORazepam 0.5 MG TAB PO PRN (00:34)
[2019-10-10 06:00] VITALS: BP 147/96
[2019-10-10 06:07] LABS: HEMATOCRIT 35.1 % (36.0-47.0); HEMOGLOBIN 10.6 g/dl (12.0-15.5); MEAN CORPUSCULAR HEMOGLOBIN 30.3 pg (27.0-33.0); MEAN CORPUSCULAR HGB CONC 30.2 g/dl (32.0-36.5); MEAN CORPUSCULAR VOLUME 100.3 fl (80.0-96.0); PLATELET COUNT, AUTOMATED 242 10^3/uL (150-450); WHITE BLOOD COUNT 6.7 10^3/uL (4.0-10.0)
[2019-10-10 08:13] LABS: CALCIUM LEVEL 9.2 MG/DL (8.8-10.2); CREATININE FOR GFR 2.67 MG/DL (0.55-1.30); GLOMERULAR FILTRATION RATE 18.2 (>32); POTASSIUM SERUM 4.9 MEQ/L (3.5-5.1)
--- NOTE | 2019-10-10 08:14 | IPN ---
DATE: 10/09/2019 Patient says that she had some pain across the abdomen and the bilateral lower quadrants going to the back. She also complains of bilateral hand weakness with decreasing cytotechnologist that she has had for several years. Patient has been put on IV heparin for atrial fibrillation. Current creatinine is 2.3. Nephrology had been consulted for renal failure. PHYSICAL EXAM: Temperature 97.8, pulse 87, respiratory rate 18, blood pressure 141/76, 97% on room air. Generally, patient is awake, alert, oriented to person, place and time, answering questions appropriately. She is edentulous with bilateral ecchymosis under the bilateral eyes. Lungs are clear to auscultation. No wheezing, rales or rhonchi. Heart: S1, S2, irregularly irregular. Abdomen is soft, nontender, nondistended. Positive bowel sounds. Extremities: No pitting edema. LABORATORY DATA: Has been reviewed. Notable for a creatinine of 2.3. ASSESSMENT AND PLAN: This is an 84-year-old elderly female, unable to be cared for by her daughter who is currently scheduled for surgery in [place]. CURRENT ISSUES ARE FOLLOWS: 1. New onset of atrial fibrillation. Had been on IV heparin drip, currently on renally dosed Eliquis. She has fall precautions, ARU. Patient is rate controlled currently on metoprolol 25 mg twice a day. 2. Acute on chronic renal failure. Defer to nephrology for changes in medications. 3. History of rheumatoid arthritis, on chronic Plaquenil. Outpatient followup with her transverse abdominal muscle surgeon. 4. History of chronic heart failure, on Demadex, diastolic dysfunction, preserved ejection fraction, managed by nephrology. DISPOSITION: Patient is unable to be cared for as the daughter will be receiving surgery. She will need placement temporarily. [facility]
[2019-10-10] MEDS: APIXABAN 2.5 MG TAB (ELIQUIS) PO SCH ×2 (08:52→21:52)
[2019-10-10] MEDS: FEBUXOSTAT 40 MG TABLET (ULORIC) PO SCH (08:52)
[2019-10-10] MEDS: OMEPRAZOLE 20 MG CAP PO SCH ×2 (08:52→17:08)
[2019-10-10] MEDS: VENLAFAXINE **XR** 75MG CAPSULE PO SCH (08:52)
[2019-10-10] MEDS: GABAPENTIN 300 MG CAP PO SCH ×2 (08:52→17:08)
[2019-10-10] MEDS: MAGNESIUM CHLORIDE 64 MG TABCR (SLO MAG) PO SCH ×2 (08:53→17:07)
[2019-10-10] MEDS: HYDROXYCHLOROQUINE 200 MG TAB PO SCH ×2 (08:53→17:08)
[2019-10-10] MEDS: METOPROLOL TART 25 MG TABLET PO SCH ×2 (08:53→21:52)
[2019-10-10] MEDS: CALCITRIOL 0.25 MCG CAP (S0169) PO SCH (08:53)
[2019-10-10] MEDS: NYSTATIN 100,000 UNITS/GM TOPICAL PWD 15 GM TOP SCH ×2 (08:54→21:51)
[2019-10-10] MEDS: TORSEMIDE 20 MG TAB PO SCH (09:17)
[2019-10-10 11:04] LABS: URIC ACID 4.3 MG/DL (2.6-6.0)
--- NOTE | 2019-10-10 11:57 | IPN ---
DATE: 10/09/2019 SUBJECTIVE: The patient was seen and examined at the bedside this morning. She is afebrile, hemodynamically stable. She is laying in the bed. There is slight bump in the creatinine today, creatinine has bumped up from 1.7 to 2.3. The patient, herself denies any active complaints at this time. OBJECTIVE: Vital signs: Temperature is 98.6 degrees Fahrenheit, blood pressure 151/94, pulse is 72, respiratory of 18, saturating 93% on room air. Intake and output: Urine output recorded is 1150 mL yesterday 501 mL so far today since overnight. Weight in the bed scale was 75.3 kg yesterday. PHYSICAL EXAMINATION: GENERAL: The patient is awake, alert, oriented times three, laying in bed in no apparent distress. HEAD AND NECK: Exam extraocular muscles intact. Pupils equally round and reactive to light. Mucous membranes are moist. Neck is supple. There is no jugular venous distention (JVD). CARDIOVASCULAR: S1, S2, regular rate. No significant edema of the bilateral lower extremities. RESPIRATORY: Chest is clear to auscultation bilaterally. Bilateral equal air entry. No rales or rhonchi. ABDOMEN: Soft, obese, positive bowel sounds. Nontender. No organomegaly. MUSCULOSKELETAL: No clubbing or cyanosis. Pulses are 2+. CENTRAL NERVOUS SYSTEM (PRIMARY CARE MD): No focal deficit. Power is 5/5 in all extremities. LAB REVIEW: CBC showed WBC 7.5, hemoglobin 56, platelets of 228. BMP showed sodium 139, potassium 4.8, chloride 104, bicarb 32, BUN 56, creatinine is 2.3,it was 1.7 yesterday. Microbiology: Respiratory viral panel is negative. CURRENT INPATIENT MEDICATIONS: The patient's medications were all reviewed by myself. Oral torsemide dose was held this morning because of worsening creatinine. No other significant change in medications today as compared with yesterday. ASSESSMENT/PLAN: 1. Chronic kidney disease stage IV: Patient's renal function is slightly deteriorated. I have held her morning dose of torsemide. No need of IV diuretics at this time. 2. Chronic diastolic congestive heart failure: Volume status is optimal actually and because of worsening creatinine, torsemide is on hold. 3. Chronic gout: Continue current dose of Uloric 4. Secondary hyperparathyroidism: Continue current dose of calcitriol 0.25 mcg once every 48 hours. 5. Physical deconditioning and recurrent falls. Continue physical therapy (PT) and occupational therapy (OT).
[2019-10-10] MEDS ORDERED: NS 1,000 ML IV SCH (13:00)
--- NOTE | 2019-10-10 13:57 | IPN ---
DATE: 10/10/2019 Mrs. Cheema was seen this morning on her bedside. She is sitting in the chair getting ready to go to the bathroom for her bath. She is still somewhat short of breath. She denies any nausea or vomiting. Overall she is feeling well. PHYSICAL EXAMINATION: Temperature 98.3 degrees Fahrenheit, heart rate 92 per minute and respiratory rate 18 per minute. Blood pressure 139/94 mmHg and oxygen saturation 95%. Intake and output records are incomplete from yesterday. She weighs 75.6 kg. She has periorbital ecchymosis from her recent fall. She is edentulous and without any thrush or ulcers. Neck veins are not abnormally distended while she is sitting upright. Heart sounds are irregular in rhythm and lungs have bilateral expiratory wheezing. Abdomen: Soft and nontender and bowel sounds are normal. Extremities have no cyanosis or clubbing. She does have ecchymosis on her left arm. Neurologically she is grossly intact. Today's labs show WBC count 6.7, hemoglobin 10.6 and hematocrit 35.1. Platelets 242. Sodium 140, potassium 4.9, CO2 of 29, BUN 65 and creatinine 2.67, glucose 162 and calcium 9.2. PROBLEMS: 1. Acute kidney injury superimposed on chronic kidney disease. Her kidney function has been gradually worsening for last 3 days. GFR is down to 18 today. Her electrolytes are stable. 2. Anemia. Her anemia is essentially unchanged since admission and does not need any urgent intervention. 3. Congestive heart failure. Her volume status seems to be reasonably well compensated. She remains on torsemide 20 mg daily, and we will monitor her urine output and kidney function closely. 4. Gout. She is currently asymptomatic and remains on Uloric 80 mg daily. 5. Chronic obstructive pulmonary disease (COPD). She has mild expiratory wheezing and continues with her nebulizers and inhalers.
[2019-10-10 14:00] VITALS: BP 110/70
[2019-10-10] MEDS: IPRATROPIUM 0.5MG/ALBUTEROL 2.5MG INH SOL UD 3ML (DUONEB) INH PRN (14:37)
--- NOTE | 2019-10-10 15:08 | IPN ---
DATE: 10/10/2019 Patient has no new complaints overnight. She has been instructed not to try to ambulate by herself, as she has risk of recurrent falls, and she is currently on Eliquis. She currently denies any chest pain, pressure, or tightness, shortness of breath, lightheadedness, dizziness. Denies fevers, chills, or cough. Temperature 98.3, pulse 70, respiratory rate 18, blood pressure 147/96, 95% on room air. GENERAL: Awake, alert, oriented times three, answering questions appropriately. Patient has ecchymotic areas under her eyes bilaterally. Extraocular muscles are intact. Edentulous. Moist mucous membranes. No jugular venous distention (JVD). No thyromegaly. No cervical lymphadenopathy. LUNGS: Clear to auscultation. No wheezes, rales, or rhonchi. HEART: S1, S2, irregularly irregular. ABDOMEN: Soft, nontender, nondistended. Positive bowel sounds. EXTREMITIES: No cyanosis, clubbing. Chronic venous changes in the lower extremities. LABORATORY DATA: White count 6.7, hemoglobin 10, hematocrit 35, platelet count 242. Sodium 140, potassium 4.9, chloride 104, bicarbonate 29, BUN 65, creatinine 2.67, glucose 162. Input/output: Input 910, output 500, +410. Current weight is 75.[address] 10/07/2019: No CT evidence of acute trauma. No evidence of pulmonary edema or aspiration pneumonia. Large hiatal hernia. ASSESSMENT AND PLAN: This is an 84-year-old female with history of stage IV renal failure, chronic diastolic heart failure, gout, secondary hyperparathyroidism, new-onset atrial fibrillation, history of rheumatoid arthritis, and chronic heart failure, presented for placement since her primary caregiver is undergoing surgery in [place]. CURRENT ISSUES: 1. Acute on chronic renal failure, stage IV, currently with worsening creatinine. Patient was on torsemide, which we will hold for now. Strict intake and output, daily weights. Renally dose all medications. Nephrology is consulted. Will attempt gentle hydration. Monitor intake and output. Recheck metabolic panel at 1999. 2. New-onset atrial fibrillation. Currently on metoprolol 25 twice a day. Eliquis renally dosed. We discussed this morning that she is high risk of bleeding secondary to recurrent falls, but she wanted to be treated for prevention of cerebrovascular accident (CVA). She says that she will ask for assistance when she tries to ambulate. We discussed the benefits of Eliquis versus aspirin, and she has opted to take the Eliquis for now. Should the patient demonstrate noncompliance with assisted ambulation, Eliquis will be discontinued, and she will be placed on aspirin. 3. History of rheumatoid arthritis, on chronic Plaquenil. 4. Chronic neuropathy, on gabapentin. DISPOSITION: Patient will be placement. [facility]
[2019-10-10] MEDS ORDERED: LEVALBUTEROL 1.25 MG/0.5 ML CONCENTRATE NEB INH PRN (16:00)
[2019-10-10] MEDS ORDERED: LEVALBUTEROL 1.25 MG/0.5 ML CONCENTRATE NEB NEB ONE (16:15)
[2019-10-10] MEDS ORDERED: methylPREDNISolone INJ 125 MG/2 ML VIAL (J2930) IV ONE (16:15)
[2019-10-10] MEDS: TIOTROPIUM INHALER/CAPSULE (SPIRIVA) INH SCH (16:20)
--- NOTE | 2019-10-10 16:26 | REP ---
Clinical: Shortness of breath . Comparison: 03/15/2019 . Findings: The mediastinum and cardiac silhouette are stable. Moderate hiatal hernia and chronic left basilar changes are noted. The lung cole are clear without acute consolidation, effusion, or pneumothorax. Impression: No acute cardiopulmonary process appreciated. Electronically Signed by Chintan Washburn MD 10/10/2019 04:18 P
[2019-10-10 16:28] LABS: ABG BASE EXCESS 1.1 (-2.0-2.0); ABG HCO3 25.8 MEQ/L (22.0-26.0); ABG O2 SATURATION 98.1 % (95.0-99.0); ABG PARTIAL PRESSURE CO2 41.4 mmHg (35.0-45.0); ABG PARTIAL PRESSURE O2 114.3 mmHg (75.0-100.0); ABG STANDARD HCO3 25.4 MEQ/L (22.0-26.0); ABG pH (ARTERIAL) 7.412 UNITS (7.350-7.450)
[2019-10-10 16:59] LABS: CALCIUM LEVEL 9.2 MG/DL (8.8-10.2); CREATININE FOR GFR 2.93 MG/DL (0.55-1.30); GLOMERULAR FILTRATION RATE 16.3 (>32); POTASSIUM SERUM 4.8 MEQ/L (3.5-5.1)
[2019-10-10 17:04] LABS: CK-MB VALUE MASS 2.3 NG/ML (<3.6); MB/CK RELATIVE INDEX 3.83 (< OR =4); TROPONIN I 0.05 NG/ML (< 0.10)
[2019-10-10] MEDS: LEVALBUTEROL 1.25 MG/0.5 ML CONCENTRATE NEB INH SCH ×2 (20:03→23:51)
[2019-10-10 21:20] LABS: CREATININE FOR GFR 3.03 MG/DL (0.55-1.30); GLOMERULAR FILTRATION RATE 15.7 (>32); POTASSIUM SERUM 5.4 MEQ/L (3.5-5.1)
[2019-10-10] MEDS: ASPIRIN 81 MG ENTERIC TAB PO SCH (21:51)
[2019-10-10] MEDS: traZODone 25MG PER 1/2 TABLET PO SCH (21:51)
[2019-10-10] MEDS: methylPREDNISolone INJ 125 MG/2 ML VIAL (J2930) IV SCH (21:51)
[2019-10-10 22:00] VITALS: BP 112/64
[2019-10-11] MEDS: methylPREDNISolone INJ 125 MG/2 ML VIAL (J2930) IV SCH ×2 (03:41→09:32)
[2019-10-11] MEDS: LEVALBUTEROL 1.25 MG/0.5 ML CONCENTRATE NEB INH SCH ×6 (04:00→23:31)
[2019-10-11 06:00] VITALS: BP 137/89
[2019-10-11 07:04] LABS: CALCIUM LEVEL 9.2 MG/DL (8.8-10.2); CREATININE FOR GFR 2.8 MG/DL (0.55-1.30); GLOMERULAR FILTRATION RATE 17.2 (>32)
[2019-10-11] MEDS: TIOTROPIUM INHALER/CAPSULE (SPIRIVA) INH SCH (07:24)
[2019-10-11] MEDS ORDERED: TORSEMIDE 20 MG TAB PO SCH (09:00)
[2019-10-11] MEDS: FEBUXOSTAT 40 MG TABLET (ULORIC) PO SCH (09:33)
[2019-10-11] MEDS: MAGNESIUM CHLORIDE 64 MG TABCR (SLO MAG) PO SCH ×2 (09:33→17:10)
[2019-10-11] MEDS: OMEPRAZOLE 20 MG CAP PO SCH ×2 (09:37→17:10)
[2019-10-11] MEDS: METOPROLOL TART 25 MG TABLET PO SCH ×2 (09:37→22:04)
[2019-10-11] MEDS: HYDROXYCHLOROQUINE 200 MG TAB PO SCH ×2 (09:38→17:10)
[2019-10-11] MEDS: APIXABAN 2.5 MG TAB (ELIQUIS) PO SCH ×2 (09:38→22:04)
[2019-10-11] MEDS: VENLAFAXINE **XR** 75MG CAPSULE PO SCH (09:38)
[2019-10-11] MEDS: GABAPENTIN 300 MG CAP PO SCH ×2 (09:38→17:10)
[2019-10-11] MEDS: NYSTATIN 100,000 UNITS/GM TOPICAL PWD 15 GM TOP SCH ×2 (09:39→22:06)
--- NOTE | 2019-10-11 12:35 | IPN ---
DATE: 10/11/2019 SUBJECTIVE: Yesterday, the patient had significant respiratory distress. She had been given IV fluids for worsening renal function and diuretics held. BNP was 19,882. Repeat chest x-ray, however, did not show any congestive heart failure or pleural effusion. No acute cardiopulmonary process. She was given IV Solu-Medrol with improvement. Arterial blood gas was 7.4, CO2 of 41, and O2 of 114. She feels slightly improved today with Solu-Medrol on board. Resumed back on her home dose of torsemide 20 mg daily. Output overnight was 350, 450 this morning. Creatinine slightly improved to 2.8 from 3.03. No fever or chills overnight. Respiratory panel on 10/09/2019 on admission was negative for COVID and negative for any other respiratory infection. The patient says that her breathing has improved. No nausea or vomiting. Still coughing with mucus. No fever or chills overnight. No nausea, vomiting, diarrhea, abdominal pain, bright red blood per rectum, melena, or black, tarry stools. OBJECTIVE: PHYSICAL EXAMINATION: VITALS: PLS SEE CHART Awake, alert, oriented, edentulous. No use of respiratory accessory muscles. No jugular venous distention (JVD). Lungs: The patient has crackles bilaterally. Heart: S1, S2, irregularly irregular. Abdomen: Soft, nontender, nondistended. Positive bowel sounds. Extremities: No cyanosis or clubbing. Laboratory data have been reviewed. Imaging studies reviewed. ASSESSMENT AND PLAN: An 84-year-old female with history of chronic kidney disease IV, chronic atrial fibrillation, rheumatoid arthritis, chronic neuropathy, diastolic heart failure, secondary hyperparathyroidism, presented for placement since her daughter, who is the primary personal care aide, is undergoing surgery in [place]. IMPRESSION: Acute on chronic renal failure, stage IV. Currently with the same stage despite being on torsemide. Strict intake and output, daily weights. Nephrology managing fluid balance. New onset atrial fibrillation. After an extensive talk with her, she would prefer to be on stronger anticoagulation than just the aspirin despite the risk of fall and bleeding. She says that she will always call for help prior to attempting to move, as she is afraid that she may have an intracranial bleed if she falls and hits her head. She is currently rate controlled on metoprolol 25 mg twice a day and Eliquis renally dosed at 2.5 mg twice a day. Should the patient demonstrate noncompliance with assisted ambulation, Eliquis will be discontinued due to increased risk of falls and intracranial bleeding, and she will be placed on aspirin. Chronic obstructive pulmonary disease (COPD) exacerbation. Patient had worsening distress yesterday and was given IV Solu-Medrol; she is currently on IV every 6 hours, was given 125 yesterday with significant improvement. Chest x-ray showed no pulmonary edema, congestive heart failure (CHF) pattern or pneumonia. She was continued on her home dose of torsemide. Gastrointestinal (GI) prophylaxis with Prilosec 40 mg twice a day. She is on nebulizer treatments with Xopenex due to recent atrial fibrillation with tachycardia. We are unable to use albuterol. Start titration to prednisone since the patient has clinically improved. DISPOSITION: Patient will need placement as the patient's caregiver is having surgery this week in [place]. [facility]
[2019-10-11 14:00] VITALS: BP 156/95
[2019-10-11 22:00] VITALS: BP 138/79
[2019-10-11] MEDS: ASPIRIN 81 MG ENTERIC TAB PO SCH (22:04)
[2019-10-11] MEDS: traZODone 25MG PER 1/2 TABLET PO SCH (22:04)
[2019-10-11] MEDS: ACETAMINOPHEN TAB 650MG DOSE (2X325MG) PO PRN (22:05)
[2019-10-11] MEDS: methylPREDNISolone INJ 40 MG/1 ML VIAL (J2920) IV SCH (22:05)
[2019-10-12] MEDS: LEVALBUTEROL 1.25 MG/0.5 ML CONCENTRATE NEB INH SCH ×5 (03:30→19:19)
[2019-10-12 06:00] VITALS: BP 140/2
[2019-10-12 06:32] LABS: CALCIUM LEVEL 8.9 MG/DL (8.8-10.2); CREATININE FOR GFR 2.87 MG/DL (0.55-1.30); GLOMERULAR FILTRATION RATE 16.7 (>32)
[2019-10-12] MEDS: TIOTROPIUM INHALER/CAPSULE (SPIRIVA) INH SCH (07:11)
[2019-10-12] MEDS: VENLAFAXINE **XR** 75MG CAPSULE PO SCH (08:20)
[2019-10-12] MEDS: GABAPENTIN 300 MG CAP PO SCH ×2 (08:20→16:05)
[2019-10-12] MEDS: OMEPRAZOLE 20 MG CAP PO SCH ×2 (08:20→16:06)
[2019-10-12] MEDS: CALCITRIOL 0.25 MCG CAP (S0169) PO SCH (08:20)
[2019-10-12] MEDS: FEBUXOSTAT 40 MG TABLET (ULORIC) PO SCH (08:20)
[2019-10-12] MEDS: methylPREDNISolone INJ 40 MG/1 ML VIAL (J2920) IV SCH ×2 (08:21→20:28)
[2019-10-12] MEDS: APIXABAN 2.5 MG TAB (ELIQUIS) PO SCH ×2 (08:21→20:28)
[2019-10-12] MEDS: METOPROLOL TART 25 MG TABLET PO SCH ×2 (08:21→20:29)
[2019-10-12] MEDS: NYSTATIN 100,000 UNITS/GM TOPICAL PWD 15 GM TOP SCH ×2 (08:22→20:29)
[2019-10-12] MEDS: HYDROXYCHLOROQUINE 200 MG TAB PO SCH ×2 (09:25→16:06)
[2019-10-12] MEDS: MAGNESIUM CHLORIDE 64 MG TABCR (SLO MAG) PO SCH ×2 (09:25→16:06)
--- NOTE | 2019-10-12 11:47 | IPN ---
DATE OF VISIT: 10/11/2019 Mrs. Cheema is seen this morning on her bedside. She is sitting in the recliner chair. She is feeling about the same and denies any nausea or vomiting. She remains at 2 liters of oxygen. She has no fever or chills. On physical exam, temperature 97 degrees Fahrenheit, heart rate 88 per minute and respiratory rate 18 per minute. Blood pressure 137/89 mmHg and oxygen saturation 96% on 2 liters oxygen. Intake and output records from yesterday show a positive fluid balance of 910 mL. Her recorded urine output is only 350 mL, which is probably not accurately recorded. Her weight is 75.3 kg, which is essentially unchanged for last 3 days. Her periorbital ecchymosis is unchanged. She is edentulous and without any oral thrush or ulcers. Neck is supple and jugular venous distention (JVD) is not abnormally elevated. Heart sounds are regular and lungs with expiratory wheezing and few basilar rhonchi. Abdomen soft and nontender and bowel sounds are normal. Extremities without t any cyanosis or clubbing. Left arm ecchymosis is unchanged. Neurologically, she is awake, alert and at her baseline mentation. Today's labs show WBC count 6.7, hemoglobin 10.6 and hematocrit 35.1. Platelets 242. Sodium 138, potassium 5.0, CO2 27, BUN 72 and creatinine 2.80. Glucose 253 and calcium 9.2. PROBLEMS: 1. Acute renal failure superimposed on chronic kidney disease. Slight improvement in the creatinine is noticed and BUN is unchanged since yesterday. She has been on low-dose diuretic and seems to be in positive fluid balance over last 24 hours, though I feel that her urine output has not been recorded accurately. At this point, I will not change anything and recheck her renal profile tomorrow. 2. Congestive heart failure and chronic obstructive pulmonary disease (COPD). She is still wheezing and volume status seems to be reasonably well-compensated. I will continue with her chronic diuretic dose of torsemide 20 mg daily. 3. Hyperkalemia. She is currently not really receiving any potassium supplement and in fact has been on diuretic, which is likely to keep her potassium level under control. We will recheck her renal profile in the morning. 4. Anemia. Her anemia is essentially unchanged. No intervention is needed at this point. 5. Gout. She remains asymptomatic at this point and continues with Uloric daily. We will check her uric acid level tomorrow. Her last uric acid level was 4.3. MTDD
[2019-10-12] MEDS: SENOKOT S TAB PO SCH ×2 (12:15→20:28)
[2019-10-12] MEDS ORDERED: BISACODYL 5 MG TAB PO PRN (12:15)
[2019-10-12] MEDS ORDERED: MIRALAX *UNIT DOSE* 17GM PACKET PO PRN (12:15)
[2019-10-12] MEDS ORDERED: BISACODYL 5 MG TAB PO ONE (12:15)
[2019-10-12 14:00] VITALS: BP_SYST 110; BP_SYST 143; BP_DIAS 58; BP_DIAS 93
[2019-10-12] MEDS ORDERED: guaiFENesin DM LIQ 10ML UD PO ONE (15:00)
--- NOTE | 2019-10-12 16:10 | REP ---
CHEST X-RAY: TWO VIEWS. HISTORY: Cough and shortness of breath. Comparison chest x-ray: October 10, 2019. FINDINGS: There is a large hiatal hernia behind the heart. There is linear plate-like atelectasis in the left base. Right lung is clear. Pleural angles are sharp. There is a dextroconvex curvature in the thoracic spine. Bilateral shoulder prostheses are noted in place. Pulmonary vasculature is not increased. IMPRESSION: Large hiatal hernia. Cardiomegaly. Platelike atelectasis left base. Electronically Signed by Yovanny Pace MD 10/12/2019 05:08 P
--- NOTE | 2019-10-12 17:27 | IPN ---
DATE OF VISIT: 10/12/2019 Mrs. Cheema is seen this morning on her bedside. She is feeling about the same, still weak and reports that her legs are watery. Her chronic dyspnea is unchanged. She denies any fever or chills. On physical exam, temperature 97.9 degrees Fahrenheit, heart rate 90 per minute and respiratory rate 20 per minute. Blood pressure 114/90 mmHg and oxygen saturation 98% on 2 liters of oxygen. Infraorbital ecchymosis on both her cheeks is unchanged. Neck is supple and jugular venous distention (JVD) not elevated. Trachea is midline. Heart sounds are irregular in rhythm. Lungs have slight expiratory wheezing bilaterally. Abdomen soft and nontender and bowel sounds are normal. Extremities without any cyanosis or clubbing. Left arm ecchymosis is slightly better. Neurologically, she is without a focal deficit. Today's labs show sodium 133, potassium 5.0, CO2 27, BUN 82 and creatinine 2.87. Glucose 276 and calcium 8.9. PROBLEMS: 1. Acute kidney injury superimposed on chronic kidney disease. No significant change in her kidney function. She did have slight fluctuation over last few days. I am going to stop her diuretic for now and see how she does. Her volume status seems reasonably well-compensated. 2. Hyponatremia, mild hyponatremia. Her blood sugar is 276, so her corrected sodium is still within normal range. At this point, no intervention is needed and diuretic is being stopped. 3. Congestive heart failure. Volume status seems reasonably well-compensated. She did have elevated proBNP level of 19,882 just a couple of days ago. Clinically, she looks comfortable. So, I will hold off her diuretic and see how she does. 4. Hyperkalemia. Potassium level remains borderline and does not need any intervention at present. 5. Generalized weakness. She is still very weak and needs physical therapy and rehab. Edited: 10/12/2019 1728 dalia
[2019-10-12] MEDS ORDERED: guaiFENesin DM LIQ 10ML UD PO PRN (19:00)
[2019-10-12] MEDS: ASPIRIN 81 MG ENTERIC TAB PO SCH (20:28)
[2019-10-12] MEDS: traZODone 25MG PER 1/2 TABLET PO SCH (20:28)
[2019-10-12 22:00] VITALS: BP 129/71
[2019-10-13] MEDS: ACETAMINOPHEN TAB 650MG DOSE (2X325MG) PO PRN (02:28)
[2019-10-13] MEDS: LEVALBUTEROL 1.25 MG/0.5 ML CONCENTRATE NEB INH SCH ×4 (02:41→11:14)
[2019-10-13 06:00] VITALS: BP 133/74
[2019-10-13 06:35] LABS: CALCIUM LEVEL 9.6 MG/DL (8.8-10.2); CREATININE FOR GFR 2.97 MG/DL (0.55-1.30); GLOMERULAR FILTRATION RATE 16.1 (>32); POTASSIUM SERUM 5.4 MEQ/L (3.5-5.1)
[2019-10-13] MEDS: TIOTROPIUM INHALER/CAPSULE (SPIRIVA) INH SCH (07:02)
[2019-10-13] MEDS: MAGNESIUM CHLORIDE 64 MG TABCR (SLO MAG) PO SCH (08:05)
[2019-10-13] MEDS: SENOKOT S TAB PO SCH (08:05)
[2019-10-13] MEDS: FEBUXOSTAT 40 MG TABLET (ULORIC) PO SCH (08:05)
[2019-10-13] MEDS: APIXABAN 2.5 MG TAB (ELIQUIS) PO SCH (08:05)
[2019-10-13] MEDS: OMEPRAZOLE 20 MG CAP PO SCH (08:05)
[2019-10-13] MEDS: VENLAFAXINE **XR** 75MG CAPSULE PO SCH (08:05)
[2019-10-13] MEDS: GABAPENTIN 300 MG CAP PO SCH (08:05)
[2019-10-13] MEDS: HYDROXYCHLOROQUINE 200 MG TAB PO SCH (08:05)
[2019-10-13] MEDS: methylPREDNISolone INJ 40 MG/1 ML VIAL (J2920) IV SCH (08:06)
[2019-10-13] MEDS: NYSTATIN 100,000 UNITS/GM TOPICAL PWD 15 GM TOP SCH (08:07)
[2019-10-13 08:08] VITALS: BP 145/92
[2019-10-13] MEDS: METOPROLOL TART 25 MG TABLET PO SCH (08:08)
[2019-10-13] MEDS ORDERED: TORSEMIDE 20 MG TAB PO SCH (09:00)
[2019-10-13] MEDS ORDERED: SOD POLYSTYRENE SULFONATE SUSP 15 GM/60 ML UD PO ONE (09:00)
--- NOTE | 2019-10-13 09:07 | IPN ---
DATE OF SERVICE: 10/12/2019 Since the patient has been placed on Solu-Medrol, her breathing is much improved. She said that she is much more comfortable now. She complains of increased swelling in her lower extremities, managed by nephrology with diuretics. The patient has no other acute issues. No chest pain, pressure or tightness, lightheadedness, dizziness. Denies any cough productive of sputum, fever, or chills. PHYSICAL EXAMINATION Temperature 97.9, pulse 90, respiratory rate 20, blood pressure 141/93, 98% on 2 liters nasal cannula. Generally, the patient is awake, alert, oriented to herself, answers questions appropriately, disoriented to date. She has bilateral ecchymosis under her eyes and to the left cheek secondary to recent fall. Essential benign tremors. The patient has head tremors at baseline. No jugular venous distention (JVD). No thyromegaly. No cervical lymphadenopathy. Lungs: Diminished with fine crackles bilaterally and faint expiratory wheezing. Heart: S1, S2, irregularly irregular. Abdomen: Obese. Soft, nontender, nondistended. Extremities: Trace edema bilateral lower extremities. Laboratory Data: 10/10/2019 CBC as well as 10/12/2019 metabolic panel have been reviewed. The patient is noted to have a creatinine of 2.87, decreased from 3.03 on 10/10/2019. Current Medications: Solu-Medrol 40 IV every 12 hours, Xopenex, Spiriva, vitamin D, Apixaban, calcitriol, Uloric, Effexor, Nystatin, metoprolol, gabapentin, hydroxychloroquine, Slow-Mag, Prilosec, Flonase, Ativan, acetaminophen, milk of magnesia, Mylanta, aspirin, and trazodone. ASSESSMENT AND PLAN: This is an 84-year-old female with history of chronic kidney disease stage III-IV, chronic obstructive pulmonary disease, chronic neuropathy, rheumatoid arthritis, diastolic heart failure secondary to hyperparathyroidism, who was brought into the emergency room for placement while her daughter is undergoing surgery in [place]. The patient was found to have acute on chronic renal failure and then developed respiratory distress. CURRENT ISSUES: 1. Acute on chronic renal failure, currently stage IV. Nephrology is following and is managing patient's fluid balance. She is kept on strict ins and outs, daily weights, renally dosing all medications. 2. New onset atrial fibrillation. I have had extensive talks with her about aspirin versus Eliquis. Due to history of recurrent falls, I did tell her that she is not to ambulate without any assistance. She asked whether she would develop increased risk of stroke with just aspirin and opted to be on Eliquis in order to prevent any CVA in the future. Should the patient demonstrate noncompliance with assisted ambulation, Eliquis will be discontinued due to increased risk of falls and intracranial bleeding and she will be placed only on aspirin. She is currently well controlled on metoprolol 25 mg twice a day. 3. Acute chronic obstructive pulmonary disease (COPD) exacerbation and worsening respiratory distress about three days ago that responded well to IV Solu-Medrol. Currently on a tapering dose. Chest x-ray shows no pulmonary edema or congestive heart failure pattern or pneumonia. She is continued on nebulizer treatments off supplemental oxygen which we are trying to wean today. 4. Morbid obesity complicating her care. 5. Chronic diastolic heart failure managed by nephrology. Patient had been on increasing doses of Lasix and then changed to torsemide, still at Stage IV renal failure. 6. Rheumatoid arthritis and Sjogren's. Resumed on her home medications. 7. History of obstructive sleep apnea. No CPAP during this admission. 8. Chronic venous insufficiency, stable. Currently with trace edema. 9. Hypertensive heart disease. Resumed on her home dose of metoprolol. 10. Reflux. On Prilosec. 11. Essential tremors without changes in ADLs. [facility]
--- NOTE | 2019-10-13 10:30 | ECHO ---
DATE OF STUDY: 10/12/2019 DATE OF : 1935 AGE: 84 GENDER: Female HEIGHT: 59 inches WEIGHT: 169 pounds BODY SURFACE AREA: 1.72 m2 INPATIENT: [address] [place] [address] room 4210 REFERRING PHYSICIAN: Dr. Alanis Espitia INDICATION: Dyspnea. MEASUREMENTS: 2-D Measurements: RV: 4.2 cm LV: 4.6 cm Septum: 1.2 cm Posterior wall: 1.2 cm Aortic root: 3.3 cm LA: 4.0 cm LVEF: 35-40% Doppler Measurements: AV: 1.4 m/sec LVOT: 0.6 m/sec LVOT diameter: 1.7 cm Dimensionless index: 0.36 MV: E 102 Early mitral deceleration time: 225 ms MVA: 3.4 cm2 PV: 0.7 m/sec Pulmonary artery acceleration time: 123 ms RVSP: 47 mmHg IVC: 2.3 cm E prime medial: 4.7, E prime lateral: 4.7 Average E/E prime ratio: 21.7/PCWP 28.8 mmHg COMMENTS: Underlying atrial fibrillation with controlled ventricular response. Right bundle branch block. M-mode and two-dimensional echocardiography was performed with pulsed, continuous wave, color flow and tissue Doppler studies. Borderline left ventricle hypertrophy with normal left ventricular size. Inferior and apical akinesis, hypokinesis of the inferoseptum and inferolateral turcios with normal lateral wall motion and moderately severe impairment of global resting systolic function. Mildly dilated left atrium with elevated estimated mean left atrial pressure. Mildly dilated right heart chambers with Doppler evidence of at least moderate pulmonary hypertension. Mildly dilated inferior vena cava with virtually absent respiratory collapse in keeping with elevated central venous pressure/right heart failure. Normal aortic dimensions. Moderate aortic valvular sclerosis with at least mild stenosis and trace insufficiency. Moderately severe mitral annular calcification with perhaps mild LV inflow tract obstruction and mild-moderate mitral insufficiency. Normal-appearing tricuspid valve with moderately severe tricuspid insufficiency. No apparent intracardiac mass or pericardial effusion.
[2019-10-13] MEDS ORDERED: predniSONE 20 MG TAB PO ONE (11:00)
[2019-10-13] MEDS ORDERED: METO1TAB87 PO (11:59)
[2019-10-13] MEDS ORDERED: ELIQ2.5T PO (11:59)
[2019-10-13] MEDS ORDERED: PRED10TA2 PO (11:59)
[2019-10-13 12:45] LABS: CALCIUM LEVEL 9.7 MG/DL (8.8-10.2); CREATININE FOR GFR 2.93 MG/DL (0.55-1.30); GLOMERULAR FILTRATION RATE 16.3 (>32)
--- NOTE | 2019-10-13 15:59 | DS.PDOC ---
Discharge Summary General Date of Admission Oct 09, 2019 at 08:09 Date of Discharge 10/13/2019 Discharge Summary PROCEDURES PERFORMED DURING STAY: [None]. ADMITTING DIAGNOSES / DISCHARGE DIAGNOSES: Acute on chronic renal failure, currently stage IV New onset atrial fibrillation Acute COPD exacerbation Morbid obesity Chronic diastolic heart failure managed by nephrology Rheumatoid arthritis and Sjogren's History of obstructive sleep apnea. Chronic venous insufficiency, stable. HTN GERD Essential tremors without changes in ADLs DVT prophylaxis COMPLICATIONS/CHIEF COMPLAINT: Weakness, Fall With Injury. HISTORY OF PRESENT ILLNESS: Patient is an 84-year-old female with a past medical history of chronic kidney disease (3/4), COPD, Neuropathy, RA, Diastolic CHF, Hyperparathyroidism, who presented to the ER and was found to have worsening kidney function and respiratory distress. Patient's daughter was unable to care for her at home as she is having surgery in [place]. HOSPITAL COURSE: Acute on chronic renal failure, currently stage IV - No indications for dialysis at this time - c/w strict ins/outs, daily weights, fluid restriction - Will have outpatient follow-up with nephrology - Nephrology has been managing patient's diuretics; will continue with torsemide as an outpatient New onset atrial fibrillation - c/w rate control with metoprolol - Discussion about anticoagulation / ASA with patient; at this point will c/w full anticoagulation; patient was advised about bleeding risks and has verbalized understanding Acute COPD exacerbation - Currently she is not in any respiratory distress - Lung are without wheezing - Will discontinue Solumedrol and start Prednisone taper - c/w inhaled therapy as ordered Morbid obesity - BMI of 34.9 - Complicating her medical care Chronic diastolic heart failure managed by nephrology - Patient had been on increasing doses of Lasix and then changed to torsemide, still at Stage IV renal failure. Rheumatoid arthritis and Sjogren's - c/w home regimen History of obstructive sleep apnea. - Has not been compliant with CPAP Chronic venous insufficiency, stable. - LE with evidence of edema - Nephrology managing diuretics; will c/w Torsemide on discharge HTN - c/w Metoprolol GERD - c/w Prilosec Essential tremors without changes in ADLs DVT prophylaxis - c/w full anticoagulation with Eliquis DISCHARGE MEDICATIONS: Please see below. ALLERGIES: Please see below. PHYSICAL EXAMINATION ON DISCHARGE: Vitals (See below) General: Lying in bed, appears comfortable, AAOx3 HEENT: NC, AT CVS: +S1S2 Lungs: Fair air entry b/l, -w/r/r Abdomen: Soft, ND, NT Extremities: 1+ pitting edema, - Calf tenderness LABORATORY DATA: Please see below. ACTIVITY: [As tolerated]. DISCHARGE PLAN: Follow-up with primary care provider, nephrology and cardiology within 7 days Remain compliant with treatment plan and medications Return to the ER if you experience any problems DISPOSITION: [facility]. DISCHARGE CONDITION: [Stable]. TIME SPENT ON DISCHARGE: 35 minutes Vital Signs/I&Os Vital Signs Date Time Temp Pulse Resp B/P (MAP) Pulse Ox O2 Delivery O2 Flow Rate FiO2 10/13/19 08:08 95 145/92 10/13/19 06:00 97.5 18 96 Room Air 10/12/19 06:00 2.0 I&O- Last 24 Hours up to 6 AM 10/13/19 06:00 Intake Total 1460 ml Output Total 975 ml Balance 485 ml Laboratory Data Labs 24H Laboratory Tests 2 10/13/19 05:55: Anion Gap 4L, Glomerular Filtration Rate 16.1L, Calcium Level 9.6 10/13/19 12:06: Anion Gap 7L, Glomerular Filtration Rate 16.3L, Calcium Level 9.7 CBC/BMP Laboratory Tests 10/13/19 05:55 10/13/19 12:06 Microbiology Microbiology 10/09/19 Respiratory Virus Panel (PCR) (JOSSY) - Final, Complete 10/08/19 Eye/Ear/Nose/Throat Culture - Final, Complete Discharge Medications Scheduled Acetaminophen (Acetaminophen 8 Hour) 650 Mg Tablet.er, 650 MG PO TID, (Reported) 080, 1200, 1700 Apixaban (Eliquis) 2.5 Mg Tablet, 2.5 MG PO BID Aspirin (Aspir 81) 81 Mg Tab, 81 MG PO QHS, (Reported) Calcitriol (Calcitriol) 0.25 Mcg Capsule, 0.25 MCG PO Q2D, (Reported) Cyanocobalamin (Vitamin B-12) (Vitamin B-12) 1,000 Mcg Tablet, 1,000 MCG PO DAILY, (Reported) Ergocalciferol (Vitamin D2) (Vitamin D2) 50,000 Units Cap, 50,000 UNITS PO QWEEK, (Reported) FRIDAYS Febuxostat (Uloric) 80 Mg Tab, 80 MG PO DAILY, (Reported) Gabapentin (Gabapentin) 300 Mg Capsule, 300 MG PO BID, (Reported) 0800, 1700 Hydroxychloroquine Sulfate (Hydroxychloroquine Sulfate) 200 Mg Tab, 200 MG PO BID, (Reported) 0800, 1700 Lorazepam (Ativan) 0.5 Mg Tablet, 0.5 MG PO BID, (Reported) Magnesium Chloride (Mag64) 64 Mg Tablet.dr, 64 MG PO BID, (Reported) 0800, 1700 Metoprolol Tartrate (Metoprolol Tartrate) 25 Mg Tablet, 25 MG PO BID [place]-3 Fatty Acids/Fish Oil (Fish Oil 1,000 mg Capsule) 1 Each Capsule, 1,000 MG PO DAILY, (Reported) Omeprazole (Omeprazole) 40 Mg Cap, 40 MG PO BID, (Reported) 0800, 1700 Prednisone (Prednisone) 10 Mg Tablet, 10 MG PO TAPER Take 4 tabs daily x 3 days, then 3 tabs daily x 3 days, then 2 tabs daily x 3 days, then 1 tab daily x 3 days and stop Torsemide (Torsemide) 20 Mg Tablet, 20 MG PO DAILY, (Reported) Trazodone HCl (Trazodone HCl) 50 Mg Tablet, 25 MG PO QHS, (Reported) Venlafaxine HCl (Venlafaxine HCl ER) 150 Mg Cap.er.24h, 150 MG PO DAILY, (Reported) Scheduled PRN Albuterol Sulfate (Proair Hfa) 8.5 Gm Hfa.aer.ad, 2 PUFF INH QID PRN for SHORTNESS OF BREATH, (Reported) Fluticasone Propionate (Flonase Allergy Relief) 50 Mcg/Act Spr, 50 MCG NA DAILY PRN for CONGESTION, (Reported) Ipratropium/Albuterol Sulfate (Iprat-Albut 0.5-3(2.5) mg/3 ml) 3 Ml Ampul.neb, 1 GEOVANY INH QID PRN for SHORTNESS OF BREATH, (Reported) Allergies Coded Allergies: Penicillins (Verified Allergy, Intermediate, BODY SWELLING, 10/07/19) sulfamethoxazole (Verified Allergy, Intermediate, SWELLING, 10/07/19) trimethoprim (Verified Allergy, Intermediate, SWELLING, 10/07/19) allopurinol (Verified Allergy, Mild, RASH, 10/07/19) rabeprazole (Verified Allergy, Mild, RASH, 10/07/19) risperidone (Verified Allergy, Unknown, 10/07/19) KOFFI LINDSAY MD Oct 13, 2019 15:59
--- NOTE | 2019-10-13 17:26 | IPN ---
DATE: 10/13/2019 Mrs. Cheema is seen this morning on her bedside. She is feeling about the same and reports eating well. She denies any dyspnea, chest pain, nausea or vomiting. She is not using oxygen this morning. PHYSICAL EXAMINATION: Temperature 97.5 degrees Fahrenheit, heart rate 95 per minute and respiratory rate 18 per minute. Blood pressure 145/92 mmHg and oxygen saturation 96% on room air. Infraorbital ecchymosis is unchanged. She is edentulous and without oral thrush or ulcers. Neck is supple and jugular venous distention (JVD) not abnormally elevated. Heart sounds are distant and irregular in rhythm. Lungs sound much better today, and there is no wheezing or rales. Abdomen: Soft and nontender and bowel sounds are normal. Extremities: Without any cyanosis or clubbing. She does have 1+ ankle edema today. Neurologically, she is at her baseline mentation without a focal deficit. Today's chemistry showed sodium level 129, potassium 5.4, CO2 of 26, BUN 100 and creatinine 2.97. Glucose 279 and calcium 9.6. PROBLEMS: 1. Acute kidney injury superimposed on chronic kidney disease. No significant change in her kidney function and only slight worsening since yesterday despite holding her diuretic. Renal profile will be checked again tomorrow morning. 2. Hyperkalemia. Her potassium level has been borderline, and today it is higher than yesterday. She will be given one dose of Kayexalate 15 grams. 3. Hyponatremia. Sodium level worsened while her diuretic is on hold. She has developed some leg edema, and I am going to resume her torsemide 20 mg once a day. Electrolytes will be checked again tomorrow morning. 4. Congestive heart failure. Volume status seems slightly decompensated. Her diuretic was held yesterday due to worsening kidney function, and I am going to resume it today. 5. Anemia. Her anemia has been stable and does not need any intervention.
[2019-10-14] MEDS ORDERED: predniSONE 20 MG TAB PO SCH (09:00)
== END 2019-10-13 14:25 | DRG 683 ==
LOC: EDBD 16:57 → M ED 16:57 → M ED INP 21:10 → ENRESERV 10-08 01:02 → M MSPAV 10-08 01:30 → OBSVTOIN 10-09 08:09
PROVIDERS: ADMIT Neuromusculoskeletal Medicine & OMM; ATTEND Internal Medicine
DX: N17.9 Acute kidney failure, unspecified (principal); I50.32 Chronic diastolic (congestive) heart failure; J44.1 Chronic obstructive pulmonary disease with (acute) exacerbation; E87.1 Hypo-osmolality and hyponatremia; I13.0 Hypertensive heart and chronic kidney disease with heart failure and stage 1 through stage 4 chronic kidney disease, or unspecified chronic kidney disease; N18.4 Chronic kidney disease, stage 4 (severe); M62.81 Muscle weakness (generalized); I48.91 Unspecified atrial fibrillation; M10.30 Gout due to renal impairment, unspecified site; E66.01 Morbid (severe) obesity due to excess calories; G47.33 Obstructive sleep apnea (adult) (pediatric); I87.8 Other specified disorders of veins; K21.9 Gastro-esophageal reflux disease without esophagitis; G25.0 Essential tremor; M35.00 Sjogren syndrome, unspecified; G62.9 Polyneuropathy, unspecified; N25.81 Secondary hyperparathyroidism of renal origin; Z79.82 Long term (current) use of aspirin; Z79.899 Other long term (current) drug therapy; Z88.0 Allergy status to penicillin; Z88.2 Allergy status to sulfonamides; Z88.8 Allergy status to other drugs, medicaments and biological substances; K57.30 Diverticulosis of large intestine without perforation or abscess without bleeding; F41.9 Anxiety disorder, unspecified; R29.6 Repeated falls; E87.5 Hyperkalemia

== ENCOUNTER → 2019-10-14 | Outpatient (REF) ==
[~2019-10-14] MED LIST changes: +ELIQ2.5T PO; +METO1TAB87 PO; +PRED10TA2 PO; +TRAZ-252 PO; +VITA50005 PO
[2019-10-14 07:42] LABS: CALCIUM LEVEL 9.4 MG/DL (8.8-10.2); CREATININE FOR GFR 2.82 MG/DL (0.55-1.30); GLOMERULAR FILTRATION RATE 17.1 (>32); POTASSIUM SERUM 4.4 MEQ/L (3.5-5.1)
== END ==
LOC: SKLAB7 07:00
PROVIDERS: ATTEND Internal Medicine
DX: I50.9 Heart failure, unspecified (principal); N18.9 Chronic kidney disease, unspecified

== ENCOUNTER → 2019-10-15 | Outpatient (REF) ==
[2019-10-15 08:16] LABS: BASO % 0.2 % (0.0-1.0); EOS % 0.3 % (0.0-3.0); HEMATOCRIT 36.7 % (36.0-47.0); HEMOGLOBIN 11.5 g/dl (12.0-15.5); LYMPH # 4.2 10^3/uL (1.5-5.0); MEAN CORPUSCULAR HEMOGLOBIN 30.5 pg (27.0-33.0); MEAN CORPUSCULAR HGB CONC 31.3 g/dl (32.0-36.5); MEAN CORPUSCULAR VOLUME 97.3 fl (80.0-96.0); MONO # 0.7 10^3/uL (0.0-0.8); MONO % 6.6 % (0.0-5.0); NEUTROPHILS # 5.9 10^3/uL (1.5-8.5); NEUTROPHILS % 53.5 % (36.0-66.0); PLATELET COUNT, AUTOMATED 266 10^3/uL (150-450); RED BLOOD COUNT 3.77 10^6/uL (4.00-5.40); WHITE BLOOD COUNT 10.9 10^3/uL (4.0-10.0)
[2019-10-15 08:33] LABS: ALBUMIN 2.7 GM/DL (3.2-5.2); CALCIUM LEVEL 9.2 MG/DL (8.8-10.2); CREATININE FOR GFR 2.51 MG/DL (0.55-1.30); GLOMERULAR FILTRATION RATE 19.5 (>32); POTASSIUM SERUM 4.2 MEQ/L (3.5-5.1)
== END ==
LOC: SKLAB7 10:34
PROVIDERS: ATTEND Internal Medicine
DX: Z79.01 Long term (current) use of anticoagulants (principal)

== ENCOUNTER → 2019-10-20 | Outpatient (REF) ==
--- NOTE | 2019-10-20 11:24 | ECGEPIP ---
[facility] Test Date: 2019-10-20 Pat Name: QUINCY BARBOSA Department: Room: - Gender: Female Licensed Psychologist: MARGARET : 1935 Requested By: Miguel Sena Order Number: [id number] Reading MD: Denae Lobato Measurements Intervals [place] Rate: 97 P: 200 UT: 221 QRS: -34 QRSD: 165 T: 2 QT: 389 QTc: 496 Interpretive Statements SINUS RHYTHM WITH FIRST DEGREE AV BLOCK RIGHT BUNDLE BRANCH BLOCK BIPHASICULAR BLOCK MINIMAL VOLTAGE CRITERIA FOR LVH, CONSIDER NORMAL VARIANT INFERIOR MYOCARDIAL INFARCTION, OF INDETERMINATE AGE PROLONGED QTC NEW A FIB RESOLVED SMALL R PRESENT NOW IN V1 SLIGHT IMPROV STTABN C/W 10/08/19 Electronically Signed on 10-20-2019 11:24:20 EDT by Denae Lobato
== END ==
LOC: SKLAB7 08:00
PROVIDERS: ATTEND Internal Medicine
DX: I48.91 Unspecified atrial fibrillation (principal)

== ENCOUNTER → 2019-10-22 | Outpatient (REF) ==
[2019-10-22 16:01] LABS: APPEARANCE, URINE CLEAR (CLEAR); BACTERIA, URINE AUTO NEGATIVE (NEGATIVE); BILIRUBIN, URINE AUTO NEGATIVE (NEGATIVE); BLOOD, URINE BLOOD NEGATIVE (NEGATIVE); COLOR, URINE YELLOW (YELLOW); GLUCOSE, URINE (UA) AUTO 1+ mg/dL (NEGATIVE); KETONE, URINE AUTO NEGATIVE (NEGATIVE); LEUKOCYTE ESTERASE, URINE AUTO NEGATIVE (NEGATIVE); NITRITE, URINE AUTO NEGATIVE (NEGATIVE); PROTEIN, URINE AUTO 2+ mg/dL (NEGATIVE); RBC, URINE AUTO 0 /HPF (0-3); SPECIFIC GRAVITY URINE AUTO 1.009 (1.002-1.035); SQUAMOUS EPITHELIAL CELL UR AU 0 /HPF (0-6); UROBILINOGEN, URINE AUTO 0.2 mg/dL (0.0-2.0); WBC, URINE AUTO 0 /HPF (0-3)
== END ==
LOC: SKLAB7 11:28
PROVIDERS: ATTEND Nurse Practitioner Family
DX: D72.829 Elevated white blood cell count, unspecified (principal)

== ENCOUNTER → 2019-10-22 | Outpatient (REF) ==
[2019-10-22 09:43] LABS: HEMATOCRIT 39.7 % (36.0-47.0); HEMOGLOBIN 12.2 g/dl (12.0-15.5); MEAN CORPUSCULAR HEMOGLOBIN 30.1 pg (27.0-33.0); MEAN CORPUSCULAR HGB CONC 30.7 g/dl (32.0-36.5); PLATELET COUNT, AUTOMATED 244 10^3/uL (150-450); RED BLOOD COUNT 4.05 10^6/uL (4.00-5.40)
[2019-10-22 09:45] LABS: WHITE BLOOD COUNT 15.9 10^3/uL (4.0-10.0)
[2019-10-22 10:08] LABS: EOSINOPHILS 1 % (0-3); LYMPHOCYTES 56 % (16-44); MONOCYTES 3 % (0-5); NEUTROPHILS 40 % (28-66); PLATELET ESTIMATE NORMAL (NORMAL)
[2019-10-22 10:14] LABS: ALBUMIN 2.6 GM/DL (3.2-5.2); CALCIUM LEVEL 9.6 MG/DL (8.8-10.2); CREATININE FOR GFR 1.48 MG/DL (0.55-1.30); GLOMERULAR FILTRATION RATE 35.9 (>32); PHOSPHORUS LEVEL 2.4 MG/DL (2.5-4.9); POTASSIUM SERUM 4.1 MEQ/L (3.5-5.1)
== END ==
LOC: SKLAB7 07:00
PROVIDERS: ATTEND Internal Medicine
DX: N18.9 Chronic kidney disease, unspecified (principal); D64.9 Anemia, unspecified

== ENCOUNTER → 2019-10-23 | Outpatient (REF) ==
[2019-10-23 07:02] LABS: HEMATOCRIT 41.7 % (36.0-47.0); HEMOGLOBIN 12.7 g/dl (12.0-15.5); MEAN CORPUSCULAR HEMOGLOBIN 30.5 pg (27.0-33.0); MEAN CORPUSCULAR HGB CONC 30.5 g/dl (32.0-36.5); PLATELET COUNT, AUTOMATED 227 10^3/uL (150-450); RED BLOOD COUNT 4.17 10^6/uL (4.00-5.40)
[2019-10-23 07:39] LABS: ALBUMIN 2.7 GM/DL (3.2-5.2); CALCIUM LEVEL 9.6 MG/DL (8.8-10.2); CREATININE FOR GFR 1.55 MG/DL (0.55-1.30); GLOMERULAR FILTRATION RATE 34.1 (>32); PHOSPHORUS LEVEL 3.1 MG/DL (2.5-4.9); POTASSIUM SERUM 4.3 MEQ/L (3.5-5.1)
== END ==
LOC: SKLAB7 07:00
PROVIDERS: ATTEND Nurse Practitioner Family
DX: N18.9 Chronic kidney disease, unspecified (principal)

== ENCOUNTER → 2019-10-25 | Outpatient (REF) | payer MEDICARE, OTHER ==
[2019-10-25 11:02] LABS: HEMOGLOBIN 11.9 g/dl (12.0-15.5); MEAN CORPUSCULAR HEMOGLOBIN 30.1 pg (27.0-33.0); MEAN CORPUSCULAR HGB CONC 29.8 g/dl (32.0-36.5); PLATELET COUNT, AUTOMATED 212 10^3/uL (150-450); RED BLOOD COUNT 3.96 10^6/uL (4.00-5.40); WHITE BLOOD COUNT 14.1 10^3/uL (4.0-10.0)
== END ==
LOC: SKLAB7 09:49
PROVIDERS: ATTEND Internal Medicine
DX: D72.829 Elevated white blood cell count, unspecified (principal)

== ENCOUNTER → 2019-10-26 | Outpatient (CLI) | payer MEDICARE, OTHER ==
[~2019-10-26] MED LIST changes: +ACET-907 PO; -ALL10TAB29 PO; +AMLO1TAB24 PO; -AMLO5TAB6 PO; +ASPI-161 PO; -ASPI81TA85 PO; +ASPI81TA86 PO; +BISA10SU PR; +CALC-239 PO; +CETI-24 PO; +CILO0.3S OD; +DOCU100C17 PO; +DOXY100T PO; +FLEEENE12 PR; +HEPA1INJ81 IV; +HYDR26CR EXT; +HYOS125TA PO; +MELA3TAB44 PO; +METO25TA4 PO; +METO37.5 PO; +MOM30SS PO; +MORP20SO3 PO; +NYST10006 TOP; +NYST1POW9 TOP; +OMEP-218 PO; +OMEP-221 PO; +POLY1.4S OU; +POLYOPD OU; +TOBRSUS8 OD; +VITMTA PO
--- NOTE | 2019-10-27 01:49 | REP ---
REASON FOR EXAM: Diverticulitis. The latest prior for comparison is 11/26/2018. The lack of intravenous contrast significantly decreases the sensitivity of the exam. Oral bowel preparatory contrast was also withheld, further limiting the exam. There is no change in the lung bases. There are chronic changes, status quo. There is a hiatal hernia, status quo. Limited evaluation of the solid intra-abdominal organs, pancreas, adrenal glands, and kidneys show stable appearing chronic changes. Limited evaluation of the abdominal aorta again shows calcific atherosclerotic change. There is no para-aortic adenopathy; however, there are multiple unchanged borderline para-aortic lymph nodes. No free fluid or free air is seen in the abdomen or pelvis. There is no significant change in appearance of the bowel loops or their mesenteries. There is rather extensive descending colon and sigmoid colon diverticulosis, status quo. There is pelvic sidewall adenopathy, which has a stable appearance. The previously present ventral hernias have been surgically repaired. There is no evidence of a ventral hernia. Bone window technique throughout the exam shows chronic hip, spinal, and sacroiliac joint degenerative changes with bony demineralization. IMPRESSION: 1. There are borderline but stable para-aortic lymph nodes. This is seen in conjunction with rather extensive pelvic sidewall adenopathy, which appears unchanged from the prior exam. 2. There is colonic diverticulosis, as described above, but no evidence of acute diverticulitis. 3. There is a large hiatal hernia, status quo. 4. Other findings and limitations as described above. Electronically Signed by Elia Marquez DO 10/27/2019 11:34 A
== END ==
LOC: M RAD 14:01
PROVIDERS: ATTEND Nurse Practitioner Family
DX: D72.829 Elevated white blood cell count, unspecified (principal); K62.5 Hemorrhage of anus and rectum

== ENCOUNTER → 2019-10-26 | Outpatient (REF) ==
[~2019-10-26] MED LIST changes: -ACET-907 PO; +ALL10TAB29 PO; -AMLO1TAB24 PO; +AMLO5TAB6 PO; -ASPI-161 PO; +ASPI81TA85 PO; -ASPI81TA86 PO; -BISA10SU PR; -CALC-239 PO; -CETI-24 PO; -CILO0.3S OD; -DOCU100C17 PO; -DOXY100T PO; -FLEEENE12 PR; -HEPA1INJ81 IV; -HYDR26CR EXT; -HYOS125TA PO; -MELA3TAB44 PO; -METO25TA4 PO; -METO37.5 PO; -MOM30SS PO; -MORP20SO3 PO; -NYST10006 TOP; -NYST1POW9 TOP; -OMEP-218 PO; -OMEP-221 PO; -POLY1.4S OU; -POLYOPD OU; -TOBRSUS8 OD; -VITMTA PO
[2019-10-26 10:18] LABS: HEMATOCRIT 42.2 % (36.0-47.0); HEMOGLOBIN 12.6 g/dl (12.0-15.5); MEAN CORPUSCULAR HEMOGLOBIN 29.8 pg (27.0-33.0); MEAN CORPUSCULAR HGB CONC 29.9 g/dl (32.0-36.5); MEAN CORPUSCULAR VOLUME 99.8 fl (80.0-96.0); PLATELET COUNT, AUTOMATED 205 10^3/uL (150-450); RED BLOOD COUNT 4.23 10^6/uL (4.00-5.40); WHITE BLOOD COUNT 17.4 10^3/uL (4.0-10.0)
--- NOTE | 2019-10-27 02:37 | REP ---
CHEST, PORTABLE: AP portable view of the chest is performed and compared to multiple prior exams, most recently 10/12/2019. There is a large hiatal hernia. There is cardiomegaly. Mediastinal silhouette is unchanged with calcification of the thoracic aorta. Chronic fibroatelectatic change in the left lung base is stable. I see no acute infiltrate. Metallic prosthesis is noted of the proximal humerus. IMPRESSION: Stable chronic findings with no acute infiltrate. Electronically Signed by Eligio Peña MD 10/27/2019 11:41 P
== END ==
LOC: SKLAB7 08:17
PROVIDERS: ATTEND Internal Medicine
DX: K62.5 Hemorrhage of anus and rectum (principal)

== ENCOUNTER → 2019-10-27 | Outpatient (REF) ==
[2019-10-27 10:53] LABS: HEMATOCRIT 41.2 % (36.0-47.0); HEMOGLOBIN 12.4 g/dl (12.0-15.5); MEAN CORPUSCULAR HGB CONC 30.1 g/dl (32.0-36.5); MEAN CORPUSCULAR VOLUME 99.5 fl (80.0-96.0); PLATELET COUNT, AUTOMATED 194 10^3/uL (150-450); RED BLOOD COUNT 4.14 10^6/uL (4.00-5.40); WHITE BLOOD COUNT 17.6 10^3/uL (4.0-10.0)
[2019-10-27 11:14] LABS: CALCIUM LEVEL 9.6 MG/DL (8.8-10.2); CREATININE FOR GFR 1.81 MG/DL (0.55-1.30); GLOMERULAR FILTRATION RATE 28.5 (>32); PHOSPHORUS LEVEL 3.9 MG/DL (2.5-4.9); POTASSIUM SERUM 4.1 MEQ/L (3.5-5.1)
== END ==
LOC: SKLAB7 08:29
PROVIDERS: ATTEND Internal Medicine
DX: K62.5 Hemorrhage of anus and rectum (principal)

== ENCOUNTER → 2019-10-28 | Outpatient (REF) ==
[2019-10-28 07:51] LABS: HEMATOCRIT 38.9 % (36.0-47.0); HEMOGLOBIN 11.9 g/dl (12.0-15.5); MEAN CORPUSCULAR HEMOGLOBIN 30.1 pg (27.0-33.0); MEAN CORPUSCULAR HGB CONC 30.6 g/dl (32.0-36.5); MEAN CORPUSCULAR VOLUME 98.5 fl (80.0-96.0); PLATELET COUNT, AUTOMATED 160 10^3/uL (150-450); RED BLOOD COUNT 3.95 10^6/uL (4.00-5.40); WHITE BLOOD COUNT 14.3 10^3/uL (4.0-10.0)
== END ==
LOC: SKLAB7 07:00
PROVIDERS: ATTEND Internal Medicine
DX: D64.9 Anemia, unspecified (principal)

== ENCOUNTER → 2019-10-29 | Outpatient (REF) ==
[2019-10-29 10:15] LABS: HEMATOCRIT 37.8 % (36.0-47.0); HEMOGLOBIN 11.4 g/dl (12.0-15.5); MEAN CORPUSCULAR HEMOGLOBIN 30.2 pg (27.0-33.0); MEAN CORPUSCULAR HGB CONC 30.2 g/dl (32.0-36.5); PLATELET COUNT, AUTOMATED 129 10^3/uL (150-450); RED BLOOD COUNT 3.78 10^6/uL (4.00-5.40); WHITE BLOOD COUNT 11.7 10^3/uL (4.0-10.0)
--- NOTE | 2019-10-29 15:03 | ECGEPIP ---
[facility] Test Date: 2019-10-29 Pat Name: QUINCY BARBOSA Department: Room: - Gender: Female Hand Turner: [facility] : 1935 Requested By: Miguel Sena Order Number: [id number] Reading MD: Brady Mireles Measurements Intervals [place] Rate: 102 P: NM: 0 QRS: -53 QRSD: 170 T: 30 QT: 412 QTc: 537 Interpretive Statements Underlying atrial fibrillation with slightly rapid ventricular response. Extreme left axis deviation - left anterior hemiblock Right bundle branch block Primary lateral ST/T wave abnormalities No change from 10/20/19 Prior tracing misread as showing sinus rhythm Electronically Signed on 10-29-2019 15:03:06 EDT by Brady Mireles
== END ==
LOC: SKLAB7 07:00
PROVIDERS: ATTEND Internal Medicine
DX: D64.9 Anemia, unspecified (principal); I48.91 Unspecified atrial fibrillation

== ENCOUNTER → 2019-10-30 | Outpatient (REF) ==
[2019-10-30 08:04] LABS: HEMATOCRIT 39.8 % (36.0-47.0); HEMOGLOBIN 12.1 g/dl (12.0-15.5); MEAN CORPUSCULAR HGB CONC 30.4 g/dl (32.0-36.5); MEAN CORPUSCULAR VOLUME 98.8 fl (80.0-96.0); PLATELET COUNT, AUTOMATED 134 10^3/uL (150-450); RED BLOOD COUNT 4.03 10^6/uL (4.00-5.40); WHITE BLOOD COUNT 12.8 10^3/uL (4.0-10.0)
== END ==
LOC: SKLAB7 07:00
PROVIDERS: ATTEND Internal Medicine
DX: D64.9 Anemia, unspecified (principal)

== ENCOUNTER → 2019-11-05 | Outpatient (REF) ==
[~2019-11-05] MED LIST changes: +ACET-907 PO; -ALL10TAB29 PO; +AMLO1TAB24 PO; -AMLO5TAB6 PO; +ASPI-161 PO; -ASPI81TA85 PO; +ASPI81TA86 PO; +BISA10SU PR; +CALC-239 PO; +CETI-24 PO; +CILO0.3S OD; +DOCU100C17 PO; +DOXY100T PO; +FLEEENE12 PR; +HEPA1INJ81 IV; +HYDR26CR EXT; +HYOS125TA PO; +MELA3TAB44 PO; +METO25TA4 PO; +METO37.5 PO; +MOM30SS PO; +MORP20SO3 PO; +NYST10006 TOP; +NYST1POW9 TOP; +OMEP-218 PO; +OMEP-221 PO; +POLY1.4S OU; +POLYOPD OU; +TOBRSUS8 OD; +VITMTA PO
[2019-11-05 08:02] LABS: BASO % 0.3 % (0.0-1.0); EOS # 0.1 10^3/uL (0.0-0.5); EOS % 1.8 % (0.0-3.0); HEMATOCRIT 35.7 % (36.0-47.0); HEMOGLOBIN 10.9 g/dl (12.0-15.5); LYMPH # 3.1 10^3/uL (1.5-5.0); LYMPH % 45.3 % (24.0-44.0); MEAN CORPUSCULAR HEMOGLOBIN 30.1 pg (27.0-33.0); MEAN CORPUSCULAR HGB CONC 30.5 g/dl (32.0-36.5); MEAN CORPUSCULAR VOLUME 98.6 fl (80.0-96.0); MONO # 0.8 10^3/uL (0.0-0.8); NEUTROPHILS # 2.7 10^3/uL (1.5-8.5); NEUTROPHILS % 39.9 % (36.0-66.0); PLATELET COUNT, AUTOMATED 173 10^3/uL (150-450); RED BLOOD COUNT 3.62 10^6/uL (4.00-5.40); WHITE BLOOD COUNT 6.8 10^3/uL (4.0-10.0)
[2019-11-05 08:27] LABS: ALBUMIN 2.7 GM/DL (3.2-5.2); CALCIUM LEVEL 8.8 MG/DL (8.8-10.2); CREATININE FOR GFR 1.82 MG/DL (0.55-1.30); GLOMERULAR FILTRATION RATE 28.3 (>32); PHOSPHORUS LEVEL 3.6 MG/DL (2.5-4.9); POTASSIUM SERUM 4.7 MEQ/L (3.5-5.1)
== END ==
LOC: SKLAB7 08:33
PROVIDERS: ATTEND Internal Medicine
DX: D64.9 Anemia, unspecified (principal); N18.9 Chronic kidney disease, unspecified

== ENCOUNTER 2019-11-13 14:53 | Emergency (ER) | payer SELFPAY ==
[~2019-11-13 14:53] MED LIST changes: -ACET-907 PO; -ASPI-161 PO; -BISA10SU PR; -CALC-239 PO; -CILO0.3S OD; -DOCU100C17 PO; -DOXY100T PO; -FLEEENE12 PR; -HEPA1INJ81 IV; -HYDR26CR EXT; -HYOS125TA PO; -MELA3TAB44 PO; -METO25TA4 PO; -METO37.5 PO; -MOM30SS PO; -MORP20SO3 PO; -NYST10006 TOP; -NYST1POW9 TOP; -OMEP-218 PO; -OMEP-221 PO; -POLY1.4S OU; -POLYOPD OU; -TOBRSUS8 OD; -VITMTA PO
[2019-12-20 17:08] LABS: BASO # 0.1 10^3/uL (0.0-0.2); BASO % 0.9 % (0.0-1.0); HEMATOCRIT 38.6 % (36.0-47.0); HEMOGLOBIN 11.7 g/dl (12.0-15.5); LYMPH # 3.3 10^3/uL (1.5-5.0); MEAN CORPUSCULAR HEMOGLOBIN 30.2 pg (27.0-33.0); MEAN CORPUSCULAR HGB CONC 30.3 g/dl (32.0-36.5); MEAN CORPUSCULAR VOLUME 99.7 fl (80.0-96.0); MONO # 0.6 10^3/uL (0.0-0.8); MONO % 8.7 % (0.0-5.0); NEUTROPHILS # 2.8 10^3/uL (1.5-8.5); NEUTROPHILS % 41.4 % (36.0-66.0); PLATELET COUNT, AUTOMATED 243 10^3/uL (150-450); RED BLOOD COUNT 3.87 10^6/uL (4.00-5.40); WHITE BLOOD COUNT 6.9 10^3/uL (4.0-10.0)
[2019-12-20 18:08] LABS: INR 1.19; PARTIAL THROMBOPLASTIN TIME 29.6 SECONDS (25.0-38.4); PROTHROMBIN TIME 15.4 SECONDS (11.8-14.0)
--- NOTE | 2020-01-01 07:42 | ECGEPIP ---
ATRIAL FIBRILLATION LAD RBBB WITH LAFB PRIOR INFERIOR HI SEE SCANNED DOWNTIME REPORT MTDD
[2020-01-03 20:43] LABS: ALBUMIN 3.1 GM/DL (3.2-5.2); BILIRUBIN,DIRECT 0.1 MG/DL (0.0-0.2); BILIRUBIN,TOTAL 0.2 MG/DL (0.2-1.0); CK-MB VALUE MASS 1.9 NG/ML (<3.6); MB/CK RELATIVE INDEX 4.75 (< OR =4); TOTAL PROTEIN 6.7 GM/DL (6.4-8.2); TROPONIN I 0.04 NG/ML (< 0.10)
== END 2019-11-13 21:45 | disposition short-term general hospital (02) ==
LOC: MERGE 14:53 → M ED 14:53
DX: I74.3 Embolism and thrombosis of arteries of the lower extremities (principal); I45.9 Conduction disorder, unspecified; I45.10 Unspecified right bundle-branch block; I44.4 Left anterior fascicular block; I21.9 Acute myocardial infarction, unspecified; R94.31 Abnormal electrocardiogram [ECG] [EKG]; R91.8 Other nonspecific abnormal finding of lung field; M71.20 Synovial cyst of popliteal space [Baker], unspecified knee; Z79.82 Long term (current) use of aspirin; Z79.01 Long term (current) use of anticoagulants; Z79.899 Other long term (current) drug therapy; Z88.0 Allergy status to penicillin; Z88.1 Allergy status to other antibiotic agents; Z88.8 Allergy status to other drugs, medicaments and biological substances
CPT/HCPCS: 71046; 80076; 82550; 82553; 83605; 84484; 85025; 85610; 85730; 86850; 86900; 86901; 93005; 99285; U0002

== ENCOUNTER → 2019-11-13 | Outpatient (CLI) | payer MEDICARE, OTHER ==
--- NOTE | 2019-12-31 14:33 | REP ---
BILATERAL LOWER EXTREMITY DUPLEX DOPPLER ARTERIAL ULTRASOUND: HISTORY: Peripheral vascular disease/ FINDINGS: Real time ultrasound evaluation and duplex Doppler interrogation of bilateral lower extremity arterial systems is performed. ALEA right is 0.86 and left is 0.84. Complex Trivedi's cysts are seen bilaterally incidentally on the right measuring 7.2 x 1.0 x 4.3 cm and left measuring 6.3 x 1.2 x 2.6 cm. Scattered atherosclerotic plaquing is seen diffusely bilaterally. In general, this is relatively mild. However, there is occlusion of the distal right posterior tibial artery. There is stenosis of the proximal left anterior tibial artery. There is occlusion of the proximal left posterior tibial artery with revascularization distally. Monophasic wave forms are seen in the anterior tibial artery and distal posterior tibial artery on the left. There are diffuse triphasic and biphasic wave forms on the right. VELOCITY CHART PSV RIGHT (cm/s) PSV LEFT (cm/s) Femoral artery 86.9 71.9 Profunda 49.2 42.0 Proximal SFA 48.3 59.8 Mid-SFA 51.1 64.9 Distal SFA 27.1 26.5 Popliteal 39.7 25.0 Proximal HEATHER 35.8 400 Tibioperoneal trunk 30.8 23.3 Proximal [employer] 39.5 Occluded Distal [employer] Occluded 47.1 Distal HEATHER 42 19.3 The study is performed on 11/13/19 and due to technological and computer failures, is not available for dictation and interpretation until 11/26/19. [facility]
== END ==
LOC: M RAD 10:58
PROVIDERS: ATTEND Internal Medicine
DX: I73.9 Peripheral vascular disease, unspecified (principal)

== ENCOUNTER 2020-01-11 12:07 | Inpatient (IN) | payer MEDICARE, OTHER ==
[~2020-01-11] VITALS: Ht 160 cm; Wt 71.5 kg
[2020-01-11 13:08] LABS: VENOUS O2 SATURATION 79.1 % (60.0-80.0); VENOUS PARTIAL PRESSURE CO2 48.9 mmHg (38.0-50.0); VENOUS PARTIAL PRESSURE O2 50.5 mmHg (30.0-50.0); VENOUS PH 7.271 UNITS (7.330-7.430); VENOUS TOTAL CO2 23.5 MEQ/L (24.0-28.0)
--- NOTE | 2020-01-11 13:10 | REPVR ---
PROCEDURE INFORMATION: Exam: CT Head Without Contrast Exam date and time: 01/11/2020 12:54 PM Age: 84 years old Clinical indication: Other: General weekness; Additional info: Altered mental status TECHNIQUE: Imaging protocol: Computed tomography of the head without contrast. Radiation optimization: All CT scans at this facility use at least one of these dose optimization techniques: automated exposure control; mA and/or kV adjustment per patient size (includes targeted exams where dose is matched to clinical indication); or iterative reconstruction. COMPARISON: CT Head without contrast 10/07/2019 5:44 PM FINDINGS: Brain: There is no acute intracranial hemorrhage or mass effect. Moderate diffuse volume loss is within the range of normal for patient age. There are small vessel ischemic changes within the periventricular and subcortical white matter, but the normal hwang-white matter delineation is maintained. Cerebral ventricles: No ventriculomegaly. Bones/joints: Unremarkable. No acute fracture. Paranasal sinuses: Visualized sinuses are unremarkable. No fluid levels. Mastoid air cells: Visualized mastoid air cells are well aerated. Soft tissues: Unremarkable. IMPRESSION: No acute hemorrhage or edema. Stable chronic changes. Electronically signed by: Natalie Ortega On 01/11/2020 13:10:14 PM
[2020-01-11 13:17] LABS: BASO # 0.1 10^3/uL (0.0-0.2); BASO % 0.7 % (0.0-1.0); EOS # 0.2 10^3/uL (0.0-0.5); EOS % 1.9 % (0.0-3.0); HEMATOCRIT 38.2 % (36.0-47.0); HEMOGLOBIN 11.5 g/dl (12.0-15.5); LYMPH # 3.3 10^3/uL (1.5-5.0); LYMPH % 37.9 % (24.0-44.0); MEAN CORPUSCULAR HEMOGLOBIN 30.1 pg (27.0-33.0); MEAN CORPUSCULAR HGB CONC 30.1 g/dl (32.0-36.5); MONO # 0.7 10^3/uL (0.0-0.8); MONO % 8.4 % (0.0-5.0); NEUTROPHILS # 4.4 10^3/uL (1.5-8.5); NEUTROPHILS % 50.4 % (36.0-66.0); PLATELET COUNT, AUTOMATED 182 10^3/uL (150-450); RED BLOOD COUNT 3.82 10^6/uL (4.00-5.40); WHITE BLOOD COUNT 8.7 10^3/uL (4.0-10.0)
--- NOTE | 2020-01-11 13:25 | REPVR ---
PROCEDURE INFORMATION: Exam: XR Chest, 1 View Exam date and time: 01/11/2020 1:16 PM Age: 84 years old Clinical indication: Chest pain; Additional info: AMS TECHNIQUE: Imaging protocol: XR of the chest Views: 1 view. COMPARISON: CR Chest, 2 view PA, Lat 11/13/2019 4:17 PM FINDINGS: Lungs: There increased streaky left basilar airspace opacities. Pleural space: There is a small left pleural effusion. Heart/Mediastinum: The heart is at the upper limits of normal in size. Bones/joints: There are bilateral shoulder arthroplasties. IMPRESSION: Increased left basilar airspace opacities and small left pleural effusion. Electronically signed by: Natalie Ortega On 01/11/2020 13:24:42 PM
[2020-01-11 13:26] LABS: ALBUMIN 3.3 GM/DL (3.2-5.2); BILIRUBIN,DIRECT 0.2 MG/DL (0.0-0.2); BILIRUBIN,TOTAL 0.3 MG/DL (0.2-1.0); THYROID STIMULATING HORMONE 1.95 uIU/ML (0.358-3.740); TOTAL PROTEIN 7.5 GM/DL (6.4-8.2)
[2020-01-11] MEDS ORDERED: NS 500 ML IV ONE (13:30)
[2020-01-11] MEDS ORDERED: METO37.5 PO (14:15)
[2020-01-11] MEDS ORDERED: ELIQ2.5T PO (14:15)
[2020-01-11] MEDS ORDERED: FLUTICASONE PROP 0.05% NASAL SPRAY 16 GM (FLONASE) PRN (14:45)
[2020-01-11] MEDS ORDERED: ALBUTEROL 90 MCG/ACT 8GM HFA INHALER INH PRN (14:45)
[2020-01-11] MEDS: ACETAMINOPHEN 650MG ER TAB (TYLENOL ARTHRITIS) PO SCH ×2 (16:00→22:00)
[2020-01-11 16:10] VITALS: BP 118/70
[2020-01-11] MEDS: NS 1,000 ML IV SCH (16:57)
[2020-01-11] MEDS ORDERED: SLF 3 ML SYR IV PRN (17:30)
--- NOTE | 2020-01-11 17:40 | HPEPDOC ---
General Date of Admission Jan 11, 2020 at 14:20 Date of Service: Jan 11, 2020 Attending Physician: SAVANNAH WHITEHEAD DO Chief Complaint The patient is a 84-year-old female admitted with a reason for visit of Adverse Effect Of Beta Gunnar Dehydration. Source: Patient, Family Exam Limitations: Garbled speech History of Present Illness Mrs. Cheema is an 84 year old female with heart failure with reduced ejection fraction (EF 35% - 45%), atrial fibrillation, chronic renal failure, and hypertension who is here for altered mental status secondary to dehydration and bradycardia. Patient is confused, she thinks it's 1989. She is also difficult to understand, as she does not have her dentures. I contacted her primary contact and healthcare proxy, Katelynn. She told me that recently, her youngest daughter last Saturday. On , she was falling apart. She had started to eat less and drink less. They had to force her to drink fluids. Her medications are managed by [facility]. Her medications come in the bubbles. Today she was more lethargic and confused, and was brought into the ED. While in the ED, she had a heart rate of 34. The first EKG demonstrated sinus bradycardia. She is on Lopressor twice a day. In addition, she came in with acute renal failure. Her creatinine was 3.7, where baselines around 2.8. Her potassium is mildly elevated at 5.1. On examination, her oral mucosa was extremely dry, her eyelids were sticky, and a capillary refill was sluggish. Lasting patient was here, patient was DNR/DNI. I spoke with the healthcare proxy, who reconfirms DNR/DNI for this admission. Home Medications Scheduled Acetaminophen (Acetaminophen 8 Hour) 650 Mg Tablet.er, 650 MG PO TID, (Reported) 080, 1200, 1700 Apixaban (Eliquis) 2.5 Mg Tablet, 2.5 MG PO BID, (Reported) 0800, 1700 Aspirin (Aspir 81) 81 Mg Tab, 81 MG PO QHS, (Reported) Calcitriol (Calcitriol) 0.25 Mcg Capsule, 0.25 MCG PO Q2D, (Reported) Cyanocobalamin (Vitamin B-12) (Vitamin B-12) 1,000 Mcg Tablet, 1,000 MCG PO DAILY, (Reported) Gabapentin (Gabapentin) 300 Mg Capsule, 300 MG PO BID, (Reported) 0800, 1700 Hydroxychloroquine Sulfate (Hydroxychloroquine Sulfate) 200 Mg Tab, 200 MG PO BID, (Reported) 0800, 1700 Lorazepam (Ativan) 0.5 Mg Tablet, 0.5 MG PO BID, (Reported) Magnesium Chloride (Mag64) 64 Mg Tablet.dr, 64 MG PO BID, (Reported) 0800, 1700 Metoprolol Tartrate (Metoprolol Tartrate) 37.5 Mg Tablet, 37.5 MG PO BID, (Reported) 0800, 1700 [place]-3 Fatty Acids/Fish Oil (Fish Oil 1,000 mg Capsule) 1 Each Capsule, 1,000 MG PO DAILY, (Reported) Omeprazole (Omeprazole) 40 Mg Cap, 40 MG PO BID, (Reported) 0800, 1700 Torsemide (Torsemide) 20 Mg Tablet, 20 MG PO DAILY, (Reported) Trazodone HCl (Trazodone HCl) 50 Mg Tablet, 25 MG PO QHS, (Reported) Venlafaxine HCl (Venlafaxine HCl ER) 150 Mg Cap.er.24h, 150 MG PO DAILY, (Reported) Scheduled PRN Albuterol Sulfate (Proair Hfa) 8.5 Gm Hfa.aer.ad, 2 PUFF INH QID PRN for SHORTNESS OF BREATH, (Reported) Fluticasone Propionate (Flonase Allergy Relief) 50 Mcg/Act Spr, 50 MCG NA DAILY PRN for CONGESTION, (Reported) Allergies Coded Allergies: Penicillins (Verified Allergy, Intermediate, BODY SWELLING, 10/07/19) sulfamethoxazole (Verified Allergy, Intermediate, SWELLING, 10/07/19) trimethoprim (Verified Allergy, Intermediate, SWELLING, 10/07/19) allopurinol (Verified Allergy, Mild, RASH, 10/07/19) rabeprazole (Verified Allergy, Mild, RASH, 10/07/19) risperidone (Verified Allergy, Unknown, 10/07/19) Past Medical History Medical History 1. Heart failure with reduced ejection fraction, last echo was in September 2019, EF 35-40% 2. Cataracts 3. Hypertension 4. COPD 5. History of pulmonary embolism in 2007 6. Sleep apnea 7. GERD 8. History of diverticulitis 9. Rheumatoid arthritis 10. Osteoporosis 11. Gout 12. Diabetes mellitus type 2 13. Depression/anxiety 14. Sjogren syndrome 15. Essential tremor 16. Chronic venous insufficiency Surgical History 1. Cataract surgery 2. Shoulder surgery 3. Cholecystectomy 4. Hysterectomy with oophorectomy 5. Bladder suspension 6. Umbilical hernia repair 7. Surgery for right carpal tunnel 8. Teeth extracted Family History Mother: in her 60s with heart disease Father: at the age of 67, morbidly obese coronary artery disease PR Social History * Smoker: Denies Alcohol: Denies Drugs: denies A-FIB/CHADSVASC A-FIB History Current/History of A-Fib/PAF?: Yes Current PO Anticoag Therapy: Yes Review of Systems Constitutional: Denies: Chills, Fever Eyes: Denies: Vision change ENT: Reports: Head Aches (sometimes) Pulmonary: Denies: Dyspnea Cardiovascular: Reports: Chest Pain (sometimes) Gastrointestinal: Reports: Diarrhea (yesterday had diarrhea); Denies: Nausea, Vomiting, Abdominal Pain Genitourinary: Denies: Dysuria Endocrine: Reports: Polydipsia; Denies: Polyuria Neurological: Reports: Other Symptoms (sometimes has paresthesias in hands) Psych: Reports: Anxiety, Depression Physical Examination General Exam: Positive: Other (lethargic had difficulty keeping her eyes open) Eye Exam: Positive: Other Eye Symptoms (eyes appeared dry and sticky) ENT Exam: Positive: Other ENT (oral mucosa dry and sticky); Negative: Mucous membr. moist/pink Neck Exam: Positive: Supple Chest Exam: Positive: Diminished Heart Exam: Positive: Bradycardic, Regular Rhythm Telemetry: Positive: Sinus, Bradycardia Abdomen Exam: Positive: BS Hypoactive, Soft; Negative: Tenderness Extremity Exam: Positive: Other (discoloration of feet, very mild pitting edema) Neuro Exam: Positive: Other (due to lethargy, unable to participate in neuro- exam) Psych Exam: Negative: Mental status NL Vital Signs Vital Signs Date Time Temp Pulse Resp B/P (MAP) Pulse Ox O2 Delivery O2 Flow Rate FiO2 01/11/20 15:07 38 19 95 01/11/20 14:46 178/81 (113) 01/11/20 12:11 98.5 Room Air Laboratory Data Labs 24H Laboratory Tests 2 01/11/20 12:33: Blood Gas Bicarbonate Standard 20.0, Venous Blood pH 7.271L, Venous Blood Partial Pressure CO2 48.9, Venous Blood Partial Pressure O2 50.5H, Venous Blood Total Carbon Dioxide 23.5L, Venous Blood HCO3 22.0L, Venous Blood Oxygen Saturation 79.1, Venous Blood Base Excess -5.0L 01/11/20 12:34: Immature Granulocyte % (Auto) 0.7, Neutrophils (%) (Auto) 50.4, Lymphocytes (%) (Auto) 37.9, Monocytes (%) (Auto) 8.4H, Eosinophils (%) (Auto) 1.9, Basophils (%) (Auto) 0.7, Neutrophils # (Auto) 4.4, Lymphocytes # (Auto) 3.3, Monocytes # (Auto) 0.7, Eosinophils # (Auto) 0.2, Basophils # (Auto) 0.1, Nucleated Red Blood Cells % (auto) 0.0, Total Bilirubin 0.3, Direct Bilirubin 0.2, Aspartate Amino Transf (AST/SGOT) 30, Alanine Aminotransferase (ALT/SGPT) 36, Alkaline Phosphatase 97, Total Protein 7.5, Albumin 3.3, Albumin/Globulin Ratio 0.8L, Thyroid Stimulating Hormone (TSH) 1.950 01/11/20 12:39: Bedside Glucose (Misc Panel) 131H 01/11/20 12:41: POC Glucose (Misc Panel) 144H, POC Sodium (Misc Panel) 138, POC Potassium (Misc Panel) 5.1, POC Chloride (Misc Panel) 102, POC Total CO2 (Misc Panel) 25.0, POC Blood Urea Nitrogen (Misc Panel 113H, POC Ionized Calcium (Misc Panel) 4.8, POC Creatinine (Misc Panel) 3.7H, POC Hematocrit (Misc Panel) 37.0L 01/11/20 12:43: POC Troponin I (Misc) 0.05 01/11/20 12:58: Lactic Acid Level 1.5 01/11/20 13:20: POC pH (Misc Panel) 7.345L, POC Base Excess (Misc Panel) -3.0L, POC Saturated Percent O2 (Misc) 94L, POC pO2 (Misc Panel) 74.0L, POC pCO2 (Misc Panel) 42.1, POC HCO3 (Misc Panel) 22.9, POC Total CO2 (Misc Panel) 24.0 CBC/BMP Laboratory Tests 01/11/20 12:34 Assessment/Plan Mrs. Cheema is an 84-year-old female with heart failure with reduced ejection fraction, EF of 35-40%, atrial fibrillation, sleep apnea, COPD, and hypertension who is here for altered mental status secondary to dehydration and bradycardia. Ever since her youngest daughter last Saturday, she's had poor oral intake, but she continue to take her medication. Due to her poor oral intake, she developed a worsening of her renal function. This may have led to elevated levels of medication in her bloodstream. In addition, she had bradycardia. We will carefully rehydrate due to her heart failure with EF of 35-40%. We will hold her beta gunnar at this time as she cannot tolerate the beta gunnar. She'll be monitored on telemetry. Plan / VTE VTE Prophylaxis Ordered?: Yes Plan Plan 1. Acute renal failure on chronic kidney disease secondary to dehydration from poor oral intake At baseline creatinines around 2.8. Current creatinine is 3.7. Since her daughter , she's been having poor oral intake. Suspecting prerenal as cause of acute renal failure She got a liter in the ED, we'll continue running IV fluids. We will hold torsemide 2. Mild hyperkalemia Potassium at 5.1 Most likely secondary to acute renal failure We'll give IV fluids and monitor BMP 3. Metabolic encephalopathy secondary to uremia On admission, her BUN is elevated at 113, normally it is around 60 Secondary to acute renal failure We will give IV fluids and monitor BMP 4. Bradycardia Secondary to beta blockers We will hold her beta blockers and monitor on telemetry We will repeat EKG, and get a second troponin. First troponin was negative We will also check thyroid studies 5. Metabolic encephalopathy secondary to medications At home she was taking gabapentin and lorazepam We will renally dose gabapentin We will change her scheduled lorazepam to when necessary lorazepam. 6. Anxiety/depression We will change her lorazepam to when necessary For now we will hold venlafaxine until renal function improves She recently lost her youngest daughter 7. Bereavement Recently lost her youngest daughter When she is mentally closer to baseline may benefit from clergy support or PFS 8. Rheumatoid arthritis Continue hydroxychloroquine 9. Atrial fib Currently in sinus bradycardia. Holding beta gunnar Due to acute renal failure, hold apixaban. Restart apixaban when renal function improves 10. GERD Continue omeprazole 11. Insomnia Holding trazodone due to altered mental status 12. Intertrigo under breasts and abdominal fold We will start nystatin powder 13. DVT prophylaxis Heparin. When renal function improves, stop heparin and restart apixaban SAVANNAH WHITEHEAD DO Jan 11, 2020 15:37
[2020-01-11 18:49] LABS: CALCIUM LEVEL 9.3 MG/DL (8.8-10.2); CREATININE FOR GFR 3.58 MG/DL (0.55-1.30); POTASSIUM SERUM 5.1 MEQ/L (3.5-5.1)
[2020-01-11] MEDS ORDERED: APIXABAN 2.5 MG TAB (ELIQUIS) PO SCH (21:00)
[2020-01-11] MEDS: NYSTATIN 100,000 UNITS/GM TOPICAL PWD 15 GM TOP SCH (21:02)
[2020-01-11] MEDS: ASPIRIN 81 MG ENTERIC TAB PO SCH (21:02)
[2020-01-11] MEDS: POLYVINYL ALCOHOL OPHTH SOLN 15 ML(LIQUITEARS) OU SCH (21:02)
[2020-01-11] MEDS: MAGNESIUM CHLORIDE 64 MG TABCR (SLO MAG) PO SCH (21:02)
[2020-01-11] MEDS: HYDROXYCHLOROQUINE 200 MG TAB PO SCH (21:03)
[2020-01-11] MEDS: OMEPRAZOLE 20 MG CAP PO SCH (21:03)
[2020-01-11] MEDS: HEPARIN SOD (PORCINE) 5000UNITS/ML 1ML VIAL/SYRINGE SQ SCH (21:04)
[2020-01-11] MEDS: SLF 3 ML SYR IV SCH (22:18)
[2020-01-11 22:22] VITALS: BP 142/76
[2020-01-12] VITALS: BP 144/78
[2020-01-12 04:00] VITALS: BP 152/80
[2020-01-12 05:27] LABS: HEMATOCRIT 35.9 % (36.0-47.0); HEMOGLOBIN 10.9 g/dl (12.0-15.5); MEAN CORPUSCULAR HEMOGLOBIN 30.1 pg (27.0-33.0); MEAN CORPUSCULAR HGB CONC 30.4 g/dl (32.0-36.5); MEAN CORPUSCULAR VOLUME 99.2 fl (80.0-96.0); PLATELET COUNT, AUTOMATED 170 10^3/uL (150-450); RED BLOOD COUNT 3.62 10^6/uL (4.00-5.40); WHITE BLOOD COUNT 8.1 10^3/uL (4.0-10.0)
[2020-01-12 05:59] LABS: ALBUMIN 2.9 GM/DL (3.2-5.2); BILIRUBIN,TOTAL 0.3 MG/DL (0.2-1.0); CREATININE FOR GFR 3.39 MG/DL (0.55-1.30); FREE T3 1.5 PG/ML (2.2-4.0); FREE T4 0.94 NG/DL (0.76-1.46); GLOMERULAR FILTRATION RATE 13.8 (>32); MAGNESIUM LEVEL 2.7 MG/DL (1.8-2.4); THYROID STIMULATING HORMONE 1.44 uIU/ML (0.358-3.740); TOTAL PROTEIN 6.8 GM/DL (6.4-8.2)
[2020-01-12] MEDS: SLF 3 ML SYR IV SCH ×3 (06:44→21:55)
[2020-01-12] MEDS ORDERED: SODIUM CHLORIDE 0.9% 1000ML IV ONE (07:30)
[2020-01-12] MEDS: NS 1,000 ML IV SCH ×2 (07:46→14:18)
[2020-01-12 07:56] LABS: TROPONIN I 0.07 NG/ML (< 0.10)
[2020-01-12 08:00] VITALS: BP 124/76
[2020-01-12] MEDS: ACETAMINOPHEN 650MG ER TAB (TYLENOL ARTHRITIS) PO SCH ×3 (08:38→20:52)
[2020-01-12] MEDS: OMEPRAZOLE 20 MG CAP PO SCH ×2 (08:38→20:52)
[2020-01-12] MEDS: MAGNESIUM CHLORIDE 64 MG TABCR (SLO MAG) PO SCH ×2 (08:38→20:53)
[2020-01-12] MEDS: HYDROXYCHLOROQUINE 200 MG TAB PO SCH ×2 (08:38→20:52)
[2020-01-12] MEDS: CALCITRIOL 0.25 MCG CAP (S0169) PO SCH (08:38)
[2020-01-12] MEDS: GABAPENTIN 300 MG CAP PO SCH (08:39)
[2020-01-12] MEDS: HEPARIN SOD (PORCINE) 5000UNITS/ML 1ML VIAL/SYRINGE SQ SCH ×2 (08:39→20:52)
[2020-01-12] MEDS: POLYVINYL ALCOHOL OPHTH SOLN 15 ML(LIQUITEARS) OU SCH ×3 (08:40→20:53)
[2020-01-12] MEDS: NYSTATIN 100,000 UNITS/GM TOPICAL PWD 15 GM TOP SCH ×2 (08:41→20:53)
[2020-01-12] MEDS ORDERED: FLUBLOK(EGG FREE)(QUAD)INFLUENZA VACC 0.5ML SYRINGE 18YRS & OLDER IM ONE (09:00)
--- NOTE | 2020-01-12 09:03 | ECGEPIP ---
[facility] - ED Test Date: 2020-01-11 Pat Name: QUINCY BARBOSA Department: Room: - Gender: Female Pharmacy Consultant: karol : [id number] Requested By: Luis E Antunez Order Number: [id number] Reading MD: Luis E Diaz Measurements Intervals [place] Rate: 54 P: MT: 0 QRS: 6 QRSD: 6 T: 26 QT: 280 QTc: 265 Interpretive Statements SINUS BRADYCARDIA RIGHT BUNDLE BRANCH BLOCK UNACCEPTABLE TRACING QUALITY FOR INTERPRETATION Electronically Signed on 01-12-2020 9:03:39 EDT by Luis E Diaz
--- NOTE | 2020-01-12 11:28 | IPNPDOC ---
Date Seen The patient was seen on 01/12/20. Progress Note SUBJECTIVE: patient was seen and examined at bedside. She is doing well. No acute events overnight. Patient appears to be confused but alert and oriented to 2. She is currently missing her dentures. We'll speak to family to bring. She denies chest pain, shortness of breath, abdominal pain, headache or subjective chills. OBJECTIVE PHYSICAL EXAMINATION: VITAL SIGNS: Please see below. General: appears comfortable, confused, AAO 2-3 HEENT: PERRLA, EOMI, sclerae clear, missing dentures Neck: supple, normal ROM, no JVD Resp: lungs CTAB, no wheeze, no rales, no crackles CVS: RRR, normal S1, S2, no murmurs Abdo: soft, no masses, no hepatosplenomegaly, BS+, no rebound tenderness Extremities: no edema, pulses 2+ MSK: no joint deformities, normal ROM Neuro: no focal neuro deficits, moving all 4 extremities Psych: calm, cooperative, AAO x 3 LABORATORY DATA, IMAGING STUDIES, MICROBIOLOGY: Please see below. CXR (01/11/20) DVT prophylaxis ordered?: Y ASSESSMENT AND PLAN: This is an 84-year-old female with a history of heart failure with reduced ejection fraction, atrial fibrillation, chronic renal failure, and hypertension, was admitted for workup of altered mental status secondary to dehydration and bradycardia. Bradycardia thought to be due to metoprolol use. Bradycardia mildly improved. PROBLEMS: 1. Acute renal failure on chronic kidney disease: dehydration, reduced PO intake. Cr 3.6, 3.4. Baseline 2.8. C/w IVF. Repeat BMP. Hold torsemide. 2. Mild hyperkalemia: resolved. 3. CAP: CXR L basilar opacity. Small pleural effusion. Afebrile. No WBC. MRSA screen ordered Start vanc, cefepime. 3. Metabolic encephalopathy secondary to uremia: Acute renal failure. increase IVF NS 125 cc/hr. Give 500 cc bolus. Repeat BMP in PM. BUN 96, down from 113. 5. Bradycardia: likely 2/2 metoprolol use. Held. HR on tele 40s (mild improvement). Hemodynamically stable. TFT wnl (low T3, likely 2/2 acute illness). Trop 0.05, 0.07 (elevation likely 2/2 renal disease). EKG sinus krishan. 5. Metabolic encephalopathy: likely medication induced/uremia. renally dosed gabapentin. ativan prn. 7. Anxiety/depression: holding venlafazine. ativan prn. 8. Bereavement: recent , daughter. 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 9. Rheumatoid arthritis: cont hydroxychloroquine 10. Atrial fib: sinus krishan. Metoprolol tartrate 37.5 mg BID at home. Holding BB. On AC with eliquis, held due to acute renal failure. 11. GERD: cont PPI. 12. Insomnia: hold trazodone, AMS 13. Intertrigo under breasts and abdominal fold: nystatin powder 14. DVT prophylaxis: SC heparin. Holding eliquis due to renal failure. VS, I&O, 24H, Fishbone Vital Signs/I&O Vital Signs Date Time Temp Pulse Resp B/P (MAP) Pulse Ox O2 Delivery O2 Flow Rate FiO2 01/12/20 08:00 96.8 43 20 124/76 (92) 92 Room Air I&O- Last 24 Hours up to 6 AM 01/12/20 05:59 Intake Total 1860 ml Output Total 300 ml Balance 1560 ml Laboratory Data 24H LABS Laboratory Tests 2 01/11/20 12:33: Blood Gas Bicarbonate Standard 20.0, Venous Blood pH 7.271L, Venous Blood Partial Pressure CO2 48.9, Venous Blood Partial Pressure O2 50.5H, Venous Blood Total Carbon Dioxide 23.5L, Venous Blood HCO3 22.0L, Venous Blood Oxygen Saturation 79.1, Venous Blood Base Excess -5.0L 01/11/20 12:34: Immature Granulocyte % (Auto) 0.7, Neutrophils (%) (Auto) 50.4, Lymphocytes (%) (Auto) 37.9, Monocytes (%) (Auto) 8.4H, Eosinophils (%) (Auto) 1.9, Basophils (%) (Auto) 0.7, Neutrophils # (Auto) 4.4, Lymphocytes # (Auto) 3.3, Monocytes # (Auto) 0.7, Eosinophils # (Auto) 0.2, Basophils # (Auto) 0.1, Nucleated Red Blood Cells % (auto) 0.0, Total Bilirubin 0.3, Direct Bilirubin 0.2, Aspartate Amino Transf (AST/SGOT) 30, Alanine Aminotransferase (ALT/SGPT) 36, Alkaline Phosphatase 97, Total Protein 7.5, Albumin 3.3, Albumin/Globulin Ratio 0.8L, Thyroid Stimulating Hormone (TSH) 1.950 01/11/20 12:39: Bedside Glucose (Misc Panel) 131H 01/11/20 12:41: POC Glucose (Misc Panel) 144H, POC Sodium (Misc Panel) 138, POC Potassium (Misc Panel) 5.1, POC Chloride (Misc Panel) 102, POC Total CO2 (Misc Panel) 25.0, POC Blood Urea Nitrogen (Misc Panel 113H, POC Ionized Calcium (Misc Panel) 4.8, POC Creatinine (Misc Panel) 3.7H, POC Hematocrit (Misc Panel) 37.0L 01/11/20 12:43: POC Troponin I (Misc) 0.05 01/11/20 12:58: Lactic Acid Level 1.5 01/11/20 13:20: POC pH (Misc Panel) 7.345L, POC Base Excess (Misc Panel) -3.0L, POC Saturated Percent O2 (Misc) 94L, POC pO2 (Misc Panel) 74.0L, POC pCO2 (Misc Panel) 42.1, POC HCO3 (Misc Panel) 22.9, POC Total CO2 (Misc Panel) 24.0 01/11/20 18:08: Anion Gap 6L, Glomerular Filtration Rate 13.0L, Calcium Level 9.3, Troponin I 0.05 01/12/20 05:04: Nucleated Red Blood Cells % (auto) 0.0, Anion Gap 8, Glomerular Filtration Rate 13.8L, Calcium Level 9.0, Magnesium Level 2.7H, Total Bilirubin 0.3, Aspartate Amino Transf (AST/SGOT) 31, Alanine Aminotransferase (ALT/SGPT) 33, Alkaline Phosphatase 86, Troponin I 0.07#, Total Protein 6.8, Albumin 2.9L, Albumin/Globulin Ratio 0.7L, Thyroid Stimulating Hormone (TSH) 1.440, Free Thyroxine 0.94, Free Triiodothyronine 1.5L CBC/BMP Laboratory Tests 01/11/20 12:34 01/11/20 18:08 01/12/20 05:04 SHAY JUDGE MD Jan 12, 2020 11:28
[2020-01-12 12:00] VITALS: BP 124/60
[2020-01-12] MEDS ORDERED: FLUID PLACE HOLDER IV SCH (13:15)
[2020-01-12] MEDS ORDERED: VANCOMYCIN HCL IV SCH (13:15)
[2020-01-12] MEDS: CEFEPIME HCL 1 GM in D5W MINI-BAG PLUS 50 ML IV SCH (14:18)
[2020-01-12 16:00] VITALS: BP 112/78
[2020-01-12] MEDS ORDERED: VANCOMYCIN HCL 1,000 MG, VIAL MATE ADAPTER 1 EACH in D5W 250 ML IV ONE (16:00)
[2020-01-12 16:02] LABS: CALCIUM LEVEL 9.1 MG/DL (8.8-10.2); CREATININE FOR GFR 2.98 MG/DL (0.55-1.30); POTASSIUM SERUM 4.2 MEQ/L (3.5-5.1)
[2020-01-12 19:21] LABS: CREATININE,RANDOM URINE 76.2 MG/DL; SODIUM,RANDOM URINE 30 MEQ/L
[2020-01-12 20:00] VITALS: BP 151/71
[2020-01-12] MEDS ORDERED: VANCOMYCIN INTERMITTENT/PULSE DOSING BY CLINICAL PHARMACIST PER DOSING PROTOCOL XX SCH (20:00)
[2020-01-12] MEDS: ASPIRIN 81 MG ENTERIC TAB PO SCH (20:52)
[2020-01-13] VITALS: BP 144/74
[2020-01-13] MEDS: CEFEPIME HCL 1 GM in D5W MINI-BAG PLUS 50 ML IV SCH ×2 (01:32→14:24)
[2020-01-13 04:00] VITALS: BP 150/78
[2020-01-13] MEDS: SLF 3 ML SYR IV SCH ×3 (05:19→21:05)
--- NOTE | 2020-01-13 07:38 | IPNPDOC ---
Date Seen The patient was seen on 01/13/20. Progress Note SUBJECTIVE: Seen at bedside this morning. Doing well. No acute events overnight. Heart rate improved to 52 this morning. She denies chest pain, shortness of breath, palpitations. Patient appears more alert today, oriented to self, place but not time. This that she does not wear dentures at home. She is able to tolerate moderately solid diet. OBJECTIVE PHYSICAL EXAMINATION: VITAL SIGNS: Please see below. General: appears comfortable, confused, AAO 2-3 HEENT: PERRLA, EOMI, sclerae clear, missing dentures Neck: supple, normal ROM, no JVD Resp: lungs CTAB, no wheeze, no rales, no crackles CVS: RRR, normal S1, S2, no murmurs Abdo: soft, no masses, no hepatosplenomegaly, BS+, no rebound tenderness Extremities: no edema, pulses 2+ MSK: no joint deformities, normal ROM Neuro: no focal neuro deficits, moving all 4 extremities Psych: calm, cooperative, AAO x 3 LABORATORY DATA, IMAGING STUDIES, MICROBIOLOGY: Please see below. CXR (01/11/20) DVT prophylaxis ordered?: Y ASSESSMENT AND PLAN: This is an 84-year-old female with a history of heart failure with reduced ejection fraction, atrial fibrillation, chronic renal failure, and hypertension, was admitted for workup of altered mental status secondary to dehydration and bradycardia. Bradycardia thought to be due to metoprolol use. Bradycardia mildly improved. PROBLEMS: 1. Acute renal failure on chronic kidney disease: dehydration, reduced PO intake. Cr trending down 2.27 (from 3.6) C/w IVF, reduce NS 80cc/hr. Hold torsemide. Pre-renal, likely hypovolemia secondary to reduced PO intake. 2. Mild hyperkalemia: 5.2. Monitor. 3. CAP: CXR L basilar opacity. vanc, cefepime through 01/15 pending clinical imrpovement, transition to PO bactrim. MRSA+. Small pleural effusion. Afebrile. No WBC. 4. UTI: UA LE, WBC, Bacteria. Culture pending. Cefepime. 3. Metabolic encephalopathy secondary to uremia: Acute renal failure. IVF NS 80 cc/hr. Cr slowly trending down. FeNA 1%. , Patient's mentation is improved today. 5. Bradycardia: likely 2/2 metoprolol use. Held. HR 52 today. Hemodynamically stable. Trop 0.05, 0.07, 0.03. (elevation likely 2/2 renal disease). EKG sinus krishan. Discussed this with Dr. Herrera, as the patient does not take any other medications that would lower her heart rate, could resume low-dose metoprolol tartrate once a day. We will start metoprolol tartrate 12.5 mg once daily and monitor heart rate closely in order to prevent recurrence of atrial fibrillation. 5. Metabolic encephalopathy: likely medication induced/uremia. renally dosed gabapentin. ativan prn. 7. Anxiety/depression: holding venlafaxine. ativan prn. 8. Bereavement: recent , daughter. 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 9. Rheumatoid arthritis: cont hydroxychloroquine 10. Atrial fib: sinus krishan. Metoprolol tartrate 37.5 mg BID at home. Holding BB. Resume eliquis 2.5 mg BID (reduced dosage, discussed with pharmacy, her renal function has improved slightly, but given age, and Cr > 1.5, needs reduced dose). 11. GERD: cont PPI. 12. Insomnia: hold trazodone, AMS 13. Intertrigo under breasts and abdominal fold: nystatin powder 14. DVT prophylaxis: Eliquis 2.5 mg BID VS, I&O, 24H, Fishbone Vital Signs/I&O Vital Signs Date Time Temp Pulse Resp B/P (MAP) Pulse Ox O2 Delivery O2 Flow Rate FiO2 01/13/20 04:00 96.7 47 20 150/78 (102) 93 Room Air I&O- Last 24 Hours up to 6 AM 01/13/20 06:00 Intake Total 765 ml Output Total 900 ml Balance -135 ml Laboratory Data 24H LABS Laboratory Tests 2 01/12/20 14:22: Methicillin-Resist S.aureus DNA PCR DETECTEDA 01/12/20 15:10: Anion Gap 3L, Glomerular Filtration Rate 16.0L, Calcium Level 9.1 01/12/20 18:09: Urine Color YELLOW, Urine Appearance HAZY, Urine pH 5.0, Urine Specific [place] 1.012, Urine Protein 2+H, Urine Glucose (UA) NEGATIVE, Urine Ketones NEGATIVE, Urine Blood NEGATIVE, Urine Nitrite NEGATIVE, Urine Bilirubin NEGATIVE, Urine Urobilinogen 0.2, Urine Leukocyte Esterase 1+H, Urine WBC (Auto) 40H, Urine RBC (Auto) 1, Urine Hyaline Casts (Auto) 0, Urine Bacteria (Auto) 3+H, Urine Squamous Epithelial Cells 2, Urine Sperm (Auto) , Urine Random Creatinine 76.2, Urine Random Sodium 30 CBC/BMP Laboratory Tests 01/12/20 15:10 Microbiology Microbiology 01/12/20 Urine Culture, Received Pending SHAY JUDGE MD Jan 13, 2020 07:38
[2020-01-13 08:00] VITALS: BP 154/92
[2020-01-13 08:30] LABS: CALCIUM LEVEL 8.8 MG/DL (8.8-10.2); CREATININE FOR GFR 2.27 MG/DL (0.55-1.30); GLOMERULAR FILTRATION RATE 21.9 (>32); POTASSIUM SERUM 5.2 MEQ/L (3.5-5.1); TROPONIN I 0.03 NG/ML (< 0.10)
[2020-01-13] MEDS: GABAPENTIN 300 MG CAP PO SCH (08:43)
[2020-01-13] MEDS: OMEPRAZOLE 20 MG CAP PO SCH ×2 (08:43→21:04)
[2020-01-13] MEDS: ACETAMINOPHEN 650MG ER TAB (TYLENOL ARTHRITIS) PO SCH ×3 (08:43→21:04)
[2020-01-13] MEDS: MAGNESIUM CHLORIDE 64 MG TABCR (SLO MAG) PO SCH ×2 (08:43→21:00)
[2020-01-13] MEDS: HYDROXYCHLOROQUINE 200 MG TAB PO SCH ×2 (08:43→21:04)
[2020-01-13] MEDS: HEPARIN SOD (PORCINE) 5000UNITS/ML 1ML VIAL/SYRINGE SQ SCH (08:43)
[2020-01-13] MEDS: POLYVINYL ALCOHOL OPHTH SOLN 15 ML(LIQUITEARS) OU SCH ×3 (08:44→21:05)
[2020-01-13] MEDS: NYSTATIN 100,000 UNITS/GM TOPICAL PWD 15 GM TOP SCH ×2 (08:44→21:05)
[2020-01-13] MEDS: NS 1,000 ML IV SCH (11:06)
[2020-01-13 12:00] VITALS: BP 152/85
[2020-01-13] MEDS: METOPROLOL TART 12.5 MG PER 1/2 TAB PO SCH (15:21)
[2020-01-13 16:00] VITALS: BP 143/81
[2020-01-13] MEDS ORDERED: VANCOMYCIN HCL 1,000 MG, VIAL MATE ADAPTER 1 EACH in D5W 250 ML IV ONE (17:00)
[2020-01-13 20:00] VITALS: BP 140/71
[2020-01-13] MEDS: ASPIRIN 81 MG ENTERIC TAB PO SCH (21:04)
[2020-01-13] MEDS: APIXABAN 2.5 MG TAB (ELIQUIS) PO SCH (21:04)
[2020-01-14] VITALS: BP 130/80
[2020-01-14] MEDS: NS 1,000 ML IV SCH (00:53)
[2020-01-14] MEDS: CEFEPIME HCL 1 GM in D5W MINI-BAG PLUS 50 ML IV SCH ×2 (02:00→13:09)
[2020-01-14 04:00] VITALS: BP 135/70
[2020-01-14 05:29] LABS: HEMOGLOBIN 10.7 g/dl (12.0-15.5); MEAN CORPUSCULAR HGB CONC 30.6 g/dl (32.0-36.5); PLATELET COUNT, AUTOMATED 181 10^3/uL (150-450); RED BLOOD COUNT 3.57 10^6/uL (4.00-5.40); WHITE BLOOD COUNT 7.6 10^3/uL (4.0-10.0)
[2020-01-14] MEDS: SLF 3 ML SYR IV SCH ×3 (05:42→20:27)
[2020-01-14 05:54] LABS: VANCOMYCIN RANDOM 19.7 UG/ML
[2020-01-14 07:44] LABS: CALCIUM LEVEL 9.2 MG/DL (8.8-10.2); CREATININE FOR GFR 1.63 MG/DL (0.55-1.30); GLOMERULAR FILTRATION RATE 32.2 (>32); POTASSIUM SERUM 3.9 MEQ/L (3.5-5.1)
[2020-01-14 08:00] VITALS: BP 147/77
[2020-01-14] MEDS: MAGNESIUM CHLORIDE 64 MG TABCR (SLO MAG) PO SCH ×2 (08:33→20:25)
[2020-01-14] MEDS: CALCITRIOL 0.25 MCG CAP (S0169) PO SCH (08:34)
[2020-01-14] MEDS: APIXABAN 2.5 MG TAB (ELIQUIS) PO SCH ×2 (08:34→20:26)
[2020-01-14] MEDS: OMEPRAZOLE 20 MG CAP PO SCH ×2 (08:34→20:26)
[2020-01-14] MEDS: GABAPENTIN 300 MG CAP PO SCH (08:34)
[2020-01-14] MEDS: HYDROXYCHLOROQUINE 200 MG TAB PO SCH ×2 (08:34→20:26)
[2020-01-14] MEDS: ACETAMINOPHEN 650MG ER TAB (TYLENOL ARTHRITIS) PO SCH ×3 (08:34→20:26)
[2020-01-14] MEDS: METOPROLOL TART 12.5 MG PER 1/2 TAB PO SCH (08:35)
[2020-01-14] MEDS: POLYVINYL ALCOHOL OPHTH SOLN 15 ML(LIQUITEARS) OU SCH ×3 (08:36→20:25)
[2020-01-14] MEDS: NYSTATIN 100,000 UNITS/GM TOPICAL PWD 15 GM TOP SCH ×2 (08:36→20:26)
--- NOTE | 2020-01-14 10:16 | IPNPDOC ---
Date Seen The patient was seen on 01/14/20. Progress Note SUBJECTIVE: Seen and examined at bedside. Reports right eye pain and discharged. Reports prior headache which is now resolved. Having some nausea. Denies vision changes. Appetite much improved. She appears much more alert and oriented, she is alert and oriented to person, place and time. Much more engaging conversation. She denies chest pain, shortness of breath, palpitations or subjective fevers. OBJECTIVE PHYSICAL EXAMINATION: VITAL SIGNS: Please see below. General: appears comfortable, alert, AAO 3 HEENT: EOMI, missing dentures. R eye conjunctival injection, purulent discharge noted. Pupils are equal and reactive to light. Consensual reflex wnl. Visual acuity intact. Neck: supple, normal ROM, no JVD Resp: lungs CTAB, no wheeze, no rales, no crackles CVS: RRR, normal S1, S2, no murmurs Abdo: soft, no masses, no hepatosplenomegaly, BS+, no rebound tenderness Extremities: no edema, pulses 2+ MSK: no joint deformities, normal ROM Neuro: no focal neuro deficits, moving all 4 extremities Psych: calm, cooperative, AAO x 3 LABORATORY DATA, IMAGING STUDIES, MICROBIOLOGY: Please see below. DVT prophylaxis ordered?: Y, on eliquis 2.5 mg BID ASSESSMENT AND PLAN: This is an 84-year-old female with a history of heart failure with reduced ejection fraction, atrial fibrillation, chronic renal failure, and hypertension, was admitted for workup of altered mental status secondary to dehydration and bradycardia. Bradycardia thought to be due to metoprolol use. Bradycardia mildly improved. PROBLEMS: 1. Acute renal failure on chronic kidney disease: 2/2 dehydration. PO intake improved. Cr trended down to 1.63, at baseline. DC IVF. 2. Mild hyperkalemia: resolved. K 3.9. 3. CAP: CXR L basilar opacity. vanc, cefepime through 01/15 pending clinical imrpovement, transition to PO bactrim. MRSA+. Small pleural effusion. Afebrile. No WBC. 4. UTI: UA LE, WBC, Bacteria. Culture negative. On cefepime. 3. Metabolic encephalopathy secondary to uremia: mentation improved. AAO x 3. Renal function trending to baseline. 5. Bradycardia: likely 2/2 metoprolol use. HR normalized, 70s today. Hemodynamically stable. EKG sinus krishan. Discussed bradycardia with Dr. Herrera. Agrees likel due to metopolol dosage, he rec resumption of low dose BB. Patient received metoprolol tartrate 12.5 mg once yesterday, which she tolerated well. Will titrate up to BID dosing today. 6. Bacterial conjuctivitis R eye: hx of Sjogren's. Normal visual acuity. PERRLA. Otic cipro 0.3% 1-2 drops QID for 7 days. Artificial tears. 7. Anxiety/depression: holding venlafaxine. ativan prn. 8. Bereavement: recent , daughter. 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 9. Rheumatoid arthritis: cont hydroxychloroquine 10. Atrial fib: HR 70s. Resume metoprolol at lower dose, 12.5 mg BID. Resume eliquis 2.5 mg BID (reduced dosage, discussed with pharmacy, her renal function has improved slightly, but given age, and Cr > 1.5, needs reduced dose). 11. GERD: cont PPI. 12. Insomnia: hold trazodone, AMS 13. Intertrigo under breasts and abdominal fold: nystatin powder 14. DVT prophylaxis: Eliquis 2.5 mg BID VS, I&O, 24H, Fishbone Vital Signs/I&O Vital Signs Date Time Temp Pulse Resp B/P (MAP) Pulse Ox O2 Delivery O2 Flow Rate FiO2 01/14/20 08:35 70 135/70 01/14/20 08:00 96.5 20 90 Room Air I&O- Last 24 Hours up to 6 AM 01/14/20 06:00 Intake Total 2445 ml Output Total 1000 ml Balance 1445 ml Laboratory Data 24H LABS Laboratory Tests 2 01/13/20 15:06: Random Vancomycin Level 10.8 01/14/20 04:44: Random Vancomycin Level 19.7, Nucleated Red Blood Cells % (auto) 0.0, Anion Gap 6L, Glomerular Filtration Rate 32.2, Calcium Level 9.2 CBC/BMP Laboratory Tests 01/14/20 04:44 Microbiology Microbiology 01/12/20 Urine Culture - Final, Complete SHAY JUDGE MD Jan 14, 2020 10:16
[2020-01-14 12:00] VITALS: BP 140/76
[2020-01-14] MEDS ORDERED: CIPROFLOXACIN 0.3% OPHTH SOLN 2.5ML OD SCH ×3 (12:00→23:00)
[2020-01-14] MEDS ORDERED: TOBRAMYCIN 0.3% OPHTH OINT 3.5 GM OD SCH (13:45)
[2020-01-14] MEDS ORDERED: VANCOMYCIN HCL 1,000 MG, VIAL MATE ADAPTER 1 EACH in D5W 250 ML IV SCH (15:00)
[2020-01-14 16:00] VITALS: BP 140/86
[2020-01-14] MEDS: CIPROFLOXACIN 0.3% OPHTH SOLN 2.5ML OD SCH ×3 (18:11→21:51)
[2020-01-14] MEDS: TOBRAMYCIN 0.3% OPHTH SOLN 5 ML OD SCH ×3 (18:11→21:50)
[2020-01-14 20:00] VITALS: BP 152/84
[2020-01-14] MEDS: ASPIRIN 81 MG ENTERIC TAB PO SCH (20:26)
[2020-01-14] MEDS ORDERED: METOPROLOL TART 12.5 MG PER 1/2 TAB PO SCH (21:00)
[2020-01-14] MEDS: ONDANSETRON 4MG/2ML VIAL IV PRN (21:50)
[2020-01-14] MEDS: LORazepam 0.5 MG TAB PO PRN (21:50)
[2020-01-15] VITALS (7 sets, daily range): BP systolic 138–190; BP diastolic 80–92
[2020-01-15] MEDS ORDERED: UNRESOLVED CLARIFICATION ENTRY XX SCH (00:01)
--- NOTE | 2020-01-15 00:39 | ECGEPIP ---
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 CONSIDER JUNCTIONEL RHYTHM RIGHT BUNDLE BRANCH BLOCK POSSIBLE ANTERIOR MYOCARDIAL INFARCTION, PROBABLY OLD INFERIOR MYOCARDIAL INFARCTION, PROBABLY OLD PATIENT WITH HISTORY OF ATRIAL FIBRILLATION, CONSIDER DIGOXIN TOXICITY IF PATIENT IS ON DIGOXIN. Compared to prior 2 tracings in the system, Atrial Fib was noted Electronically Signed on 01-15-2020 0:39:21 EDT by Rishabh Herrera
[2020-01-15] MEDS: CIPROFLOXACIN 0.3% OPHTH SOLN 2.5ML OD SCH ×11 (00:45→20:15)
[2020-01-15] MEDS: TOBRAMYCIN 0.3% OPHTH SOLN 5 ML OD SCH ×10 (00:45→18:12)
[2020-01-15] MEDS: CEFEPIME HCL 1 GM in D5W MINI-BAG PLUS 50 ML IV SCH (02:09)
[2020-01-15] MEDS: SLF 3 ML SYR IV SCH ×3 (05:52→20:16)
[2020-01-15] MEDS ORDERED: CIPROFLOXACIN 0.3% OPHTH SOLN 2.5ML OD SCH (06:00)
[2020-01-15] MEDS: LORazepam 0.5 MG TAB PO PRN ×2 (07:15→22:26)
--- NOTE | 2020-01-15 08:03 | IPNPDOC ---
Date Seen The patient was seen on 01/15/20. Progress Note SUBJECTIVE: Patient seen and examined at bedside. Reports mild improvement in right eye pain. Alert and oriented 2 (person and place, not time).. She denies chest pain, shortness of breath, nausea, vomiting, diarrhea, or palpitations. No acute events overnight. Ophthalmic antibiotics every 2 hours. OBJECTIVE PHYSICAL EXAMINATION: VITAL SIGNS: Please see below. General: appears comfortable, alert, AAO 3 HEENT: EOMI, missing dentures. R eye conjunctival injection, purulent discharge noted. Pupils are equal and reactive to light. Consensual reflex wnl. Visual acuity intact. Neck: supple, normal ROM, no JVD Resp: lungs CTAB, no wheeze, no rales, no crackles CVS: RRR, normal S1, S2, no murmurs Abdo: soft, no masses, no hepatosplenomegaly, BS+, no rebound tenderness Extremities: no edema, pulses 2+ MSK: no joint deformities, normal ROM Neuro: no focal neuro deficits, moving all 4 extremities Psych: calm, cooperative, AAO x 3 LABORATORY DATA, IMAGING STUDIES, MICROBIOLOGY: Please see below. DVT prophylaxis ordered?: Y, on eliquis 2.5 mg BID ASSESSMENT AND PLAN: This is an 84-year-old female with a history of heart failure with reduced ejection fraction, atrial fibrillation, chronic renal failure, and hypertension, was admitted for workup of altered mental status secondary to dehydration and bradycardia. Bradycardia thought to be due to metoprolol use. Bradycardia mildly improved. PROBLEMS: 1 Acute renal failure on chronic kidney disease: 2/2 dehydration. PO intake improved. Cr trended down to 1.63, at baseline. 2. CAP: CXR L basilar opacity. vanc, cefepime through 01/15. Transition to PO therafter. MRSA+. Small pleural effusion. Afebrile. No WBC. 3. UTI: UA LE, WBC, Bacteria. Culture negative. On cefepime. 4. Metabolic encephalopathy secondary to uremia: mentation improved. AAO x 3. Renal function trending to baseline. 5. Bradycardia: likely 2/2 metoprolol use. HR normalized, 80s today. Hemodynamically stable. EKG sinus krishan. Discussed bradycardia with Dr. Herrera. Agrees likely due to metopolol dosage, he rec resumption of low dose BB. Patient received metoprolol tartrate 12.5 mg once yesterday, which she tolerated well. Titrate up to 25 mg BID on 01/15/20. 6. Bacterial conjuctivitis R eye: hx of Sjogren's. Normal visual acuity. PERRLA. Cipro and tobramycin. 7R eye corneal ulcer: Ophthalmology consulted, Dr. Dos Santos. Cipro and tobramycin ophthalmic soln 1 drop R eye, frequency now changed to QID, per Dr. Dos Santos. 8. Anxiety/depression: holding venlafaxine. ativan prn. 9.Rheumatoid arthritis: cont hydroxychloroquine 10. Atrial fib: HR 70s. Metoprolol 25 mg bid. Resume eliquis 2.5 mg BID (reduced dosage, discussed with pharmacy, her renal function has improved slightly, but given age, and Cr > 1.5, needs reduced dose). 11. Bereavement: recent , daughter. 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 12. GERD: cont PPI. 13. Insomnia: hold trazodone, AMS 14. Intertrigo under breasts and abdominal fold: nystatin powder 15. Mild hyperkalemia: resolved. K 3.9. 16.DVT prophylaxis: Eliquis 2.5 mg BID Dispo: plan for rehab after DC. Will keep admitted to monitor progress of R eye conjunctivitis and peripheral corneal ulcer, on recommendation from Dr. Dos Santos. VS, I&O, 24H, Fishbone Vital Signs/I&O Vital Signs Date Time Temp Pulse Resp B/P (MAP) Pulse Ox O2 Delivery O2 Flow Rate FiO2 01/15/20 04:00 98.3 67 20 168/92 (117) 93 Nasal Cannula 2.0 I&O- Last 24 Hours up to 6 AM 01/15/20 06:00 Intake Total 980 ml Output Total 425 ml Balance 555 ml Laboratory Data 24H LABS Laboratory Tests 2 01/14/20 11:51: Bedside Glucose (Misc Panel) 130H 01/15/20 07:51: CBC/BMP Microbiology Microbiology 01/12/20 Urine Culture - Final, Complete SHAY JUDGE MD Jan 15, 2020 08:03
[2020-01-15 08:23] LABS: CALCIUM LEVEL 9.3 MG/DL (8.8-10.2); CREATININE FOR GFR 1.37 MG/DL (0.55-1.30); GLOMERULAR FILTRATION RATE 39.3 (>32); POTASSIUM SERUM 4.2 MEQ/L (3.5-5.1)
[2020-01-15] MEDS: MAGNESIUM CHLORIDE 64 MG TABCR (SLO MAG) PO SCH ×2 (08:26→20:13)
[2020-01-15] MEDS: ACETAMINOPHEN 650MG ER TAB (TYLENOL ARTHRITIS) PO SCH ×3 (08:26→20:14)
[2020-01-15] MEDS: HYDROXYCHLOROQUINE 200 MG TAB PO SCH ×2 (08:27→20:15)
[2020-01-15] MEDS: APIXABAN 2.5 MG TAB (ELIQUIS) PO SCH ×2 (08:27→20:14)
[2020-01-15] MEDS: OMEPRAZOLE 20 MG CAP PO SCH ×2 (08:27→20:14)
[2020-01-15] MEDS: GABAPENTIN 300 MG CAP PO SCH (08:27)
[2020-01-15 08:28] LABS: BASO # 0.1 10^3/uL (0.0-0.2); BASO % 0.5 % (0.0-1.0); EOS # 0.1 10^3/uL (0.0-0.5); EOS % 0.7 % (0.0-3.0); HEMOGLOBIN 11.6 g/dl (12.0-15.5); LYMPH % 29.7 % (24.0-44.0); MEAN CORPUSCULAR HEMOGLOBIN 30.6 pg (27.0-33.0); MEAN CORPUSCULAR HGB CONC 30.5 g/dl (32.0-36.5); MEAN CORPUSCULAR VOLUME 100.3 fl (80.0-96.0); MONO # 0.9 10^3/uL (0.0-0.8); MONO % 8.6 % (0.0-5.0); NEUTROPHILS % 59.8 % (36.0-66.0); PLATELET COUNT, AUTOMATED 188 10^3/uL (150-450); RED BLOOD COUNT 3.79 10^6/uL (4.00-5.40)
[2020-01-15] MEDS: NYSTATIN 100,000 UNITS/GM TOPICAL PWD 15 GM TOP SCH ×2 (08:28→20:16)
[2020-01-15] MEDS: METOPROLOL TART 25 MG TABLET PO SCH ×2 (08:28→20:14)
[2020-01-15] MEDS: POLYVINYL ALCOHOL OPHTH SOLN 15 ML(LIQUITEARS) OU SCH ×3 (08:28→20:15)
[2020-01-15] MEDS: ONDANSETRON 4MG/2ML VIAL IV PRN ×2 (10:48→20:13)
[2020-01-15] MEDS: DOXYCYCLINE HYCLATE 100MG TABLET PO SCH ×2 (14:27→20:15)
[2020-01-15] MEDS: TOBRADEX OPHTH SUSP 2.5 ML OD SCH (20:13)
[2020-01-15] MEDS: ASPIRIN 81 MG ENTERIC TAB PO SCH (20:14)
--- NOTE | 2020-01-16 00:07 | ECGEPIP ---
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 No significant changes Electronically Signed on 01-16-2020 0:06:42 EDT by Rishabh Herrera
[2020-01-16] MEDS: SLF 3 ML SYR IV SCH ×2 (05:15→13:22)
[2020-01-16 06:00] VITALS: BP 165/89
[2020-01-16 06:38] LABS: BASO % 0.4 % (0.0-1.0); EOS % 0.4 % (0.0-3.0); HEMATOCRIT 36.5 % (36.0-47.0); LYMPH # 1.6 10^3/uL (1.5-5.0); LYMPH % 21.4 % (24.0-44.0); MEAN CORPUSCULAR HEMOGLOBIN 30.3 pg (27.0-33.0); MEAN CORPUSCULAR HGB CONC 30.1 g/dl (32.0-36.5); MEAN CORPUSCULAR VOLUME 100.6 fl (80.0-96.0); MONO # 0.6 10^3/uL (0.0-0.8); MONO % 8.5 % (0.0-5.0); NEUTROPHILS % 68.5 % (36.0-66.0); PLATELET COUNT, AUTOMATED 163 10^3/uL (150-450); RED BLOOD COUNT 3.63 10^6/uL (4.00-5.40); WHITE BLOOD COUNT 7.3 10^3/uL (4.0-10.0)
[2020-01-16 07:15] LABS: ALBUMIN 2.7 GM/DL (3.2-5.2); BILIRUBIN,TOTAL 0.5 MG/DL (0.2-1.0); CALCIUM LEVEL 10.1 MG/DL (8.8-10.2); CREATININE FOR GFR 1.41 MG/DL (0.55-1.30); MAGNESIUM LEVEL 2.1 MG/DL (1.8-2.4); POTASSIUM SERUM 4.5 MEQ/L (3.5-5.1); TOTAL PROTEIN 7.1 GM/DL (6.4-8.2)
--- NOTE | 2020-01-16 08:28 | IPNPDOC ---
Date Seen The patient was seen on 01/16/20. Progress Note SUBJECTIVE: Patient seen and examined at bedside. Significant improvement in eye discharge and pain. Alert and oriented 2 (person and place, not time). She denies chest pain, shortness of breath, nausea, vomiting, diarrhea, or palpitations. No acute events overnight. OBJECTIVE PHYSICAL EXAMINATION: VITAL SIGNS: Please see below. General: appears comfortable, alert, AAO 2 HEENT: EOMI, missing dentures. R eye mildly injected. No purulent drainage today. Pupils are equal and reactive to light. Consensual reflex wnl. Visual acuity intact. Neck: supple, normal ROM, no JVD Resp: lungs CTAB, no wheeze, no rales, no crackles CVS: RRR, normal S1, S2, no murmurs Abdo: soft, no masses, no hepatosplenomegaly, BS+, no rebound tenderness Extremities: no edema, pulses 2+ MSK: no joint deformities, normal ROM Neuro: no focal neuro deficits, moving all 4 extremities Psych: calm, cooperative, AAO x 2 LABORATORY DATA, IMAGING STUDIES, MICROBIOLOGY: Please see below. DVT prophylaxis ordered?: Y, on eliquis 2.5 mg BID ASSESSMENT AND PLAN: This is an 84-year-old female with a history of heart f ailure with reduced ejection fraction, atrial fibrillation, chronic renal failure, and hypertension, was admitted for workup of altered mental status secondary to dehydration and bradycardia. Bradycardia thought to be due to metoprolol use. Bradycardia mildly improved. PROBLEMS: 1 Acute renal failure on chronic kidney disease: 2/2 dehydration. PO intake improved. Cr trended down to 1.4. Baseline. 2. CAP: CXR L basilar opacity. Vanc/Cefepime (01/11/-01/15). Doxycycline 100 mg PO BID 01/14 through 01/19. MRSA+. Small pleural effusion. Afebrile. No WBC. 3. UTI: AMS, culture negative. Cefepime. AMS improved. 4. Metabolic encephalopathy secondary to uremia: mentation improved. AAO x 2-3 5. Bradycardia: resolved. likely 2/2 metoprolol use. Resumed metoprolol at reduced dose 25 mg BID. Discussed with Dr. Herrera. Agrees. 6. Bacterial conjuctivitis R eye: hx of Sjogren's. Normal visual acuity. PERRLA. Cipro and tobramycin. Much improved, discussed with Dr. Dos Santos. 7. R eye peripheral corneal ulcer: Ophthalmology consulted, Dr. Dos Santos. Cipro 1 drop QID to R eye. Tobramycin 1 drop BID to R eye. Discussed with Dr. Dos Santos, significant improvement. Cleared for DC from ophthalmology stand point. Will need to follow up within 1 week, his office will arrange. Continue ophthalmic abx regimen on DC. 8. Anxiety/depression: holding venlafaxine. ativan prn. 9.Rheumatoid arthritis: cont hydroxychloroquine 10. Atrial fib: Metoprolol 25 mg bid. Eliquis 2.5 mg BID (reduced dosage, discussed with pharmacy, her renal function has improved slightly, but given age, and Cr > 1.5, needs reduced dose). 11. Bereavement: emotionally stable. 12. GERD: cont PPI. 13. Insomnia: hold trazodone, AMS 14. Intertrigo under breasts and abdominal fold: nystatin powder 15. Mild hyperkalemia: resolved. K 3.9. 16.DVT prophylaxis: Eliquis 2.5 mg BID Dispo: plan for rehab after DC at [facility] on 01/18/20. VS, I&O, 24H, Fishbone Vital Signs/I&O Vital Signs Date Time Temp Pulse Resp B/P (MAP) Pulse Ox O2 Delivery O2 Flow Rate FiO2 01/16/20 06:00 98.1 86 20 165/89 (114) 93 Nasal Cannula 2.0 I&O- Last 24 Hours up to 6 AM 01/16/20 05:59 Intake Total 730 ml Output Total 225 ml Balance 505 ml Laboratory Data 24H LABS Laboratory Tests 2 01/16/20 05:54: Immature Granulocyte % (Auto) 0.8, Neutrophils (%) (Auto) 68.5H, Lymphocytes (%) (Auto) 21.4L, Monocytes (%) (Auto) 8.5H, Eosinophils (%) (Auto) 0.4, Basophils (%) (Auto) 0.4, Neutrophils # (Auto) 5.0, Lymphocytes # (Auto) 1.6, Monocytes # (Auto) 0.6, Eosinophils # (Auto) 0.0, Basophils # (Auto) 0.0, Nucleated Red Blood Cells % (auto) 0.0, Anion Gap 5L, Glomerular Filtration Rate 38.0, Calcium Level 10.1, Magnesium Level 2.1, Total Bilirubin 0.5, Aspartate Amino Transf (AST/SGOT) 24, Alanine Aminotransferase (ALT/SGPT) 26, Alkaline Phosphatase 95, Total Protein 7.1, Albumin 2.7L, Albumin/Globulin Ratio 0.6L CBC/BMP Laboratory Tests 01/16/20 05:54 Microbiology Microbiology 01/12/20 Urine Culture - Final, Complete SHAY JUDGE MD Jan 16, 2020 08:27
[2020-01-16] MEDS: MAGNESIUM CHLORIDE 64 MG TABCR (SLO MAG) PO SCH (10:05)
[2020-01-16] MEDS: OMEPRAZOLE 20 MG CAP PO SCH (10:05)
[2020-01-16] MEDS: DOXYCYCLINE HYCLATE 100MG TABLET PO SCH (10:06)
[2020-01-16] MEDS: CALCITRIOL 0.25 MCG CAP (S0169) PO SCH (10:06)
[2020-01-16] MEDS: ACETAMINOPHEN 650MG ER TAB (TYLENOL ARTHRITIS) PO SCH ×2 (10:06→16:31)
[2020-01-16] MEDS: APIXABAN 2.5 MG TAB (ELIQUIS) PO SCH (10:06)
[2020-01-16] MEDS: GABAPENTIN 300 MG CAP PO SCH (10:06)
[2020-01-16 10:12] VITALS: BP 164/74
[2020-01-16] MEDS: METOPROLOL TART 25 MG TABLET PO SCH (10:12)
[2020-01-16] MEDS: NYSTATIN 100,000 UNITS/GM TOPICAL PWD 15 GM TOP SCH (10:19)
[2020-01-16] MEDS: POLYVINYL ALCOHOL OPHTH SOLN 15 ML(LIQUITEARS) OU SCH ×2 (10:21→16:31)
[2020-01-16] MEDS: CIPROFLOXACIN 0.3% OPHTH SOLN 2.5ML OD SCH ×3 (10:22→16:31)
[2020-01-16] MEDS: TOBRADEX OPHTH SUSP 2.5 ML OD SCH (10:24)
[2020-01-16] MEDS: HYDROXYCHLOROQUINE 200 MG TAB PO SCH (10:28)
[2020-01-16 14:00] VITALS: BP 150/74
[2020-01-16] MEDS ORDERED: NS 1,000 ML IV SCH (15:00)
[2020-01-16] MEDS ORDERED: SODIUM CHLORIDE 0.9% 1000ML IV ONE (15:00)
[2020-01-16] MEDS ORDERED: HEPARIN SOD (PORCINE) 5000UNITS/ML 1ML VIAL/SYRINGE IV PRN (15:15)
[2020-01-16] MEDS ORDERED: HEPARIN SOD (PORCINE) 5000UNITS/ML 1ML VIAL/SYRINGE IV ONE (15:15)
[2020-01-16] MEDS ORDERED: ISOVUE-370 76% 100ML VIAL As Ordered ONE (15:28)
[2020-01-16] MEDS ORDERED: HEPARIN DRIP 25,000 UNITS in IV 1 EA IV SCH (15:30)
--- NOTE | 2020-01-16 16:25 | REPVR ---
PROCEDURE INFORMATION: Exam: CTA Angiogram of the Abdominal Aorta and Bilateral Lower Extremities (Run-off) With IV Contrast Exam date and time: 01/16/2020 4:01 PM Age: 84 years old Clinical indication: Other: R/O acute limb ischemia bilateral. Cta with runoff TECHNIQUE: Imaging protocol: CT angiogram of the abdominal aorta, pelvis and bilateral lower extremities with IV iodinated contrast. 3D rendering (Not supervised by radiologist): MIP and/or 3D reconstructed images were created by the technologist. Radiation optimization: All CT scans at this facility use at least one of these dose optimization techniques: automated exposure control; mA and/or kV adjustment per patient size (includes targeted exams where dose is matched to clinical indication); or iterative reconstruction. Contrast material: ISOVUE 370; Contrast volume: 100 ml; Contrast route: INTRAVENOUS (IV); COMPARISON: CT ABD PELVIS W/O CONTRAST 10/26/2019 2:28 PM FINDINGS: Aorta: Mild atherosclerotic calcifications of the aorta. No aneurysm or dissection. Celiac trunk and mesenteric arteries: Mild stenosis of the celiac artery. The superior mesenteric artery is patent. Renal arteries: No occlusion or significant stenosis. Right iliac arteries: No occlusion or significant stenosis. Right femoral/popliteal arteries: There is a gradually decreasing opacification of the right superficial femoral artery with essentially loss of opacification at the level of the right popliteal artery. Right infrapopliteal arteries: Right infrapopliteal arteries are not visualized. Left iliac arteries: No occlusion or significant stenosis. Left femoral/popliteal arteries: There is a gradually decreasing opacification of the left superficial femoral artery with essentially loss of opacification at the level of the left popliteal artery. Left infrapopliteal arteries: Left infrapopliteal arteries are not visualized. Lungs: Small left pleural effusion with adjacent consolidation of the left lower lobe. Extension of contrast within the hepatic veins Mediastinum: Moderate sized hiatal hernia. Liver: No mass. Gallbladder and bile ducts: Gallbladder is surgically absent. Pancreas: Unremarkable. No mass. No ductal dilation. Spleen: Normal. No splenomegaly. Adrenals: Mild bilateral thickening of the adrenal glands, most likely reflecting hyperplasia. Kidneys and ureters: Fluid density cyst throughout the right kidney, to which no further follow-up is necessary. No hydronephrosis or stones. Stomach and bowel: Colonic diverticulosis without evidence of acute diverticulitis. Small bowel loops are unremarkable. Appendix: No evidence of appendicitis. Bladder: Unremarkable. No mass. Reproductive: Unremarkable as visualized. Intraperitoneal space: Small degree of nonspecific low-density free fluid in the pelvis. Lymph nodes: Chronic unchanged mildly prominent nonspecific left inguinal lymph nodes. Bones/joints: No acute fracture. No dislocation. Degenerative changes of the visualized spine. Soft tissues: Chronic unchanged soft tissue thickening within the lower anterior abdominal wall, potentially scarring from prior surgery. Soft tissue thickening and mild fat stranding within the midline posterior gluteal soft tissues extending to the level of the anus. IMPRESSION: 1. Symmetric bilateral gradually decreasing opacification of the superficial femoral arteries with essentially complete loss of opacification at the level of the popliteal arteries. Symmetry of this absence of opacification is most suggestive of diminished blood flow (potential heart failure further suggested by extension of contrast into the hepatic veins) and/or poor timing of IV contrast, however stenosis/occlusion within these vessels cannot be ruled out. Given provided history of concern for bilateral lower limb ischemia, recommend vascular surgery consultation and further evaluation with lower extremity arterial Doppler ultrasound. 2. Soft tissue thickening and mild fat stranding within the midline posterior gluteal soft tissues extending to the level of the anus. Correlate clinically for signs/symptoms of decubitus ulcer. 3. Small left pleural effusion with adjacent consolidation of the left lower lobe. 4. Other findings, as above. Electronically signed by: Andrea Livingston On 01/16/2020 16:25:01 PM
[2020-01-16] MEDS ORDERED: HEPA1INJ81 IV (17:10)
[2020-01-16] MEDS ORDERED: NYST10006 TOP (17:10)
[2020-01-16] MEDS ORDERED: TOBRSUS8 OD (17:10)
[2020-01-16] MEDS ORDERED: POLYOPD OU (17:10)
[2020-01-16] MEDS ORDERED: DOXY100T PO (17:10)
[2020-01-16] MEDS ORDERED: METO1TAB87 PO (17:10)
[2020-01-16] MEDS ORDERED: CILO0.3S OD (17:10)
[2020-01-16] MEDS ORDERED: OMEP-218 PO (17:10)
--- NOTE | 2020-01-16 17:36 | DS.PDOC ---
Discharge Summary General Date of Admission Jan 11, 2020 at 14:20 Date of Discharge 01/16/20 Discharge Summary PROCEDURES PERFORMED DURING STAY: [None]. ADMITTING DIAGNOSES: acute renal failure CKD Chronic afib Asymptomatic UTI Metabolic encephalopathy Bacterial conjunctivitis of R eye Corneal ulcer of R eye Rheumatoid Arthritis Sjogren's syndrome GERD Anxiety Depression Bereavement Insomnia Intertrigo Hyperkalemia DISCHARGE DIAGNOSES: acute renal failure CKD Suspected acute limb ischemia Community acquire pneumonia Chronic afib Asymptomatic UTI Metabolic encephalopathy Bacterial conjunctivitis of R eye Corneal ulcer of R eye Rheumatoid Arthritis Sjogren's syndrome GERD Anxiety Depression Bereavement Insomnia Intertrigo Hyperkalemia COMPLICATIONS/CHIEF COMPLAINT: Adverse Effect Of Beta Andrzej Dehydration. HISTORY OF PRESENT ILLNESS: Mrs. Cheema is an 84 year old female with heart failure with reduced ejection fraction (EF 35% - 45%), atrial fibrillation, chronic renal failure, and hypertension who is here for altered mental status secondary to dehydration and bradycardia. Patient is confused, she thinks it's 1987. She is also difficult to understand, as she does not have her dentures. Her youngest daughter last Saturday. On , she was falling apart. She had started to eat less and drink less. They had to force her to drink fluids. Her medications are managed by [facility]. On day of admission, lethargic and confused, and was brought into the ED. While in the ED, she had a heart rate of 34. The first EKG demonstrated sinus bradycardia. She is on Lopressor twice a day. In addition, she came in with acute renal failure. Her creatinine was 3.7, where baselines around 2.8. Her potassium is mildly elevated at 5.1. On examination, her oral mucosa was extremely dry, her eyelids were sticky, and a capillary refill was sluggish. HOSPITAL COURSE: 1 Acute renal failure on chronic kidney disease: 2/2 dehydration. PO intake improved. Cr trended down to 1.4. Baseline. 2. CAP: CXR L basilar opacity. Vanc/Cefepime (01/11/-01/15). Doxycycline 100 mg PO BID 01/14 through 01/19. MRSA+. Small pleural effusion. Afebrile. No WBC. 3. UTI: AMS, culture negative. Cefepime. AMS improved. 4. Suspected acute limb ischemia -LLE. - Called by RN for worsening duskiness of the left lower extremity, worse in the foot. On examination, foot cold to touch. Pulses were nonpalpable. Pulse was audible using bedside Doppler. Patient denies worsening pain. Able to articulate left foot at the ankle and toes. Skin appears cracked and dry. Right foot has a slightly diminished degree of duskiness is warmer to touch. Pulses not palpable. Right lower extremity. Peripheral pulses audible with Doppler. CTA aorta with runoff performed, however due to reduced cardiac output, contrast study is of low diagnostic yield, please see CT report below. , Unable to perform arterial Dopplers without vascular surgery approval. Plan for transfer to [facility] for vascular surgery evaluation and possible intervention. Patient started on heparin ggt. Her eliquis and ASA held at this time. Discussed with Dr. Simmons who is accepting patient to vascular service. - Please note patient's history of CKD4 - patient received IV contrast required for CT study on 01/16/20. Discussed with nephrology. Continued IV hydration with normal saline at 80 mL per hour. Please repeat renal function studies. 4. Metabolic encephalopathy secondary to uremia: mentation improved. AAO x 2 5. Bradycardia: resolved. likely 2/2 metoprolol use. Resumed metoprolol at reduced dose 25 mg BID. Discussed with Dr. Herrera (Cardio). Agrees. 6. Bacterial conjuctivitis R eye: hx of Sjogren's. Normal visual acuity. PERRLA. Cipro and tobramycin. Much improved, discussed with Dr. Dos Santos. 7. R eye peripheral corneal ulcer: Ophthalmology consulted, Dr. Dos Santos. Cipro 1 drop QID to R eye. Tobramycin 1 drop BID to R eye. Discussed with Dr. Dos Santos, significant improvement. Cleared for DC from ophthalmology standpo int. Will need to follow up within 1 week, his office will arrange. Continue ophthalmic abx regimen on DC. 8. Anxiety/depression: holding venlafaxine. ativan prn. 9.Rheumatoid arthritis: cont hydroxychloroquine 10. Atrial fib: Metoprolol 25 mg bid. Eliquis 2.5 mg BID (reduced dosage, discussed with pharmacy, her renal function has improved slightly, but given age, and Cr > 1.5, needs reduced dose). 11. Bereavement: emotionally stable. 12. GERD: cont PPI. 13. Insomnia: hold trazodone, AMS 14. Intertrigo under breasts and abdominal fold: nystatin powder 15. Mild hyperkalemia: resolved. K 3.9. 16.DVT prophylaxis: Eliquis 2.5 mg BID - held while on heparin ggt. DISCHARGE MEDICATIONS: Please see below. ALLERGIES: Please see below. PHYSICAL EXAMINATION ON DISCHARGE: VITAL SIGNS: please see below General: NAD, comfortable HEENT: PERRLA, EOMI, right conjunctival injection, improving edema around the right eye, no purulent discharge seen today. Neck: supple, normal ROM, no JVD Respiratory: lungs CTAB, no wheeze, no rales, no crackles CVS: RRR, normal S1, S2, no murmurs Abdo: soft, no masses, no hepatosplenomegaly, BS+, no rebound tenderness Extremities: 1+ edema seen on bilateral lower extremities. Left foot appears dusky/purple, is cold to touch, peripheral pulses not palpable. Pulses heard but faint with bedside doppler exam. RLE less dusky in appearance, warmer to touch, pulse hear on doppler, louder than L. Skin on bilateral feet dry, cracked. Patient is able to move feet at ankle joint, articulate toes. Denies worsening pain at this time. MSK: no joint deformities, normal ROM Neuro: no focal neuro deficits, moving all 4 extremities, CN2-12 intact. Strength 5/5 in all 4 extremities. No nystagmus. Psych: calm, cooperative, AAO x 2 LABORATORY DATA: Please see below. IMAGING: CT head wo contrast (01/11/20) Brain: There is no acute intracranial hemorrhage or mass effect. Moderate diffuse volume loss is within the range of normal for patient age. There are small vessel ischemic changes within the periventricular and subcortical white matter, but the normal hwang-white matter delineation is maintained. Cerebral ventricles: No ventriculomegaly. Bones/joints: Unremarkable. No acute fracture. Paranasal sinuses: Visualized sinuses are unremarkable. No fluid levels. Mastoid air cells: Visualized mastoid air cells are well aerated. Soft tissues: Unremarkable. IMPRESSION: No acute hemorrhage or edema. Stable chronic changes. CXR (01/11/20) FINDINGS: Lungs: There increased streaky left basilar airspace opacities. Pleural space: There is a small left pleural effusion. Heart/Mediastinum: The heart is at the upper limits of normal in size. Bones/joints: There are bilateral shoulder arthroplasties. IMPRESSION: Increased left basilar airspace opacities and small left pleural effusion. CTA Aorta with runoff (01/16/20) TECHNIQUE: Imaging protocol: CT angiogram of the abdominal aorta, pelvis and bilateral lower extremities with IV iodinated contrast. 3D rendering (Not supervised by radiologist): MIP and/or 3D reconstructed images were created by the technologist. Radiation optimization: All CT scans at this facility use at least one of these dose optimization techniques: automated exposure control; mA and/or kV adjustment per patient size (includes targeted exams where dose is matched to clinical indication); or iterative reconstruction. Contrast material: ISOVUE 370; Contrast volume: 100 ml; Contrast route: INTRAVENOUS (IV); COMPARISON: CT ABD PELVIS W/O CONTRAST 10/26/2019 2:28 PM FINDINGS: Aorta: Mild atherosclerotic calcifications of the aorta. No aneurysm or dissection. Celiac trunk and mesenteric arteries: Mild stenosis of the celiac artery. The superior mesenteric artery is patent. Renal arteries: No occlusion or significant stenosis. Right iliac arteries: No occlusion or significant stenosis. Right femoral/popliteal arteries: There is a gradually decreasing opacification of the right superficial femoral artery with essentially loss of opacification at the level of the right popliteal artery. Right infrapopliteal arteries: Right infrapopliteal arteries are not visualized. Left iliac arteries: No occlusion or significant stenosis. Left femoral/popliteal arteries: There is a gradually decreasing opacification of the left superficial femoral artery with essentially loss of opacification at the level of the left popliteal artery. Left infrapopliteal arteries: Left infrapopliteal arteries are not visualized. Lungs: Small left pleural effusion with adjacent consolidation of the left lower lobe. Extension of contrast within the hepatic veins Mediastinum: Moderate sized hiatal hernia. Liver: No mass. Gallbladder and bile ducts: Gallbladder is surgically absent. Pancreas: Unremarkable. No mass. No ductal dilation. Spleen: Normal. No splenomegaly. Adrenals: Mild bilateral thickening of the adrenal glands, most likely reflecting hyperplasia. Kidneys and ureters: Fluid density cyst throughout the right kidney, to which no further follow-up is necessary. No hydronephrosis or stones. Stomach and bowel: Colonic diverticulosis without evidence of acute diverticulitis. Small bowel loops are unremarkable. Appendix: No evidence of appendicitis. Bladder: Unremarkable. No mass. Reproductive: Unremarkable as visualized. Intraperitoneal space: Small degree of nonspecific low-density free fluid in the pelvis. Lymph nodes: Chronic unchanged mildly prominent nonspecific left inguinal lymph nodes. Bones/joints: No acute fracture. No dislocation. Degenerative changes of the visualized spine. Soft tissues: Chronic unchanged soft tissue thickening within the lower anterior abdominal wall, potentially scarring from prior surgery. Soft tissue thickening and mild fat stranding within the midline posterior gluteal soft tissues extending to the level of the anus. IMPRESSION: 1. Symmetric bilateral gradually decreasing opacification of the superficial femoral arteries with essentially complete loss of opacification at the level of the popliteal arteries. Symmetry of this absence of opacification is most suggestive of diminished blood flow (potential heart failure further suggested by extension of contrast into the hepatic veins) and/or poor timing of IV contrast, however stenosis/occlusion within these vessels cannot be ruled out. Given provided history of concern for bilateral lower limb ischemia, recommend vascular surgery consultation and further evaluation with lower extremity arterial Doppler ultrasound. 2. Soft tissue thickening and mild fat stranding within the midline posterior gluteal soft tissues extending to the level of the anus. Correlate clinically for signs/symptoms of decubitus ulcer. 3. Small left pleural effusion with adjacent consolidation of the left lower lobe. 4. Other findings, as above. PROGNOSIS: fair ACTIVITY: Prior to transfer to [facility], patient was due to be transferred to rehabilitation facility- [place], [place]. Patient requires ongoing physical therapy and ambulation with a rolling walker. DIET: 2g Na sodium limit. 1800 cc PO fluid intake restriction. DISCHARGE PLAN: Transfer to [facility]. DISPOSITION: Patient being transferred to [facility] for vascular surgery evaluation and possible intervention due to suspected left lower leg ischemia. Prior to transfer to [facility], patient was due to be transferred to rehabilitation facility - [place], [place]. DISCHARGE INSTRUCTIONS: 1. PLEASE FOLLOW UP WITH PCP IN 3-5 DAYS. 2. PLEASE FOLLOW UP WITH OPHTHALMOLOGY WITHIN 1 WEEK - [address]. DOS SANTOS. 4. ESSENTIAL: CONTINUE CIPRO EYE DROPS - 1 DROP EVERY 4 HOURS TO RIGHT EYE + TOBRAMYCIN EYE DROP - 1 DROP TWICE PER DAY - CONTINUE FOR AT LEAST 10 DAYS OR UNTIL YOU SEE THE PORTFOLIO ACCOUNTANT. 5. PLEASE CONTINUE TO TAKE ANTIBIOTIC FOR PNEUMONIA - DOXYCYCLINE 100 MG TWICE PER DAY FOR AN ADDITIONAL 5 DAYS FOR TREATMENT OF PNEUMONIA. 6. PLEASE MAKE SURE TO FOLLOW UP WITH NEPHROLOGY TO ASSESS YOUR KIDNEY FUNCTION IN 2-3 WEEKS. 7. PLEASE FOLLOW UP WITH CARDIOLOGY WITH 2-3 WEEKS AFTER DISCHARGE. 8. IF YOU DEVELOPED WORSENING FEVERS, CHILLS, CHEST PAIN, SEVERE LEG PAIN, BLEEDING, FALL, OR OTHERWISE WORSENING OF YOUR SYMPTOMS, PLEASE CALL 911 OR RETURN TO THE NEAREST EMERGENCY DEPARTMENT. ITEMS TO FOLLOWUP ON ON OUTPATIENT: Please repeat renal function test - patient received IV contrast for CTA with runoff on 01/16/20 - Cr was 1.42. Receiving IV NS 80cc/hr in transport to [facility] to reduce risk of contrast induced LINDSEY. Treatment of right peripheral corneal ulcer. DISCHARGE CONDITION: [Stable]. TIME SPENT ON DISCHARGE: Greater than 30 minutes. Vital Signs/I&Os Vital Signs Date Time Temp Pulse Resp B/P (MAP) Pulse Ox O2 Delivery O2 Flow Rate FiO2 01/16/20 14:00 98.2 83 18 150/74 (99) 92 Nasal Cannula 2.0 I&O- Last 24 Hours up to 6 AM 01/16/20 06:00 Intake Total 780 ml Output Total 0 ml Balance 780 ml Laboratory Data Labs 24H Laboratory Tests 2 01/16/20 05:54: Immature Granulocyte % (Auto) 0.8, Neutrophils (%) (Auto) 68.5H, Lymphocytes (%) (Auto) 21.4L, Monocytes (%) (Auto) 8.5H, Eosinophils (%) (Auto) 0.4, Basophils (%) (Auto) 0.4, Neutrophils # (Auto) 5.0, Lymphocytes # (Auto) 1.6, Monocytes # (Auto) 0.6, Eosinophils # (Auto) 0.0, Basophils # (Auto) 0.0, Nucleated Red Blood Cells % (auto) 0.0, Anion Gap 5L, Glomerular Filtration Rate 38.0, Calcium Level 10.1, Magnesium Level 2.1, Total Bilirubin 0.5, Aspartate Amino Transf (AST/SGOT) 24, Alanine Aminotransferase (ALT/SGPT) 26, Alkaline Phosphatase 95, Total Protein 7.1, Albumin 2.7L, Albumin/Globulin Ratio 0.6L 01/16/20 15:17: Activated Partial Thromboplast Time 31.0 01/16/20 16:58: CBC/BMP Laboratory Tests 01/16/20 05:54 Microbiology Microbiology 01/12/20 Urine Culture - Final, Complete Discharge Medications Scheduled Acetaminophen (Acetaminophen 8 Hour) 650 Mg Tablet.er, 650 MG PO TID, (Reported) 080, 1200, 1700 Calcitriol (Calcitriol) 0.25 Mcg Capsule, 0.25 MCG PO Q2D, (Reported) Ciprofloxacin HCl (Ciloxan) 0.3% 5ML Drops, 1 DROP OD QID Cyanocobalamin (Vitamin B-12) (Vitamin B-12) 1,000 Mcg Tablet, 1,000 MCG PO DAILY, (Reported) Doxycycline Hyclate (Doxycycline Hyclate) 100 Mg Tablet, 100 MG PO BID Gabapentin (Gabapentin) 300 Mg Capsule, 300 MG PO BID, (Reported) 0800, 1700 Heparin Sodium,Porcine/D5w (Heparin 25,000 Unit/250 ml-D5w) 25,000 Unit/250 Ml Iv.soln, 1 INJ IV cont Hydroxychloroquine Sulfate (Hydroxychloroquine Sulfate) 200 Mg Tab, 200 MG PO BID, (Reported) 0800, 1700 Lorazepam (Ativan) 0.5 Mg Tablet, 0.5 MG PO BID, (Reported) Magnesium Chloride (Mag64) 64 Mg Tablet.dr, 64 MG PO BID, (Reported) 0800, 1700 Metoprolol Tartrate (Metoprolol Tartrate) 25 Mg Tablet, 25 MG PO BID Nystatin (Nystop) 60 Gm Powder, 1 DOSE TOP BID Lorton-3 Fatty Acids/Fish Oil (Fish Oil 1,000 mg Capsule) 1 Each Capsule, 1,000 MG PO DAILY, (Reported) Omeprazole (Omeprazole) 20 Mg Capsule.dr, 40 MG PO BID Polyvinyl Alcohol (Artificial Tears) 15 Ml Drops, 2 DROP OU TID Tobramycin/Dexamethasone (Tobramycin-Dexameth Ophth Susp) 5 Ml Drops.susp, 1 DROP OD BID Trazodone HCl (Trazodone HCl) 50 Mg Tablet, 25 MG PO QHS, (Reported) Venlafaxine HCl (Venlafaxine HCl ER) 150 Mg Cap.er.24h, 150 MG PO DAILY, (Reported) Scheduled PRN Albuterol Sulfate (Proair Hfa) 8.5 Gm Hfa.aer.ad, 2 PUFF INH QID PRN for SHORTNESS OF BREATH, (Reported) Fluticasone Propionate (Flonase Allergy Relief) 50 Mcg/Act Spr, 50 MCG NA DAILY PRN for CONGESTION, (Reported) Allergies Coded Allergies: Penicillins (Verified Allergy, Intermediate, BODY SWELLING, 10/07/19) sulfamethoxazole (Verified Allergy, Intermediate, SWELLING, 10/07/19) trimethoprim (Verified Allergy, Intermediate, SWELLING, 10/07/19) allopurinol (Verified Allergy, Mild, RASH, 10/07/19) rabeprazole (Verified Allergy, Mild, RASH, 10/07/19) risperidone (Verified Allergy, Unknown, 10/07/19) SHAY JUDGE MD Jan 16, 2020 17:35
--- NOTE | 2020-01-17 11:19 | ECGEPIP ---
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
--- NOTE | 2020-01-18 12:34 | CR ---
DATE OF CONSULTATION: 01/15/2020 REASON FOR CONSULTATION: Ophthalmology consultation regarding conjunctivitis of the right eye. HISTORY OF PRESENT ILLNESS: This is an 84-year-old female who was admitted to [facility] for acute renal failure. I was asked to see the patient regarding right eye redness and discharge that was noticed 24 hours prior to consultation by the primary care team. Patient denies any visual changes. She has a prior history with [facility] who she last saw about 3 years ago. The patient states that over the past 1 week the right eye began to have some mucopurulent discharge with increasing redness. She denies any visual changes, flashes, floaters. PAST MEDICAL HISTORY: Please see chart. PAST OCULAR HISTORY: Bilateral cataract surgery with intraocular lens implant - question at [facility]. No ocular medication. PAST SURGICAL HISTORY: Please see chart. EXAMINATION: This is a bedside indirect illuminated penlight exam. The patients visual acuity is approximately 20/40 in both eyes. She only admits to using glasses for reading vision while at home. Extraocular muscles are full both eyes. Confrontational visual cole are full to count fingers both eyes. Pupils are equal, round, and reactive to light, there is no APD, they are 4 mm in dark and 3 mm in light. The lids, lashes, and adnexa of the right eye show right upper eyelid edema. There are no vesicles or extraocular lesions. There is some mild ptosis on the right side and there also is the presence of yellowish discharge in the medial canthus. The left eye is within normal limits except for some mild ptosis. The conjunctiva and sclera on the right side are injected nasally, 1+ injection nasally, there is discharge, and the left eye is normal. The cornea of the right eye shows discharge, there is a corneal infiltrate nasally. There is no corneal edema or presence of hypopyon. Anterior chamber appears deep and quiet. The left eye is normal. There is a posterior chamber intraocular lens implant. ASSESSMENT AND PLAN: 1. Likely bacterial corneal ulcer with secondary conjunctivitis. 2. Pseudophakia. The patient will start moxifloxacin or equivalent every 2 hours to the right eye. Patient will start Polytrim every 2 hours if available, a backup would be tobramycin every 2 hours. Warm compresses twice a day. Questionable bacteria likely, bacterial etiology versus other. Elevated risk for methicillin-resistant Staphylococcus aureus (MRSA) due to living conditions. No cultures were performed given the peripheral nature of the infiltrate and no visual changes. The patient did not respond to empiric therapy. Cultures could be obtained at that point. There is no evidence of intraocular spread. Findings were communicated to the primary team. I will see the patient in 24 hours to reassess for any changes. MARIAJOSED
== END 2020-01-16 19:32 | disposition short-term general hospital (02) | DRG 682 ==
LOC: M ED 12:07 → EDBD 12:07 → EDSEX 12:07 → M ED INP 14:20 → ENRESERV 14:34 → M PCU 16:00 → M MSPAV 01-15 21:43
PROVIDERS: ADMIT Internal Medicine; ATTEND Family Medicine
DX: N17.9 Acute kidney failure, unspecified (principal); G93.41 Metabolic encephalopathy; J18.9 Pneumonia, unspecified organism; I50.22 Chronic systolic (congestive) heart failure; N39.0 Urinary tract infection, site not specified; I48.20 Chronic atrial fibrillation, unspecified; I13.0 Hypertensive heart and chronic kidney disease with heart failure and stage 1 through stage 4 chronic kidney disease, or unspecified chronic kidney disease; K21.9 Gastro-esophageal reflux disease without esophagitis; F41.9 Anxiety disorder, unspecified; F32.9 Major depressive disorder, single episode, unspecified; E87.5 Hyperkalemia; N18.9 Chronic kidney disease, unspecified; H10.31 Unspecified acute conjunctivitis, right eye; G47.00 Insomnia, unspecified; H16.001 Unspecified corneal ulcer, right eye; L30.4 Erythema intertrigo; M06.9 Rheumatoid arthritis, unspecified; M35.00 Sjogren syndrome, unspecified; I99.8 Other disorder of circulatory system; E86.0 Dehydration; Z79.899 Other long term (current) drug therapy; Z88.0 Allergy status to penicillin; Z88.2 Allergy status to sulfonamides; Z88.8 Allergy status to other drugs, medicaments and biological substances; Z66 Do not resuscitate; M81.0 Age-related osteoporosis without current pathological fracture; Z86.711 Personal history of pulmonary embolism; I73.9 Peripheral vascular disease, unspecified

== ENCOUNTER → 2020-01-26 | Outpatient (REF) ==
[~2020-01-26] MED LIST changes: +ACET-907 PO; +ASPI-161 PO; +BISA10SU PR; +CALC-239 PO; +CILO0.3S OD; +DOCU100C17 PO; +DOXY100T PO; +FLEEENE12 PR; +HEPA1INJ81 IV; +HYDR26CR EXT; +HYOS125TA PO; +MELA3TAB44 PO; +METO25TA4 PO; +METO37.5 PO; +MOM30SS PO; +MORP20SO3 PO; +NYST10006 TOP; +NYST1POW9 TOP; +OMEP-218 PO; +OMEP-221 PO; +POLY1.4S OU; +POLYOPD OU; +TOBRSUS8 OD; +VITMTA PO
[2020-01-26 11:51] LABS: HEMATOCRIT 38.3 % (36.0-47.0); HEMOGLOBIN 11.6 g/dl (12.0-15.5); MEAN CORPUSCULAR HEMOGLOBIN 30.9 pg (27.0-33.0); MEAN CORPUSCULAR HGB CONC 30.3 g/dl (32.0-36.5); MEAN CORPUSCULAR VOLUME 102.1 fl (80.0-96.0); PLATELET COUNT, AUTOMATED 258 10^3/uL (150-450); RED BLOOD COUNT 3.75 10^6/uL (4.00-5.40); WHITE BLOOD COUNT 8.2 10^3/uL (4.0-10.0)
[2020-01-26 12:29] LABS: CALCIUM LEVEL 10.2 MG/DL (8.8-10.2); CREATININE FOR GFR 1.7 MG/DL (0.55-1.30); GLOMERULAR FILTRATION RATE 30.6 (>32); POTASSIUM SERUM 4.1 MEQ/L (3.5-5.1)
== END ==
PROVIDERS: ATTEND Internal Medicine
DX: I48.91 Unspecified atrial fibrillation (principal)

== ENCOUNTER → 2020-02-01 | Outpatient (REF) | PROVIDERS: ATTEND Internal Medicine | DX: Z13.9 Encounter for screening, unspecified (principal) ==

== ENCOUNTER 2020-02-02 20:11 | Inpatient (IN) | payer MEDICARE, OTHER ==
[~2020-02-02] VITALS: Ht 149.9 cm; Wt 76.7 kg
[~2020-02-02 20:11] MED LIST changes: -ACET-907 PO; -ASPI-161 PO; -BISA10SU PR; -CALC-239 PO; -DOCU100C17 PO; -FLEEENE12 PR; -HYDR26CR EXT; -HYOS125TA PO; -MELA3TAB44 PO; -METO25TA4 PO; -MOM30SS PO; -MORP20SO3 PO; -NYST1POW9 TOP; -OMEP-221 PO; -POLY1.4S OU; -VITMTA PO
[2020-02-02] MEDS ORDERED: NS 500 ML IV ONE (20:45)
[2020-02-02] MEDS ORDERED: CALCIUM/VITAMIN D 500 MG TAB PO SCH (21:00)
[2020-02-02] MEDS: NYSTATIN 100,000 UNITS/GM TOPICAL PWD 15 GM TOP SCH (21:00)
[2020-02-02 21:20] LABS: BASO % 0.6 % (0.0-1.0); HEMATOCRIT 31.9 % (36.0-47.0); HEMOGLOBIN 9.4 g/dl (12.0-15.5); LYMPH # 2.2 10^3/uL (1.5-5.0); LYMPH % 35.6 % (24.0-44.0); MEAN CORPUSCULAR HEMOGLOBIN 29.8 pg (27.0-33.0); MEAN CORPUSCULAR HGB CONC 29.5 g/dl (32.0-36.5); MEAN CORPUSCULAR VOLUME 101.3 fl (80.0-96.0); MONO # 0.6 10^3/uL (0.0-0.8); MONO % 9.5 % (0.0-5.0); NEUTROPHILS # 3.3 10^3/uL (1.5-8.5); NEUTROPHILS % 53.7 % (36.0-66.0); PLATELET COUNT, AUTOMATED 179 10^3/uL (150-450); RED BLOOD COUNT 3.15 10^6/uL (4.00-5.40); WHITE BLOOD COUNT 6.2 10^3/uL (4.0-10.0)
[2020-02-02 21:29] LABS: INR 1.16; PROTHROMBIN TIME 15.1 SECONDS (12.5-14.3)
[2020-02-02 21:30] LABS: PARTIAL THROMBOPLASTIN TIME 32.8 SECONDS (24.2-38.5)
[2020-02-02 21:46] LABS: ALT/SGPT 24 U/L (12-78); BILIRUBIN,DIRECT < 0.1 MG/DL (0.0-0.2); BILIRUBIN,TOTAL 0.3 MG/DL (0.2-1.0); BLOOD UREA NITROGEN 87 MG/DL (7-18); CARBON DIOXIDE LEVEL 22 MEQ/L (21-32); CHLORIDE LEVEL 99 MEQ/L (98-107); CK-MB VALUE MASS 3.1 NG/ML (<3.6); CPK CREATINE PHOSPHOKINASE 113 U/L (26-192); CREATININE FOR GFR 4.41 MG/DL (0.55-1.30); GLOMERULAR FILTRATION RATE 10.2 (>32); GLUCOSE, FASTING 140 MG/DL (70-100); LIPASE 106 U/L (73-393); MB/CK RELATIVE INDEX 2.74 (< OR =4); SODIUM LEVEL 128 MEQ/L (136-145); TOTAL PROTEIN 7.1 GM/DL (6.4-8.2); TROPONIN I 0.05 NG/ML (< 0.10)
--- NOTE | 2020-02-02 22:22 | REPVR ---
PROCEDURE INFORMATION: Exam: CT Abdomen And Pelvis Without Contrast Exam date and time: 02/02/2020 9:00 PM Age: 84 years old Clinical indication: Abdominal pain; Additional info: New gi bleeding TECHNIQUE: Imaging protocol: Computed tomography of the abdomen and pelvis without contrast. Radiation optimization: All CT scans at this facility use at least one of these dose optimization techniques: automated exposure control; mA and/or kV adjustment per patient size (includes targeted exams where dose is matched to clinical indication); or iterative reconstruction. COMPARISON: 1. CT ABD PELVIS W/O CONTRAST 10/26/2019 2:[address] ANGIO ABDOMINAL ARTERIES 01/16/2020 3:31:30 PM FINDINGS: Lungs: There is consolidation in the left lower lobe that has progressed compared to the prior CTA on 01/16/2020. There is atelectasis in the inferior lingula and right lower lobe. The lungs were not fully imaged. Pleural space: There is a small left pleural effusion that is similar in size compared to the prior CTA on 01/16/2020. The pleural spaces were not fully imaged. Heart: The heart is enlarged. There are mitral annular, aortic valve, coronary artery calcifications. No pericardial effusion is noted. Mediastinal space: There is a moderate to large hiatal hernia. Liver: Unremarkable. No liver lesion is identified. The contour of the liver is smooth. No hepatomegaly is noted. Gallbladder and bile ducts: There has been a cholecystectomy. There is no fluid collection in the gallbladder fossa. No dilation of the bile ducts is noted. Pancreas: The pancreas is atrophic and otherwise unremarkable. No dilation of the main pancreatic duct is noted. Spleen: Unremarkable. No splenomegaly is noted. Adrenals: There is thickening of the adrenal glands that is similar in appearance compared to the prior CT on 01/16/2020. Kidneys and ureters: There are benign-appearing right renal cysts measuring up to 14 mm, which are stable compared to the prior CT abdomen and pelvis without contrast on 10/26/2019 and for which further follow-up is not necessary. The unenhanced left kidney is unremarkable. No stones are noted in the kidneys or ureters. There is no hydronephrosis or hydroureter. Stomach and bowel: There is a small amount of high attenuation fluid (640 Hounsfield units) in the intrathoracic portion of the stomach which may represent ingested material. There is also high attenuation fluid that is not as dense in the transverse colon, descending colon, and sigmoid colon, which is most dense in sigmoid colon (85 Hounsfield units), which may indicate acute gastrointestinal hemorrhage that is likely due to a diverticular bleed. There is colonic diverticulosis that is most severe involving the descending colon and sigmoid colon. There is no evidence for diverticulitis, a bowel obstruction, colitis, pneumatosis intestinalis, volvulus, or intussusception. The small bowel is unremarkable. Appendix: Normal. There is no evidence for appendicitis. Intraperitoneal space: There is a small amount of water density free fluid in the pelvis. No intraperitoneal hemorrhage or free air is noted. Retroperitoneal space: No retroperitoneal hemorrhage. Vasculature: There is no abdominal aortic aneurysm or intramural hematoma. There are extensive atherosclerotic calcifications. Lymph nodes: There is a 16 mm in short axis right axillary lymph node and a 14 mm short axis left axillary lymph node. The axillary regions were not fully imaged. There is a 14 mm in short axis left inguinal lymph node that is stable compared to the prior CTA on 01/16/2020 and 10/26/2019. There are enlarged bilateral external iliac chain lymph nodes that are stable compared to the prior CTs on 01/16/2020 and 10/26/2019. There are subcentimeter retroperitoneal lymph nodes that are stable compared to the prior CT abdomen and pelvis without contrast on 10/26/2019. Urinary bladder: The partially distended urinary bladder is unremarkable. No stones or masses are seen in the bladder. Reproductive: There has been a hysterectomy. Bones/joints: There is severe fatty atrophy of the lumbosacral paraspinal muscles. There is no fracture. There is a moderate levoscoliosis of the lumbar spine and degenerative changes in the lumbar spine. There is severe osteoarthritis of both hip joints. There is severe lateral subluxation of both 1st carpometacarpal joints. Soft tissues: There is edema in the subcutaneous tissues. There are calcified granulomas in the bilateral gluteal subcutaneous tissues. There is a horizontal incision scar in the anterior pelvic wall. There is a 3 cm nodular focus of soft tissue thickening along the anterior pelvic wall scar that is similar in appearance compared to the prior studies on 01/16/2020 and 10/26/2019. IMPRESSION: 1. High attenuation fluid in the transverse colon, descending colon, and sigmoid colon, which is most dense in the sigmoid colon and may indicate acute gastrointestinal hemorrhage that is likely due to a diverticular bleed. 2. Small left pleural effusion and consolidation in the left lower lobe that has progressed compared to the prior CTA on 01/16/2020, which may represent pneumonia. 3. Bilateral axillary lymphadenopathy. 4. Left inguinal and bilateral external iliac chain lymphadenopathy that is stable compared to the prior studies on 01/16/2020 and 10/26/2019. Electronically signed by: Anuel Keller On 02/02/2020 22:22:13 PM
[2020-02-02] MEDS ORDERED: TORS20TA2 PO (22:23)
[2020-02-02] MEDS ORDERED: VITMTA PO (22:23)
[2020-02-02] MEDS ORDERED: BISA10SU PR (22:23)
[2020-02-02] MEDS ORDERED: NYST1POW9 TOP (22:23)
[2020-02-02] MEDS ORDERED: MELA3TAB44 PO (22:23)
[2020-02-02] MEDS ORDERED: HYDR26CR EXT (22:23)
[2020-02-02] MEDS ORDERED: METO25TA4 PO (22:23)
[2020-02-02] MEDS ORDERED: FLON1SPR (22:23)
[2020-02-02] MEDS ORDERED: OMEP-221 PO (22:23)
[2020-02-02] MEDS ORDERED: CALC-239 PO (22:23)
[2020-02-02] MEDS ORDERED: AMLO1TAB24 PO (22:23)
[2020-02-02] MEDS ORDERED: ELIQ2.5T PO (22:23)
[2020-02-02] MEDS ORDERED: ACET-907 PO (22:23)
[2020-02-02] MEDS ORDERED: IRBE150T7 PO (22:23)
[2020-02-02] MEDS ORDERED: POLY1.4S OU (22:23)
[2020-02-02] MEDS ORDERED: MOM30SS PO (22:23)
[2020-02-02] MEDS ORDERED: ULOR80TA PO (22:23)
[2020-02-02] MEDS ORDERED: ASPI-161 PO (22:23)
[2020-02-02] MEDS ORDERED: DOCU100C17 PO (22:23)
[2020-02-02] MEDS ORDERED: TRAZ-252 PO (22:23)
[2020-02-02] MEDS ORDERED: FLEEENE12 PR (22:23)
[2020-02-02] MEDS ORDERED: IPRA0.00 INH (22:23)
[2020-02-02] MEDS ORDERED: CALCIUM CHLORIDE 10% 1 GM in D5W 100 ML IV ONE (22:45)
[2020-02-02] MEDS ORDERED: NS 1,000 ML IV SCH (22:45)
[2020-02-02] MEDS ORDERED: SOD POLYSTYRENE SULFONATE SUSP 15 GM/60 ML UD PO ONE (23:00)
[2020-02-02] MEDS ORDERED: NS 1,000 ML IV ONE (23:00)
[2020-02-02] MEDS ORDERED: ATROPINE SULF 0.4 MG/ML 1ML VIAL (J0461) IV PRN (23:15)
--- NOTE | 2020-02-02 23:31 | IPNPDOC ---
Text Note Date of Service The patient was seen on 02/02/20. NOTE is an 84 yr old w a hx of Dementia, A fib, PAD, Sys CHF, CKD3, COPD, RA, Osteoporosis, Pre-DM2, Gout, Sjgren ,mod-severe tricuspid insufficiency and HTN who was sent from her NH for evaluation of transient AMS and lower GI bleed w positive stool occult. She was found to have LINDSEY on CKD, hyperkalemia and a Hg of 9.4 in the ER and was given IVF & Kayexalate. Her physicial exam is remarkable for bradycardia w a HR in the 30s along with dysarthric speech and slight confusion (thought Shabbir was the president). 1. Multifactorial Encephalopathy 2/2 bradycardia vs uremia, less likely 2/2 mild hyponatremia Plan: admit to PCU / neurochecks / treat renal failure / hold amlodipine & metoprolol / f/u TSH 2. Bradycardia EKG showed aflutter ? w rate of 41 / not sure if this is heart block At the time of evaluation she was asymptomatic CODE STATUS DNR/DNI Plan: telemetry / hold amlodipine / trend trops to r/o VT / Atropine PRN for sustained HR <30 w symptoms / will ask RNs to have subcutaneous pacers close by / f/u TSH/ if she remains bradycardic after holding amlopidine for a few days the day time team may consider consulting Cardio 3. 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 Hyperkalemia 2/2 CKD s/p Kayexalate no peaked T waves on EKG Plan: f/u repeat K 5. Multifactorial Anemia She has macrocytosis, there are reports of LGIB she also has renal failure which can cause anemia of chornic dz Plan: f/u serial Hg / pending Iron studies, B12 and folate the day time team may consider Venofer / keep Hg >7 / hold ASA and Apixaban / patients daughter will discuss goals of care and possibility of c-scope with her mother tomorrow, pending their decision day time team may consider GI consult 6. Pseudohyponatremia vs Hypertonic Hypernatremia ? Serum osmolality is 307 Paraprotein gap = 4 Plan: check SPEP to screen for MM 7. Slow A fib Plan: telemetry / hold NOAC and BB 8. Chronic Sys CHF Plan: monitor Is and Os and weights while torsemide is no hold / hold metoprolol and losartan as above 9. COPD Plan: resume home meds 10. Osteporosis Plan: c/w Ca w Vit D rest per 's H&P VS,Doron, I+O VS, Doron, I+O Laboratory Tests 02/02/20 20:51 02/02/20 22:14 Vital Signs Date Time Temp Pulse Resp B/P (MAP) Pulse Ox O2 Delivery O2 Flow Rate FiO2 02/02/20 23:11 36 18 124/57 (79) 100 Nasal Cannula 2.0 02/02/20 20:21 97.2 PRAVIN DOWELL MD Feb 02, 2020 23:31
[2020-02-02] MEDS ORDERED: IPRATROPIUM 0.5MG/ALBUTEROL 2.5MG INH SOL UD 3ML (DUONEB) INH PRN (23:45)
[2020-02-02] MEDS ORDERED: HYDROCORTISONE 1% CREAM 30 GM EXT PRN (23:45)
[2020-02-02] MEDS ORDERED: POLYVINYL ALCOHOL OPHTH SOLN 15 ML(LIQUITEARS) OU PRN (23:45)
[2020-02-03] VITALS (11 sets, daily range): BP systolic 92–122; BP diastolic 49–81
[2020-02-03 01:17] LABS: CALCIUM LEVEL 9.1 MG/DL (8.8-10.2); CREATININE FOR GFR 4.5 MG/DL (0.55-1.30)
[2020-02-03 01:47] LABS: APPEARANCE, URINE CLOUDY (CLEAR); BACTERIA, URINE AUTO 2+ (NEGATIVE); BILIRUBIN, URINE AUTO NEGATIVE (NEGATIVE); BLOOD, URINE BLOOD 2+ (NEGATIVE); COLOR, URINE YELLOW (YELLOW); GLUCOSE, URINE (UA) AUTO NEGATIVE (NEGATIVE); KETONE, URINE AUTO NEGATIVE (NEGATIVE); LEUKOCYTE ESTERASE, URINE AUTO 2+ (NEGATIVE); MUCUS, URINE SMALL (NEGATIVE); NITRITE, URINE AUTO NEGATIVE (NEGATIVE); PROTEIN, URINE AUTO 1+ mg/dL (NEGATIVE); RBC, URINE AUTO 2 /HPF (0-3); SPECIFIC GRAVITY URINE AUTO 1.014 (1.002-1.035); SQUAMOUS EPITHELIAL CELL UR AU 9 /HPF (0-6); UROBILINOGEN, URINE AUTO 0.2 mg/dL (0.0-2.0); WBC, URINE AUTO 5 /HPF (0-3)
[2020-02-03] MEDS ORDERED: GLUCOSE 4GM CHEW TABLET PO PRN ×2 (02:00→03:15)
[2020-02-03] MEDS ORDERED: GLUCAGON INJ 1MG VIAL SC PRN ×2 (02:00→03:15)
[2020-02-03] MEDS ORDERED: DEXTROSE 50% 50 ML SYRINGE IV PRN ×2 (02:00→03:15)
--- NOTE | 2020-02-03 02:06 | HPEPDOC ---
[facility] Medical History & Physical Date of Admission Feb 03, 2020 Date of Service: Feb 03, 2020 Attending Physician: PRAVIN DOWELL MD History and Physical CHIEF COMPLAINT: Abdominal Pain HISTORY OF PRESENT ILLNESS: Patient is an 84-year-old female resident of [facility] who presented to the [facility] emergency department with a chief complaint of abdominal pain and bloody stools. The patient is unable to give a complete history as she is intermittently confused. Majority of the patient's history is obtained from the medical record. The patient was recently hospitalized for acute renal failure secondary to dehydration. During the patient's hospitalization she was believed to have had ischemic limb was transferred to [facility] where she was seen by vascular surgery with no indications for surgical intervention. That time the patient had returned to the [facility] where is noted that she was having some bloody stools. Patient had complained of some mild abdominal pain located in her lower left and right quadrant. Patient continued to have bloody stools and was sent to the emergency department for further evaluation. In the emergency department the patient was found to have asymptomatic bradycardia. She has a history of bradycardia which is likely secondary to beta gunnar use. Patient was otherwise vitally stable. She was found to have anemia with hemoglobin 9.4 slightly decreased from her baseline of 10-11. Her chemistri es demonstrated acute kidney injury with a creatinine of 4.41 baseline being around 1.7-2. Additionally she was hyperkalemic with a potassium 7.0. Patient received calcium chloride and Kayexalate in the ER her repeat potassium was 6.0. Abdominal imaging demonstrated a possible acute gastrointestinal hemorrhage likely secondary to a diverticular bleed. Patient herself currently denies any abdominal pain. Hospitalist service was counseled and the patient was admitted for further evaluation and management of her acute kidney injury and gastrointestinal bleed. PAST MEDICAL HISTORY: 1. Heart failure with reduced ejection fraction. Left ventricular ejection fraction 35-40% in September 2019 2. Hypertension. 3. Chronic obstructive pulmonary disease 4. Obstructive sleep apnea 5 history of diverticulitis 6 rheumatoid arthritis with estrogen syndrome overlap 7 osteoporosis 8 gout 9 diabetes mellitus type 2 10 essential tremor 11 chronic venous insufficiency PAST SURGICAL HISTORY: 1. Cataract surgery. 2. Shoulder surgery 3. Cholecystectomy 4 hysterectomy with oophorectomy 5 bladder suspension 6 umbilical hernia repair 7 right carpal tunnel release 8 multiple teeth extractions SOCIAL HISTORY: Patient is a resident of the [facility]. FAMILY HISTORY: Patient's mother is in her 60s from heart disease. Her father of a myocardial infarction at the age of 67 ALLERGIES: Please see below. REVIEW OF SYSTEMS: CONSTITUTIONAL: Denies fevers chills. HEENT: Denies headache, denies changes in vision. Denies difficulty swallowing CARDIOVASCULAR: Denies palpitations or feelings of the heart racing denies chest pain. RESPIRATORY: Denies shortness of breath. Denies cough. GASTROINTESTINAL: Currently denies abdominal pain however indicates that her lower abdomen her earlier. Denies diarrhea denies constipation. states she had bloody stools earlier. GENITOURINARY: Denies pain on urination. SKIN: Denies any rashes or lesions. MUSCULOSKELETAL: Denies any muscle weakness NEUROLOGICAL: Denies changes in gait or speech. PSYCHIATRIC: Denies depression or anxiety ENDOCRINE: Denies heat intolerance or cold intolerance HOME MEDICATIONS: Please see below. PHYSICAL EXAMINATION: VITAL SIGNS: Temperature 97.3, pulse 39, respiratory rate 20, blood pressure 116/53, pulse oximetry 96% on room air. GENERAL APPEARANCE: Patient is awake and alert. She is oriented to person but not to place or time. HEENT: Atraumatic normocephalic trachea is midline. Right eye is shut however there is no drainage or scleral injection. Mucous membranes appear slightly dry. Macroglossia. Patient has a class IV airway CARDIOVASCULAR: Normal S1-S2 bradycardic rate with a irregularly irregular rhy thm. No clicks rubs or murmurs LUNGS: Clear vesicular breath sounds bilaterally slightly decreased in the bases. No wheezes rhonchi or rales ABDOMEN: Morbidly obese. soft nondistended. Nontender. No rebound tenderness or guarding. Normoactive bowel sounds throughout EXTREMITIES: 2-3+ pitting edema in bilateral lower extremities. Palpable PT and DP pulses bilaterally NEUROLOGICAL: No focal neurological deficits although patient appears intimately confused.. PSYCHIATRIC: Mood and affect appear appropriate. LABORATORY DATA: See below. IMAGING: THIS REPORT CONTAINS FINDINGS THAT MAY BE CRITICAL TO PATIENT CARE. The pertinent exam findings were verbally communicated by me to DOMI Mott via telephone conference at 10:32 PM EDT on 02/02/2020. The findings were acknowledged and understood. Electronically signed by: Anuel Jones On 02/02/2020 22:33:34 PM DD: ANUEL JONES MD 02/02/202099 DT: ALEXANDRO 02/02/202232 DS: MEE 02/02/202232 PROCEDURE INFORMATION: Exam: CT Abdomen And Pelvis Without Contrast Exam date and time: 02/02/2020 9:00 PM Age: 84 years old Clinical indication: Abdominal pain; Additional info: New gi bleeding TECHNIQUE: Imaging protocol: Computed tomography of the abdomen and pelvis without contrast. Radiation optimization: All CT scans at this facility use at least one of these dose optimization techniques: automated exposure control; mA and/or kV adjustment per patient size (includes targeted exams where dose is matched to clinical indication); or iterative reconstruction. COMPARISON: 1. CT ABD PELVIS W/O CONTRAST 10/26/2019 2:[address] ANGIO ABDOMINAL ARTERIES 01/16/2020 3:31:30 PM FINDINGS: Lungs: There is consolidation in the left lower lobe that has progressed compared to the prior CTA on 01/16/2020. There is atelectasis in the inferior lingula and right lower lobe. The lungs were not fully imaged. Pleural space: There is a small left pleural effusion that is similar in size compared to the prior CTA on 01/16/2020. The pleural spaces were not fully imaged. Heart: The heart is enlarged. There are mitral annular, aortic valve, coronary artery calcifications. No pericardial effusion is noted. Mediastinal space: There is a moderate to large hiatal hernia. Liver: Unremarkable. No liver lesion is identified. The contour of the liver is smooth. No hepatomegaly is noted. Gallbladder and bile ducts: There has been a cholecystectomy. There is no fluid collection in the gallbladder fossa. No dilation of the bile ducts is noted. Pancreas: The pancreas is atrophic and otherwise unremarkable. No dilation of the main pancreatic duct is noted. Spleen: Unremarkable. No splenomegaly is noted. Adrenals: There is thickening of the adrenal glands that is similar in appearance compared to the prior CT on 01/16/2020. Kidneys and ureters: There are benign-appearing right renal cysts measuring up to 14 mm, which are stable compared to the prior CT abdomen and pelvis without contrast on 10/26/2019 and for which further follow-up is not necessary. The unenhanced left kidney is unremarkable. No stones are noted in the kidneys or ureters. There is no hydronephrosis or hydroureter. Stomach and bowel: There is a small amount of high attenuation fluid (640 Hounsfield units) in the intrathoracic portion of the stomach which may represent ingested material. There is also high attenuation fluid that is not as dense in the transverse colon, descending colon, and sigmoid colon, which is most dense in sigmoid colon (85 Hounsfield units), which may indicate acute gastrointestinal hemorrhage that is likely due to a diverticular bleed. There is colonic diverticulosis that is most severe involving the descending colon and sigmoid colon. There is no evidence for diverticulitis, a bowel obstruction, colitis, pneumatosis intestinalis, volvulus, or intussusception. The small bowel is unremarkable. Appendix: Normal. There is no evidence for appendicitis. Intraperitoneal space: There is a small amount of water density free fluid in the pelvis. No intraperitoneal hemorrhage or free air is noted. Retroperitoneal space: No retroperitoneal hemorrhage. Vasculature: There is no abdominal aortic aneurysm or intramural hematoma. There are extensive atherosclerotic calcifications. Lymph nodes: There is a 16 mm in short axis right axillary lymph node and a 14 mm short axis left axillary lymph node. The axillary regions were not fully imaged. There is a 14 mm in short axis left inguinal lymph node that is stable compared to the prior CTA on 01/16/2020 and 10/26/2019. There are enlarged bilateral external iliac chain lymph nodes that are stable compared to the prior CTs on 01/16/2020 and 10/26/2019. There are subcentimeter retroperitoneal lymph nodes that are stable compared to the prior CT abdomen and pelvis without contrast on 10/26/2019. Urinary bladder: The partially distended urinary bladder is unremarkable. No stones or masses are seen in the bladder. Reproductive: There has been a hysterectomy. Bones/joints: There is severe fatty atrophy of the lumbosacral paraspinal muscles. There is no fracture. There is a moderate levoscoliosis of the lumbar spine and degenerative changes in the lumbar spine. There is severe osteoarthritis of both hip joints. There is severe lateral subluxation of both 1st carpometacarpal joints. Soft tissues: There is edema in the subcutaneous tissues. There are calcified granulomas in the bilateral gluteal subcutaneous tissues. There is a horizontal incision scar in the anterior pelvic wall. There is a 3 cm nodular focus of soft tissue thickening along the anterior pelvic wall scar that is similar in appearance compared to the prior studies on 01/16/2020 and 10/26/2019. IMPRESSION: 1. High attenuation fluid in the transverse colon, descending colon, and sigmoid colon, which is most dense in the sigmoid colon and may indicate acute gastrointestinal hemorrhage that is likely due to a diverticular bleed. 2. Small left pleural effusion and consolidation in the left lower lobe that has progressed compared to the prior CTA on 01/16/2020, which may represent pneumonia. 3. Bilateral axillary lymphadenopathy. 4. Left inguinal and bilateral external iliac chain lymphadenopathy that is stable compared to the prior studies on 01/16/2020 and 10/26/2019. Electronically signed by: Anuel Jones On 02/02/2020 22:22:13 PM MICROBIOLOGY: Please see below. ASSESSMENT: Patient is a 84-year-old female presented to [facility] emergency department with abdominal pain and GI bleed found to have acute kidney injury with hyperkalemia, mild anemia and bradycardia PLAN: 1. Acute kidney injury 2/2 Pre-renal -Patient presenting with acute kidney injury baseline creatinine of 1.7-2 currently at 4. She has received a bolus of normal saline in the ED. They consider gentle hydration given her history of heart failure with reduced ejection fraction. -We will hold nephrotoxic medications 2. Electrolyte imbalance -Patient has hyperkalemia likely secondary to her HPI. Additionally she has had bloody stools hyperkalemia maybe secondary to hemolyzed blood. We'll continue to monitor electrolytes potassium. Patient received calcium chloride and Kayexalate. She is currently bradycardic however asymptomatic. Review the patient's chart demonstrate that she was bradycardic previously. She has atropine ordered when necessary for sustained symptomatic bradycardia. We'll place patient on telemetry given her hyperkalemia and bradycardia. 3. Hyponatremia -Patient's hyponatremia. Etiology is unclear however she is on several medications which can cause hyponatremia including trazodone. Will order urine sodium and creatinine and serum sodium and creatinine as well as osmolality to ascertain possible etiology of her hyponatremia. In meantime will trend. 4. Anemia secondary to Acute gastrointestinal bleed -Patient's baseline hemoglobin 10-11. She was found to have bloody stools well at this medication home she was Hemoccult positive. She's not had any further episodes of bleeding since being in the emergency department. Hemoglobin on presentation was 9. We'll continue to trend H&H. Likely secondary to a diverticular bleed -Likely has chronic anemia from a slow gastrointestinal bleed. Iron studies have been ordered -If patient continues to have bloody stool consider consultation with gastroenterology in the a.m. Otherwise patient will likely need follow-up outpatient for a colonoscopy to evaluate the etiology of her bleed. -Patient's typed and screened -Will hold patient's eliquis and aspirin 5 heart failure with reduced ejection fraction LVEF of 35-40% -Currently compensated. Patient actually be a little hypovolemic. She has received 1 L bolus however will hold off on further fluids for now. We will hold patient's diuretics given her anitra 6. Bradycardia -Patient is currently asymptomatic. Bradycardia documented at previous hospitalization. Possible secondary to beta gunnar use. Will hold her beta blockers. -Atropine ordered when necessary for symptomatic bradycardia 7. Hypertension -Patient is currently normotensive given her acute kidney injury will hold her irbesartan and other blood pressure medications. We'll treat her blood pressure as necessary if elevated. 8. Altered mental status -Patient noted to be somewhat confused from her baseline. Possibly secondary to metabolic encephalopathy from medication use including lorazepam and gabapentin as well as trazodone. 9. Atrial fibrillation -Patient is currently bradycardic. She's has a GI bleed and therefore her eliquis was being held. -Patient is on telemetry. 10. Rheumatoid arthritis with Sjogren's overlap -Patient currently on Plaquenil. We'll hold this medication will hospitalized 11. DVT prophylaxis -Mechanical due to GI bleed. Vital Signs Vital Signs Date Time Temp Pulse Resp B/P (MAP) Pulse Ox O2 Delivery O2 Flow Rate FiO2 02/03/20 01:05 97.3 39 20 116/53 (74) 96 Room Air 02/03/20 00:11 2.0 Laboratory Data Labs 24H Laboratory Tests 2 02/02/20 20:51: Immature Granulocyte % (Auto) 0.6, Neutrophils (%) (Auto) 53.7, Lymphocytes (%) (Auto) 35.6, Monocytes (%) (Auto) 9.5H, Eosinophils (%) (Auto) 0.0, Basophils (%) (Auto) 0.6, Neutrophils # (Auto) 3.3, Lymphocytes # (Auto) 2.2, Monocytes # (Auto) 0.6, Eosinophils # (Auto) 0.0, Basophils # (Auto) 0.0, Nucleated Red Blood Cells % (auto) 0.0, Prothrombin Time 15.1H, Prothromb Time International Ratio 1.16, Activated Partial Thromboplast Time 32.8, Anion Gap 7L, Glomerular Filtration Rate 10.2L, Osmolality 307H, Lactic Acid Level 1.9, Calcium Level 9.0, Total Bilirubin 0.3, Direct Bilirubin < 0.1, Aspartate Amino Transf (AST/SGOT) 34, Alanine Aminotransferase (ALT/SGPT) 24, Alkaline Phosphatase 110, Total Creatine Kinase 113, Creatine Kinase MB 3.1, Creatine Kinase MB Relative Index 2.74, Troponin I 0.05, Total Protein 7.1, Albumin 3.0L, Albumin/Globulin Ratio 0.7L, Lipase 106 02/02/20 22:14: Anion Gap 5L, Glomerular Filtration Rate 10.0L, Calcium Level 9.1 CBC/BMP Laboratory Tests 02/02/20 20:51 02/02/20 22:14 Home Medications Scheduled Acetaminophen (Acetaminophen 8 Hour) 650 Mg Tablet.er, 650 MG PO TID Amlodipine Besylate (Amlodipine Besylate) 5 Mg Tablet, 5 MG PO DAILY Apixaban (Eliquis) 2.5 Mg Tablet, 2.5 MG PO BID Aspirin (Aspirin EC) 81 Mg Tablet.dr, 81 MG PO DAILY Calcitriol (Calcitriol) 0.25 Mcg Capsule, 0.25 MCG PO Q2D Calcium Carbonate/Vitamin D3 (Calcium 600-Vit D3 200 Tablet) 1 Each Tablet, 1 TAB PO BID Docusate Sodium (Docusate Sodium) 100 Mg Capsule, 100 MG PO DAILY Febuxostat (Uloric) 80 Mg Tablet, 80 MG PO QHS Fluticasone Propionate (Flonase Allergy Relief) 9.9 Ml [place].susp, 1 SPRAY NA DAILY Gabapentin (Gabapentin) 300 Mg Capsule, 300 MG PO BID Hydroxychloroquine Sulfate (Hydroxychloroquine Sulfate) 200 Mg Tab, 200 MG PO BID Irbesartan (Irbesartan) 150 Mg Tablet, 150 MG PO QHS Magnesium Chloride (Mag64) 64 Mg Tablet.dr, 64 MG PO BID Melatonin (Melatonin) 3 Mg Tablet, 3 MG PO QHS Metoprolol Tartrate (Metoprolol Tartrate) 25 Mg Tablet, 25 MG PO BID Multivitamins (Thera M Plus Tablet) 1 Each Tablet, 1 TAB PO DAILY Nystatin (Nystatin Powder) 15 Gm Powder, 1 DOSE TOP BID [place]-3 Fatty Acids/Fish Oil (Fish Oil 1,000 mg Capsule) 1 Each Capsule, 1,000 MG PO DAILY Omeprazole (Omeprazole) 40 Mg Capsule.dr, 40 MG PO BID Torsemide (Torsemide) 20 Mg Tablet, 20 MG PO DAILY Scheduled PRN Acetaminophen (Tylenol) 325 Mg Tablet, 650 MG PO Q4H PRN for PAIN / FEVER Bisacodyl (Bisacodyl) 10 Mg Supp.rect, 10 MG LA DAILY PRN for CONSTIPATION Hydrocortisone (Preparation H) 26 Gm Cream..g., 1 DOSE EXT TID PRN for HEMORRHOIDS Ipratropium/Albuterol Sulfate (Iprat-Albut 0.5-3(2.5) mg/3 ml) 3 Ml Ampul.neb, 3 ML INH Q8H PRN for DYSPNEA Lorazepam (Ativan) 0.5 Mg Tablet, 0.5 MG PO BID PRN for ANXIETY Milk Of Magnesia (Milk of Magnesia) 2,400 Mg/10 Ml Oral.susp, 10 ML PO DAILY PRN for CONSTIPATION Polyvinyl Alcohol (Polyvinyl Alcohol Eye Drops) 15 Ml Drops, 2 DROP OU TID PRN for DRY EYES Sodium Phosphate,[place]-Dibasic (Fleet Enema) 133 Ml Enema, 1 JAMEL LA DAILY PRN for CONSTIPATION Trazodone HCl (Trazodone HCl) 50 Mg Tablet, 25 MG PO QHS PRN for INSOMNIA Allergies Coded Allergies: Penicillins (Verified Allergy, Intermediate, BODY SWELLING, 02/02/20) sulfamethoxazole (Verified Allergy, Intermediate, SWELLING, 02/02/20) trimethoprim (Verified Allergy, Intermediate, SWELLING, 02/02/20) allopurinol (Verified Allergy, Mild, RASH, 02/02/20) rabeprazole (Verified Allergy, Mild, RASH, 02/02/20) risperidone (Verified Allergy, Unknown, 02/02/20) A-FIB/CHADSVASC A-FIB History Current/History of A-Fib/PAF?: Yes Current PO Anticoag Therapy: No Age/Risk Factor Scoring CHADSVASC: CHADSVASC Response (Comments) Value Age Risk Factor Age >/= 75 years old 2 Total 2 Treatment Treatment ordered: NONE Reason Anticoagulant not given: Current bleeding GME ATTESTATION GME ATTESTATION My faculty preceptor for this patient encounter was physically present during the encounter and was fully available. All aspects of the patient interview, examination, medical decision making process, and medical care plan development were reviewed and approved by the faculty preceptor. The faculty preceptor is aware and concurs with the plan as stated in the body of this note and will attest to such by his/her cosignature. ATTENDING NOTE Pls see my addendum from 02/02/20 I reviewed 's H&P and agree with the findings as documented. DOMI BHANDARI DO Feb 03, 2020 02:06 PRAVIN DOWELL MD Feb 03, 2020 02:37
[2020-02-03 02:40] LABS: PERCENT SATURATION 14.7 % (13.2-45.0); TROPONIN I 0.04 NG/ML (< 0.10)
[2020-02-03 04:53] LABS: HEMATOCRIT 29.3 % (36.0-47.0); HEMOGLOBIN 8.5 g/dl (12.0-15.5); MEAN CORPUSCULAR HEMOGLOBIN 29.7 pg (27.0-33.0); MEAN CORPUSCULAR VOLUME 102.4 fl (80.0-96.0); PLATELET COUNT, AUTOMATED 170 10^3/uL (150-450); RED BLOOD COUNT 2.86 10^6/uL (4.00-5.40); WHITE BLOOD COUNT 5.9 10^3/uL (4.0-10.0)
--- NOTE | 2020-02-03 05:58 | ECGEPIP ---
[facility] - ED Test Date: 2020-02-02 Pat Name: QUINCY BARBOSA Department: Room: [place] [address] Gender: Female [employer]: CLARISSA : [id number] Requested By: DOMI Mendoza Order Number: [id number] Reading MD: Luis E Diaz Measurements Intervals [place] Rate: 41 P: [place]: 0 QRS: -69 QRSD: 162 T: 35 QT: 552 QTc: 456 Interpretive Statements ATRIAL FIBRILLATION WITH SLOW VENTRICULAR RESPONSE RIGHT BUNDLE BRANCH BLOCK INFERIOR MYOCARDIAL INFARCTION, PROBABLY OLD RHYTHM/RATE CHANGE COMPARED TO 01/13/20 Electronically Signed on 02-03-2020 5:58:21 EDT by Luis E Diaz
[2020-02-03] MEDS ORDERED: HumaLOG INSULIN (NovoLOG) PER UNIT SC SCH ×3 (06:00→21:00)
[2020-02-03] MEDS: FLUTICASONE PROP 0.05% NASAL SPRAY 16 GM (FLONASE) SCH (08:02)
[2020-02-03] MEDS: NYSTATIN 100,000 UNITS/GM TOPICAL PWD 15 GM TOP SCH ×2 (08:02→22:35)
[2020-02-03 08:31] LABS: CALCIUM LEVEL 9.1 MG/DL (8.8-10.2); CREATININE FOR GFR 4.48 MG/DL (0.55-1.30); POTASSIUM SERUM 5.7 MEQ/L (3.5-5.1); THYROID STIMULATING HORMONE 4.47 uIU/ML (0.358-3.740); TROPONIN I 0.05 NG/ML (< 0.10)
[2020-02-03 09:16] LABS: HEMATOCRIT 30.9 % (36.0-47.0); HEMOGLOBIN 9.2 g/dl (12.0-15.5)
[2020-02-03 09:40] LABS: FOLATE 17.2 NG/ML (>5.4); HEPATITIS A ANTIBODY IGM NEGATIVE (NEGATIVE); HEPATITIS B CORE ANTIBODY IGM NEGATIVE (NEGATIVE); HEPATITIS B SURFACE ANTIGEN NEGATIVE (NEGATIVE); HEPATITIS C VIRUS ABY INDEX 0.1 INDEX (<0.8); TOTAL 25(OH) VITAMIN D 57.8 NG/ML (30.0-100.0); TOTAL PROTEIN 6.3 GM/DL (6.4-8.2); VITAMIN B12 LEVEL 999 PG/ML (247-911)
[2020-02-03] MEDS ORDERED: LORazepam 0.5 MG TAB PO PRN (11:30)
--- NOTE | 2020-02-03 12:35 | IPNPDOC ---
Text Note Date of Service The patient was seen on 02/03/20. NOTE Subjective: Pateitn awake and alert but falls asleep easily, pleasant and co mfortable, denies any abdominal pain, no bloody bowel movements overnight. Physical exam: GENERAL APPEARANCE: Patient is awake and alert. She is oriented to person but not to place or time. comfortable. HEENT: Atraumatic normocephalic. mouth breather. macroglossia. CARDIOVASCULAR: Normal S1-S2 bradycardic rate with a irregularly irregular rhythm. No clicks rubs or murmurs LUNGS: Clear vesicular breath sounds bilaterally slightly decreased in the bases. No wheezes rhonchi or rales ABDOMEN: obese. soft nondistended. Nontender. No rebound tenderness or guarding. Normoactive bowel sounds throughout EXTREMITIES: 1+ pitting edema in bilateral lower extremities. Palpable PT and DP pulses bilaterally Skin: Purple / red discoloration of both feet till diamond ankle. Left foot colder than the right. NEUROLOGICAL: No focal neurological deficits. Assessment : is an 84 yr old w a hx of Dementia, A fib, PAD, Sys CHF, CKD3, COPD, RA, Osteoporosis, Pre-DM2, Gout, Sjgren ,mod-severe tricuspid insufficiency and HTN who was sent from her NH for evaluation of transient AMS and lower GI bleed w positive stool occult. She was found to have LINDSEY on CKD, hyperkalemia and a Hg of 9.4 in the ER and was given IVF & Kayexalate. Minimal urine output overnight. Creatinine remains elevated with elevated Potassium. Remains bradycardic in 30 range this morning. Discussed with family regarding g oals of care/ possible requirement of HD/ Central line/ pacemaker placement. Family does not want any aggressive measures of management. HCp daughters would like her to be comfortable. They would like to take her home with Hospice. MOLST form updated to [employer]T [employer] measures. GIB Possibly Ischemic colitis vs diverticular bleed. LNIDSEY on CKD with hyperkalemia Bradycardia Atrial fibrillation with slow ventricular response Acute metabolic encephalopathy Hypotension Systolic Heart failure with reduced ejection fraction. Left ventricular ejection fraction 35-40% in September 2019 PAD with ischemic left leg Chronic obstructive pulmonary disease Obstructive sleep apnea Dementia Rheumatoid arthritis with Sjogren syndrome overlap Gout Severe tricuspid regurgitation Diabetes mellitus type 2 Essential tremor Chronic venous insufficiency Plan: Transferred to [employer] status, Morphine and ativan made available. Hospice consulted. VS,Fishbone, I+O VS, Fishbone, I+O Laboratory Tests 02/02/20 20:51 02/02/20 22:14 02/03/20 04:40 02/03/20 08:58 Vital Signs Date Time Temp Pulse Resp B/P (MAP) Pulse Ox O2 Delivery O2 Flow Rate FiO2 02/03/20 09:00 32 18 92/58 (69) 98 Nasal Cannula 02/03/20 08:00 2.0 02/03/20 07:00 97.2 I&O- Last 24 Hours up to 6 AM 02/03/20 06:00 Intake Total 1860 ml Output Total 0 ml Balance 1860 ml KAMI CODY MD Feb 03, 2020 12:35
[2020-02-03] MEDS ORDERED: PATIROMER SORBITEX CALCIUM 8.4 GM POWDER PACKET (VELTASSA) PO SCH (13:00)
[2020-02-03] MEDS: MORPHINE 10MG/0.5ML ORAL CONCENTRATE SOLUTION U/D SL PRN (20:55)
[2020-02-04] MEDS: MORPHINE 10MG/0.5ML ORAL CONCENTRATE SOLUTION U/D SL PRN ×2 (02:11→08:14)
--- NOTE | 2020-02-04 07:20 | CR ---
DATE OF CONSULTATION: 02/03/2020 REQUESTING PHYSICIAN: Lauren Mendez M.D. REASON FOR CONSULTATION: Management of acute renal failure and hyperkalemia. CHIEF COMPLAINT: Patient was admitted to the hospital last night with abdominal pain. HISTORY OF PRESENT ILLNESS: Yesenia Cehema is an 84-year-old female with past medical history of chronic kidney disease stage 3; best baseline creatinine of around 1.5 as per previous records, history of heart failure with reduced ejection fraction, diabetes mellitus type 2, and multiple other comorbidities as mentioned below. She was recently admitted to the hospital with acute renal failure where she was hydrated, her renal function got better, however, she was found to have ischemia of the limb. She was transferred to [place], where no surgical intervention was needed. She was transferred back to [facility], however over there, she was having blood per rectum and she was transferred to the [facility]. On arrival, the patient was found to have bradycardia. She was hyperkalemic with a potassium of 7 on arrival and she was in acute renal failure with a creatinine of 4.4. She was admitted to the ICU overnight. Goals of care were discussed with the family members on admission, and I was told that the family did not want any aggressive management. They did not want any procedures, and only medical management was requested. Nephrology service was called on board for further help in the management of this patient. I saw and evaluated the patient today morning at the bedside in the ICU. Patient was awake. She was oriented x1 and able to answer few questions. She was bradycardic at the time when I saw her as well. PAST MEDICAL HISTORY: Chronic kidney disease stage 3, diabetes mellitus type 2, hypertension, heart failure with reduced ejection fraction, left ventricular ejection fraction of around 35 to 40% as of September 2019, COPD, obstructive sleep apnea, history of diverticulitis in the past, rheumatoid arthritis, osteoporosis, chronic gout secondary to chronic kidney disease, essential tremors, chronic venous insufficiency. PAST SURGICAL HISTORY: History of cataract surgery in the past, shoulder surgery, cholecystectomy, hysterectomy with oophorectomy in the past, bladder suspension, umbilical hernia repair, right carpal tunnel release and multiple dental extractions. ALLERGIES: She is allergic to penicillin, Allopurinol, Aripiprazole, Risperidone, sulfa drugs. FAMILY HISTORY: No significant family history of end-stage renal disease. There is positive history of heart disease in both parents. SOCIAL HISTORY: Patient is a resident of [facility]. REVIEW OF SYSTEMS: I was unable to do any reliable review of systems from the patient, however, visibly patient was in mild respiratory distress and she was bradycardic on the monitor. PHYSICAL EXAMINATION: GENERAL: Patient is awake, alert, oriented x1 only. VITAL SIGNS: Temperature 97.2 degrees Fahrenheit, blood pressure 92/58, pulse 32, respiratory rate 18, saturating 98% on nasal cannula at 2 liters. INTAKE AND OUTPUT: Urine output since the Haro was placed was 50 cc. HEAD AND NECK: Extraocular muscles intact. Pupils equally round and reactive to light. Mucous membranes are moist. Neck is supple. Mildly elevated JVD. CVS: S1, S2, patient is bradycardic with pulse rate in 30s. 1+ edema of the bilateral lower extremities. RESPIRATORY: Mildly decreased breath sounds at the bases with inspiratory crackles at the bases. ABDOMEN: Soft, obese, positive bowel sounds, nontender. GENITOURINARY: She has an indwelling Haro catheter. MUSCULOSKELETAL: No clubbing or cyanosis. Pulses are 2+. CENTRAL NERVOUS SYSTEM: Patient is oriented herself. She follows commands and moves extremities. LABORATORY REVIEW: CBC showed WBC 5.9, hemoglobin 8.5, platelets 170,000. INR 1.1. Urinalysis showed it was cloudy with 1+ protein, 2+ blood, 2+ leukocyte esterase and wbc 5. BMP on arrival showed sodium 128, potassium 7, chloride 99, bicarb 22, BUN 87, creatinine 4.4. Repeat BMP showed sodium 134, potassium 5.7, chloride 102, bicarb 25, BUN 82, creatinine 4.4. Iron 39, TIBC 266, transferrin saturation 14.7, ferritin 110. MICROBIOLOGY: No new cultures are available. IMAGING STUDIES: A CAT scan of the abdomen and pelvis was done last night, which showed high attenuation fluid in the transverse colon, descending colon and sigmoid colon, which is most dense in the sigmoid and may indicate acute GI hemorrhage, most likely due to diverticular bleed. Small left pleural effusion and consolidation in the left lower lobe, which may represent pneumonia, bilateral axillary lymphadenopathy, left inguinal and bilateral external iliac chain lymphadenopathy. ASSESSMENT AND PLAN: 1. Acute oliguric renal failure: Most likely is secondary to a combination of GI bleed, use of angiotensin receptor gunnar and diuretics. Continue the Haro catheter at this time. I discussed the goals of care with patient's daughter, Myrtle, whose is mentioned as next of kin in the patient's records. She told me that they did not want any aggressive procedures and her elder sister was coming to discuss the goals of care with the hospitalist team. Continue the medical management only. 2. Hyperkalemia: It was secondary to GI bleed and use of angiotensin receptor blockers and acute renal failure. Potassium level is already improving; it was 7 on arrival and it is 5.7 today. Patient was already given a dose of Kayexalate last night. I am going to start her on Veltassa 8.4 grams p.o. daily. 3. Hyponatremia: Patient has hypovolemic hyponatremia; sodium level is improving with the I.V. fluid hydration that was done overnight. 4. Iron deficiency anemia: Once the patient is stable, she will be given I.V. iron. 5. Possible pneumonia on the chest x-ray: Start the patient on empiric and I.V. antibiotics if patient's family wants aggressive care, 6. Bradycardia: Patient has severe symptomatic bradycardia, she was using Metoprolol and she is in acute renal failure with hyperkalemia as well. Continue to hold the beta-blockers at this time. Family does not want any temporary pacemaker placement. The rest of the management is as per medical team and cardiology recommendations. DISPOSITION: Patient is critically ill with multi-organ involvement including bradycardia, possible pneumonia, acute renal failure, hyperkalemia. Patient's family members are going to discuss goals of care today and they are leaning more towards comfort measures only. If patient is made [employer], then nephrology service will sign off at that moment. Thank you for involving me in the care of this patient. I shall be happy to follow the patient along with you tomorrow morning if we continue the aggressive medical management. ROSE
[2020-02-04] MEDS: NYSTATIN 100,000 UNITS/GM TOPICAL PWD 15 GM TOP SCH (08:14)
[2020-02-04] MEDS ORDERED: ATIV1TAB10 PO (08:53)
[2020-02-04] MEDS ORDERED: HYOS125TA PO (08:53)
[2020-02-04] MEDS ORDERED: MORP20SO3 PO (08:53)
[2020-02-04] MEDS: FLUTICASONE PROP 0.05% NASAL SPRAY 16 GM (FLONASE) SCH (09:00)
[2020-02-04 09:39] LABS: ALBUMIN 3.12 GM/DL (3.29-5.55); ALBUMIN % 49.6 % (55.8-66.1); ALPHA-1-GLOBULIN % 5.3 % (2.9-4.9); ALPHA-1-GLOBULINS 0.33 GM/DL (0.17-0.41); ALPHA-2-GLOBULINS 0.74 GM/DL (0.42-0.99); ALPHA-2-GLOBULINS % 11.8 % (7.1-11.8)
[2020-02-04 09:40] LABS: BETA-1-GLOBULINS 0.37 GM/DL (0.28-0.60); BETA-1-GLOBULINS % 5.9 % (4.7-7.2); BETA-2-GLOBULINS 0.31 GM/DL (0.19-0.55); BETA-2-GLOBULINS % 4.9 % (3.2-6.5); GAMMA GLOBULIN % 22.5 % (11.1-18.8); GAMMA GLOBULINS 1.42 GM/DL (0.65-1.58)
--- NOTE | 2020-02-04 14:57 | DS.PDOC ---
Discharge Summary General Date of Admission Feb 02, 2020 at 23:15 Date of Discharge 02/04/20 Discharge Summary PROCEDURES PERFORMED DURING STAY: [None]. DISCHARGE DIAGNOSES: GIB Possibly Ischemic colitis vs diverticular bleed. JULIO CÉSAR on CKD with hyperkalemia Severe Bradycardia Atrial fibrillation with slow ventricular response Acute metabolic encephalopathy Hypotension Systolic Heart failure with reduced ejection fraction. Left ventricular ejection fraction 35-40% in September 2019 PAD with ischemic left leg Chronic obstructive pulmonary disease Obstructive sleep apnea Dementia Rheumatoid arthritis with Sjogren syndrome overlap Gout Severe tricuspid regurgitation Diabetes mellitus type 2 Essential tremor Chronic venous insufficiency COMPLICATIONS/CHIEF COMPLAINT: Julio César, Hyperkalemia, Lower Gi Bleed. HOSPITAL COURSE: Assessment : is an 84 yr old w a hx of Dementia, A fib, PAD, Sys CHF, CKD3, COPD, RA, Osteoporosis, Pre-DM2, Gout, Sjgren ,mod-severe tricuspid insufficiency and HTN who was sent from her NH for evaluation of transient AMS and lower GI bleed w positive stool occult. She was found to have JULIO CÉSAR on CKD, hyperkalemia and a Hg of 9.4 in the ER and was given IVF & Kayexalate with no improvement of renal functions. Creatinine remained elevated with elevated Potassium. Remained bradycardic in 30 range. Discussed with family regarding goals of care/ possible requirement of HD/ Central line/ pacemaker placement. Family did not want any aggressive measures of management. HCP daughters would like her to be kept comfortable. They would like to take her home with Hospice. MOL[facility] form updated to [employer] measures. Patient discharged to home hospice. DISCHARGE MEDICATIONS: Please see below. ALLERGIES: Please see below. PHYSICAL EXAMINATION ON DISCHARGE: VITAL SIGNS: Please see below. GENERAL APPEARANCE: Patient is somnolent but easily arousable and comfortable. further physical exam not performed. ACTIVITY: [As tolerated]. DIET: As tolerated DISPOSITION: 50 [facility]ospice Home. TIME SPENT ON DISCHARGE: 25 minutes. Vital Signs/I&Os Vital Signs Date Time Temp Pulse Resp B/P (MAP) Pulse Ox O2 Delivery O2 Flow Rate FiO2 02/04/20 09:00 2.0 02/04/20 08:44 16 02/03/20 09:00 32 92/58 (69) 98 Nasal Cannula 02/03/20 07:00 97.2 I&O- Last 24 Hours up to 6 AM 02/04/20 07:00 Intake Total 210 ml Output Total 55 ml Balance 155 ml Discharge Medications Scheduled Fluticasone Propionate (Flonase Allergy Relief) 9.9 Ml [place].susp, 1 SPRAY NA DAILY, (Reported) Nystatin (Nystatin Powder) 15 Gm Powder, 1 DOSE TOP BID, (Reported) Scheduled PRN Acetaminophen (Tylenol) 325 Mg Tablet, 650 MG PO Q4H PRN for PAIN / FEVER, (Reported) Hydrocortisone (Preparation H) 26 Gm Cream..g., 1 DOSE EXT TID PRN for HEMORRHOIDS, (Reported) Hyoscyamine Sulfate (Hyoscyamine Sulfate) 0.125 Mg Tab.subl, 0.125 MG PO Q4HP PRN for TERMINAL SECRETIONS Use sublingually if unable to swallow Ipratropium/Albuterol Sulfate (Iprat-Albut 0.5-3(2.5) mg/3 ml) 3 Ml Ampul.neb, 3 ML INH Q8H PRN for DYSPNEA, (Reported) Lorazepam (Ativan) 0.5 Mg Tablet, 0.5 MG PO Q4HP PRN for ANXIETY/AGITATION Use sublingually if unable to swallow Morphine Sulfate (Morphine Sulfate) 100 Mg/5 Ml Solution, 0.25-1 ML PO Q2H PRN for PAIN OR DYSPNEA Use sublingually if unable to swallow Polyvinyl Alcohol (Polyvinyl Alcohol Eye Drops) 15 Ml Drops, 2 DROP OU TID PRN for DRY EYES, (Reported) Allergies Coded Allergies: Penicillins (Verified Allergy, Intermediate, BODY SWELLING, 02/02/20) sulfamethoxazole (Verified Allergy, Intermediate, SWELLING, 02/02/20) trimethoprim (Verified Allergy, Intermediate, SWELLING, 02/02/20) allopurinol (Verified Allergy, Mild, RASH, 02/02/20) rabeprazole (Verified Allergy, Mild, RASH, 02/02/20) risperidone (Verified Allergy, Unknown, 02/02/20) KAMI CODY MD Feb 04, 2020 14:57
--- NOTE | 2020-02-05 08:04 | ECGEPIP ---
[facility] Test Date: 2020-02-03 Pat Name: QUINCY BARBOSA Department: Room: [place] [address] Gender: Female [employer]: : [id number] Requested By: PRAVIN DOWELL Order Number: [id number] Reading MD: Brady Mireles Measurements Intervals [place] Rate: 27 P: NM: 0 QRS: 42 QRSD: 138 T: -33 QT: 587 QTc: 394 Interpretive Statements Underlying atrial fibrillation/flutter with extremely slow ventricular response Marked rightward axis with right bundle branch block Rule out prior septal/inferior injuries Primary repolarization abnormalities Slower rate from 02/02/20 Consider the need for permanent pacemaker implant Electronically Signed on 02-05-2020 8:04:49 EDT by Brady Mireles
== END 2020-02-04 12:40 | disposition hospice, home (50) | DRG 682 ==
LOC: M ED 20:11 → M ED INP 23:15 → EEVIPCON 23:15 → M ICU 02-03 01:38 → M MS5PR 02-03 15:55
PROVIDERS: ADMIT Internal Medicine; ATTEND Internal Medicine Nephrology
DX: N17.9 Acute kidney failure, unspecified (principal); G93.41 Metabolic encephalopathy; I50.22 Chronic systolic (congestive) heart failure; Q87.19 Other congenital malformation syndromes predominantly associated with short stature; K92.2 Gastrointestinal hemorrhage, unspecified; E87.1 Hypo-osmolality and hyponatremia; I48.92 Unspecified atrial flutter; I13.0 Hypertensive heart and chronic kidney disease with heart failure and stage 1 through stage 4 chronic kidney disease, or unspecified chronic kidney disease; D62 Acute posthemorrhagic anemia; K55.9 Vascular disorder of intestine, unspecified; I48.91 Unspecified atrial fibrillation; I36.0 Nonrheumatic tricuspid (valve) stenosis; E11.51 Type 2 diabetes mellitus with diabetic peripheral angiopathy without gangrene; E87.5 Hyperkalemia; J44.9 Chronic obstructive pulmonary disease, unspecified; G47.33 Obstructive sleep apnea (adult) (pediatric); F03.90 Unspecified dementia, unspecified severity, without behavioral disturbance, psychotic disturbance, mood disturbance, and anxiety; M10.9 Gout, unspecified; M06.9 Rheumatoid arthritis, unspecified; M35.00 Sjogren syndrome, unspecified; N18.30 Chronic kidney disease, stage 3 unspecified; Z79.899 Other long term (current) drug therapy; Z88.0 Allergy status to penicillin; Z88.2 Allergy status to sulfonamides; Z88.8 Allergy status to other drugs, medicaments and biological substances; K57.30 Diverticulosis of large intestine without perforation or abscess without bleeding

== ENCOUNTER → 2020-02-02 | Outpatient (REF) | payer MEDICARE, OTHER ==
[2020-02-02 11:48] LABS: HEMATOCRIT 29.6 % (36.0-47.0); MEAN CORPUSCULAR HEMOGLOBIN 30.6 pg (27.0-33.0); MEAN CORPUSCULAR HGB CONC 30.4 g/dl (32.0-36.5); MEAN CORPUSCULAR VOLUME 100.7 fl (80.0-96.0); PLATELET COUNT, AUTOMATED 184 10^3/uL (150-450); RED BLOOD COUNT 2.94 10^6/uL (4.00-5.40); WHITE BLOOD COUNT 5.7 10^3/uL (4.0-10.0)
[2020-02-02 12:15] LABS: CREATININE FOR GFR 4.24 MG/DL (0.55-1.30); GLOMERULAR FILTRATION RATE 10.7 (>32); POTASSIUM SERUM 5.6 MEQ/L (3.5-5.1)
== END ==
PROVIDERS: ATTEND Internal Medicine
DX: I10 Essential (primary) hypertension (principal)